=== PATIENT | female | born 1965 | race Caucasian/White ===

== ENCOUNTER 2019-12-16 13:59 | Outpatient (CLI) | payer MEDICARE, MEDICAID, SELFPAY ==
[2019-12-16 14:29] LABS: Hemoglobin A1C 7.4 % (<5.7)
== END 2019-12-16 14:00 | disposition home or self-care (01) ==
LOC: ANHLAB 14:02
PROVIDERS: PCP Family Medicine; Visit Provider Family Medicine
DX: E11.9 Type 2 diabetes mellitus without complications (principal)
CPT/HCPCS: 36415; 83036

== ENCOUNTER 2020-01-05 14:13 | Outpatient (CLI) | payer MEDICARE, MEDICAID, SELFPAY ==
--- NOTE | ~2020-01-05 | MM_ITS ---
EXAMINATION: MM screening lenora BI w mira HISTORY: Screening mammogram TECHNIQUE: Craniocaudal and mediolateral oblique 3-D tomosynthesis images were obtained and synthetic 2-D images were generated. CAD analysis was submitted and interpreted. COMPARISON: 01/01/2019, 12/24/2017, 11/16/2016 bilateral digital screening mammogram examinations BREAST PARENCHYMAL COMPOSITION: The breasts are almost entirely fatty. FINDINGS: There is no evidence of suspicious mass, calcification, or architectural distortion to sugg est malignancy in either breast. There has been no suspicious interval change. IMPRESSION: 1. No mammographic evidence of malignancy. 2. Recommend routine screening mammography in one year. BI-RADS Category 1: Negative Reviewed, dictated and finalized at location A. 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
== END 2020-01-05 14:14 | disposition home or self-care (01) ==
LOC: ANHIMG 14:19
PROVIDERS: PCP Family Medicine; Visit Provider Family Medicine
DX: Z12.31 Encounter for screening mammogram for malignant neoplasm of breast (principal)
CPT/HCPCS: 77063; 77067

== ENCOUNTER 2020-03-31 18:52 | Emergency (ER) | payer MEDICARE, MEDICAID, SELFPAY ==
--- NOTE | ~2020-03-31 | CT_ITS ---
EXAMINATION: CT abdomen pelvis w con EXAM DATE: 03/31/2020 21:28 INDICATION: Abdominal pain, fecal incontinence. Falling. TECHNIQUE: Spiral CT of the abdomen and pelvis was performed following intravenous injection of 100 m L Omnipaque 350. Axial, coronal and sagittal images were reviewed. The dose-length product (DLP) fo r this examination was 1632.50 mGy-cm. The exposure was tailored according to patient size (auto mA exposure control), and iterative reconstruction (ASIR) was used as additional dose reduction techniqu e. There is no prior study for comparison. FINDINGS: The spleen is normal in size, but has a small geographically shaped wedge-shaped hypodensit y, appearance most consistent with small splenic infarction, self-limiting but can cause abdominal pa in. There is hepatic steatosis without suspicious focal lesion identified. Adrenal glands, pancreas are unremarkable. There are cholecystectomy clips. Portal and splenic veins are patent. Kidneys e nhance symmetrically. Small regions of left renal cortical scarring from prior infection or infarctio n. There is no hydronephrosis. There is small mass within central aspect of pelvis measuring about 4.1 x 4.6 cm, probably an atrophi c uterus assuming patient is postmenopausal and has not had hysterectomy. The bladder is unremarkabl e. There is no retroperitoneal or pelvic lymphadenopathy. The appendix is normal. The stomach and small bowel are unremarkable. There is expected amount of c olonic stool. No free intraperitoneal gas. There is cardiomegaly. There are no pleural or pericar dial effusions. The lung bases are unremarkable. There are no osteoblastic or osteolytic lesions id entified. There are no acute fractures identified. IMPRESSION: 1. Small geographic shaped splenic hypodensity most likely acute infarction. 2. Small regions of left renal cortical scarring. 3. Pelvic mass probably atrophic retroverted uterus. 4. Hepatic steatosis. 5. No acute fracture identified Reviewed, dictated and finalized at location A.
--- NOTE | ~2020-03-31 | XR_ITS ---
EXAMINATION: XR chest 2V EXAM DATE: 03/31/2020 20:33 INDICATION: Weakness, fever, lower extremity swelling. History diabetes. TECHNIQUE: Frontal and lateral projections of the chest obtained and reviewed. Comparison is made to prior examination from 10/06/2016. FINDINGS: The lungs are clear. There are no pleural effusions. Cardiac silhouette is enlarged but s table in size compared to prior exam. There is no pneumothorax suspected. The bones and soft tissu es are unremarkable. IMPRESSION: Cardiomegaly. Reviewed, dictated and finalized at location A. IMPRESSION: Cardiomegaly.
[2020-03-31 19:02] VITALS: BP 148/65; PULSE 83; RESP 20; TEMP 38.3; O2SAT 99
--- NOTE | 2020-03-31 19:11 | ECG_ITS ---
Measurements Intervals [place] Rate: 76 P: [place]: 0 QRS: -48 QRSD: 120 T: 78 QT: 410 QTc: 463 Interpretive Statements ATRIAL FIBRILLATION LEFT AXIS DEVIATION ST-T WAVE ABNORMALITY IN HIGH LATERAL LEADS- CONSIDER ISCHEMIA BASELINE ARTIFACT- II, III, AVF, V6 ABNORMAL ECG Electronically Signed On 03-31-2020 19:41:45 CDT by Yon Devries D.O.
[2020-03-31 19:12] VITALS: PULSE 76
[2020-03-31 19:39] LABS: Basophils Percent Auto 0.2 % (0.2-1.2); Hematocrit 36.8 % (37.0-47.0); Hemoglobin 11.5 g/dL (12.0-15.0); Immature Granulocyte Absolute 0.07 K/mm3 (0.00-0.031); Immature Granulocyte Percent A 0.4 % (0-0.5); Lymphocytes Absolute Auto 1.04 K/mm3 (0.9-3.2); Lymphocytes Percent Auto 6.3 % (18.3-44.2); Mean Corpuscular HGB Conc 31.3 g/dl (32-36); Mean Corpuscular Volume 92.7 fl (80-100); Mean Platelet Volume 10.8 fl (7.4-10.4); Monocytes Absolute Auto 1.3 K/mm3 (0.1-0.6); Monocytes Percent Auto 7.6 % (2.6-8.5); Neutrophils Absolute Auto 14.2 K/mm3 (1.3-6.7); Neutrophils Percent Auto 85.5 % (45.5-73.1); Platelet Count Result 301 k/mm3 (150-375); Red Blood Count 3.97 M/mm3 (4.2-5.4); Red Cell Distribution Width 14.8 % (11.5-14.5); White Blood Count 16.6 K/mm3 (4.5-10.0)
[2020-03-31 19:51] LABS: Alanine Aminotransferase 14 U/L (4-35); Alkaline Phosphatase 106 U/L (38-126); Aspartate Amino Transferase 20 U/L (14-36); Blood Urea Nitrogen 8 mg/dL (7-17); Calcium 9.2 mg/dL (8.4-10.2); Carbon Dioxide 34 mmol/L (22-30); Chloride 97 mmol/L (98-107); Estimated CRCL calculation 162 ml/min; Estimated Glomerular Filt Rate > 60; Glucose 221 mg/dL (65-105); Potassium 3.6 mmol/L (3.4-5.0); Sodium 136 mmol/L (137-145)
[2020-03-31 20:23] LABS: Add Urine Microscopic? YES; Appearance Urine Cloudy (Clear); Bacteria Urine Trace /hpf; Bilirubin Urine Negative (Negative); Blood Urine 1+ (Negative); Color Urine Yellow (Yellow); Glucose Urine UA Negative (Negative); Ketones Urine 1+ mg/dL (Negative); Leukocyte Esterase Ur 3+ LEU/UL (Negative); Nitrate Urine Negative (Negative); Protein Urine 1+ mg/dL (Negative); RBC Urine 21-50 /hpf (0-2); Specific Grav Ur 1.009 (1.001-1.035); Urobilinogen Urine Negative mg/dL (<2.0); WBC Clumps Urine Present /HPF; WBC Urine >75 /hpf
--- NOTE | 2020-03-31 20:44 | ED.WEAKNESS ---
HPI - Weakness General Chief complaint: Weakness Stated complaint: Weakness, Fall, ABD pain Time Seen by Provider: 03/31/20 20:34 History of Present Illness HPI Narrative: Patient presents via EMS with her sister for falling today. She usually uses a walker around the house, but fell into her sister's chair on the way to her own chair. They called EMS for help, and because she felt too weak to stand, they came in. Recently she has had diffuse abdominal pain and bloating. She said her bowels used to be regular, but recently she is alternated with soft loose fecal incontinence and no bowel for 3 days. She has frequent urination, on her water pills, and just sits on the toilet for 4 to 5 hours. She feels like she is fluid overloaded at this time. She and her sister both agree that she has excess fluid on her ankles and feet. He has had fever for the last couple days. Her only localizing symptoms is the belly pain. She and her sister have adjoining apartments, but they have been staying together since she needs so much help with her physical activity. Her legs are weak due to peripheral neuropathy, and congestive heart failure. MD Complaint: generalized weakness Onset (ago): day(s) Duration: constant Location: generalized Severity: severe Relieving factors: none Exacerbating factors: exertion Related Data Home Medications Medication Instructions Recorded Confirmed atorvastatin 40 mg tablet 40 mg PO DAILY 09/10/19 02/02/20 blood sugar diagnostic #10 each 09/10/19 02/02/20 cyanocobalamin (vitamin B-12) 1,000 mcg PO DAILY 09/10/19 02/02/20 1,000 mcg tablet dabigatran etexilate 150 mg capsule 150 mg PO BID 09/10/19 02/02/20 fluticasone propionate 50 1 spray NASAL DAILY 09/10/19 02/02/20 mcg/actuation nasal spray,suspension potassium chloride 10 mEq 10 meq PO DAILY 09/10/19 02/02/20 capsule,extended release furosemide 40 mg tablet 120 mg PO DAILY tablet 09/11/19 02/02/20 loratadine 10 mg tablet 10 mg PO DAILY 02/02/20 02/02/20 Allergies Allergy/AdvReac Type Severity Reaction Status Date / Time No Known Allergies Allergy Verified 02/02/20 09:07 Review of Systems Review of Systems: Narrative: CONSTITUTIONAL: He has had fever. EYES: Denies visual changes, redness, or discharge. ENT: Denies rhinorrhea, congestion, sore throat, or otalgia. CARDIOVASCULAR: Denies chest pain, palpitations, or edema. RESPIRATORY: Denies cough or dyspnea. GASTROINTESTINAL: She has had generalized abdominal pain, and diarrhea. GENITOURINARY: Denies dysuria or hematuria. SKIN: Denies rash or itching. MUSCULOSKELETAL: Denies back pain, joint pain, or myalgia. NEUROLOGIC: Denies headache, numbness. PSYCHIATRIC: Denies anxiety or depression. All systems reviewed & are unremarkable except as noted in HPI and below PMFSH Past Medical History Medical History Abnormal gait Benign hypertension Bilateral leg weakness Bilateral wrist pain Encounter for general adult medical examination w/o abnormal findings Hyperlipidemia LDL goal <100 Hypothyroidism determined by thyroid function test Hypoxemia Idiopathic peripheral autonomic neuropathy (06/26/19) Left shoulder pain Morbid obesity Peripheral neuropathy Psoriasis Recurrent falls while walking Screening for malignant neoplasm of colon Type 2 diabetes, controlled, with neuropathy Surgical History Surgical History History of cholecystectomy History of tonsillectomy Family History Family History Father Acute myocardial infarction Mother Family history of malignant neoplasm of cervix Other Diabetes mellitus Family history of coronary artery disease Hypertension Social History Social History Smoking status: Never smoker Second hand tobacco smoke exposure: No Alcohol intake:
[2020-03-31 21:11] LABS: NT Pro B Type Natriuretic Pept 1340 PG/ML (5-100)
[2020-03-31 23:38] VITALS: BP 167/82; PULSE 75; RESP 18; O2SAT 99
[2020-04-01] MEDS: ACETAMINOPHEN 325 MG TABLET 650 MG (00:21)
[2020-04-01 00:29] VITALS: BP 157/89; PULSE 74; RESP 18; O2SAT 99
[2020-04-01 01:08] VITALS: BP 139/64; PULSE 89; RESP 23; O2SAT 99
[2020-04-01] MEDS: ONDANSETRON INJ 4 MG/2 ML VIAL (01:34)
== END 2020-04-01 02:05 | disposition short-term general hospital (02) ==
PROVIDERS: Emergency Provider Emergency Medicine; PCP Family Medicine
DX: R53.1 Weakness (principal); D73.5 Infarction of spleen; R26.2 Difficulty in walking, not elsewhere classified; E66.01 Morbid (severe) obesity due to excess calories; Z68.44 Body mass index [BMI] 60.0-69.9, adult; N39.0 Urinary tract infection, site not specified; R19.00 Intra-abdominal and pelvic swelling, mass and lump, unspecified site; K76.0 Fatty (change of) liver, not elsewhere classified; I02.0 Rheumatic chorea with heart involvement; I10 Essential (primary) hypertension; E78.5 Hyperlipidemia, unspecified; E03.9 Hypothyroidism, unspecified; E11.42 Type 2 diabetes mellitus with diabetic polyneuropathy
CPT/HCPCS: 36415; 51701; 71046; 74177; 80053; 81001; 83605; 83880; 85025; 87040; 87077; 87086; 87088; 87186; 93005; 96365; 96375; 99285; A9270; J0696; J2405; J7030; Q9967

== ENCOUNTER 2020-09-14 14:23 | Inpatient (IN) | payer MEDICARE, MEDICAID, SELFPAY ==
[2020-09-14] VITALS (21 sets, daily range): BP systolic 102–175; BP diastolic 53–83; PULSE 57–91; RESP 18–39; TEMP 36.6–36.7; O2SAT 86–96; BMI 65.3
--- NOTE | ~2020-09-14 | XR_ITS ---
XR chest 1V portable 10/10/2020 06:10 Indication: Covid19 pneumonia Procedure: AP portable chest Comparison: Comparison to multiple prior studies sequentially, with oldest reviewed study dated 12/2019. Findings: Diffuse bilateral airspace consolidation has progressed. No pneumothorax. No significant pl eural effusion. Impression: 1: Progression of diffuse bilateral airspace consolidation, consistent with pneumonia. Reviewed, dictated and finalized at location A. 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
--- NOTE | ~2020-09-14 | XR_ITS ---
EXAMINATION: XR chest 1V portable DATE: 09/22/2020 06:08 INDICATION: COVID-19 pneumonia. TECHNIQUE: A single frontal view of the chest was obtained. COMPARISON: Chest single view 09/21/2020 FINDINGS: There are airspace opacities throughout the lungs bilaterally. No pleural effusion or pneum othorax. Cardiomegaly is noted. The endotracheal tube tip is 4.0 cm above the donna. The nasogastric tube tip is beyond the inferior margin of the radiograph, but at least to the stomach. A right upper extremity peripherally inserted central venous catheter (PICC) is seen with tip in the superior vena cava. IMPRESSION: 1. Stable diffuse lung disease, consistent with pneumonia versus pulmonary edema versus acute respira tory distress syndrome (ARDS). 2. Cardiomegaly. Reviewed, dictated and finalized at location A. INE OVERHAULER IMPRESSION: 1. Stable diffuse lung disease, consistent with pneumonia versus pulmonary rosa a versus acute respiratory distress syndrome (ARDS). 2. Cardiomegaly.
--- NOTE | ~2020-09-14 | XR_ITS ---
EXAMINATION: XR chest 1V portable EXAM DATE: 09/17/2020 06:37 INDICATION: COVID-19 pneumonia Respiratory failure. TECHNIQUE: Portable AP frontal chest x-ray was obtained. Comparison is made to prior examination from 09/15, 09/16. FINDINGS: Endotracheal tube tip is 3-4 centimeters above the donna (ideal range is between 2 to 5 cm ). There is a nasogastric tube seen with tip collimated off the study, but below the left hemidiaphr agm. There is a right-sided PICC line with tip projecting over the cavoatrial junction. There is extensive bilateral acute airspace disease, consistent with COVID-19 pneumonia. There are n o sizable pleural effusions. There is no pneumothorax suspected. The cardiac silhouette is enlarg ed. The bones and soft tissues are unremarkable. Compared to prior examination, possible slight interval improvement in the airspace disease. IMPRESSION: 1. Line(s) and tube(s) in position. 2. Extensive acute airspace disease, clinical correlation. OR CHEMIST Reviewed, dictated and finalized at location A.
--- NOTE | ~2020-09-14 | XR_ITS ---
EXAMINATION: XR chest 1V portable EXAM DATE: 10/08/2020 06:18 INDICATION: COVID-19 pneumonia, respiratory failure TECHNIQUE: Portable AP frontal chest x-ray was obtained. Comparison is made to prior examination from 10/07, 10/05. FINDINGS: There is tracheostomy in position. There is a right-sided PICC line with tip projecting ove r the SVC. Moderate to severe amount of bilateral ill-defined acute airspace disease. There are no sizable pleu ral effusions. There is no pneumothorax suspected. The cardiac silhouette is enlarged. The bone s and soft tissues are unremarkable. Previously seen endotracheal and nasogastric tubes no longer identified. There is no significant inte rval change in airspace disease. IMPRESSION: 1. Line and tube(s) in position. 2. Moderate to severe amount of bilateral edema and/or infection. E STACKER HAND Reviewed, dictated and finalized at location A.
--- NOTE | ~2020-09-14 | XR_ITS ---
EXAMINATION: XR chest 1V portable EXAM DATE: 10/06/2020 05:47 INDICATION: COVID-19. Respiratory failure. TECHNIQUE: Portable AP frontal chest x-ray was obtained. Comparison is made to prior examination from 10/05. FINDINGS: Endotracheal tube tip is 3 centimeters above the donna. There is a nasogastric tube seen with tip collimated off the study, but below the left hemidiaphragm. There is a right-sided PICC line with tip projecting over the SVC. Moderate to severe amount of bilateral ill-defined acute airspace disease. There are no sizable pleu ral effusions. There is no pneumothorax suspected. The cardiomediastinal silhouette is prominent but magnified on this AP technique. The bones and soft tissues are unremarkable. There is no significant interval change. IMPRESSION: 1. Line and tube(s) in position. 2. Moderate to severe amount of bilateral edema and/or infection. Reviewed, dictated and finalized at location A. 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
--- NOTE | ~2020-09-14 | XR_ITS ---
XR chest PICC line DATE: 09/15/2020 22:09 INDICATION: PICC line placement TECHNIQUE: Portable AP chest on 09/15/2020 at 2158 hours COMPARISON: 09/15/2020 portable AP chest at 1430 hours FINDINGS: ET tube in satisfactory position approximately 2.5 cm above donna. NG tube in stomach. Right upper extremity PIC catheter tip overlies the superior vena cava near the superior cavoatrial j unction. There are extensive bilateral pulmonary infiltrates are again noted. Probable cardiomegaly. IMPRESSION: Right upper extremity PICC line placement in superior vena cava near superior cavoatrial junction Reviewed, dictated and finalized at Location A. Reviewed, dictated and finalized at location A. HER FORECASTER IMPRESSION: Right upper extremity PICC line placement in superior vena cava zofia r superior cavoatrial junction
--- NOTE | ~2020-09-14 | XR_ITS ---
EXAMINATION: XR chest 1V portable EXAM DATE: 09/27/2020 06:15 INDICATION: f/u COVID, resp failure TECHNIQUE: Portable AP frontal chest x-ray was obtained. Comparison is made to prior examination from 09/25, 09/24. FINDINGS: Endotracheal tube tip is 3.5 centimeters above the donna (ideal range is between 2 to 5 cm ). There is a nasogastric tube seen with tip collimated off the study, but below the left hemidiaphr agm. There is a right-sided PICC line with tip projecting over the cavoatrial junction. There is moderate to severe amount of acute bilateral ill-defined airspace disease with regions of co nfluence. Appearance is consistent with provided history of COVID-19 pneumonia. There are no sizable pleural effusions. There is no pneumothorax suspected. Mild cardiomegaly. Bridging thoracolumba r endplate osteophytes. There is no significant interval change compared to prior exam. IMPRESSION: 1. Line(s) and tube(s) in position. 2. Stable airspace disease and other findings as above. MASTER Reviewed, dictated and finalized at location B.
--- NOTE | ~2020-09-14 | XR_ITS ---
EXAMINATION: XR chest 1V portable EXAM DATE: 10/07/2020 06:15 INDICATION: COVID-19 pneumonia, respiratory failure. TECHNIQUE: Portable AP frontal chest x-ray was obtained. Comparison is made to prior examination from 10/06, 10/05, 10/04. FINDINGS: Endotracheal tube tip is 3 centimeters above the donna. There is a nasogastric tube seen with tip collimated off the study, but below the left hemidiaphragm. There is a right-sided PICC line with tip projecting over the SVC. Moderate to severe amount of bilateral ill-defined acute airspace disease. There are no sizable pleu ral effusions. There is no pneumothorax suspected. The cardiac silhouette is enlarged. The bone s and soft tissues are unremarkable. There is no significant interval change. IMPRESSION: 1. Line and tube(s) in position. 2. Moderate to severe amount of bilateral edema and/or infection. Reviewed, dictated and finalized at location A. STITCH BINDER
--- NOTE | ~2020-09-14 | XR_ITS ---
EXAMINATION: XR chest 1V portable EXAM DATE: 09/25/2020 05:59 INDICATION: COVID-19 pneumonia . TECHNIQUE: Portable AP frontal chest x-ray was obtained. Comparison is made to prior examination from 09/24. FINDINGS: Endotracheal tube tip is 4.5 centimeters above the donna (ideal range is between 2 to 5 cm ). There is a nasogastric tube seen with tip collimated off the study, but below the left hemidiaphr agm. There is moderate to severe amount of acute bilateral ill-defined airspace disease with regions of co nfluence. Appearance is consistent with provided history of COVID-19 pneumonia. There are no sizable pleural effusions. There is no pneumothorax suspected. Mild cardiomegaly. Bridging thoracolumba r endplate osteophytes. There is no significant interval change compared to prior exam. IMPRESSION: 1. Line(s) and tube(s) in position. 2. Stable airspace disease and other findings as above. Reviewed, dictated and finalized at location A. CAL SERVICES COORDINATOR
--- NOTE | ~2020-09-14 | XR_ITS ---
EXAMINATION: XR chest 1V portable DATE: 09/20/2020 05:47 INDICATION: COVID-19 pneumonia. TECHNIQUE: A single frontal view of the chest was obtained. COMPARISON: Chest single view 09/19/2020, CT abdomen and pelvis 03/31/2020 FINDINGS: The patient is rotated to her left. There are airspace opacities in all lung zones bilatera lly. No pleural effusion or pneumothorax. Cardiomegaly is noted. The endotracheal tube tip is 3.3 cm above the donna. The nasogastric tube tip overlies the superior mediastinum. A right upper extremity peripherally inserted central venous catheter (PICC) is seen with tip at superior cavoatrial junctio n. IMPRESSION: 1. Diffuse lung disease with slight improvement in right lung base, consistent with pneumonia versus pulmonary edema versus acute respiratory distress syndrome (ARDS). 2. Cardiomegaly. 3. Nasogastric tube tip overlying the superior mediastinum. Repositioning is recommended. Reviewed, dictated and finalized at location A. H SHEAR OPERATOR IMPRESSION: 1. Diffuse lung disease with slight improvement in right lung base, consistent with pneumonia versus pulmonary edema versus acute respiratory distress syndrom e (ARDS). 2. Cardiomegaly. 3. Nasogastric tube tip overlying the superior mediastinum. Repositioning is re commended.
--- NOTE | ~2020-09-14 | XR_ITS ---
XR chest 1V portable DATE: 10/03/2020 06:01 INDICATION: Respiratory failure TECHNIQUE: Portable AP chest on 10/03/2020 at 0533 hours COMPARISON: 10/02/2020 portable AP chest at 0530 hours FINDINGS: ET tube in satisfactory position 2.8 cm above donna. NG tube in stomach. Right upper extre mity PIC catheter tip overlies superior vena cava. Diffuse prominent patchy consolidating infiltrates again noted throughout both lungs, stable since . No pleural effusion or pneumothorax. IMPRESSION: Persistent stable diffuse prominent patchy bilateral pulmonary infiltrates, relatively un changed since 10/02/2020 Reviewed, dictated and finalized at location A. ODONTIST SMALL BUSINESS OWNER IMPRESSION: Persistent stable diffuse prominent patchy bilateral pulmonary infi ltrates, relatively unchanged since 10/02/2020
--- NOTE | ~2020-09-14 | XR_ITS ---
EXAMINATION: XR abdomen NG/feed tube rechec DATE: 09/20/2020 08:34 INDICATION: Nasogastric tube adjustment. TECHNIQUE: A semiupright view of the abdomen was obtained. COMPARISON: Abdomen single view 09/15/2020 FINDINGS: The lower abdomen and right lateral aspect of the abdomen are excluded. There are no visibl e dilated loops of bowel. The nasogastric tube tip is in the distal stomach. IMPRESSION: 1. Nasogastric tube tip in the distal stomach. Reviewed, dictated and finalized at location A. ARCH INTERN
--- NOTE | ~2020-09-14 | XR_ITS ---
EXAMINATION: XR chest 1V portable DATE: 09/14/2020 15:20 INDICATION: Shortness of breath and cough. TECHNIQUE: A single frontal view of the chest was obtained on 2 radiographs. COMPARISON: Chest 2 views 03/31/2020, CT abdomen and pelvis 03/31/2020 FINDINGS: There are airspace opacities in all lung zones bilaterally. No pleural effusion or pneumoth orax. Cardiomegaly is noted. IMPRESSION: 1. Diffuse lung disease, consistent with pulmonary edema versus pneumonia. 2. Cardiomegaly. Reviewed, dictated and finalized at location B. BUILDER
--- NOTE | ~2020-09-14 | XR_ITS ---
XR chest 1V portable DATE: 09/30/2020 06:42 INDICATION: COVID, Congestive heart failure TECHNIQUE: Portable AP chest at 0617 hours COMPARISON: 09/29/2020 portable AP chest at 0550 hours FINDINGS: ET and NG tubes are in satisfactory position, the ET tube tip 3.5 cm above donna. There are extensive diffuse patchy bilateral pulmonary consolidating infiltrates, increased in sever ity since 09/29/2020. No pleural effusion or pneumothorax is detected. IMPRESSION: Increasingly severe bilateral extensive pulmonary patchy consolidating infiltrates since 09/29/2020 Reviewed, dictated and finalized at location A. WORK SUPERVISOR IMPRESSION: Increasingly severe bilateral extensive pulmonary patchy consolidat ing infiltrates since 09/29/2020
--- NOTE | ~2020-09-14 | XR_ITS ---
EXAMINATION: XR chest ET placement DATE: 09/15/2020 14:48 INDICATION: Intubation. TECHNIQUE: A single frontal view of the chest was obtained. COMPARISON: Chest single view 09/15/2020 at 9:48 AM FINDINGS: There are patchy airspace opacities involving all lung zones bilaterally. No pleural effusi on or pneumothorax. Cardiomegaly is noted. The endotracheal tube tip is 2.9 cm above the donna. The nasogastric tube tip is beyond the inferior margin of the radiograph, but at least to the stomach. IMPRESSION: 1. Worsened diffuse lung disease, consistent with pulmonary edema versus pneumonia. 2. Cardiomegaly. Reviewed, dictated and finalized at location B. ARCH AFFILIATE IMPRESSION: 1. Worsened diffuse lung disease, consistent with pulmonary edema versus pneumo juanis. 2. Cardiomegaly.
--- NOTE | ~2020-09-14 | XR_ITS ---
EXAMINATION: XR abdomen NG/feed tube insert DATE: 09/15/2020 14:48 INDICATION: Nasogastric tube placement. TECHNIQUE: An upright view of the abdomen was obtained. COMPARISON: None. FINDINGS: The lower abdomen and right lateral aspect of the abdomen excluded. The nasogastric tube ti p is in the stomach. IMPRESSION: 1. Nasogastric tube tip in the stomach. Reviewed, dictated and finalized at location B. MOBILE RENTAL REPRESENTATIVE
--- NOTE | ~2020-09-14 | XR_ITS ---
EXAMINATION: XR abdomen NG/feed tube rechec DATE: 09/15/2020 14:48 INDICATION: Orogastric tube advancement. TECHNIQUE: An upright view of the abdomen was obtained. COMPARISON: CT abdomen and pelvis 03/31/2020 FINDINGS: The lower abdomen and right lateral aspect of the abdomen is excluded. Surgical clips in th e right upper quadrant are likely from cholecystectomy. The nasogastric tube tip is in the stomach. T here is prominent bowel in the midabdomen. IMPRESSION: 1. Nasogastric tube tip in the stomach. 2. Prominent bowel in the midabdomen which may be magnified normal bowel or dilated bowel from adynam ic ileus. Reviewed, dictated and finalized at location B. ERATIVE EXTENSION AGENT IMPRESSION: 1. Nasogastric tube tip in the stomach. 2. Prominent bowel in the midabdomen which may be magnified normal bowel or dil ated bowel from adynamic ileus.
--- NOTE | ~2020-09-14 | XR_ITS ---
EXAMINATION: XR chest 1V portable DATE: 09/24/2020 06:14 INDICATION: COVID-19 pneumonia. TECHNIQUE: A single frontal view of the chest was obtained. COMPARISON: Chest single view 09/23/2020 FINDINGS: The patient is rotated to her left. There are airspace opacities in all lung zones bilatera lly, worst in right lower lung zone. No pleural effusion or pneumothorax. Cardiomegaly is noted. The endotracheal tube tip is 4.9 cm above the donna. The nasogastric tube tip is beyond the inferior mar gin of the radiograph, but at least to the stomach. A right upper extremity peripherally inserted vipul tral venous catheter (PICC) is seen with tip in the superior vena cava. IMPRESSION: 1. Diffuse lung disease with slight improvement on the left, consistent with pneumonia versus pulmona ry edema versus acute respiratory distress syndrome (ARDS). 2. Cardiomegaly. Reviewed, dictated and finalized at location A. B NURSING TECH IMPRESSION: 1. Diffuse lung disease with slight improvement on the left, consistent with pn eumonia versus pulmonary edema versus acute respiratory distress syndrome (ARDS ). 2. Cardiomegaly.
--- NOTE | ~2020-09-14 | XR_ITS ---
XR chest 1V portable 09/29/2020 06:07 Indication: CovidPneumonia. Respiratory failure. Procedure: AP portable chest Comparison: Comparison to multiple prior studies sequentially, with oldest reviewed study dated 09/05. Findings: Endotracheal tube at the thoracic inlet, 7.4 cm above the donna. NG tube in the stomach. D iffuse bilateral airspace disease without significant change, consistent with pneumonia. No pleural e ffusion or pneumothorax. No acute osseous abnormality. Impression: 1: Diffuse bilateral airspace disease, compatible with pneumonia. Reviewed, dictated and finalized at location A. DELIVERER Impression: 1: Diffuse bilateral airspace disease, compatible with pneumonia.
--- NOTE | ~2020-09-14 | XR_ITS ---
EXAMINATION: XR chest 1V portable EXAM DATE: 09/15/2020 09:56 INDICATION: Respiratory failure. TECHNIQUE: Portable AP frontal chest x-ray was obtained. Comparison is made to prior examination from 09/14/2020. FINDINGS: Extensive patchy bilateral acute airspace disease, could be ARDS/edema and/or infection. CO VID 19 should be excluded. No pneumothorax or pleural effusion. The cardiac silhouette is enlarged. T here are no osseous abnormalities identified. IMPRESSION: Extensive bilateral acute airspace disease, clinical correlation. Reviewed, dictated and finalized at location A. MOTIVE PAINTER
--- NOTE | ~2020-09-14 | XR_ITS ---
EXAMINATION: XR chest 1V portable DATE: 09/21/2020 05:34 INDICATION: COVID-19 pneumonia. TECHNIQUE: A single frontal view of the chest was obtained. COMPARISON: Chest single view 09/20/2020 FINDINGS: There are airspace opacities throughout all lung zones bilaterally. No pleural effusion or pneumothorax. Cardiomegaly is noted. The endotracheal tube tip is 3.8 cm above the donna. A right up per extremity peripherally inserted central venous catheter (PICC) is seen with tip at the superior c avoatrial junction. The nasogastric tube tip is beyond the inferior margin of the radiograph, but at least to the stomach. IMPRESSION: 1. Stable diffuse lung disease, consistent with pneumonia versus pulmonary edema versus acute respira tory distress syndrome (ARDS). 2. Cardiomegaly. Reviewed, dictated and finalized at location A. N ATTENDANT IMPRESSION: 1. Stable diffuse lung disease, consistent with pneumonia versus pulmonary rosa a versus acute respiratory distress syndrome (ARDS). 2. Cardiomegaly.
--- NOTE | ~2020-09-14 | XR_ITS ---
EXAMINATION: XR chest 1V portable INDICATION: COVID 19 pneumonia TECHNIQUE: Portable AP chest at 0743 hours COMPARISON: 09/17/2020 FINDINGS: The endotracheal tube ends approximately 3.4 cm above the donna. The nasogastric tube is f ollowed as far as the stomach. Its tip is beyond the inferior margin of the radiograph. A right upper extremity PICC ends with its tip in the superior vena cava. There is stable cardiomegaly. Diffuse in terstitial and airspace opacities persist with slight improvement in the right upper lung zone. IMPRESSION: 1. Diffuse lung disease with interval improvement, consistent with pneumonia and/or pulmonary edema a nd/or acute respiratory distress syndrome (ARDS). Reviewed, dictated and finalized at location A. ICUT LINE OPERATOR IMPRESSION: 1. Diffuse lung disease with interval improvement, consistent with pneumonia an d/or pulmonary edema and/or acute respiratory distress syndrome (ARDS).
--- NOTE | ~2020-09-14 | XR_ITS ---
EXAMINATION: XR chest 1V portable EXAM DATE: 09/16/2020 06:04 INDICATION: Respiratory failure. COVID-19. TECHNIQUE: Portable AP frontal chest x-ray was obtained. Comparison is made to prior examination from 09/15, 09/14. FINDINGS: Endotracheal tube tip is 2 centimeters above the donna (ideal range is between 2 to 5 cm). There is a nasogastric tube seen with tip collimated off the study, but below the left hemidiaphrag m. There is a right-sided PICC line with tip projecting over the cavoatrial junction. There is extensive bilateral acute airspace disease, consistent with COVID-19 pneumonia. There are n o sizable pleural effusions. There is no pneumothorax suspected. The cardiac silhouette is enlarg ed. The bones and soft tissues are unremarkable. There is no significant interval change compared to prior exam. IMPRESSION: 1. Line(s) and tube(s) in position. 2. Extensive acute airspace disease, clinical correlation. Reviewed, dictated and finalized at location A. STOS CLOTH INSPECTOR
--- NOTE | ~2020-09-14 | XR_ITS ---
EXAMINATION: XR chest 1V portable DATE: 10/11/2020 05:42 INDICATION: COVID 19 pneumonia. Respiratory failure. TECHNIQUE: frontal view of the chest was obtained. COMPARISON: Chest radiograph dated 10/10/2020 FINDINGS: Tracheostomy tube remains in expected position at the thoracic inlet. Right upper extremity periphera lly inserted central venous catheter (PICC) tip at the mid superior vena cava. Diffuse bilateral patchy airspace opacities throughout both lungs. No pneumothorax or definitive pleu ral effusion. Cardiomegaly. IMPRESSION: 1. No significant change in diffuse bilateral lung disease which could represent moderate pulmonary e kyle, pneumonia, ARDS or some combination thereof. Reviewed, dictated and finalized at location A. REPAIRER IMPRESSION: 1. No significant change in diffuse bilateral lung disease which could represen t moderate pulmonary edema, pneumonia, ARDS or some combination thereof.
--- NOTE | ~2020-09-14 | XR_ITS ---
EXAMINATION: XR chest 1V portable EXAM DATE: 10/05/2020 06:16 INDICATION: Respiratory failure. COVID-19. TECHNIQUE: Portable AP frontal chest x-ray was obtained. Comparison is made to prior examination from 10/04. FINDINGS: Endotracheal tube tip is 3 centimeters above the donna. There is a nasogastric tube seen with tip collimated off the study, but below the left hemidiaphragm. There is a right-sided PICC line with tip projecting over the SVC. Moderate to severe amount of bilateral ill-defined acute airspace disease. There are no sizable pleu ral effusions. There is no pneumothorax suspected. The cardiomediastinal silhouette is prominent but magnified on this AP technique. The bones and soft tissues are unremarkable. no significant interval change. IMPRESSION: 1. Line and tube(s) in position. 2. Moderate to severe amount of bilateral edema and/or infection. Reviewed, dictated and finalized at location A. GER OF CASE
--- NOTE | ~2020-09-14 | XR_ITS ---
XR chest 1V portable DATE: 10/01/2020 05:49 INDICATION: Covid 19 pneumonia TECHNIQUE: Portable AP chest on 10/01/2020 at 0531 hours COMPARISON: 09/30/2020 portable AP chest at 0617 hours FINDINGS: ET tube tip in satisfactory position approximately 3.6 cm above donna. NG tube is noted in stomach. Right upper extremity PIC catheter in superior vena cava. Cardiomegaly. There are extensive bilateral patchy consolidating pulmonary infiltrates, minimally imp roved since 09/30/2020 IMPRESSION: Minimal improvement of extensive bilateral pulmonary infiltrates since 09/30/2020 Interval placement of right upper extremity PIC catheter in superior vena cava Reviewed, dictated and finalized at location A. DEHYDRATOR OPERATOR IMPRESSION: Minimal improvement of extensive bilateral pulmonary infiltrates si nce 09/30/2020 Interval placement of right upper extremity PIC catheter in superior vena cava
--- NOTE | ~2020-09-14 | XR_ITS ---
EXAMINATION: XR chest 1V portable EXAM DATE: 10/04/2020 05:57 INDICATION: Respiratory failure. COVID-19. TECHNIQUE: Portable AP frontal chest x-ray was obtained. Comparison is made to prior examination from 10/03, 10/02. FINDINGS: Endotracheal tube tip is 3 centimeters above the donna. There is a nasogastric tube seen with tip collimated off the study, but below the left hemidiaphragm. There is a right-sided PICC line with tip projecting over the SVC. Moderate amount of bilateral ill-defined acute airspace disease. There are no sizable pleural effusi ons. There is no pneumothorax suspected. The cardiomediastinal silhouette is prominent but magnif ied on this AP technique. The bones and soft tissues are unremarkable. Mild improvement in the right midlung zone, otherwise no significant interval change. IMPRESSION: 1. Line and tube(s) in position. 2. Moderate amount of bilateral edema and/or infection. Reviewed, dictated and finalized at location A. LAINT SPECIALIST
--- NOTE | ~2020-09-14 | XR_ITS ---
XR chest 1V portable DATE: 10/02/2020 06:19 INDICATION: Respiratory failure TECHNIQUE: Portable AP chest on 10/02/2020 at 0530 hours COMPARISON: 10/01/2020 portable AP chest at 0531 hours FINDINGS: ET tube tip is in satisfactory position 2.6 cm above donna. NG tube in stomach. Right uppe r extremity PIC catheter tip overlies superior vena cava.. There are diffuse bilateral patchy prominent pulmonary infiltrates, without significant change since 10/01/2020. No pleural effusion or pneumothorax is evident. IMPRESSION: No significant change of extensive prominent patchy bilateral pulmonary infiltrates since 10/01/2020 Reviewed, dictated and finalized at location A. FORCING STEEL ERECTOR IMPRESSION: No significant change of extensive prominent patchy bilateral pulmo nary infiltrates since 10/01/2020
--- NOTE | ~2020-09-14 | XR_ITS ---
EXAMINATION: XR chest 1V portable DATE: 09/23/2020 06:09 INDICATION: COVID-19 pneumonia. TECHNIQUE: A single frontal view of the chest was obtained. COMPARISON: Chest single view 09/22/2020 FINDINGS: The patient is rotated to her left. There are airspace opacities in all lung zones bilatera lly. No pleural effusion or pneumothorax. Cardiomegaly is noted. The endotracheal tube tip is 4.0 cm above the donna. The nasogastric tube tip is beyond the inferior margin of the radiograph, but at le ast to the stomach. A right upper extremity peripherally inserted central venous catheter (PICC) is s een with tip in the superior vena cava. IMPRESSION: 1. Stable diffuse lung disease, consistent with pneumonia versus pulmonary edema versus acute respira tory distress syndrome (ARDS). 2. Cardiomegaly. Reviewed, dictated and finalized at location A. ORK FIREWALL ENGINEER IMPRESSION: 1. Stable diffuse lung disease, consistent with pneumonia versus pulmonary rosa a versus acute respiratory distress syndrome (ARDS). 2. Cardiomegaly.
--- NOTE | ~2020-09-14 | XR_ITS ---
EXAMINATION: XR chest 1V portable DATE: 09/20/2020 08:34 INDICATION: COVID-19 pneumonia. TECHNIQUE: A single frontal view of the chest was obtained on 2 radiographs. COMPARISON: Chest single view at 5:27 AM FINDINGS: There are airspace opacities in all lung zones bilaterally. No pleural effusion or pneumoth orax. Cardiomegaly is noted. The endotracheal tube tip is 3.0 cm above the donna. The nasogastric tu be tip is in the distal stomach. A right upper extremity peripherally inserted central venous cathete r (PICC) is seen with tip at the superior cavoatrial junction. IMPRESSION: 1. Stable diffuse lung disease, consistent with pneumonia versus pulmonary edema versus acute respira tory distress syndrome (ARDS). 2. Cardiomegaly. Reviewed, dictated and finalized at location A. UNT MANAGER EDUCATION IMPRESSION: 1. Stable diffuse lung disease, consistent with pneumonia versus pulmonary rosa a versus acute respiratory distress syndrome (ARDS). 2. Cardiomegaly.
--- NOTE | ~2020-09-14 | XR_ITS ---
XR chest 1V portable 10/09/2020 05:46 Indication: Covid19 pneumonia. Respiratory failure. Procedure: AP portable chest Comparison: Comparison to multiple prior studies sequentially, with oldest reviewed study dated 11/2019. Findings: Tracheostomy tube present. PICC line tip in the SVC. Unchanged diffuse bilateral airspace d isease. No significant pleural effusion or pneumothorax. No acute osseous abnormality. Impression: 1: Persistent diffuse bilateral airspace disease, unchanged. Differential diagnosis includes edema an d/or pneumonia. Reviewed, dictated and finalized at location A. GOLF COACH Impression: 1: Persistent diffuse bilateral airspace disease, unchanged. Differential diagn osis includes edema and/or pneumonia.
--- NOTE | ~2020-09-14 | XR_ITS ---
EXAMINATION: XR chest 1V portable INDICATION: COVID 19 pneumonia TECHNIQUE: Portable AP chest at 0527 hours COMPARISON: 09/18/2020 FINDINGS: The endotracheal tube ends approximately 3.6 cm above the donna. The nasogastric tube is f ollowed as far as the stomach. Its tip is beyond the inferior margin of the radiograph. A right upper extremity PICC ends with its tip in the superior vena cava. Stable cardiomegaly is noted. There are diffuse interstitial and airspace opacities throughout all lung zones with worsening in the upper millie g zones and left midlung zone. IMPRESSION: 1. Diffuse lung disease with interval worsening, consistent with pneumonia and/or pulmonary edema and /or acute respiratory distress syndrome (ARDS). Reviewed, dictated and finalized at location A. A ENGINEER IMPRESSION: 1. Diffuse lung disease with interval worsening, consistent with pneumonia and/ or pulmonary edema and/or acute respiratory distress syndrome (ARDS).
--- NOTE | 2020-09-14 14:28 | ECG_ITS ---
Measurements Intervals [place] Rate: 62 P: [place]: 0 QRS: -13 QRSD: 118 T: 86 QT: 432 QTc: 442 Interpretive Statements ATRIAL FIBRILLATION INTRAVENTRICULAR CONDUCTION DELAY BORDERLINE ST-T WAVE ABNORMALITY- HIGH LATERAL LEADS BASELINE ARTIFACT- I, II, III, AVR, AVL ,AVF, V2-V3 ABNORMAL ECG Electronically Signed On 09-14-2020 15:01:55 TRUCK OPERATOR by Yon Devries D.O.
[2020-09-14 14:44] LABS: Basophils Percent Auto 0.2 % (0.2-1.2); Hematocrit 34.4 % (37.0-47.0); Hemoglobin 10.4 g/dL (12.0-15.0); Immature Granulocyte Absolute 0.07 K/mm3 (0.00-0.031); Immature Granulocyte Percent A 0.8 % (0-0.5); Lymphocytes Absolute Auto 1.24 K/mm3 (0.9-3.2); Lymphocytes Percent Auto 14.1 % (18.3-44.2); Mean Corpuscular HGB Conc 30.2 g/dl (32-36); Mean Corpuscular Hemoglobin 27.4 pg (26-34); Mean Corpuscular Volume 90.5 fl (80-100); Mean Platelet Volume 9.7 fl (7.4-10.4); Monocytes Absolute Auto 0.5 K/mm3 (0.1-0.6); Monocytes Percent Auto 5.5 % (2.6-8.5); Neutrophils Percent Auto 79.4 % (45.5-73.1); Platelet Count Result 238 k/mm3 (150-375); Red Cell Distribution Width 15.7 % (11.5-14.5); White Blood Count 8.8 K/mm3 (4.5-10.0)
[2020-09-14 14:54] LABS: Lactic Acid Reflex 1.5 mmol/L (0.7-2.1)
[2020-09-14 14:55] LABS: Anion Gap 6 mmol/L (8-16); Blood Urea Nitrogen 13 mg/dL (7-17); Calcium 8.4 mg/dL (8.4-10.2); Carbon Dioxide 33 mmol/L (22-30); Chloride 102 mmol/L (98-107); Estimated CRCL calculation 193 ml/min; Estimated Glomerular Filt Rate > 60; Glucose 299 mg/dL (65-105); Sodium 141 mmol/L (137-145)
[2020-09-14] MEDS: ALBUTEROL SULFATE NEB 2.5 MG/0.5 ML INH 5 MG INHALATION ×2 (15:29→21:11)
[2020-09-14] MEDS: IPRATROPIUM BR 0.02% INH SOLN 0.5 MG/2.5 ML VIAL INHALATION (15:29)
[2020-09-14 15:41] LABS: NT Pro B Type Natriuretic Pept 1020 PG/ML (5-100); Troponin I 0.039 ng/mL (0.000-0.034)
[2020-09-14] MEDS: methylPREDNISolone SOD SUCC 125 MG VIAL IV PUSH (15:52)
[2020-09-14 15:55] LABS: Alveolar/Arterial O2 Gradient 72.5 mmHg; Base Excess ABG 3.5 mEq/l (+/-2.0); Carboxyhemoglobin 0.9 % THb (0-2.0); Fractional Inspired Oxygen 30 %; Oxygen Content ABG 14.1 %vol (16.0-22.0); Oxygen Saturation ABG 91.4 % (95.0-100.0); Oxyhemoglobin 91.1 % THb (90.0-100.0); PO2 ABG 67.8 mmHg (80.0-100.0); PO2 FiO2 Ratio Arterial Blood 2.26 %; pH ABG 7.313 (7.350-7.450)
[2020-09-14 15:57] LABS: PCO2 ABG 62.6 mmHg (35.0-45.0); Site Drawn RIGHT BRACHIAL
[2020-09-14 15:58] LABS: Device NASAL CANNULA; Liters per Minute 2.5 LPM
--- NOTE | 2020-09-14 16:11 | ED.SOB ---
HPI - SOB/Dyspnea General Chief Complaint: Shortness of Breath/Dyspnea Stated Complaint: SOB Time Seen by Provider: 09/14/20 14:55 History of Present Illness HPI Narrative: Patient is a 55-year-old female presents emerged cardiology complaint of shortness of breath. The patient reports that she was recently treated for bronchitis by her primary care physician who started her on Augmentin. The patient states that she has progressively become more short of breath and has had to increase her oxygen from 2 L to 4 L at home. Patient reports she called EMS today after she had worsening shortness of breath and had return to 4 L and was still approximately 30 times a minute. Patient denies any COVID-19 exposure states that this feels similar to previous exacerbations. Related Data Home Medications Medication Instructions Recorded Confirmed atorvastatin 40 mg tablet 40 mg PO DAILY 09/10/19 07/01/20 cyanocobalamin (vitamin B-12) 1,000 mcg PO DAILY 09/10/19 07/01/20 1,000 mcg tablet dabigatran etexilate 150 mg capsule 150 mg PO BID 09/10/19 07/01/20 fluticasone propionate 50 1 spray NASAL DAILY 09/10/19 07/01/20 mcg/actuation nasal spray,suspension potassium chloride 10 mEq 10 meq PO DAILY 09/10/19 07/01/20 capsule,extended release furosemide 40 mg tablet 120 mg PO DAILY tablet 09/11/19 07/01/20 loratadine 10 mg tablet 10 mg PO DAILY 02/02/20 07/01/20 Allergies Allergy/AdvReac Type Severity Reaction Status Date / Time No Known Allergies Allergy Verified 09/14/20 14:29 Review of Systems Review of Systems: Narrative: CONSTITUTIONAL: Denies fever, chills, or sweats. EYES: Denies visual changes, redness, or discharge. ENT: Denies rhinorrhea, congestion, sore throat, or otalgia. CARDIOVASCULAR: Denies chest pain, palpitations, or edema. RESPIRATORY: Denies cough or dyspnea. GASTROINTESTINAL: Denies abdominal pain, nausea, vomiting, or diarrhea. GENITOURINARY: Denies dysuria or hematuria. SKIN: Denies rash or itching. MUSCULOSKELETAL: Denies back pain, joint pain, or myalgia. NEUROLOGIC: Denies headache, numbness, or weakness. PSYCHIATRIC: Denies anxiety or depression. All systems reviewed & are unremarkable except as noted in HPI and below PMFSH Past Medical History Medical History Abnormal gait Benign hypertension Bilateral leg weakness Bilateral wrist pain Encounter for general adult medical examination w/o abnormal findings Hyperlipidemia Hyperlipidemia LDL goal <100 Hypertriglyceridemia Hypothyroidism determined by thyroid function test Hypoxemia Idiopathic peripheral autonomic neuropathy (06/26/19) Left shoulder pain Morbid obesity Peripheral neuropathy Psoriasis Recurrent falls while walking Screening for malignant neoplasm of colon Type 2 diabetes, controlled, with neuropathy Surgical History Surgical History History of cholecystectomy History of tonsillectomy Family History Family History Father Acute myocardial infarction Mother Family history of malignant neoplasm of cervix Other Diabetes mellitus Family history of coronary artery disease Hypertension Social History Social History Smoking status: Never smoker Second hand tobacco smoke exposure: No Alcohol intake: never Gender identity (if verbalized by the patient): Female Comments Patient has history of congestive heart failure as well Course Course Emergency Course: Patient's chest x-ray is consistent with cardiomegaly and CHF. Patient's ABG shows mild hypercarbia with mild respiratory acidosis. The case was discussed with the hospitalist and the patient was admitted to the hospitalist service Vital Signs Vital signs: Vital Signs Temperature 36.6 C 09/14/20 14:24 Pulse Rate
--- NOTE | 2020-09-14 20:18 | PC.NURSE ---
pt. o2% 86%. Pt. NC repositioned and pt o2 back to 90%. Pt. provided ice chips.
[2020-09-14 21:01] LABS: Alveolar/Arterial O2 Gradient 141.9 mmHg; Base Excess ABG 1.7 mEq/l (+/-2.0); Fractional Inspired Oxygen 40 %; HCO3 ABG 30.8 mEq/l (22.0-26.0); Oxygen Content ABG 14.4 %vol (16.0-22.0); PO2 ABG 58.5 mmHg (80.0-100.0); PO2 FiO2 Ratio Arterial Blood 1.46 %; Total Hemoglobin 11.9 g/dL (12.0-18.0)
[2020-09-14 21:04] LABS: Oxygen Saturation ABG 84.4 % (95.0-100.0); PCO2 ABG 73.7 mmHg (35.0-45.0); pH ABG 7.239 (7.350-7.450)
[2020-09-14 21:05] LABS: Device NASAL CANNULA; Modified Allen's Test Pass; Site Drawn RIGHT RADIAL
[2020-09-14] MEDS: IPRATROPIUM BR 0.02% INH SOLN 0.5 MG/2.5 ML VIAL 1 MG INHALATION (21:11)
--- NOTE | 2020-09-14 21:37 | PM.IMHP ---
H&P: HPI History of Present Illness Date/Time: 09/14/20 21:37 Chief complaint: CHF acute exacerbation, COPD exacerbation Narrative: Dai Jacob is a 55 year old female WHO LIVES WITH HER SISTER. SHE HAS COPD. THE PATIENT STATED THAT SHE HAS NOT BEEN EXPOSED TO COVID 19. THE PATIENT STATED THAT SHE USES A NEBULIZER MACHINE AT HOME SHE HAS BEEN DOING THAT. THE PATIENT STATED THAT SHE HAS BEEN SELF QUARANTINE AND DOES NOT GO OUTSIDE. THE PATIENT STATED THAT SHE HAS BEEN DOING VIRTUAL VISIT WITH HER DOCTOR. SHE DOES HAVE SLEEP APNEA AND USES A TRILOGY AT HOME. WAS SWABBED IN THE EMERGENCY ROOM. PATIENT STATED THAT SHE HAD A FEVER FOR 2 DAYS. TO THE EMERGENCY ROOM WITH COMPLAINTS OF SHORTNESS OF BREATH. PATIENT STATED SHE RECENTLY WAS ON ANTIBIOTICS FOR BRONCHITIS. SINCE THAT WAS AUGMENTIN. SHE PROGRESSIVELY BECAME WORSE AND MORE SHORTNESS BREATH. THE PATIENT IS TYPICALLY ON 2 L NASAL CANNULA AT HOME AND WAS INCREASED TO 4 L AT HOME. SHE WAS PICKED UP BY EMS AND SHE HAD WORSENING SHORTNESS OF BREATH. SHE DENIES ANY COVID 19 EXPOSURE. SHE HAS HAD SIMILAR EPISODES WITH PREVIOUS EXACERBATIONS. SHE DOES HAVE CHF. THE PATIENT STATED THAT SHE HAS BEEN URINATING ON HERSELF TODAY AND HAS NOT BEEN ABLE TO MEASURE HER URINE. THEREFORE I THOUGHT THAT A AGUILAR CATHETER WITH BE APPROPRIATE FOR THE PATIENT. THE PATIENT WAS GIVEN NEBULIZER TREATMENT IN THE EMERGENCY ROOM AND GIVEN SOLU-MEDROL. THE PATIENT WAS SHORT OF BREATH WHEN I SAW HER AND HAD EXPIRATORY WHEEZES. CONSISTENT PULMONARY EDEMA VERSUS PNEUMONIA. CARDIOMEGALY. ON 09/14/2020 Review of Systems Review of Systems: All systems reviewed & are unremarkable except as noted in HPI and below Constitutional: Constitutional: Reports as per HPI and Reports no additional constitutional complaints Eyes: Eyes: Reports as per HPI and Reports no additional eye complaints ENT: Reports system reviewed and no additional complaints, except as documented and Reports Normal hearing present Cardiovascular: Cardiovascular: Reports no additional cardiovascular complaints Respiratory: Respiratory: Reports no additional respiratory complaints and Reports no additional respiratory complaints Gastrointestinal: Gastrointestinal: Reports as per HPI and Reports no additional gastrointestinal complaints Musculoskeletal: Musculoskeletal: Reports no additional musculoskeletal complaints Integumentary/Breasts: Skin/Breast: Reports system reviewed and no additional complaints, except as docu and Reports as per HPI Neurologic: Reports system reviewed and no additional complaints, except as documented, Reports as per HPI and Reports Normal hearing present Psychiatric: Psychiatric: Reports no additional psychiatric complaints and Reports as per HPI Endocrine: Endocrine: Reports no additional endocrine complaints Hematologic/Lymphatic: Hematologic/Lymphatic: Reports no additional hematologic/lymphatic complaints Allergic/Immunologic: Allergic/Immunologic: Reports no additional allergic/immunologic complaints [facility] Past Medical History Medical History (Updated 09/14/20 @ 22:01 by Marielena Gallagher NP) Abnormal gait Atrial fibrillation Benign hypertension Bilateral leg weakness Bilateral wrist pain DM2 (diabetes mellitus, type 2) Encounter for general adult medical examination w/o abnormal findings History of cervical cancer HISTORY OF CISIUM IMPLANT Hyperlipidemia Hyperlipidemia LDL goal <100 Hypertriglyceridemia Hypothyroidism Hypothyroidism determined by thyroid function test Hypoxemia Idiopathic peripheral autonomic neuropathy (06/26/19) Left shoulder pain Morbid obesity Peripheral neuropathy Psoriasis Recurrent falls while walking Screening for malignant neoplasm of colon Type 2 diabetes, controlled, with neuropathy Surgical History Surgical History History of cholecystectomy History of tonsillectomy Family History Family History (Re
[2020-09-14] MEDS: FUROSEMIDE INJ 40 MG/4 ML VIAL IV PUSH (21:50)
[2020-09-14] MEDS: LORazepam INJ (*CRX) 2 MG/ML VIAL 1 MG IV PUSH (22:02)
--- NOTE | 2020-09-14 22:16 | PCRCNOTE ---
AT 22:16 GETTING ABG HAD TO WAIT PT WAS PLACED ON NEB AND BIPAP. WANTED TO WAIT 30 MINS FOR TRUE ABG READING.
[2020-09-14 22:45] LABS: Alveolar/Arterial O2 Gradient 257.9 mmHg; Base Excess ABG 0.6 mEq/l (+/-2.0); Fractional Inspired Oxygen 55 %; HCO3 ABG 29.4 mEq/l (22.0-26.0); Oxygen Content ABG 14.7 %vol (16.0-22.0); Oxyhemoglobin 85.6 % THb (90.0-100.0); PO2 FiO2 Ratio Arterial Blood 1.04 %; Total Hemoglobin 12.2 g/dL (12.0-18.0)
[2020-09-14 22:47] LABS: Oxygen Saturation ABG 83.8 % (95.0-100.0); PCO2 ABG 69.4 mmHg (35.0-45.0); pH ABG 7.245 (7.350-7.450)
[2020-09-14 22:48] LABS: Device BIPAP; Expiratory Pressure 6 cmH2O; Inspiratory Pressure 12 cmH2O; Modified Allen's Test Unable to perform; Site Drawn RIGHT BRACHIAL
--- NOTE | 2020-09-14 23:19 | ADMGEN ---
This patient, Dai Jacob, was admitted to IMU Room 213-01. Patient/family oriented to hospital policies and general routines including ID bracelet, bed and alarms, visiting hours, pain management, procedures, bathroom and other care routines, personal items, smoking policy, room service/diet, and visiting hours. Information on how to activate the Rapid Response Team has been discussed. Patient/Family are encouraged to report perceived risks to care and to ask questions if they do not understand what they are told or what they should do. REPORT FROM TONY. ARRIVED AT 2300
[2020-09-14] MEDS: methylPREDNISolone SOD SUCC 125 MG VIAL 60 MG IV PUSH (23:25)
[2020-09-15] VITALS (35 sets, daily range): BP systolic 133–197; BP diastolic 58–103; PULSE 41–99; RESP 19–27; TEMP 36.5–37.1; O2SAT 88–99
[2020-09-15 00:31] LABS: Alveolar/Arterial O2 Gradient 354.9 mmHg; Base Excess ABG -1.3 mEq/l (+/-2.0); Fractional Inspired Oxygen 70 %; HCO3 ABG 27.7 mEq/l (22.0-26.0); Oxygen Content ABG 15.3 %vol (16.0-22.0); Oxygen Saturation ABG 89.9 % (95.0-100.0); Oxyhemoglobin 90.5 % THb (90.0-100.0); PO2 ABG 69.8 mmHg (80.0-100.0)
[2020-09-15 00:34] LABS: Modified Allen's Test Pass; PCO2 ABG 69.2 mmHg (35.0-45.0); Site Drawn RIGHT RADIAL
[2020-09-15 00:35] LABS: Device NON-INVASIVE VENT
[2020-09-15 00:36] LABS: Non-Invasive Expiratory Pressure 8 CMH2O; Non-Invasive Inspiratory Pressure 18 CMH2O; Non-Invasive Vent Rate 14 /MIN
[2020-09-15 04:02] LABS: Alveolar/Arterial O2 Gradient 361.5 mmHg; Base Excess ABG -0.1 mEq/l (+/-2.0); Fractional Inspired Oxygen 70 %; Oxygen Content ABG 14.4 %vol (16.0-22.0); Oxyhemoglobin 87.4 % THb (90.0-100.0); PO2 ABG 60.1 mmHg (80.0-100.0); PO2 FiO2 Ratio Arterial Blood 0.86 %; Total Hemoglobin 11.7 g/dL (12.0-18.0)
[2020-09-15 04:03] LABS: PCO2 ABG 72.1 mmHg (35.0-45.0); pH ABG 7.222 (7.350-7.450)
[2020-09-15 04:04] LABS: Device NON-INVASIVE VENT; Modified Allen's Test Pass; Non-Invasive Expiratory Pressure 8 CMH2O; Non-Invasive Inspiratory Pressure 20 CMH2O; Non-Invasive Vent Rate 20 /MIN; Site Drawn RIGHT RADIAL
[2020-09-15] MEDS: methylPREDNISolone SOD SUCC 125 MG VIAL 60 MG IV PUSH ×2 (05:27→15:20)
--- NOTE | 2020-09-15 08:18 | PM.IMPN ---
Progress Note: A&P Assessment and Plan (1) Acute and chronic respiratory failure: Code(s): J96.20 - Acute and chronic respiratory failure, unspecified whether with hypoxia or hypercapnia Status: Acute Assessment and Plan: Patient is chronically on oxygen at 2 L which she increased to 4 L prior to admission. pH 7.31 with pCO2 63 on admission. [place] the reason for respiratory failure from COPD, JOHNNY and/or CHF. COVID testing underway. ABG worsened and BiPAP started. Last ABG 7./72/60 on 24/06, rate 20. Patietn AOx4 and she does not want intubation. She voices understanding that she might not survive without intubation. She seem more scared even when told that she would be sedated. Spoke with sister who will talk with the patient. It has been 5+hours since last ABG so will repeat to have new baseline and then make new changes if needed. Will consult Pulmonary. If repeat ABG okay, then will begin to wean off BiPAP as toelrated. Repeat ABG noted - probably venous gas but pH and pCO2 worse. Baseline labs noted. Troponin better - felt related to resp failure. Discussed with fishing reel assembler. Patient now wants her to be full code. Moved to ICU for potential intubation. Will add abx. (2) Suspected COVID-19 virus infection: Code(s): Z20.828 - Contact with and (suspected) exposure to other viral communicable diseases Status: Acute Assessment and Plan: CXR from admission reviewed showing diffuse airspace disease. Could be pulmonary edema but concern for COVID. COVID test pending. Check for influenza as well. (3) Congestive heart failure: Code(s): I50.9 - Heart failure, unspecified Status: Acute Assessment and Plan: Concern for CHF with CXR findings and BNP 1340 but no clinical evidence of fluid overload. Patient takes Lasix 80mg daily home. Will continue Lasix IV for now. Labs pending from today. (4) Atrial fibrillation: Code(s): I48.91 - Unspecified atrial fibrillation Status: Chronic Assessment and Plan: Patient with chronic AFib. Rate controlled. Diltiazem on hold. She is also on Pradaxa which will resume when able. (5) JOHNNY (obstructive sleep apnea): Code(s): G47.33 - Obstructive sleep apnea (adult) (pediatric) Status: Acute Assessment and Plan: Patient probably has JOHNNY/OHS. She is on Trilogy via nasal pillows at home and is compliant with treatment. As above. (6) DM2 (diabetes mellitus, type 2): Code(s): E11.9 - Type 2 diabetes mellitus without complications Status: Chronic Assessment and Plan: A1c 7.4 in Dec. Glucose elevated at 299 on admission. Continue Accu-Cheks AC and HS. Metformin on hold. (7) Hypothyroidism: Code(s): E03.9 - Hypothyroidism, unspecified Status: Chronic Assessment and Plan: Check thyroid level. She takes Levothyroxine 225mcg. Resume levothyroxine IV if plans for intubatio. (8) Hypertriglyceridemia: Code(s): E78.1 - Pure hyperglyceridemia Status: Acute Assessment and Plan: meds on hold. (9) DVT prophylaxis: Code(s): Z29.9 - Encounter for prophylactic measures, unspecified Status: Acute Assessment and Plan: Lovenox until Pradaxa can be resumed. Additional Plan Critical care of 40 minutes Subjective Date/time seen: 09/15/20 08:18 Interval history: Date of service: 09/15/20 55yo female with JOHNNY, ch resp failure, COPD and cAFib here for SOB and found to be in acute resp failure. She has been on abx recently. She has a dry cough and fevers at home. She has been compliant with her Trilogy that she uses every night with nasal pillows. She feels slightly better this morning. SHe states that she does not want to be intubated and has been told that she might not come off the vent if she is intubated. Exam Narrative: Exam Narrative: AF 98.0 166/60 61 24 93%BiPAP Gen - tachypneic
[2020-09-15] MEDS: INSULIN ASPART (*BKC) 100 UNITS/ML SUB-Q ×4 (08:27→23:49)
[2020-09-15] MEDS: FUROSEMIDE INJ 40 MG/4 ML VIAL IV PUSH ×2 (08:28→17:40)
[2020-09-15 08:41] LABS: Alveolar/Arterial O2 Gradient 451.9 mmHg; Base Excess ABG 3.4 mEq/l (+/-2.0); Carboxyhemoglobin 0.4 % THb (0-2.0); Fractional Inspired Oxygen 80 %; HCO3 ABG 33.5 mEq/l (22.0-26.0); Methemoglobin ABG 0.2 %THb (0-1.5); Oxygen Content ABG 9.7 %vol (16.0-22.0); Oxyhemoglobin 56.7 % THb (90.0-100.0); PO2 FiO2 Ratio Arterial Blood 0.38 %; Reduced Hemoglobin 42.7 %THb (0-5.0); Total Hemoglobin 12.2 g/dL (12.0-18.0)
[2020-09-15 08:42] LABS: Oxygen Saturation ABG 43.9 % (95.0-100.0); PCO2 ABG 84.1 mmHg (35.0-45.0); PO2 ABG 30.2 mmHg (80.0-100.0); pH ABG 7.218 (7.350-7.450)
[2020-09-15 08:43] LABS: Device NON-INVASIVE VENT; Modified Allen's Test Pass; Non-Invasive Expiratory Pressure 8 CMH2O; Non-Invasive Inspiratory Pressure 20 CMH2O; Non-Invasive Vent Rate 20 /MIN; Site Drawn RIGHT RADIAL
[2020-09-15 09:05] LABS: Glucose Point of Care 323 (65-105)
[2020-09-15 09:08] LABS: Basophils Percent Auto 0.2 % (0.2-1.2); Hematocrit 37.8 % (37.0-47.0); Immature Granulocyte Absolute 0.16 K/mm3 (0.00-0.031); Immature Granulocyte Percent A 1.6 % (0-0.5); Lymphocytes Absolute Auto 0.71 K/mm3 (0.9-3.2); Lymphocytes Percent Auto 7.3 % (18.3-44.2); Mean Corpuscular HGB Conc 29.1 g/dl (32-36); Mean Corpuscular Hemoglobin 27.4 pg (26-34); Mean Platelet Volume 9.8 fl (7.4-10.4); Monocytes Absolute Auto 0.3 K/mm3 (0.1-0.6); Monocytes Percent Auto 2.7 % (2.6-8.5); Neutrophils Absolute Auto 8.6 K/mm3 (1.3-6.7); Neutrophils Percent Auto 88.2 % (45.5-73.1); Platelet Count Result 251 k/mm3 (150-375); Red Blood Count 4.02 M/mm3 (4.2-5.4); Red Cell Distribution Width 15.9 % (11.5-14.5); White Blood Count 9.8 K/mm3 (4.5-10.0)
[2020-09-15 09:20] LABS: Alanine Aminotransferase 25 U/L (4-35); Albumin Level 3.8 g/dL (3.5-5.1); Alkaline Phosphatase 97 U/L (38-126); Anion Gap 9 mmol/L (8-16); Aspartate Amino Transferase 43 U/L (14-36); Bilirubin,Total 0.5 mg/dL (0.2-1.3); Blood Urea Nitrogen 16 mg/dL (7-17); Calcium 8.9 mg/dL (8.4-10.2); Carbon Dioxide 33 mmol/L (22-30); Chloride 101 mmol/L (98-107); Estimated CRCL calculation 193 ml/min; Estimated Glomerular Filt Rate > 60; Glucose 340 mg/dL (65-105); Hemoglobin A1C 8.6 % (<5.7); Lipase 28 U/L (23-300); Magnesium 2.3 mg/dL (1.6-2.3); Potassium 4.5 mmol/L (3.4-5.0); Sodium 143 mmol/L (137-145)
[2020-09-15 11:27] LABS: Troponin I 0.036 ng/mL (0.000-0.034)
[2020-09-15] MEDS: ENOXAPARIN 40 MG/0.4 ML SYRINGE SUB-Q ×2 (11:33→19:46)
[2020-09-15] MEDS: PANTOPRAZOLE SODIUM IV 40 MG VIAL IV PUSH (11:33)
[2020-09-15] MEDS: INSULIN DETEMIR 100 UNITS/ML 8 UNITS SUB-Q ×2 (11:34→19:45)
[2020-09-15 12:20] LABS: Thyroid Stimulating Hormone Reflex 0.651 uIU/mL (0.465-4.68)
[2020-09-15 12:44] LABS: Glucose Point of Care 316 (65-105)
[2020-09-15 14:13] LABS: SARS-CoV-2 RNA PCR Positive
[2020-09-15] MEDS: FENTANYL 2,500MCG/NS250ML(*CRX 2,500 MCG/250 ML BAG IV CONT (14:46)
[2020-09-15] MEDS: ALBUTEROL SULFATE NEB 2.5 MG/0.5 ML INH 20 MG INHALATION (15:20)
--- NOTE | 2020-09-15 15:25 | WPDCNINT ---
Assessment and Plan Assessment and plan (1) Acute and chronic respiratory failure: Code(s): J96.20 - Acute and chronic respiratory failure, unspecified whether with hypoxia or hypercapnia Status: Acute Assessment and Plan: patient with hypercapnic respiratory failure, COPD exacerbation likely secondary to COVID-19 pneumonia - chest x-ray shows diffuse bilateral infiltrates with dense consolidation - patient has been started on vancomycin and Zosyn, cultures have been obtained and pending will deescalate antibiotics once cultures are resulted - continue CMV mode of ventilation, ABGs reviewed, the ventilator machine will be switched to a newer machine. - Continue bronchodilators, steroids (2) Pneumonia due to COVID-19 virus: Code(s): U07.1 - COVID-19; J12.89 - Other viral pneumonia Status: Acute Assessment and Plan: SARS-CoV-2 PCR positive for COVID-19 - continue droplet, airborne, contact isolation/precautions - will initiate dexamethasone and Remdesivir ( 09/15/2020) - will obtain and follow inflammatory markers - will order convalescent plasma (3) DM2 (diabetes mellitus, type 2): Code(s): E11.9 - Type 2 diabetes mellitus without complications Status: Chronic Assessment and Plan: continue Accu-Cheks and high-dose sliding scale - Levemir added (4) Atrial fibrillation: Code(s): I48.91 - Unspecified atrial fibrillation Status: Chronic Assessment and Plan: patient with history of AFib, currently in AFib and bradycardia. Will continue to monitor - on Pradaxa at home (5) Congestive heart failure: Code(s): I50.9 - Heart failure, unspecified Status: Acute Assessment and Plan: patient with history of CHF - will check echocardiogram (6) DVT prophylaxis: Code(s): Z29.9 - Encounter for prophylactic measures, unspecified Status: Acute Assessment and Plan: Lovenox 40 mg subcu q.12 hours since patient is COVID-19 positive Additional Plan discussed with patient in detail before she got intubated and placed on mechanical ventilator, she is aware that her lungs luz marina look good on the chest x-ray and that she is requiring a lot of oxygen from the BiPAP. Her Carbon dioxide is also elevated and she has failed BiPAP treatment. code status: Full code critical care time spent: 54 minutes Due to a high probability of clinically significant, life threatening deterioration, the patient required my highest level of preparedness to intervene emergently and I personally spent this critical care time directly and personally managing the patient. This critical care time included obtaining a history; examining the patient; pulse oximetry; ordering and review of studies; arranging urgent treatment with development of a management plan; evaluation of patient's response to treatment; frequent reassessment; and discussions with other providers. It was exclusive of separately billable procedures and treating other patients and teaching time. Please see Assessment and Plan section and the rest of the note for further information on patient assessment and treatment [employer] [employer] Consult Note Consult date: 09/15/20 Time Seen: 11:25 HPI: Dai Jacob is a 55 year old female past medical history of atrial fibrillation, COPD,essential hypertension, diabetes type 2, hyperlipidemia, hypothyroidism, CHF, peripheral neuropathy, with obesity, recurrent falls presented to the ED via EMS on 09/14/2020 with complains of increasing shortness of breath and fevers for 2 days prior to admission. She was recently on Augmentin for bronchitis. Over the last 2 days patient stated shortness of breath. She is typically on 2 L nasal cannula at home which had to be increased to 4 L at home. She also noted that she was breathing about 30 times a minute, denies any exposure to COVID-19. According the records patient stated that she has history of CHF and has prev
[2020-09-15 15:27] LABS: Alveolar/Arterial O2 Gradient 553.9 mmHg; Carboxyhemoglobin 0.4 % THb (0-2.0); Fractional Inspired Oxygen 100 %; HCO3 ABG 35.2 mEq/l (22.0-26.0); Methemoglobin ABG 0.2 %THb (0-1.5); Oxygen Content ABG 15.7 %vol (16.0-22.0); Oxygen Saturation ABG 90.5 % (95.0-100.0); PO2 ABG 72.2 mmHg (80.0-100.0); PO2 FiO2 Ratio Arterial Blood 0.72 %; Reduced Hemoglobin 7.4 %THb (0-5.0); Total Hemoglobin 12.1 g/dL (12.0-18.0)
[2020-09-15 15:29] LABS: pH ABG 7.225 (7.350-7.450)
[2020-09-15 15:30] LABS: Arterial Blood Gas PEEP 8 cmH2O; Arterial Blood Gas Tidal Volume 480 ml; Arterial Blood Gas Vent Mode ASSIST CONTROL; Arterial Blood Gas Ventilator rate 22 /MIN; Device VENTILATOR; Modified Allen's Test Pass; PCO2 ABG 86.9 mmHg (35.0-45.0); Site Drawn RIGHT RADIAL
--- NOTE | 2020-09-15 16:03 | WPDPROCEDUR ---
Procedures Intubation Intubation Date: 09/15/20 Consent: consent was obtained from the patient A pre-procedural Time-Out was completed immediately before starting the procedure and confirmed: Patient Identification, Site, Procedure, Patient Position and the Availability of Requisite Equipment: Yes Sedative: etomidate Paralytic: rocuronium Laryngoscope: fiber optic video scope Assist device used: fiber optic device ET tube size: 7.5 Tube secured depth (cm): 23 Tube secured location: lips Tube placement confirmation: visualized tube passing through cords, equal breath sounds bilaterally and no breath sounds over epigastrium Patient tolerated procedure: well and no complications Intubation complications: none Additional comments: After obtaining consent from the patient and explaining the rationale for intubation. it was decided to go ahead and intubate the patient. The patient was lying in the supine position. Preoxygenation via BVM was provided for a minimum of 3 minutes. The patient had continuous cardiac as well as pulse oximetry monitoring during the procedure. Rapid sequence induction was provided by administration of Etomidate and Rocuronium. A Glidescope blade 4 was used to directly visualize the vocal cords. A 7.5 mm endotracheal tube was visualized advancing between the cords to a level of 23 cm at the lip. The stylette was then removed. Tube placement was also noted by fogging in the tube, equal and bilateral breath sounds, no sounds over the epigastrium, and end-tidal colorimetric monitoring. The cuff was then inflated with 10 ml of air and the tube secured using a commercially available device. A good pulse oximetry wave form was seen on the monitor throughout the procedure. The patient was then connected to the ventilator at a tidal volume of 480 ml; rate of 22; FiO2 of 80%; and PEEP of 8. A portable chest x-ray has been ordered for placement. Continued sedation will be provided by Fentanyl and Versed continuous infusion titrated to a RASS of -2. The patient tolerated the procedure well.
[2020-09-15 17:47] LABS: Glucose Point of Care 387 (65-105)
[2020-09-15 18:15] LABS: Alveolar/Arterial O2 Gradient 601.2 mmHg; Base Excess ABG 2.8 mEq/l (+/-2.0); Fractional Inspired Oxygen 100 %; HCO3 ABG 30.2 mEq/l (22.0-26.0); Oxygen Content ABG 14.6 %vol (16.0-22.0); PCO2 ABG 59.9 mmHg (35.0-45.0); PO2 ABG 51.9 mmHg (80.0-100.0); PO2 FiO2 Ratio Arterial Blood 0.52 %; Total Hemoglobin 12.1 g/dL (12.0-18.0)
[2020-09-15 18:18] LABS: Device VENTILATOR; Oxygen Saturation ABG 83.1 % (95.0-100.0); Site Drawn RIGHT BRACHIAL
[2020-09-15 18:19] LABS: Arterial Blood Gas PEEP 8 cmH2O; Arterial Blood Gas Tidal Volume 480 ml; Arterial Blood Gas Vent Mode CMV; Arterial Blood Gas Ventilator rate 22 /MIN
[2020-09-15] MEDS: BUDESONIDE RESPULE NEB 0.5 MG/2 ML AMP INHALATION (19:13)
[2020-09-15] MEDS: DEXAMETHASONE SOD PHOS INJ 4 MG/ML VIAL 6 MG IV PUSH (19:47)
[2020-09-15] MEDS: LORazepam INJ (*CRX) 2 MG/ML VIAL 1 MG IV PUSH (20:01)
[2020-09-15] MEDS: ALBUTEROL SULFATE NEB 2.5 MG/0.5 ML INH INHALATION (20:17)
[2020-09-15] MEDS: REMDESIVIR 200 MG/NS 250 ML 200 MG/250 ML BAG 250 MG IVPB (22:11)
[2020-09-15] MEDS: CENTRAL LINE FLUSH 10 ML IV PUSH (23:49)
[2020-09-16] VITALS (41 sets, daily range): BP systolic 110–171; BP diastolic 50–71; PULSE 33–83; RESP 21–33; TEMP 36.9–37.6; O2SAT 92–100; BMI 65.2
[2020-09-16 00:31] LABS: Glucose Point of Care 306 (65-105)
[2020-09-16] MEDS: ALBUTEROL SULFATE NEB 2.5 MG/0.5 ML INH INHALATION ×4 (01:59→21:49)
[2020-09-16] MEDS: DOPamine 400 MG/D5W 250 ML 400 MG/250 ML BAG 12.15 MG IV CONT (02:24)
[2020-09-16] MEDS: LORazepam INJ (*CRX) 2 MG/ML VIAL 1 MG IV PUSH (04:32)
[2020-09-16 04:40] LABS: Hematocrit 34.2 % (37.0-47.0); Hemoglobin 10.3 g/dL (12.0-15.0); Mean Corpuscular HGB Conc 30.1 g/dl (32-36); Mean Corpuscular Hemoglobin 27.4 pg (26-34); Mean Platelet Volume 10.1 fl (7.4-10.4); Platelet Count Result 280 k/mm3 (150-375); Red Blood Count 3.76 M/mm3 (4.2-5.4); Red Cell Distribution Width 15.3 % (11.5-14.5); White Blood Count 13.6 K/mm3 (4.5-10.0)
[2020-09-16 04:54] LABS: D Dimer 2.34 ug/mL (<0.48)
[2020-09-16 04:56] LABS: Alanine Aminotransferase 29 U/L (4-35); Albumin Level 3.4 g/dL (3.5-5.1); Alkaline Phosphatase 105 U/L (38-126); Anion Gap 3 mmol/L (8-16); Aspartate Amino Transferase 53 U/L (14-36); Bilirubin,Total 0.7 mg/dL (0.2-1.3); Blood Urea Nitrogen 22 mg/dL (7-17); CRP 7.3 mg/dL (<1.0); Carbon Dioxide 38 mmol/L (22-30); Chloride 99 mmol/L (98-107); Estimated CRCL calculation 159 ml/min; Estimated Glomerular Filt Rate > 60; Glucose 363 mg/dL (65-105); Lactate Dehydrogenase 1555 U/L (313-618); Magnesium 2.3 mg/dL (1.6-2.3); Phosphorus 1.5 mg/dL (2.5-4.5); Potassium 3.4 mmol/L (3.4-5.0); Sodium 140 mmol/L (137-145)
[2020-09-16 05:00] LABS: Lactic Acid Reflex 0.9 mmol/L (0.7-2.1)
[2020-09-16 05:36] LABS: Base Excess ABG 4.2 mEq/l (+/-2.0); Carboxyhemoglobin 0.3 % THb (0-2.0); Fractional Inspired Oxygen 100 %; HCO3 ABG 29.7 mEq/l (22.0-26.0); Methemoglobin ABG 0.1 %THb (0-1.5); Oxygen Content ABG 14.1 %vol (16.0-22.0); Oxygen Saturation ABG 87.1 % (95.0-100.0); Oxyhemoglobin 86.9 % THb (90.0-100.0); PO2 FiO2 Ratio Arterial Blood 0.53 %; Reduced Hemoglobin 12.7 %THb (0-5.0); Total Hemoglobin 11.5 g/dL (12.0-18.0); pH ABG 7.401 (7.350-7.450)
[2020-09-16 05:39] LABS: Arterial Blood Gas PEEP 12 cmH2O; Arterial Blood Gas Tidal Volume 480 ml; Arterial Blood Gas Vent Mode CMV; Arterial Blood Gas Ventilator rate 24 /MIN; Device VENTILATOR; Modified Allen's Test Unable to perform; Site Drawn LEFT RADIAL
[2020-09-16] MEDS: INSULIN ASPART (*BKC) 100 UNITS/ML SUB-Q ×3 (06:13→17:46)
[2020-09-16] MEDS: CENTRAL LINE FLUSH 10 ML IV PUSH ×3 (06:13→20:43)
[2020-09-16] MEDS: LEVOTHYROXINE SODIUM INJ 100 MCG/5 ML VIAL 112 MCG IV PUSH (06:20)
[2020-09-16] MEDS: LORazepam INJ (*CRX) 2 MG/ML VIAL IV PUSH ×2 (06:29→13:07)
--- NOTE | 2020-09-16 08:00 | ECHO_ITS ---
Patient Info Name: Dai Jacob Age: 55 years : 1965 Gender: Female Ht: 62 in Wt: 360 lbs BSA: 2.79 m2 HR: 53 bpm BP: 130 / 85 mmHg Heart Rhythm: Atrial Fibrillation Technical Quality: Fair Exam Date: 09/16/2020 10:35 AM Exam Location: [facility] Pulmonary Patient Status: Inpatient Admit Date: 09/14/2020 Staff Ordering Physician: Hugo Zhou MD Events Director: Charles Smith, FRANCO, RT Attending Provider: Andrei Hdz MD Referring Physician: Winnie ZEPEDA; Exam Type: CA echo doppler color flow Study Info Indications I50.9 - Heart failure, unspecified Complete two-dimensional, color flow and Doppler transthoracic echocardiogram is performed. Summary 1. Technically difficult study with limited views. 2. Left ventricular systolic function is lower limits of normal, estimated at 50-55%. However, LV is poorly visualized in most views. Regional wall motion assessment limited due to poor endomyocardial border definition. 3. There is mildly increased left ventricular wall thickness. 4. Right atrial chamber dimension is moderately enlarged. 5. Unable to estimate PA systolic pressure due to poor spectral resolution of tricuspid regurgitant jet velocity. 6. Dilated inferior vena cava with <50% collapse upon inspiration consistent with significantly elevated right atrial pressure, 15 mmHg. 7. There is a small to moderate pericardial effusion most prominently noted posteriorly. Pericardial effusion not visualized well in several views. 8. Consider echo contrast to improve visualization of left ventricular function and the endomyocardial border as clinically appropriate. Recommendations * Consider echo contrast to improve visualization of left ventricular function and the endomyocardial border as clinically appropriate. Left Ventricle Left ventricular chamber dimension is normal. Left ventricular systolic function is lower limits of normal, estimated at 50-55%. However, LV is poorly visualized in most views. Regional wall motion assessment limited due to poor endomyocardial border definition. There is mildly increased left ventricular wall thickness. The left ventricular diastolic function is indeterminate. Technically difficult study with limited views. Right Ventricle Right ventricular chamber dimension is not well visualized. Left Atria Left atrial chamber dimension is mildly enlarged. Right Atria Right atrial chamber dimension is moderately enlarged. Aortic Valve The aortic valve is not well visualized. Pulmonic Valve The pulmonic valve is not well visualized. There is trace pulmonic regurgitation. Mitral Valve The mitral valve has not well visualized. Tricuspid Valve The tricuspid valve leaflets are not well visualized. Unable to estimate PA systolic pressure due to poor spectral resolution of tricuspid regurgitant jet velocity. Pericardium/Pleural The pericardium appears not well visualized. There is a small to moderate pericardial effusion most prominently noted posteriorly. Pericardial effusion not visualized well in several views. Inferior Vena Cava Dilated inferior vena cava with <50% collapse upon inspiration consistent with significantly elevated right atrial pressure, 15 mmHg. Aorta The aortic root size at the sinus of Valsalva is not well visualized. Left Ventricular Outflow Tract Name Value Normal
[2020-09-16] MEDS: INSULIN DETEMIR 100 UNITS/ML 12 UNITS SUB-Q ×2 (08:57→20:40)
[2020-09-16] MEDS: FUROSEMIDE INJ 40 MG/4 ML VIAL IV PUSH ×2 (08:57→17:38)
[2020-09-16] MEDS: ENOXAPARIN 40 MG/0.4 ML SYRINGE SUB-Q ×2 (08:57→20:41)
[2020-09-16] MEDS: POTASSIUM PHOS,M-BASIC-D-BASIC 20 MMOL in SODIUM CHLORIDE 0.9% IV 250 ML 62.5 MMOL IVPB (08:58)
[2020-09-16] MEDS: PANTOPRAZOLE SODIUM IV 40 MG VIAL IV PUSH (08:58)
--- NOTE | 2020-09-16 09:48 | PM.CNPUL ---
Assessment and Plan Assessment and plan (1) Acute and chronic respiratory failure: Qualifiers: Respiratory failure complication: hypoxia and hypercapnia Qualified Code(s): J96.21 - Acute and chronic respiratory failure with hypoxia; J96.22 - Acute and chronic respiratory failure with hypercapnia Code(s): J96.20 - Acute and chronic respiratory failure, unspecified whether with hypoxia or hypercapnia Status: Acute Assessment and Plan: Due to COVID-19 with COPD, CHF. She appears euvolemic - agree with current bronchodilators Albuterol 2.5 mg/Atrovent 0.5 mg Q4-6h scheduled - systemic steroids will be beneficial - equal I/O is recommended. (2) Pneumonia due to COVID-19 virus: Code(s): U07.1 - COVID-19; J12.89 - Other viral pneumonia Status: Acute Assessment and Plan: - Agree wtih Remdesivir for 5-10 days - agree with dexamethasone 6 mg daily for 10 days - agree with broad spectrum antibiotics with Pip/brant and vancomycin for 7 days, sputum cultures pending. monitor for renal dysfunction closely (3) ARDS (adult respiratory distress syndrome): Code(s): J80 - Acute respiratory distress syndrome Status: Acute Assessment and Plan: - recommend decreasing TV to 300 ml and increasing RR to 35 to maintain minute ventilation - may have to tolerated some degree of permissive hypercapnia with ph 7.25-7.40 - driving pressure should be minimized and plateau pressure goal < 30 - Prone position is recommend as her PaO2/FiO2 is 53 indicating severe ARDS. If this cannot be done her safely she should transfer to a facility that can. - repeat ABG two hours after vent changes History of Present Illness History of Present Illness Consult date: 09/16/20 Chief complaint: CHF acute exacerbation, COPD exacerbation Narrative: Thank you for asking to participate in the care of this patient. This is a 55 y/o morbidly obese female with history of COPD, CHF, JOHNNY, DMII, HTN, hyperlipidemia who presents with acute hypoxic and hypercapnic respiratory with bilateral multilobar patch infiltrates and postive SARS-CoV-2 RT PCR. She was intubated yesterday after and is currently on CMV with TV 480 RR 24, PEEP 12 and FiO2 of 100% with improved blood gases. She is hemodyanmically stable. Systemic steroids with Dexamethasone and Remdesivir was started yesterday. She is currently sedated with midazolam and fentanyl infusion. Review of Systems Review of Systems: All systems reviewed & are unremarkable except as noted in HPI and below PMFSH Past Medical History Medical History (Updated 09/16/20 @ 10:02 by Clare Huber MD) Abnormal gait Atrial fibrillation Benign hypertension Bilateral leg weakness Bilateral wrist pain DM2 (diabetes mellitus, type 2) Encounter for general adult medical examination w/o abnormal findings History of cervical cancer HISTORY OF CISIUM IMPLANT Hyperlipidemia Hyperlipidemia LDL goal <100 Hypertriglyceridemia Hypothyroidism Hypothyroidism determined by thyroid function test Hypoxemia Idiopathic peripheral autonomic neuropathy (06/26/19) Left shoulder pain Morbid obesity Peripheral neuropathy Psoriasis Recurrent falls while walking Screening for malignant neoplasm of colon Type 2 diabetes, controlled, with neuropathy Surgical History Surgical History History of cholecystectomy History of tonsillectomy Family History Family History Father Acute myocardial infarction Mother Family history of malignant neoplasm of cervix Other Diabetes mellitus Family history of coronary artery disease Hypertension Social History Social History (Updated 09/14/20 @ 21:50 by Marielena Gallagher NP) Social History: THE PATIENT LIVES WITH HER SISTER. SHE HAS NEVER HAD ANY CHILDREN. THE PATIENT STATED THAT HER WHEN SHE WAS 22 YEARS OLD AND NEVER REMARRIED.
[2020-09-16 09:59] LABS: Influenza Control Positive
[2020-09-16] MEDS: BUDESONIDE RESPULE NEB 0.5 MG/2 ML AMP INHALATION ×2 (10:06→21:49)
[2020-09-16 12:10] LABS: Alveolar/Arterial O2 Gradient 602.1 mmHg; Base Excess ABG 10.1 mEq/l (+/-2.0); Carboxyhemoglobin 0.3 % THb (0-2.0); Fractional Inspired Oxygen 100 %; HCO3 ABG 35.3 mEq/l (22.0-26.0); Oxygen Content ABG 15.4 %vol (16.0-22.0); Oxygen Saturation ABG 92.2 % (95.0-100.0); Oxyhemoglobin 91.9 % THb (90.0-100.0); PCO2 ABG 50.2 mmHg (35.0-45.0); PO2 ABG 60.7 mmHg (80.0-100.0); PO2 FiO2 Ratio Arterial Blood 0.61 %; Reduced Hemoglobin 7.8 %THb (0-5.0); Total Hemoglobin 11.9 g/dL (12.0-18.0); pH ABG 7.465 (7.350-7.450)
[2020-09-16 12:11] LABS: Device VENTILATOR; Modified Allen's Test Pass; Site Drawn LEFT RADIAL
[2020-09-16 12:12] LABS: Arterial Blood Gas PEEP 14 cmH2O; Arterial Blood Gas Vent Mode PRESSURE CONTROL; Arterial Blood Gas Ventilator rate 28 /MIN; Peak Inspiratory Pressure 30 cmH2O
[2020-09-16] MEDS: SOD HYPOCHLORITE 1/4 STRENGTH 473 ML 1 APPLIC TOPICAL (12:38)
[2020-09-16 12:56] LABS: Glucose Point of Care 248 (65-105)
--- NOTE | 2020-09-16 14:20 | WPDINTPN ---
Progress Note: A&P Assessment and Plan (1) Acute and chronic respiratory failure: Qualifiers: Respiratory failure complication: hypoxia and hypercapnia Qualified Code(s): J96.21 - Acute and chronic respiratory failure with hypoxia; J96.22 - Acute and chronic respiratory failure with hypercapnia Code(s): J96.20 - Acute and chronic respiratory failure, unspecified whether with hypoxia or hypercapnia Status: Acute Assessment and Plan: Patient with hypercapnic respiratory failure, COPD exacerbation likely secondary to COVID-19 pneumonia - chest x-ray shows diffuse bilateral infiltrates with dense consolidation - patient has been started on vancomycin and Zosyn, cultures have been obtained and pending will deescalate antibiotics once cultures are resulted - patient on CMV mode of ventilation, with elevated peak pressures, will switch to pressure control ventilation, decrease FiO2, increase respiratory rate, decrease FiO2. Continue peep of 12 - ABGs and chest x-ray reviewed - Continue bronchodilators, steroids (2) Pneumonia due to COVID-19 virus: Code(s): U07.1 - COVID-19; J12.89 - Other viral pneumonia Status: Acute Assessment and Plan: SARS-CoV-2 PCR positive for COVID-19 - continue droplet, airborne, contact isolation/precautions - dexamethasone and Remdesivir initiated on 09/15/2020 - continue monitor inflammatory markers surgery - patient get convalescent plasma today (3) Atrial fibrillation: Code(s): I48.91 - Unspecified atrial fibrillation Status: Chronic Assessment and Plan: patient in AFib, bradycardic likely related to fentanyl, and on small dose of dopamine and 1.5 mcg/ kg/minute - heart rates in the 60s and 70s at this time. Blood pressures have been stable - patient on Pradaxa at home, will start when able (4) Congestive heart failure: Code(s): I50.9 - Heart failure, unspecified Status: Acute Assessment and Plan: patient with history of CHF, echocardiogram has been obtained and pending report (5) DM2 (diabetes mellitus, type 2): Code(s): E11.9 - Type 2 diabetes mellitus without complications Status: Chronic Assessment and Plan: continue Accu-Cheks and sliding scale insulin - hyperglycemia, will increase Levemir (6) DVT prophylaxis: Code(s): Z29.9 - Encounter for prophylactic measures, unspecified Status: Acute Assessment and Plan: DVT prophylaxis: Lovenox 40 mg subcu q.12 hours stress ulcer prophylaxis: Protonix IV Additional Plan code status: Full code critical care time spent: 34 minutes Due to a high probability of clinically significant, life threatening deterioration, the patient required my highest level of preparedness to intervene emergently and I personally spent this critical care time directly and personally managing the patient. This critical care time included obtaining a history; examining the patient; pulse oximetry; ordering and review of studies; arranging urgent treatment with development of a management plan; evaluation of patient's response to treatment; frequent reassessment; and discussions with other providers. It was exclusive of separately billable procedures and treating other patients and teaching time. Please see Assessment and Plan section and the rest of the note for further information on patient assessment and treatment Subjective Date/time seen: 09/16/20 14:21 Interval history: reason for consult, COVID-19 pneumonia, acute hypercapnic respiratory failure - intubated on 09/15/2020 09/16/2020: Patient seen examined the ICU, remains intubated on CMV mode of ventilation, peak pressure is elevated, patient is on 100% FiO2, peep of 12. Afebrile, good urine output, on Versed 8 mg per hour, fentanyl 50 mcg/hour infusions for sedation. Patient was bradycardic and was started on small dose of dopamine, currently on 1.5 mcg/ kg /min. Inflammatory sonny
--- NOTE | 2020-09-16 16:19 | PM.IMPN ---
Progress Note: A&P Assessment and Plan (1) Acute and chronic respiratory failure: Qualifiers: Respiratory failure complication: hypoxia and hypercapnia Qualified Code(s): J96.21 - Acute and chronic respiratory failure with hypoxia; J96.22 - Acute and chronic respiratory failure with hypercapnia Code(s): J96.20 - Acute and chronic respiratory failure, unspecified whether with hypoxia or hypercapnia Status: Acute Assessment and Plan: Patient is chronically on oxygen at 2 L which she increased to 4 L prior to admission. pH 7.31 with pCO2 63 on admission. She tested positive for COVID. [place] the reason for respiratory failure from COPD, JOHNNY and mostly COVID. ABG worsened and BiPAP started. Serial ABGs after BiPAP adjustments were without benefits. Discussed with scrubber operator. Patient now wants to be full code. She was moved to ICU and intubated 09/15/20. CXR reviewed and again shows extensive acute airspace disease. ABG 7.46/50/61 on PS, rate 28, PEEP 14, FiO2 100%. A-a gradient 602. Vent management per scrubber operator. (2) Pneumonia due to COVID-19 virus: Code(s): U07.1 - COVID-19; J12.89 - Other viral pneumonia Status: Acute Assessment and Plan: CXR from admission showing diffuse airspace disease. Possibly pulmonary edema but now COVID+ so felt related to COVID PNA/ARDS. Started on Dexamethasone and Redesivir Day 2. Broad spectrum abx have been added as well. continue albuterol nebulizer treatments. Continue Pulmicort Respules. Attempt to lay patient prone as she tolerates. (3) Congestive heart failure: Code(s): I50.9 - Heart failure, unspecified Status: Acute Assessment and Plan: Concern for CHF with CXR findings and BNP 1340 but no clinical evidence of fluid overload. Patient takes Lasix 80mg daily home. patient remains on IV Lasix at this time. Continue to monitor closely. (4) Atrial fibrillation: Code(s): I48.91 - Unspecified atrial fibrillation Status: Chronic Assessment and Plan: Patient with chronic AFib. Diltiazem is on hold due to her bradycardia. Currently on dopamine due to the bradycardia. Heart rate stable at this time. wean dobutamine as tolerated. (5) DM2 (diabetes mellitus, type 2): Code(s): E11.9 - Type 2 diabetes mellitus without complications Status: Chronic Assessment and Plan: A1c 8.6. The patient's blood glucose was reviewed on 09/16 Glucose remains poorly controlled. Continue AccuCheks covering with sliding scale. Hypoglycemia protocol available as needed. Levemir started (6) Decubitus ulcer of coccyx: Code(s): L89.159 - Pressure ulcer of sacral region, unspecified stage Status: Acute Assessment and Plan: Patient with a large decubitus ulcer present on admission. Continue current wound care. (7) Hypothyroidism: Code(s): E03.9 - Hypothyroidism, unspecified Status: Chronic Assessment and Plan: TSH normal. She takes Levothyroxine 225mcg. Continue levothyroxine IV. (8) JOHNNY (obstructive sleep apnea): Code(s): G47.33 - Obstructive sleep apnea (adult) (pediatric) Status: Acute Assessment and Plan: Patient probably has JOHNNY/OHS. She is on Trilogy via nasal pillows at home and is compliant with treatment. (9) DVT prophylaxis: Code(s): Z29.9 - Encounter for prophylactic measures, unspecified Status: Acute Assessment and Plan: Lovenox until Pradaxa can be resumed. Subjective Date/time seen: 09/16/20 16:19 Interval history: Date of service: 09/16 55yo female with JOHNNY, ch resp failure, COPD and cAFib here for SOB and found to be in acute resp failure. Currently on 8 of versed and 100 of fentanyl. Also on dopamine for bradycardia. Not on tube feedings at this time. Plasma has been ordered but has not been given yet. Was called by wound care nurse this morning. Patient has a dev
[2020-09-16] MEDS: ALBUTEROL SULFATE (*SP) INHALER 1 PUFF (16:23)
[2020-09-16] MEDS: REMDESIVIR 100 MG/NS 250 ML 100 MG/250 ML BAG 250 MG IVPB (17:38)
[2020-09-16 17:50] LABS: Glucose Point of Care 312 (65-105)
[2020-09-16] MEDS: DEXAMETHASONE SOD PHOS INJ 4 MG/ML VIAL 6 MG IV PUSH (20:41)
[2020-09-16 21:09] LABS: Glucose Point of Care 274 (65-105)
[2020-09-17] VITALS (38 sets, daily range): BP systolic 105–166; BP diastolic 57–82; PULSE 42–74; RESP 24–28; TEMP 36.4–36.9; O2SAT 92–99
[2020-09-17] MEDS: INSULIN ASPART (*BKC) 100 UNITS/ML SUB-Q ×4 (00:49→17:39)
[2020-09-17 00:53] LABS: Glucose Point of Care 288 (65-105)
[2020-09-17] MEDS: ALBUTEROL SULFATE NEB 2.5 MG/0.5 ML INH INHALATION ×4 (03:02→21:32)
[2020-09-17 03:16] LABS: Vancomycin Trough 13.4 ug/mL (10.0-20.0)
[2020-09-17 04:11] LABS: Hematocrit 33.7 % (37.0-47.0); Hemoglobin 10.5 g/dL (12.0-15.0); Mean Corpuscular HGB Conc 31.2 g/dl (32-36); Mean Corpuscular Volume 89.9 fl (80-100); Mean Platelet Volume 10.1 fl (7.4-10.4); Platelet Count Result 289 k/mm3 (150-375); Red Blood Count 3.75 M/mm3 (4.2-5.4); Red Cell Distribution Width 15.2 % (11.5-14.5); White Blood Count 15.3 K/mm3 (4.5-10.0)
[2020-09-17 04:38] LABS: Alanine Aminotransferase 35 U/L (4-35); Albumin Level 3.4 g/dL (3.5-5.1); Alkaline Phosphatase 105 U/L (38-126); Anion Gap 5.99999 mmol/L (8-16); Aspartate Amino Transferase 54 U/L (14-36); Bilirubin,Total 0.6 mg/dL (0.2-1.3); Blood Urea Nitrogen 23 mg/dL (7-17); Calcium 8.6 mg/dL (8.4-10.2); Carbon Dioxide > 40 mmol/L (22-30); Chloride 95 mmol/L (98-107); Estimated CRCL calculation 158 ml/min; Estimated Glomerular Filt Rate > 60; Glucose 317 mg/dL (65-105); Potassium 3.6 mmol/L (3.4-5.0); Sodium 141 mmol/L (137-145)
[2020-09-17] MEDS: DOPamine 400 MG/D5W 250 ML 400 MG/250 ML BAG 9.11 MG IV CONT (05:27)
[2020-09-17] MEDS: FENTANYL 2,500MCG/NS250ML(*CRX 2,500 MCG/250 ML BAG 7.5 MCG IV CONT (05:30)
[2020-09-17] MEDS: CENTRAL LINE FLUSH 20 ML IV PUSH (05:32)
[2020-09-17] MEDS: CENTRAL LINE FLUSH 10 ML IV PUSH ×3 (05:32→20:34)
[2020-09-17] MEDS: LEVOTHYROXINE SODIUM INJ 100 MCG/5 ML VIAL 112 MCG IV PUSH (05:35)
[2020-09-17 06:28] LABS: Base Excess ABG 10.6 mEq/l (+/-2.0); Carboxyhemoglobin 0.3 % THb (0-2.0); Fractional Inspired Oxygen 60 %; Oxygen Content ABG 14.9 %vol (16.0-22.0); Oxygen Saturation ABG 93.8 % (95.0-100.0); Oxyhemoglobin 92.6 % THb (90.0-100.0); PCO2 ABG 45.8 mmHg (35.0-45.0); PO2 ABG 63.4 mmHg (80.0-100.0); PO2 FiO2 Ratio Arterial Blood 1.06 %; Reduced Hemoglobin 7.1 %THb (0-5.0); Total Hemoglobin 11.4 g/dL (12.0-18.0)
[2020-09-17 06:32] LABS: Device VENTILATOR; Modified Allen's Test Unable to perform; Site Drawn RIGHT RADIAL; pH ABG 7.501 (7.350-7.450)
[2020-09-17 06:33] LABS: Arterial Blood Gas PEEP 14 cmH2O; Arterial Blood Gas Vent Mode CMV; Arterial Blood Gas Ventilator rate 28 /MIN; Peak Inspiratory Pressure 30 cmH2O
[2020-09-17] MEDS: ENOXAPARIN 40 MG/0.4 ML SYRINGE SUB-Q ×2 (07:55→20:38)
[2020-09-17] MEDS: INSULIN DETEMIR 100 UNITS/ML 12 UNITS SUB-Q (07:55)
[2020-09-17] MEDS: FUROSEMIDE INJ 40 MG/4 ML VIAL IV PUSH ×2 (07:56→17:40)
[2020-09-17] MEDS: PANTOPRAZOLE SODIUM IV 40 MG VIAL IV PUSH (07:56)
[2020-09-17] MEDS: INSULIN DETEMIR 100 UNITS/ML 22 UNITS SUB-Q ×2 (08:15→20:40)
[2020-09-17] MEDS: BUDESONIDE RESPULE NEB 0.5 MG/2 ML AMP INHALATION ×2 (09:03→21:32)
[2020-09-17 12:33] LABS: Glucose Point of Care 304 (65-105)
--- NOTE | 2020-09-17 12:38 | PCDIET ---
Nutrition Follow-Up Complete: Inadequate oral intake related to inability to consume foods orally as evidence by need for enteral nutrition to meet needs Total intake will meet estimated kcal and protein needs Goal: Progressing towards goal. Continue goal. Pt current nutrition is Vital HP with goal of 40ml/hr day one. Nutrition recommendation: Agree Last recorded weight is 161.1 kg (-1322 I/O) Lasix this am Bowel Motility: No BM noted Labs Reviewed: PO4 2.0, Potassium and Na normal, glucose 317, Albumin 3.4, total protein 6.0, Hgb 10.5, Hct 33.7 Meds Noted:Albuterol, Decadron, Lovenox, Fentanyl, Insulin, Ativan, Synthroid, Dopamine, Versed, Remdesivir Additional Notes: Pt has been NPO with OG to suction. okay with starting enteral nutrition. Recommend to start Vital HP at 10ml/hr and increase 10ml q 4hrs to goal day one of 40ml/hr. At 40ml/hr over 22hrs, pt will receive, 880 kcals, 77g protein, and 735ml of free water. Recommend reaching goal over two days due to low phosphorus, elevated glucose, and potential for refeeding syndrome. If electrolytes remain stable at 40ml/hr over the next 24hrs, recommend increasing 10m/hr q 4 hrs to goal of 70ml/hr on Sunday. At 70ml/hr, Vital HP over 22hrs will provide 1650kcals, 144g protein, and 1379ml of free water meeting 100% of patient needs. Increased protein needs needed due to pressure ulcer on coccyx and due to morbid obesity. Mild improvement in chest x ray per MD. Following daily in ICU and f/u every t/f.
--- NOTE | 2020-09-17 14:00 | WPDINTPN ---
Progress Note: A&P Assessment and Plan (1) Acute and chronic respiratory failure: Qualifiers: Respiratory failure complication: hypoxia and hypercapnia Qualified Code(s): J96.21 - Acute and chronic respiratory failure with hypoxia; J96.22 - Acute and chronic respiratory failure with hypercapnia Code(s): J96.20 - Acute and chronic respiratory failure, unspecified whether with hypoxia or hypercapnia Status: Acute Assessment and Plan: Patient with hypercapnic respiratory failure, COPD exacerbation likely secondary to COVID-19 pneumonia - chest x-ray shows diffuse bilateral infiltrates with dense consolidation - blood and sputum cultures are negative, will discontinue vancomycin and Zosyn - patient pressure control ventilation with low tidal volume strategy, tidal volumes fluctuating between 300-350 mL.control ventilation, PEEP of 12. wean FiO2 as tolerated - ABGs reviewed, chest x-ray shows slight interval improvement - Continue bronchodilators, steroids (2) Pneumonia due to COVID-19 virus: Code(s): U07.1 - COVID-19; J12.89 - Other viral pneumonia Status: Acute Assessment and Plan: SARS-CoV-2 PCR positive for COVID-19 - continue droplet, airborne, contact isolation/precautions - dexamethasone and Remdesivir initiated on 09/15/2020 - continue to monitor inflammatory markers - convalescent plasma has been ordered and being arranged (3) Atrial fibrillation: Code(s): I48.91 - Unspecified atrial fibrillation Status: Chronic Assessment and Plan: patient in AFib, bradycardic likely related to fentanyl, and on small dose of dopamine and 1.5 mcg/ kg/minute - heart rates in the 50-60 at this time. Blood pressures have been stable - patient on Pradaxa at home, will start when able (4) Congestive heart failure: Code(s): I50.9 - Heart failure, unspecified Status: Acute Assessment and Plan: patient with history of CHF, echocardiogram 09/16/2020: EF of 50-55% small to moderate pericardial effusion (5) DM2 (diabetes mellitus, type 2): Code(s): E11.9 - Type 2 diabetes mellitus without complications Status: Chronic Assessment and Plan: continue Accu-Cheks and sliding scale insulin - hyperglycemia, will increase Levemir (6) DVT prophylaxis: Code(s): Z29.9 - Encounter for prophylactic measures, unspecified Status: Acute Assessment and Plan: DVT prophylaxis: Lovenox 40 mg subcu q.12 hours stress ulcer prophylaxis: Protonix IV Additional Plan discuss with Lorri and updated with patient's condition and plan of care. code status: Full code critical care time spent: 33 minutes Due to a high probability of clinically significant, life threatening deterioration, the patient required my highest level of preparedness to intervene emergently and I personally spent this critical care time directly and personally managing the patient. This critical care time included obtaining a history; examining the patient; pulse oximetry; ordering and review of studies; arranging urgent treatment with development of a management plan; evaluation of patient's response to treatment; frequent reassessment; and discussions with other providers. It was exclusive of separately billable procedures and treating other patients and teaching time. Please see Assessment and Plan section and the rest of the note for further information on patient assessment and treatment Subjective Date/time seen: 09/17/20 14:00 Interval history: reason for consult, COVID-19 pneumonia, acute hypercapnic respiratory failure - intubated on 09/15/2020 09/17/2020: Patient remains on pressure control mode of ventilation with tidal volumes fluctuating between 300-350 mL, rate of 28, peep of 14 and 60% FiO2. Patient is sedated with fentanyl 75 mcg/hr and Versed 6 mg/hr infusion for sedation. Patient also on dopamine 1.5 mcg/kg per minute for bradycar
[2020-09-17] MEDS: SOD HYPOCHLORITE 1/4 STRENGTH 473 ML 1 APPLIC TOPICAL (14:29)
[2020-09-17] MEDS: LORazepam INJ (*CRX) 2 MG/ML VIAL IV PUSH (15:06)
[2020-09-17] MEDS: REMDESIVIR 100 MG/NS 250 ML 100 MG/250 ML BAG 250 MG IVPB (17:40)
[2020-09-17 18:25] LABS: Glucose Point of Care 255 (65-105)
--- NOTE | 2020-09-17 19:34 | PM.IMPN ---
Progress Note: A&P Assessment and Plan (1) Acute and chronic respiratory failure: Qualifiers: Respiratory failure complication: hypoxia and hypercapnia Qualified Code(s): J96.21 - Acute and chronic respiratory failure with hypoxia; J96.22 - Acute and chronic respiratory failure with hypercapnia Code(s): J96.20 - Acute and chronic respiratory failure, unspecified whether with hypoxia or hypercapnia Status: Acute Assessment and Plan: Patient is chronically on oxygen at 2 L which she increased to 4 L prior to admission. pH 7.31 with pCO2 63 on admission. She tested positive for COVID. [place] the reason for respiratory failure from COPD, CHF, JOHNNY and mostly COVID. ABG worsened and BiPAP started. Serial ABGs after BiPAP adjustments were without benefits. Discussed with precision lens polisher. Patient now wants to be full code. She was moved to ICU and intubated 09/15/20. CXR reviewed and again shows extensive acute airspace disease. ABG 7.46/50/61 on PS, rate 28, PEEP 14, FiO2 100%. A-a gradient 602. Vent management per precision lens polisher. (2) Pneumonia due to COVID-19 virus: Code(s): U07.1 - COVID-19; J12.89 - Other viral pneumonia Status: Acute Assessment and Plan: CXR from admission showing diffuse airspace disease. Possibly pulmonary edema but now COVID+ so felt related to COVID PNA/ARDS. Started on Dexamethasone and Redesivir Day 3. Broad spectrum abx were started 09/15 but stopped today. Continue albuterol nebulizer treatments. Continue Pulmicort Respules. Attempt to lay patient prone as she tolerates. (3) Congestive heart failure: Code(s): I50.9 - Heart failure, unspecified Status: Acute Assessment and Plan: Concern for CHF with CXR findings and BNP 1340 but no clinical evidence of fluid overload. Echo 09/16 showing EF 50-55% with poorly visualized LV; small to moderate pericardial effusion. Patient takes Lasix 80mg daily home. patient remains on IV Lasix at this time. She having excellent UOP. Continue to monitor closely. (4) Atrial fibrillation: Code(s): I48.91 - Unspecified atrial fibrillation Status: Chronic Assessment and Plan: Patient with chronic AFib. Diltiazem is on hold due to her bradycardia. Still on dopamine due to the bradycardia. Heart rate stable at this time. Wean dobutamine as tolerated. (5) DM2 (diabetes mellitus, type 2): Code(s): E11.9 - Type 2 diabetes mellitus without complications Status: Chronic Assessment and Plan: A1c 8.6. The patient's blood glucose was reviewed on 09/17 Glucose remains poorly controlled. Continue AccuCheks covering with sliding scale. Hypoglycemia protocol available as needed. Levemir advanced (6) Decubitus ulcer of coccyx: Code(s): L89.159 - Pressure ulcer of sacral region, unspecified stage Status: Acute Assessment and Plan: Patient with a large decubitus ulcer present on admission. Continue current wound care. (7) Hypothyroidism: Code(s): E03.9 - Hypothyroidism, unspecified Status: Chronic Assessment and Plan: TSH normal. She takes Levothyroxine 225mcg. Continue levothyroxine IV. (8) JOHNNY (obstructive sleep apnea): Code(s): G47.33 - Obstructive sleep apnea (adult) (pediatric) Status: Acute Assessment and Plan: Patient probably has JOHNNY/OHS. She is on Trilogy via nasal pillows at home and is compliant with treatment. (9) DVT prophylaxis: Code(s): Z29.9 - Encounter for prophylactic measures, unspecified Status: Acute Assessment and Plan: Lovenox until Pradaxa can be resumed. Subjective Date/time seen: 09/17/20 19:34 Interval history: Date of service: 09/17 55yo female with JOHNNY, ch resp failure, COPD and cAFib here for SOB and found to be in acute resp failure. She is intubated and sedated and unable to provide history. PEEP down to 12 at 60% FiO2. [place]
[2020-09-17] MEDS: DEXAMETHASONE SOD PHOS INJ 4 MG/ML VIAL 6 MG IV PUSH (20:35)
[2020-09-17 21:12] LABS: Glucose Point of Care 335 (65-105)
[2020-09-18] VITALS (47 sets, daily range): BP systolic 88–176; BP diastolic 43–104; PULSE 43–73; RESP 16–28; TEMP 36.3–36.8; O2SAT 91–97
[2020-09-18 01:07] LABS: Glucose Point of Care 83 (65-105)
[2020-09-18] MEDS: ALBUTEROL SULFATE NEB 2.5 MG/0.5 ML INH INHALATION ×4 (02:52→20:39)
[2020-09-18 06:34] LABS: Alveolar/Arterial O2 Gradient 296.2 mmHg; Base Excess ABG 10.1 mEq/l (+/-2.0); Carboxyhemoglobin 0.3 % THb (0-2.0); Fractional Inspired Oxygen 60 %; HCO3 ABG 31.9 mEq/l (22.0-26.0); Methemoglobin ABG 0.3 %THb (0-1.5); Oxygen Content ABG 16.1 %vol (16.0-22.0); Oxygen Saturation ABG 98.2 % (95.0-100.0); Oxyhemoglobin 96.6 % THb (90.0-100.0); PCO2 ABG 33.1 mmHg (35.0-45.0); PO2 ABG 95.2 mmHg (80.0-100.0); PO2 FiO2 Ratio Arterial Blood 1.59 %; Reduced Hemoglobin 2.8 %THb (0-5.0); Total Hemoglobin 11.8 g/dL (12.0-18.0)
[2020-09-18 06:35] LABS: pH ABG 7.602 (7.350-7.450)
[2020-09-18 06:36] LABS: Arterial Blood Gas Ventilator rate 28 /MIN; Device VENTILATOR; Modified Allen's Test Pass; Site Drawn LEFT RADIAL
[2020-09-18 06:37] LABS: Arterial Blood Gas PEEP 12 cmH2O; Arterial Blood Gas Vent Mode PRESSURE CONTROL; Peak Inspiratory Pressure 30 cmH2O
[2020-09-18] MEDS: CENTRAL LINE FLUSH 10 ML IV PUSH ×3 (07:24→20:12)
[2020-09-18] MEDS: LEVOTHYROXINE SODIUM INJ 100 MCG/5 ML VIAL 112 MCG IV PUSH (07:24)
[2020-09-18] MEDS: INSULIN ASPART (*BKC) 100 UNITS/ML 10 UNITS SUB-Q (07:39)
[2020-09-18] MEDS: FENTANYL 2,500MCG/NS250ML(*CRX 2,500 MCG/250 ML BAG 10 MCG IV CONT (07:47)
[2020-09-18 07:51] LABS: Hematocrit 36.3 % (37.0-47.0); Hemoglobin 11.2 g/dL (12.0-15.0); Mean Corpuscular HGB Conc 30.9 g/dl (32-36); Mean Corpuscular Hemoglobin 27.4 pg (26-34); Mean Corpuscular Volume 88.8 fl (80-100); Mean Platelet Volume 10.2 fl (7.4-10.4); Platelet Count Result 335 k/mm3 (150-375); Red Blood Count 4.09 M/mm3 (4.2-5.4); Red Cell Distribution Width 15.1 % (11.5-14.5); White Blood Count 11.3 K/mm3 (4.5-10.0)
[2020-09-18 08:07] LABS: D Dimer 3.77 ug/mL (<0.48)
[2020-09-18 08:14] LABS: Glucose Point of Care 407 (65-105)
[2020-09-18 08:16] LABS: Alanine Aminotransferase 32 U/L (4-35); Albumin Level 3.2 g/dL (3.5-5.1); Alkaline Phosphatase 117 U/L (38-126); Anion Gap 6.99999 mmol/L (8-16); Aspartate Amino Transferase 31 U/L (14-36); Bilirubin,Total 0.7 mg/dL (0.2-1.3); Blood Urea Nitrogen 27 mg/dL (7-17); Calcium 8.7 mg/dL (8.4-10.2); Carbon Dioxide > 40 mmol/L (22-30); Chloride 91 mmol/L (98-107); Estimated CRCL calculation 129 ml/min; Estimated Glomerular Filt Rate > 60; Glucose 429 mg/dL (65-105); Lactate Dehydrogenase 1319 U/L (313-618); Phosphorus 3.6 mg/dL (2.5-4.5); Potassium 3.2 mmol/L (3.4-5.0); Sodium 138 mmol/L (137-145)
[2020-09-18] MEDS: BUDESONIDE RESPULE NEB 0.5 MG/2 ML AMP INHALATION ×2 (08:43→20:39)
[2020-09-18] MEDS: PANTOPRAZOLE SODIUM IV 40 MG VIAL IV PUSH (09:22)
[2020-09-18] MEDS: ENOXAPARIN 100 MG/ML SYRINGE SUB-Q ×2 (09:23→20:11)
[2020-09-18] MEDS: ENOXAPARIN 60 MG/0.6 ML SYRINGE 50 MG SUB-Q ×2 (09:23→20:11)
[2020-09-18] MEDS: SOD HYPOCHLORITE 1/4 STRENGTH 473 ML 1 APPLIC TOPICAL (09:30)
[2020-09-18 09:45] LABS: CRP 15.4 mg/dL (<1.0)
[2020-09-18] MEDS: INSULIN DETEMIR 100 UNITS/ML 26 UNITS SUB-Q (10:11)
[2020-09-18] MEDS: DOPamine 400 MG/D5W 250 ML 400 MG/250 ML BAG 9.11 MG IV CONT (10:11)
--- NOTE | 2020-09-18 10:52 | PM.IMPN ---
Progress Note: A&P Assessment and Plan (1) Acute and chronic respiratory failure: Qualifiers: Respiratory failure complication: hypoxia and hypercapnia Qualified Code(s): J96.21 - Acute and chronic respiratory failure with hypoxia; J96.22 - Acute and chronic respiratory failure with hypercapnia Code(s): J96.20 - Acute and chronic respiratory failure, unspecified whether with hypoxia or hypercapnia Status: Acute Assessment and Plan: Patient is chronically on oxygen at 2 L which she increased to 4 L prior to admission. pH 7.31 with pCO2 63 on admission. She tested positive for COVID. [place] the reason for respiratory failure from COPD, CHF, JOHNNY and mostly COVID. ABG worsened and BiPAP started. Serial ABGs after BiPAP adjustments were without benefits. Discussed with tank truck engine mechanic. Patient now wants to be full code. She was moved to ICU and intubated 09/15/20. CXR reviewed today showing some improvement. She has negative fluid balance. ABG 7.60/33/95 on PC, PEEP 12, FiO2 60%. A-a gradient 296. Echo she is becoming contracted/dehydrated. Vent rate decreased and Lasix held. Discussed. Vent management per tank truck engine mechanic. (2) Pneumonia due to COVID-19 virus: Code(s): U07.1 - COVID-19; J12.89 - Other viral pneumonia Status: Acute Assessment and Plan: CXR from admission showing diffuse airspace disease. Possibly pulmonary edema but now COVID+ so felt related to COVID PNA/ARDS. Started on Dexamethasone and Redesivir Day 4. Broad spectrum abx were started 09/15 but stopped 09/16. DD 3.77 and CRP 15, both higher but LDH and Ferritn trending down. Continue albuterol nebulizer treatments and Pulmicort Respules. Attempt to lay patient prone as she tolerates. Continue supportive care (3) Congestive heart failure: Code(s): I50.9 - Heart failure, unspecified Status: Acute Assessment and Plan: Concern for CHF with CXR findings and BNP 1340 but no clinical evidence of fluid overload. Echo 09/16 showing EF 50-55% with poorly visualized LV; small to moderate pericardial effusion. Patient takes Lasix 80mg daily home. Patient remains on IV Lasix at this time. She having excellent UOP with negative fluid balance. CXR reviewed with some improvement. Lasix to be held. Continue to monitor closely. (4) Bradycardia: Code(s): R00.1 - Bradycardia, unspecified Status: Acute Assessment and Plan: Still on dopamine due to the bradycardia. TSH 0.65. Echo showing EF 50-55% but overall a poor study. Heart rate low but stable at this time. Wean dobutamine as tolerated. (5) Atrial fibrillation: Code(s): I48.91 - Unspecified atrial fibrillation Status: Chronic Assessment and Plan: Patient with chronic AFib. Diltiazem is on hold due to her bradycardia. (6) DM2 (diabetes mellitus, type 2): Code(s): E11.9 - Type 2 diabetes mellitus without complications Status: Chronic Assessment and Plan: A1c 8.6. The patient's blood glucose was reviewed on 09/18 Glucose remains poorly controlled. Continue AccuCheks covering with sliding scale. Hypoglycemia protocol available as needed. Levemir advanced again (7) Decubitus ulcer of coccyx: Code(s): L89.159 - Pressure ulcer of sacral region, unspecified stage Status: Acute Assessment and Plan: Patient with a large decubitus ulcer present on admission. Continue current wound care. (8) Hypothyroidism: Code(s): E03.9 - Hypothyroidism, unspecified Status: Chronic Assessment and Plan: TSH normal. She takes Levothyroxine 225mcg. Continue levothyroxine IV. (9) JOHNNY (obstructive sleep apnea): Code(s): G47.33 - Obstructive sleep apnea (adult) (pediatric) Status: Acute Assessment and Plan: Patient probably has JOHNNY/OHS. She is on Trilogy via nasal pillows at home and is compliant with treatment. (10) DVT pr
[2020-09-18 11:53] LABS: Glucose Point of Care 413 (65-105)
[2020-09-18] MEDS: INSULIN ASPART (*BKC) 100 UNITS/ML 14 UNITS SUB-Q (12:27)
--- NOTE | 2020-09-18 12:40 | WPDINTPN ---
Progress Note: A&P Assessment and Plan (1) Acute and chronic respiratory failure: Qualifiers: Respiratory failure complication: hypoxia and hypercapnia Qualified Code(s): J96.21 - Acute and chronic respiratory failure with hypoxia; J96.22 - Acute and chronic respiratory failure with hypercapnia Code(s): J96.20 - Acute and chronic respiratory failure, unspecified whether with hypoxia or hypercapnia Status: Acute Assessment and Plan: Patient with hypercapnic respiratory failure likely secondary to COVID-19 pneumonia - chest x-ray shows diffuse bilateral infiltrates with dense consolidation - blood and sputum cultures are negative, will discontinue vancomycin and Zosyn - patient pressure control ventilation with low tidal volume strategy, tidal volumes fluctuating between 300-350 mL.control ventilation, PEEP of 12. wean FiO2 as tolerated - ABGs reviewed, chest x-ray shows slight interval improvement - Continue bronchodilators and steroids I will discontinue Lasix. She has developed significant metabolic alkalosis likely secondary to contraction alkalosis. Repeat ABG in the a.m.. Replace potassium chloride today. (2) Pneumonia due to COVID-19 virus: Code(s): U07.1 - COVID-19; J12.89 - Other viral pneumonia Status: Acute Assessment and Plan: SARS-CoV-2 PCR positive for COVID-19 - continue droplet, airborne, contact isolation/precautions - dexamethasone and Remdesivir initiated on 09/15/2020 - continue to monitor inflammatory markers - Received convalescent plasma on 09/18. (3) Atrial fibrillation: Code(s): I48.91 - Unspecified atrial fibrillation Status: Chronic Assessment and Plan: patient in AFib, She is having bradycardia with heart rate in 50s and 60s. She does not have any significant block. At baseline she is on diltiazem 240 mg long-acting which has been on hold since admission. - heart rates in the 50-60 at this time. Blood pressures have been stable. she is on dopamine drip but will try to wean her off if tolerated. - patient on Pradaxa at home, will start when able. For the time being I will put her on therapeutic dose of Lovenox. (4) Congestive heart failure: Code(s): I50.9 - Heart failure, unspecified Status: Acute Assessment and Plan: patient with history of CHF, echocardiogram 09/16/2020: EF of 50-55% small to moderate pericardial effusion (5) DM2 (diabetes mellitus, type 2): Code(s): E11.9 - Type 2 diabetes mellitus without complications Status: Chronic Assessment and Plan: continue Accu-Cheks and sliding scale insulin - hyperglycemia, will increase Levemir From 22 to 26 units. Will switch her tube feed to Glucerna for better control of her blood sugar. If needed then she can be put on insulin drip. (6) DVT prophylaxis: Code(s): Z29.9 - Encounter for prophylactic measures, unspecified Status: Acute Assessment and Plan: DVT prophylaxis: Therapeutic dose Lovenox. stress ulcer prophylaxis: Protonix IV Additional Plan code status: Full code critical care time spent: 33 minutes Due to a high probability of clinically significant, life threatening deterioration, the patient required my highest level of preparedness to intervene emergently and I personally spent this critical care time directly and personally managing the patient. This critical care time included obtaining a history; examining the patient; pulse oximetry; ordering and review of studies; arranging urgent treatment with development of a management plan; evaluation of patient's response to treatment; frequent reassessment; and discussions with other providers. It was exclusive of separately billable procedures and treating other patients and teaching time. Please see Assessment and Plan section and the rest of the note for further information on patient assessment and treatment Subjective Antwon
[2020-09-18] MEDS: REMDESIVIR 100 MG/NS 250 ML 100 MG/250 ML BAG 250 MG IVPB (16:08)
[2020-09-18] MEDS: INSULIN HUMAN REGULAR (*BKC) 100 UNITS in SODIUM CHLORIDE 0.9% IV 99 ML 5.92 UNITS IV CONT (18:47)
[2020-09-18 19:05] LABS: Glucose Point of Care 356 (65-105)
[2020-09-18] MEDS: DEXAMETHASONE SOD PHOS INJ 4 MG/ML VIAL 6 MG IV PUSH (20:11)
[2020-09-18] MEDS: SODIUM CHLORIDE 0.9% IV 500 ML IV CONT (20:12)
[2020-09-18 20:37] LABS: Glucose Point of Care 424 (65-105)
[2020-09-18 20:58] LABS: Glucose Point of Care 308 (65-105)
[2020-09-18 20:58] LABS: Glucose Point of Care 329 (65-105)
[2020-09-18 22:36] LABS: Glucose Point of Care 304 (65-105)
[2020-09-18 23:30] LABS: Glucose Point of Care 294 (65-105)
[2020-09-19] VITALS (46 sets, daily range): BP systolic 109–169; BP diastolic 48–99; PULSE 45–77; RESP 15–32; TEMP 36.1–37.2; O2SAT 90–98
[2020-09-19 00:31] LABS: Glucose Point of Care 257 (65-105)
[2020-09-19 01:39] LABS: Glucose Point of Care 234 (65-105)
[2020-09-19] MEDS: INSULIN HUMAN REGULAR (*BKC) 100 UNITS in SODIUM CHLORIDE 0.9% IV 99 ML 13.9 UNITS IV CONT (02:15)
[2020-09-19 02:27] LABS: Glucose Point of Care 209 (65-105)
[2020-09-19 03:54] LABS: Glucose Point of Care 171 (65-105)
[2020-09-19] MEDS: ALBUTEROL SULFATE NEB 2.5 MG/0.5 ML INH INHALATION ×3 (04:33→19:51)
[2020-09-19 05:05] LABS: Alveolar/Arterial O2 Gradient 313.1 mmHg; Base Excess ABG 10.8 mEq/l (+/-2.0); Carboxyhemoglobin 0.5 % THb (0-2.0); Fractional Inspired Oxygen 60 %; Methemoglobin ABG 0.1 %THb (0-1.5); Oxygen Content ABG 14.9 %vol (16.0-22.0); Oxygen Saturation ABG 87.6 % (95.0-100.0); Oxyhemoglobin 85.4 % THb (90.0-100.0); PCO2 ABG 56.3 mmHg (35.0-45.0); PO2 ABG 52.8 mmHg (80.0-100.0); PO2 FiO2 Ratio Arterial Blood 0.88 %; Total Hemoglobin 12.4 g/dL (12.0-18.0); pH ABG 7.435 (7.350-7.450)
[2020-09-19 05:07] LABS: Arterial Blood Gas Vent Mode PRESSURE CONTROL; Arterial Blood Gas Ventilator rate 16 /MIN; Device VENTILATOR; Site Drawn LEFT BRACHIAL
[2020-09-19 05:08] LABS: Arterial Blood Gas PEEP 10 cmH2O; Peak Inspiratory Pressure 30 cmH2O
[2020-09-19 05:17] LABS: Glucose Point of Care 155 (65-105)
[2020-09-19] MEDS: CENTRAL LINE FLUSH 10 ML IV PUSH ×3 (05:19→20:24)
[2020-09-19 05:23] LABS: Hematocrit 33.9 % (37.0-47.0); Hemoglobin 10.1 g/dL (12.0-15.0); Mean Corpuscular HGB Conc 29.8 g/dl (32-36); Mean Corpuscular Volume 90.6 fl (80-100); Platelet Count Result 323 k/mm3 (150-375); Red Blood Count 3.74 M/mm3 (4.2-5.4); Red Cell Distribution Width 15.3 % (11.5-14.5); White Blood Count 13.4 K/mm3 (4.5-10.0)
[2020-09-19 05:54] LABS: Alanine Aminotransferase 27 U/L (4-35); Albumin Level 3.1 g/dL (3.5-5.1); Alkaline Phosphatase 102 U/L (38-126); Anion Gap 5.99999 mmol/L (8-16); Aspartate Amino Transferase 31 U/L (14-36); Bilirubin,Total 0.4 mg/dL (0.2-1.3); Blood Urea Nitrogen 33 mg/dL (7-17); Calcium 8.5 mg/dL (8.4-10.2); Carbon Dioxide > 40 mmol/L (22-30); Chloride 97 mmol/L (98-107); Estimated CRCL calculation 154 ml/min; Estimated Glomerular Filt Rate > 60; Glucose 151 mg/dL (65-105); Phosphorus 3.4 mg/dL (2.5-4.5); Potassium 3.4 mmol/L (3.4-5.0); Sodium 143 mmol/L (137-145)
[2020-09-19] MEDS: LEVOTHYROXINE SODIUM INJ 100 MCG/5 ML VIAL 75 MCG IV PUSH (06:32)
[2020-09-19 06:50] LABS: Glucose Point of Care 143 (65-105)
[2020-09-19 07:56] LABS: Glucose Point of Care 138 (65-105)
[2020-09-19] MEDS: BUDESONIDE RESPULE NEB 0.5 MG/2 ML AMP INHALATION ×2 (09:30→19:51)
[2020-09-19] MEDS: FENTANYL 2,500MCG/NS250ML(*CRX 2,500 MCG/250 ML BAG 10 MCG IV CONT (09:32)
[2020-09-19] MEDS: ENOXAPARIN 100 MG/ML SYRINGE SUB-Q ×2 (09:44→20:17)
[2020-09-19] MEDS: ENOXAPARIN 60 MG/0.6 ML SYRINGE 50 MG SUB-Q ×2 (09:46→20:23)
[2020-09-19] MEDS: PANTOPRAZOLE SODIUM IV 40 MG VIAL IV PUSH (09:48)
[2020-09-19] MEDS: SOD HYPOCHLORITE 1/4 STRENGTH 473 ML 1 APPLIC TOPICAL (09:50)
[2020-09-19 10:12] LABS: Glucose Point of Care 127 (65-105)
--- NOTE | 2020-09-19 10:19 | PM.IMPN ---
Progress Note: A&P Assessment and Plan (1) Acute and chronic respiratory failure: Qualifiers: Respiratory failure complication: hypoxia and hypercapnia Qualified Code(s): J96.21 - Acute and chronic respiratory failure with hypoxia; J96.22 - Acute and chronic respiratory failure with hypercapnia Code(s): J96.20 - Acute and chronic respiratory failure, unspecified whether with hypoxia or hypercapnia Status: Acute Assessment and Plan: Patient is chronically on oxygen at 2 L which she increased to 4 L prior to admission. pH 7.31 with pCO2 63 on admission. She tested positive for COVID 09/14/20. [place] the reason for respiratory failure is from COPD, CHF, JOHNNY and mostly COVID. ABG worsened and BiPAP started. Serial ABGs after BiPAP adjustments were without benefits. Discussed with hand plug shaper. Patient decided to be full code. She was moved to ICU and intubated 09/15/20. CXR reviewed today showing interval worsening. She still has negative fluid balance. ABG 7.43/56/53 on PC, PEEP 10, FiO2 60%. A-a gradient 313. Vent management per hand plug shaper. (2) Pneumonia due to COVID-19 virus: Code(s): U07.1 - COVID-19; J12.89 - Other viral pneumonia Status: Acute Assessment and Plan: CXR from admission showing diffuse airspace disease. Possibly pulmonary edema but now COVID+ so more likely related to COVID PNA/ARDS. Started on Dexamethasone and Redesivir Day 5. Broad spectrum abx were started 09/15 but stopped 09/16. Yesterday, DD 3.77 and CRP 15, both higher but LDH and Ferritn trending down. Continue albuterol nebulizer treatments and Pulmicort Respules. Attempt to lay patient prone as she tolerates. Repeat inflammatory markers tomorrow. Continue supportive care. (3) Congestive heart failure: Code(s): I50.9 - Heart failure, unspecified Status: Acute Assessment and Plan: Concern for CHF with CXR findings and BNP 1340 but no clinical evidence of fluid overload. Echo 09/16 showing EF 50-55% with poorly visualized LV; small to moderate pericardial effusion. Patient takes Lasix 80mg daily home. IV Lasix have been stopped. She still has negative fluid balance. CXR reviewed with some worsening. Continue to monitor closely. (4) Bradycardia: Code(s): R00.1 - Bradycardia, unspecified Status: Acute Assessment and Plan: Was on dopamine due to the bradycardia but able to be stopped 09/18/20. TSH 0.65. Echo showing EF 50-55% but overall a poor study. Heart rate low but stable at this time. Continue to monitor on tele. (5) Atrial fibrillation: Code(s): I48.91 - Unspecified atrial fibrillation Status: Chronic Assessment and Plan: Patient with chronic AFib. Diltiazem is on hold due to her bradycardia. She is on full dose lovenox (6) DM2 (diabetes mellitus, type 2): Code(s): E11.9 - Type 2 diabetes mellitus without complications Status: Chronic Assessment and Plan: A1c 8.6. The patient's blood glucose was reviewed on 09/19 Glucose better controlled. Continue AccuCheks covering with sliding scale. Hypoglycemia protocol available as needed. Continue Levemir. Watch for lows (7) Decubitus ulcer of coccyx: Code(s): L89.159 - Pressure ulcer of sacral region, unspecified stage Status: Acute Assessment and Plan: Patient with a large decubitus ulcer present on admission. Continue current wound care. (8) Hypothyroidism: Code(s): E03.9 - Hypothyroidism, unspecified Status: Chronic Assessment and Plan: TSH normal. She takes Levothyroxine 225mcg po daily. Continue levothyroxine IV. (9) JOHNNY (obstructive sleep apnea): Code(s): G47.33 - Obstructive sleep apnea (adult) (pediatric) Status: Acute Assessment and Plan: Patient probably has JOHNNY/OHS. She is on Trilogy via nasal pillows at home and is compliant with treatment. (10) DVT prophy
[2020-09-19 12:57] LABS: Glucose Point of Care 99 (65-105)
--- NOTE | 2020-09-19 13:54 | WPDINTPN ---
Progress Note: A&P Assessment and Plan (1) Acute and chronic respiratory failure: Qualifiers: Respiratory failure complication: hypoxia and hypercapnia Qualified Code(s): J96.21 - Acute and chronic respiratory failure with hypoxia; J96.22 - Acute and chronic respiratory failure with hypercapnia Code(s): J96.20 - Acute and chronic respiratory failure, unspecified whether with hypoxia or hypercapnia Status: Acute Assessment and Plan: Patient with hypercapnic respiratory failure likely secondary to COVID-19 pneumonia - chest x-ray shows diffuse bilateral infiltrates with dense consolidation - blood and sputum cultures are negative. She was on Zosyn and vancomycin but that has been discontinued now. - patient pressure control ventilation with low tidal volume strategy, tidal volumes fluctuating between 300-350 mL. Wean FiO2 and PEEP if able to tolerated. - ABGs reviewed, chest x-ray shows slight interval improvement - Continue bronchodilators and steroids Lasix have been discontinued yesterday because of significant contraction alkalosis. (2) Pneumonia due to COVID-19 virus: Code(s): U07.1 - COVID-19; J12.89 - Other viral pneumonia Status: Acute Assessment and Plan: SARS-CoV-2 PCR positive for COVID-19 - continue droplet, airborne, contact isolation/precautions - dexamethasone and Remdesivir initiated on 09/15/2020 - continue to monitor inflammatory markers - Received convalescent plasma on 09/18. (3) Atrial fibrillation: Code(s): I48.91 - Unspecified atrial fibrillation Status: Chronic Assessment and Plan: patient in AFib, She is having bradycardia with heart rate in 50s and 60s. She does not have any significant block. At baseline she is on diltiazem 240 mg long-acting which has been on hold since admission. - heart rates in the 50-60 at this time. Blood pressures have been stable. She was on dopamine drip yesterday but that has been weaned off without any issues. - patient on Pradaxa at home, will start when able. For the time being, She will be continued on therapeutic dose of Lovenox. no evidence of bleeding. (4) Congestive heart failure: Code(s): I50.9 - Heart failure, unspecified Status: Acute Assessment and Plan: patient with history of CHF, echocardiogram 09/16/2020: EF of 50-55% small to moderate pericardial effusion (5) DM2 (diabetes mellitus, type 2): Code(s): E11.9 - Type 2 diabetes mellitus without complications Status: Chronic Assessment and Plan: continue Accu-Cheks and sliding scale insulin - She had significant hyperglycemia yesterday and had to be started on insulin drip. Her dose of Lantus will be increased to 32 units today and will attempt to wean her off insulin drip if her fingersticks sugars are within acceptable range. (6) DVT prophylaxis: Code(s): Z29.9 - Encounter for prophylactic measures, unspecified Status: Acute Assessment and Plan: DVT prophylaxis: Therapeutic dose Lovenox. stress ulcer prophylaxis: Protonix IV Additional Plan code status: Full code critical care time spent: 33 minutes Due to a high probability of clinically significant, life threatening deterioration, the patient required my highest level of preparedness to intervene emergently and I personally spent this critical care time directly and personally managing the patient. This critical care time included obtaining a history; examining the patient; pulse oximetry; ordering and review of studies; arranging urgent treatment with development of a management plan; evaluation of patient's response to treatment; frequent reassessment; and discussions with other providers. It was exclusive of separately billable procedures and treating other patients and teaching time. Please see Assessment and Plan section and the rest of the note for further information on patient
[2020-09-19 14:23] LABS: Glucose Point of Care 110 (65-105)
[2020-09-19] MEDS: INSULIN HUMAN REGULAR (*BKC) 100 UNITS in SODIUM CHLORIDE 0.9% IV 99 ML IV CONT (15:49)
[2020-09-19 16:43] LABS: Glucose Point of Care 120 (65-105)
[2020-09-19] MEDS: REMDESIVIR 100 MG/NS 250 ML 100 MG/250 ML BAG 250 MG IVPB (17:43)
[2020-09-19 18:00] LABS: Vancomycin Trough < 5.0 ug/mL (10.0-20.0)
[2020-09-19 18:47] LABS: Glucose Point of Care 103 (65-105)
[2020-09-19 19:18] LABS: Glucose Point of Care 104 (65-105)
[2020-09-19] MEDS: DEXAMETHASONE SOD PHOS INJ 4 MG/ML VIAL 6 MG IV PUSH (20:21)
[2020-09-19 20:48] LABS: Glucose Point of Care 119 (65-105)
[2020-09-19 21:43] LABS: Glucose Point of Care 127 (65-105)
[2020-09-19 22:54] LABS: Glucose Point of Care 140 (65-105)
[2020-09-20] VITALS (33 sets, daily range): BP systolic 97–166; BP diastolic 52–72; PULSE 39–96; RESP 14–25; TEMP 36.6–37.3; O2SAT 90–100
[2020-09-20 00:26] LABS: Glucose Point of Care 126 (65-105)
[2020-09-20] MEDS: FENTANYL 2,500MCG/NS250ML(*CRX 2,500 MCG/250 ML BAG 17.5 MCG IV CONT ×2 (01:20→15:49)
[2020-09-20 01:25] LABS: Glucose Point of Care 132 (65-105)
[2020-09-20] MEDS: ALBUTEROL SULFATE NEB 2.5 MG/0.5 ML INH INHALATION ×4 (02:33→22:00)
[2020-09-20 02:42] LABS: Glucose Point of Care 137 (65-105)
[2020-09-20 04:01] LABS: Glucose Point of Care 180 (65-105)
[2020-09-20 04:05] LABS: Hematocrit 35.6 % (37.0-47.0); Hemoglobin 10.5 g/dL (12.0-15.0); Mean Corpuscular HGB Conc 29.5 g/dl (32-36); Mean Corpuscular Hemoglobin 27.4 pg (26-34); Mean Platelet Volume 9.9 fl (7.4-10.4); Platelet Count Result 338 k/mm3 (150-375); Red Blood Count 3.83 M/mm3 (4.2-5.4); Red Cell Distribution Width 15.6 % (11.5-14.5); White Blood Count 17.2 K/mm3 (4.5-10.0)
[2020-09-20 04:43] LABS: Alanine Aminotransferase 54 U/L (4-35); Albumin Level 2.9 g/dL (3.5-5.1); Alkaline Phosphatase 169 U/L (38-126); Anion Gap 5.99999 mmol/L (8-16); Aspartate Amino Transferase 120 U/L (14-36); Bilirubin,Total 0.7 mg/dL (0.2-1.3); Blood Urea Nitrogen 32 mg/dL (7-17); CRP 6.5 mg/dL (<1.0); Calcium 8.5 mg/dL (8.4-10.2); Carbon Dioxide > 40 mmol/L (22-30); Chloride 97 mmol/L (98-107); Estimated CRCL calculation 131 ml/min; Estimated Glomerular Filt Rate > 60; Glucose 206 mg/dL (65-105); Lactate Dehydrogenase 1845 U/L (313-618); Magnesium 2.2 mg/dL (1.6-2.3); Phosphorus 4.9 mg/dL (2.5-4.5); Potassium 3.8 mmol/L (3.4-5.0); Sodium 143 mmol/L (137-145)
[2020-09-20 05:39] LABS: Glucose Point of Care 164 (65-105)
[2020-09-20 06:51] LABS: Glucose Point of Care 138 (65-105)
[2020-09-20] MEDS: LEVOTHYROXINE SODIUM INJ 100 MCG/5 ML VIAL 75 MCG IV PUSH (06:53)
[2020-09-20] MEDS: CENTRAL LINE FLUSH 10 ML IV PUSH ×3 (06:53→20:05)
[2020-09-20 07:14] LABS: Alveolar/Arterial O2 Gradient 404.3 mmHg; Base Excess ABG 11.5 mEq/l (+/-2.0); Fractional Inspired Oxygen 80 %; HCO3 ABG 38.5 mEq/l (22.0-26.0); Oxygen Content ABG 15.2 %vol (16.0-22.0); Oxygen Saturation ABG 97.3 % (95.0-100.0); Oxyhemoglobin 96.6 % THb (90.0-100.0); PO2 ABG 99.2 mmHg (80.0-100.0); PO2 FiO2 Ratio Arterial Blood 1.24 %; Total Hemoglobin 11.1 g/dL (12.0-18.0); pH ABG 7.399 (7.350-7.450)
[2020-09-20 07:17] LABS: Arterial Blood Gas Vent Mode PRESSURE CONTROL; Arterial Blood Gas Ventilator rate 16 /MIN; Device VENTILATOR; Modified Allen's Test Pass; PCO2 ABG 63.7 mmHg (35.0-45.0); Site Drawn LEFT RADIAL
[2020-09-20 07:18] LABS: Arterial Blood Gas PEEP 10 cmH2O; Peak Inspiratory Pressure 30 cmH2O
[2020-09-20 07:55] LABS: Glucose Point of Care 121 (65-105)
[2020-09-20] MEDS: DOPamine 400 MG/D5W 250 ML 400 MG/250 ML BAG 11.48 MG IV CONT (08:00)
[2020-09-20] MEDS: ENOXAPARIN 60 MG/0.6 ML SYRINGE 50 MG SUB-Q ×2 (09:19→20:06)
[2020-09-20] MEDS: ENOXAPARIN 100 MG/ML SYRINGE SUB-Q ×2 (09:19→20:06)
[2020-09-20] MEDS: SOD HYPOCHLORITE 1/4 STRENGTH 473 ML 1 APPLIC TOPICAL (09:20)
[2020-09-20] MEDS: PANTOPRAZOLE SODIUM IV 40 MG VIAL IV PUSH (09:20)
[2020-09-20 09:34] LABS: Glucose Point of Care 134 (65-105)
[2020-09-20] MEDS: BUDESONIDE RESPULE NEB 0.5 MG/2 ML AMP INHALATION ×2 (09:48→22:00)
[2020-09-20] MEDS: DOPamine 400 MG/D5W 250 ML 400 MG/250 ML BAG 11.1 MG IV CONT (10:00)
[2020-09-20] MEDS: INSULIN HUMAN REGULAR (*BKC) 100 UNITS in SODIUM CHLORIDE 0.9% IV 99 ML 6.2 UNITS IV CONT (10:17)
[2020-09-20 10:25] LABS: Glucose Point of Care 138 (65-105)
[2020-09-20 12:42] LABS: Glucose Point of Care 141 (65-105)
[2020-09-20 12:43] LABS: Glucose Point of Care 137 (65-105)
--- NOTE | 2020-09-20 12:48 | PCDIET ---
ICU Rounding Note: Patient tolerating Glucerna 1.2 at 40mL/hr. Recommend gradual advancement toward goal of 60mL/hr for 1584kcal and 79g protein over 22 hours/day. Recommend addition of Pro-Stat TID for additional 300kcal and 45g protein. Last recorded weight is 204kg which is significantly increased from last review. Recommend re-weighing patient to ensure accuracy. Bowel Motility: No documented BM - if medically appropriate, would consider medication to promote BM. Labs Reviewed: Hgb (10.5), Hct (35.6), Glu (206), BUN (32), Cr (0.6), Alb (2.9), PO4 (4.9) Meds Noted: Albuterol, Pulmicort, Decadron, Dopamine, Fentanyl, Hydralazine, IV Aspart, Levemir, Synthroid, Versed, Protonix, Additional Notes: Buttocks macerated. Pressure ulcer to coccyx. Following daily in ICU rounds. Assessing/reassessing every Sunday/Sunday.
[2020-09-20 15:06] LABS: Glucose Point of Care 134 (65-105)
[2020-09-20 15:06] LABS: Glucose Point of Care 131 (65-105)
--- NOTE | 2020-09-20 16:03 | WPDINTPN ---
Progress Note: A&P Assessment and Plan (1) Acute and chronic respiratory failure: Qualifiers: Respiratory failure complication: hypoxia and hypercapnia Qualified Code(s): J96.21 - Acute and chronic respiratory failure with hypoxia; J96.22 - Acute and chronic respiratory failure with hypercapnia Code(s): J96.20 - Acute and chronic respiratory failure, unspecified whether with hypoxia or hypercapnia Status: Acute Assessment and Plan: Patient with hypercapnic respiratory failure likely secondary to COVID-19 pneumonia - chest x-ray shows diffuse bilateral infiltrates with dense consolidation - blood and sputum cultures are negative. She was on Zosyn and vancomycin but that has been discontinued now. - patient pressure control ventilation with low tidal volume strategy, tidal volumes fluctuating between 400-450 mL. - switched patient to CMV mode of ventilation, low tidal volume strategy, peep of 10, wean FiO2 as tolerated - ABGs reviewed, chest x-ray shows slight interval improvement - Continue bronchodilators and steroids Lasix have been discontinued yesterday because of significant contraction alkalosis. (2) Pneumonia due to COVID-19 virus: Code(s): U07.1 - COVID-19; J12.89 - Other viral pneumonia Status: Acute Assessment and Plan: SARS-CoV-2 PCR positive for COVID-19 - continue droplet, airborne, contact isolation/precautions - dexamethasone and Remdesivir initiated on 09/15/2020 - continue to monitor inflammatory markers - Received convalescent plasma on 09/18. (3) Atrial fibrillation: Code(s): I48.91 - Unspecified atrial fibrillation Status: Chronic Assessment and Plan: patient in AFib, She is having bradycardia with heart rate in 30s. Will obtain a EKG - At baseline she is on diltiazem 240 mg long-acting which has been on hold since admission. - heart rates in the upper 30s at this time. Blood pressures have been stable. will restart dopamine - patient on Pradaxa at home, will start when able. For the time being, She will be continued on therapeutic dose of Lovenox. no evidence of bleeding. (4) Congestive heart failure: Code(s): I50.9 - Heart failure, unspecified Status: Acute Assessment and Plan: patient with history of CHF, echocardiogram 09/16/2020: EF of 50-55% small to moderate pericardial effusion (5) DM2 (diabetes mellitus, type 2): Code(s): E11.9 - Type 2 diabetes mellitus without complications Status: Chronic Assessment and Plan: continue Accu-Cheks and sliding scale insulin - patient is off insulin infusion - continue Levemir (6) DVT prophylaxis: Code(s): Z29.9 - Encounter for prophylactic measures, unspecified Status: Acute Assessment and Plan: DVT prophylaxis: Therapeutic dose Lovenox. stress ulcer prophylaxis: Protonix IV Additional Plan will update family code status: Full code critical care time spent: 34 minutes Due to a high probability of clinically significant, life threatening deterioration, the patient required my highest level of preparedness to intervene emergently and I personally spent this critical care time directly and personally managing the patient. This critical care time included obtaining a history; examining the patient; pulse oximetry; ordering and review of studies; arranging urgent treatment with development of a management plan; evaluation of patient's response to treatment; frequent reassessment; and discussions with other providers. It was exclusive of separately billable procedures and treating other patients and teaching time. Please see Assessment and Plan section and the rest of the note for further information on patient assessment and treatment Subjective Date/time seen: 09/20/20 16:03 Interval history: reason for consult, COVID-19 pneumonia, acute hypoxic/hypercapnic respiratory failure - intubated
[2020-09-20 16:55] LABS: Glucose Point of Care 122 (65-105)
[2020-09-20 16:55] LABS: Glucose Point of Care 114 (65-105)
[2020-09-20 18:20] LABS: Glucose Point of Care 129 (65-105)
[2020-09-20] MEDS: DEXAMETHASONE SOD PHOS INJ 4 MG/ML VIAL 6 MG IV PUSH (20:06)
[2020-09-20 20:17] LABS: Glucose Point of Care 117 (65-105)
[2020-09-20 21:40] LABS: Glucose Point of Care 138 (65-105)
[2020-09-20 22:31] LABS: Glucose Point of Care 142 (65-105)
[2020-09-20 23:13] LABS: Glucose Point of Care 130 (65-105)
[2020-09-21] VITALS (42 sets, daily range): BP systolic 73–159; BP diastolic 34–92; PULSE 36–91; RESP 19–30; TEMP 36.3–37.3; O2SAT 91–100
[2020-09-21 01:42] LABS: Glucose Point of Care 143 (65-105)
[2020-09-21 02:06] LABS: Glucose Point of Care 153 (65-105)
[2020-09-21 02:59] LABS: Glucose Point of Care 148 (65-105)
[2020-09-21] MEDS: FENTANYL 2,500MCG/NS250ML(*CRX 2,500 MCG/250 ML BAG 17.5 MCG IV CONT (02:59)
[2020-09-21] MEDS: ALBUTEROL SULFATE NEB 2.5 MG/0.5 ML INH INHALATION ×4 (03:11→22:31)
[2020-09-21] MEDS: INSULIN HUMAN REGULAR (*BKC) 100 UNITS in SODIUM CHLORIDE 0.9% IV 99 ML 6.8 UNITS IV CONT (04:13)
[2020-09-21 04:43] LABS: Glucose Point of Care 162 (65-105)
[2020-09-21 04:51] LABS: Hematocrit 38.1 % (37.0-47.0); Hemoglobin 11.1 g/dL (12.0-15.0); Mean Corpuscular HGB Conc 29.1 g/dl (32-36); Mean Corpuscular Hemoglobin 27.4 pg (26-34); Mean Corpuscular Volume 94.1 fl (80-100); Mean Platelet Volume 10.1 fl (7.4-10.4); Platelet Count Result 387 k/mm3 (150-375); Red Blood Count 4.05 M/mm3 (4.2-5.4); Red Cell Distribution Width 15.5 % (11.5-14.5); White Blood Count 17.8 K/mm3 (4.5-10.0)
[2020-09-21] MEDS: CENTRAL LINE FLUSH 10 ML IV PUSH ×3 (04:52→20:07)
[2020-09-21] MEDS: LEVOTHYROXINE SODIUM INJ 100 MCG/5 ML VIAL 75 MCG IV PUSH (04:56)
[2020-09-21] MEDS: DOPamine 400 MG/D5W 250 ML 400 MG/250 ML BAG 15.3 MG IV CONT (05:10)
[2020-09-21 05:35] LABS: Anion Gap 6.99999 mmol/L (8-16); Blood Urea Nitrogen 31 mg/dL (7-17); Calcium 8.7 mg/dL (8.4-10.2); Carbon Dioxide > 40 mmol/L (22-30); Chloride 97 mmol/L (98-107); Estimated CRCL calculation 155 ml/min; Estimated Glomerular Filt Rate > 60; Glucose 156 mg/dL (65-105); Magnesium 2.6 mg/dL (1.6-2.3); Phosphorus 5.1 mg/dL (2.5-4.5); Potassium 4.4 mmol/L (3.4-5.0); Sodium 144 mmol/L (137-145)
[2020-09-21 06:03] LABS: Glucose Point of Care 140 (65-105)
[2020-09-21 06:51] LABS: Alveolar/Arterial O2 Gradient 239.5 mmHg; Base Excess ABG 8.7 mEq/l (+/-2.0); Carboxyhemoglobin 0.8 % THb (0-2.0); Fractional Inspired Oxygen 55 %; Methemoglobin ABG 0.1 %THb (0-1.5); Oxygen Saturation ABG 93.6 % (95.0-100.0); PO2 ABG 74.4 mmHg (80.0-100.0); PO2 FiO2 Ratio Arterial Blood 1.35 %; Reduced Hemoglobin 6.1 %THb (0-5.0); pH ABG 7.339 (7.350-7.450)
[2020-09-21 06:55] LABS: Arterial Blood Gas PEEP 10 cmH2O; Arterial Blood Gas Tidal Volume 320 ml; Arterial Blood Gas Vent Mode CMV; Arterial Blood Gas Ventilator rate 24 /MIN; Device VENTILATOR; Modified Allen's Test Unable to perform; PCO2 ABG 70.3 mmHg (35.0-45.0); Site Drawn RIGHT RADIAL
[2020-09-21 07:01] LABS: Glucose Point of Care 135 (65-105)
[2020-09-21] MEDS: TOLNAFTATE 1% POWDER 45 GM BTL 1 APPLIC TOPICAL ×2 (08:28→20:07)
[2020-09-21] MEDS: SOD HYPOCHLORITE 1/4 STRENGTH 473 ML 1 APPLIC TOPICAL (08:28)
[2020-09-21] MEDS: ENOXAPARIN 60 MG/0.6 ML SYRINGE 50 MG SUB-Q ×2 (08:29→20:06)
[2020-09-21] MEDS: ENOXAPARIN 100 MG/ML SYRINGE SUB-Q ×2 (08:29→20:06)
[2020-09-21] MEDS: PANTOPRAZOLE SODIUM IV 40 MG VIAL IV PUSH (08:30)
[2020-09-21 08:48] LABS: Glucose Point of Care 127 (65-105)
[2020-09-21] MEDS: BUDESONIDE RESPULE NEB 0.5 MG/2 ML AMP INHALATION ×2 (09:02→22:31)
[2020-09-21 09:39] LABS: Glucose Point of Care 130 (65-105)
[2020-09-21 10:48] LABS: Glucose Point of Care 145 (65-105)
[2020-09-21] MEDS: polyethylene glycoL 3350 17 GM POWD.PACK PO (11:35)
[2020-09-21] MEDS: INSULIN DETEMIR 100 UNITS/ML 40 UNITS SUB-Q ×2 (11:45→20:12)
--- NOTE | 2020-09-21 12:40 | PCDIET ---
Nutrition Follow-Up Complete: Nutrition Diagnosis: Inadequate oral intake related to inability to consume foods orally as evidenced by need for enteral nutrition to meet needs. Nutrition Goal: Total intake will meet estimated kcal and protein needs. Goal in progress. Patient tolerating Glucerna 1.2 at 50mL/hr without reported issues. Clarified order for Pro-Stat TID with RN. Last recorded weight is 197.5 kg which is decreased from last review, despite +I/O. Will monitor. Bowel Motility: No documented BM. MD added Miralax today. Labs Reviewed: WBC (17.8), Hgb (11.1), Glu (156), BUN (31), Cr (0.6), PO4 (5.1) Meds Noted: Albuterol, Pulmicort, Decadron, Versed, Synthroid, Levemir, IV Aspart, Hydralazine Additional Notes: MD adjusting insulin. Coccyx ulcer and buttock maceration reported. Will continue to monitor with same goal. Nutrition Monitoring and Evaluation: Follow up every Sunday/Sunday. Follow daily in ICU rounds.
[2020-09-21 13:38] LABS: Glucose Point of Care 119 (65-105)
[2020-09-21 13:38] LABS: Glucose Point of Care 144 (65-105)
--- NOTE | 2020-09-21 14:33 | WPDINTPN ---
Progress Note: A&P Assessment and Plan (1) Acute and chronic respiratory failure: Qualifiers: Respiratory failure complication: hypoxia and hypercapnia Qualified Code(s): J96.21 - Acute and chronic respiratory failure with hypoxia; J96.22 - Acute and chronic respiratory failure with hypercapnia Code(s): J96.20 - Acute and chronic respiratory failure, unspecified whether with hypoxia or hypercapnia Status: Acute Assessment and Plan: Patient with hypercapnic respiratory failure likely secondary to COVID-19 pneumonia - chest x-ray shows diffuse bilateral infiltrates with dense consolidation - blood and sputum cultures are negative. Zosyn and vancomycin discontinued on 09/20/2020. Patient was initially on pressure control ventilation but was attending higher tidal volumes, was switched to CMV mode of ventilation on 09/20 with low tidal volume strategy, peep of 10, wean FiO2 as tolerated - ABGs reviewed, chest x-ray shows slight interval improvement - Continue bronchodilators and steroids Lasix have been discontinued yesterday because of significant contraction alkalosis. (2) Pneumonia due to COVID-19 virus: Code(s): U07.1 - COVID-19; J12.89 - Other viral pneumonia Status: Acute Assessment and Plan: SARS-CoV-2 PCR positive for COVID-19 - continue droplet, airborne, contact isolation/precautions - dexamethasone and Remdesivir initiated on 09/15/2020 - continue to monitor inflammatory markers - Received convalescent plasma on 09/18. (3) Atrial fibrillation: Code(s): I48.91 - Unspecified atrial fibrillation Status: Chronic Assessment and Plan: patient in AFib, She is having bradycardia with heart rate in 30s. Will obtain a EKG - At baseline she is on diltiazem 240 mg long-acting which has been on hold since admission. - heart rates in the upper 30s at this time. Blood pressures have been stable. on dopamine - patient on Pradaxa at home, will start when able. For the time being, She will be continued on therapeutic dose of Lovenox. no evidence of bleeding. (4) Congestive heart failure: Code(s): I50.9 - Heart failure, unspecified Status: Acute Assessment and Plan: patient with history of CHF, echocardiogram 09/16/2020: EF of 50-55% small to moderate pericardial effusion - holding diuretics due to contraction alkalosis - will order Diamox today (5) DM2 (diabetes mellitus, type 2): Code(s): E11.9 - Type 2 diabetes mellitus without complications Status: Chronic Assessment and Plan: continue Accu-Cheks and sliding scale insulin - patient was on insulin infusion and this morning, transition to long-acting insulin Levemir and high dose sliding scale insulin - hyperglycemia likely related to dexamethasone (6) DVT prophylaxis: Code(s): Z29.9 - Encounter for prophylactic measures, unspecified Status: Acute Assessment and Plan: DVT prophylaxis: Therapeutic dose Lovenox. stress ulcer prophylaxis: Protonix IV Additional Plan discussed with sister Eulalia, updated with patient's condition and plan of care. Answered all question condition: Guarded code status: Full code critical care time spent: 34 minutess Due to a high probability of clinically significant, life threatening deterioration, the patient required my highest level of preparedness to intervene emergently and I personally spent this critical care time directly and personally managing the patient. This critical care time included obtaining a history; examining the patient; pulse oximetry; ordering and review of studies; arranging urgent treatment with development of a management plan; evaluation of patient's response to treatment; frequent reassessment; and discussions with other providers. It was exclusive of separately billable procedures and treating other patients and teaching time. Please see Assessment and
--- NOTE | 2020-09-21 15:31 | PC.NURSE ---
1300 Prostat not given because AM prostat given about 1145am.
[2020-09-21] MEDS: FENTANYL 2,500MCG/NS250ML(*CRX 2,500 MCG/250 ML BAG 20 MCG IV CONT (15:33)
--- NOTE | 2020-09-21 15:45 | PC.NURSE ---
1250: Insulin drip stopped.
[2020-09-21] MEDS: acetaZOLAMIDE TAB 250 MG TABLET PO (16:08)
--- NOTE | 2020-09-21 16:13 | PM.IMPN ---
Progress Note: A&P Assessment and Plan (1) Acute and chronic respiratory failure: Qualifiers: Respiratory failure complication: hypoxia and hypercapnia Qualified Code(s): J96.21 - Acute and chronic respiratory failure with hypoxia; J96.22 - Acute and chronic respiratory failure with hypercapnia Code(s): J96.20 - Acute and chronic respiratory failure, unspecified whether with hypoxia or hypercapnia Status: Acute Assessment and Plan: Patient is chronically on oxygen at 2 L which she increased to 4 L prior to admission. pH 7.31 with pCO2 63 on admission. She tested positive for COVID. Perry the reason for respiratory failure from COPD, CHF, JOHNNY and mostly COVID. ABG worsened and BiPAP started. Serial ABGs after BiPAP adjustments were without benefits. Discussed with store sales manager. Patient now wants to be full code. She was moved to ICU and intubated 09/15/20. CXR reviewed today showing some improvement. She has negative fluid balance. ABG 7.60/33/95 on PC, PEEP 12, FiO2 60%. A-a gradient 296. Perry she is becoming contracted/dehydrated. Vent rate decreased and Lasix held. . Vent management per store sales manager. (2) Pneumonia due to COVID-19 virus: Code(s): U07.1 - COVID-19; J12.89 - Other viral pneumonia Status: Acute Assessment and Plan: CXR from admission showing diffuse airspace disease. Possibly pulmonary edema but now COVID+ so felt related to COVID PNA/ARDS. Started on Dexamethasone D#6 and finishes Remdesivir. Broad spectrum abx were started 09/15 but stopped 09/16. Continue albuterol nebulizer treatments and Pulmicort Respules. Attempt to lay patient prone as she tolerates. Continue supportive care (3) Congestive heart failure: Code(s): I50.9 - Heart failure, unspecified Status: Acute Assessment and Plan: Concern for CHF with CXR findings and BNP 1340 but no clinical evidence of fluid overload. Echo 09/16 showing EF 50-55% with poorly visualized LV; small to moderate pericardial effusion. Patient takes Lasix 80mg daily home. Patient remains on IV Lasix at this time. She having excellent UOP with negative fluid balance. CXR reviewed with some improvement. Lasix to be held. Continue to monitor closely. (4) Bradycardia: Code(s): R00.1 - Bradycardia, unspecified Status: Acute Assessment and Plan: Still on dopamine due to the bradycardia. TSH 0.65. Echo showing EF 50-55% but overall a poor study. Heart rate low but stable at this time. Wean dobutamine as tolerated. (5) Atrial fibrillation: Code(s): I48.91 - Unspecified atrial fibrillation Status: Chronic Assessment and Plan: Patient with chronic AFib. Diltiazem is on hold due to her bradycardia. as is pradaxa (6) DM2 (diabetes mellitus, type 2): Code(s): E11.9 - Type 2 diabetes mellitus without complications Status: Chronic Assessment and Plan: A1c 8.6. The patient's blood glucose was reviewed on 09/18 Glucose remains poorly controlled. Continue AccuCheks covering with sliding scale. Hypoglycemia protocol available as needed. Levemir advanced again (7) Decubitus ulcer of coccyx: Code(s): L89.159 - Pressure ulcer of sacral region, unspecified stage Status: Acute Assessment and Plan: Patient with a large decubitus ulcer present on admission. Continue current wound care. (8) Hypothyroidism: Code(s): E03.9 - Hypothyroidism, unspecified Status: Chronic Assessment and Plan: TSH normal. She takes Levothyroxine 225mcg. Continue levothyroxine IV. (9) JOHNNY (obstructive sleep apnea): Code(s): G47.33 - Obstructive sleep apnea (adult) (pediatric) Status: Acute Assessment and Plan: Patient probably has JOHNNY/OHS. She is on Trilogy via nasal pillows at home and is compliant with treatment. (10) DVT prophylaxis: Code(s): Z29.9 - Encounter for pro
[2020-09-21] MEDS: PROPOFOL IV EMULSION 100 ML 5.93 MG IV CONT (16:55)
[2020-09-21] MEDS: INSULIN ASPART (*BKC) 100 UNITS/ML SUB-Q (17:04)
[2020-09-21 17:31] LABS: Glucose Point of Care 239 (65-105)
[2020-09-21] MEDS: ATROPINE SULFATE 1 MG/10 ML SYRINGE IV PUSH (18:44)
[2020-09-21] MEDS: DOPamine 400 MG/D5W 250 ML 400 MG/250 ML BAG 30.6 MG IV CONT (18:53)
--- NOTE | 2020-09-21 19:30 | PM.EVENT ---
Event Note Event Note Event Note: Received a call from the patient's nurse around 1930 with reports bradycardia and hypotension despite being on dopamine. She was given atropine 0.5 mg with improvement in her blood pressure and rate. Orders were given to titrate dopamine up to 5 mcg if needed, however she has remained stable since the atropine. <Clau Montes PA-C - Last Filed: 09/21/20 22:44> I have seen and evaluated the patient and discussed the care with VIJAY Sanchez. I agree with the findings and plan as documented the note above <Hugo Zhou MD - Last Filed: 11/02/20 14:28>
[2020-09-21] MEDS: DEXAMETHASONE SOD PHOS INJ 4 MG/ML VIAL 6 MG IV PUSH (20:07)
[2020-09-22] VITALS (34 sets, daily range): BP systolic 91–140; BP diastolic 43–85; PULSE 44–85; RESP 12–30; TEMP 36.8–37.7; O2SAT 90–100
[2020-09-22 00:47] LABS: Glucose Point of Care 372 (65-105)
[2020-09-22] MEDS: INSULIN ASPART (*BKC) 100 UNITS/ML SUB-Q ×5 (01:33→20:52)
[2020-09-22] MEDS: DOPamine 400 MG/D5W 250 ML 400 MG/250 ML BAG 30.6 MG IV CONT ×3 (02:07→20:40)
[2020-09-22] MEDS: FENTANYL 2,500MCG/NS250ML(*CRX 2,500 MCG/250 ML BAG 20 MCG IV CONT ×2 (02:07→16:40)
[2020-09-22] MEDS: acetaZOLAMIDE TAB 250 MG TABLET PO (02:10)
[2020-09-22 05:00] LABS: Hematocrit 38.8 % (37.0-47.0); Hemoglobin 11.1 g/dL (12.0-15.0); Mean Corpuscular HGB Conc 28.6 g/dl (32-36); Mean Corpuscular Hemoglobin 27.1 pg (26-34); Mean Corpuscular Volume 94.9 fl (80-100); Mean Platelet Volume 10.2 fl (7.4-10.4); Platelet Count Result 430 k/mm3 (150-375); Red Blood Count 4.09 M/mm3 (4.2-5.4); Red Cell Distribution Width 15.7 % (11.5-14.5); White Blood Count 21.8 K/mm3 (4.5-10.0)
[2020-09-22] MEDS: LEVOTHYROXINE SODIUM INJ 100 MCG/5 ML VIAL 75 MCG IV PUSH (05:00)
[2020-09-22] MEDS: CENTRAL LINE FLUSH 10 ML IV PUSH ×3 (05:00→21:08)
[2020-09-22 05:12] LABS: D Dimer 3.55 ug/mL (<0.48)
[2020-09-22 05:26] LABS: Anion Gap 1.99999 mmol/L (8-16); Blood Urea Nitrogen 31 mg/dL (7-17); CRP 3.9 mg/dL (<1.0); Calcium 8.8 mg/dL (8.4-10.2); Carbon Dioxide > 40 mmol/L (22-30); Chloride 95 mmol/L (98-107); Estimated CRCL calculation 159 ml/min; Estimated Glomerular Filt Rate > 60; Glucose 442 mg/dL (65-105); Lactate Dehydrogenase 1627 U/L (313-618); Magnesium 2.6 mg/dL (1.6-2.3); Phosphorus 4.6 mg/dL (2.5-4.5); Potassium 5.3 mmol/L (3.4-5.0); Sodium 137 mmol/L (137-145)
[2020-09-22 05:30] LABS: Glucose Point of Care 383 (65-105)
[2020-09-22 08:08] LABS: Alveolar/Arterial O2 Gradient 257.6 mmHg; Base Excess ABG 5.5 mEq/l (+/-2.0); Carboxyhemoglobin 1.3 % THb (0-2.0); Fractional Inspired Oxygen 60 %; HCO3 ABG 34.9 mEq/l (22.0-26.0); Methemoglobin ABG 0.1 %THb (0-1.5); Oxygen Content ABG 18.9 %vol (16.0-22.0); Oxygen Saturation ABG 95.2 % (95.0-100.0); Oxyhemoglobin 94.9 % THb (90.0-100.0); PO2 ABG 87.4 mmHg (80.0-100.0); PO2 FiO2 Ratio Arterial Blood 1.46 %; Reduced Hemoglobin 3.7 %THb (0-5.0); Total Hemoglobin 14.1 g/dL (12.0-18.0)
[2020-09-22 08:09] LABS: Device VENTILATOR; Modified Allen's Test Pass; PCO2 ABG 75.3 mmHg (35.0-45.0); Site Drawn LEFT RADIAL; pH ABG 7.284 (7.350-7.450)
[2020-09-22 08:10] LABS: Arterial Blood Gas PEEP 10 cmH2O; Arterial Blood Gas Tidal Volume 320 ml; Arterial Blood Gas Vent Mode CMV; Arterial Blood Gas Ventilator rate 28 /MIN
[2020-09-22] MEDS: BUDESONIDE RESPULE NEB 0.5 MG/2 ML AMP INHALATION ×2 (08:18→21:23)
[2020-09-22] MEDS: ALBUTEROL SULFATE NEB 2.5 MG/0.5 ML INH INHALATION ×4 (08:18→21:23)
[2020-09-22] MEDS: ENOXAPARIN 60 MG/0.6 ML SYRINGE 50 MG SUB-Q ×2 (08:59→20:56)
[2020-09-22] MEDS: ENOXAPARIN 100 MG/ML SYRINGE SUB-Q ×2 (09:00→20:55)
[2020-09-22] MEDS: TOLNAFTATE 1% POWDER 45 GM BTL 1 APPLIC TOPICAL ×2 (09:01→20:51)
[2020-09-22] MEDS: polyethylene glycoL 3350 17 GM POWD.PACK PO (09:01)
[2020-09-22] MEDS: PANTOPRAZOLE SODIUM IV 40 MG VIAL IV PUSH (09:01)
[2020-09-22] MEDS: INSULIN DETEMIR 100 UNITS/ML 40 UNITS SUB-Q ×2 (09:02→20:51)
[2020-09-22] MEDS: SOD HYPOCHLORITE 1/4 STRENGTH 473 ML 1 APPLIC TOPICAL (09:02)
[2020-09-22 10:23] LABS: Anion Gap 2.99999 mmol/L (8-16); Blood Urea Nitrogen 30 mg/dL (7-17); Carbon Dioxide > 40 mmol/L (22-30); Chloride 97 mmol/L (98-107); Estimated CRCL calculation 138 ml/min; Estimated Glomerular Filt Rate > 60; Glucose 362 mg/dL (65-105); Potassium 5.2 mmol/L (3.4-5.0); Sodium 140 mmol/L (137-145)
[2020-09-22 10:33] LABS: Base Excess ABG 7.8 mEq/l (+/-2.0); Fractional Inspired Oxygen 50 %; HCO3 ABG 35.8 mEq/l (22.0-26.0); Oxygen Content ABG 16.9 %vol (16.0-22.0); Oxygen Saturation ABG 93.6 % (95.0-100.0); Oxyhemoglobin 92.7 % THb (90.0-100.0); PO2 ABG 73.8 mmHg (80.0-100.0); PO2 FiO2 Ratio Arterial Blood 1.48 %; Total Hemoglobin 12.9 g/dL (12.0-18.0); pH ABG 7.344 (7.350-7.450)
[2020-09-22 10:35] LABS: Device VENTILATOR; Modified Allen's Test Pass; PCO2 ABG 67.3 mmHg (35.0-45.0); Site Drawn RIGHT RADIAL
[2020-09-22 10:36] LABS: Arterial Blood Gas PEEP 10 cmH2O; Arterial Blood Gas Tidal Volume 350 ml; Arterial Blood Gas Vent Mode CMV; Arterial Blood Gas Ventilator rate 30 /MIN
[2020-09-22 10:54] LABS: Vitamin D 25 Hydroxy < 12.8 ng/mL
[2020-09-22] MEDS: SODIUM POLYSTYRENE SULFONONATE 15 GM/60 ML BTL 30 GM PO (11:08)
--- NOTE | 2020-09-22 11:29 | PCDIET ---
ICU Rounding Note: Patient tolerating Glucerna 1.2 at 60mL/hr goal rate with Pro-Stat flush TID. Continues on 30mL water flush every 4 hours. Last recorded weight is 204kg which is increased from last review. +I/O. Bowel Motility: No documented BM. Miralax started on 09/21/20. Labs Reviewed: WBC (21.8), Hgb (11.1), Glu (362), BUN (30), K (5.2) Meds Noted: Albuterol, Decadron, Dopamine, Fentanyl, Hydralazine, Novolog, Levemir, Synthroid, Versed, Miralax, Protonix, SPS Additional Notes: Buttocks macerated. Ulcer on coccyx. Recommend continuing current tube feeding. If K+ remains elevated, may need to consider change to Nepro. Following daily in ICU rounds. Assessing/reassessing every Sunday/Sunday.
--- NOTE | 2020-09-22 14:35 | WPDINTPN ---
Progress Note: A&P Assessment and Plan (1) Acute and chronic respiratory failure: Qualifiers: Respiratory failure complication: hypoxia and hypercapnia Qualified Code(s): J96.21 - Acute and chronic respiratory failure with hypoxia; J96.22 - Acute and chronic respiratory failure with hypercapnia Code(s): J96.20 - Acute and chronic respiratory failure, unspecified whether with hypoxia or hypercapnia Status: Acute Assessment and Plan: Patient with hypercapnic respiratory failure likely secondary to COVID-19 pneumonia - chest x-ray shows diffuse bilateral infiltrates - blood and sputum cultures are negative. Zosyn and vancomycin discontinued on 09/20/2020. Patient was initially on pressure control ventilation but was attending higher tidal volumes, was switched to CMV mode of ventilation on 09/20 with low tidal volume strategy, peep of 10, wean FiO2 as tolerated and is down to 40% - tidal volume 350 and rate increased to 30 - patient appears to be chronic hypercarbic and CO2 retainer and will not target normalization of CO2 - Continue bronchodilators and steroids - Lasix have been discontinued yesterday because of significant contraction alkalosis which partly is from chronic hypercarbia. patient is getting Diamox (2) Pneumonia due to COVID-19 virus: Code(s): U07.1 - COVID-19; J12.89 - Other viral pneumonia Status: Acute Assessment and Plan: SARS-CoV-2 PCR positive for COVID-19 - continue droplet, airborne, contact isolation/precautions - dexamethasone and Remdesivir initiated on 09/15/2020. completed course of Remdesivir - continue to monitor inflammatory markers - Received convalescent plasma on 09/18. (3) Atrial fibrillation: Code(s): I48.91 - Unspecified atrial fibrillation Status: Chronic Assessment and Plan: patient in AFib, She is having bradycardia with heart rate in 30s. Will obtain a EKG - At baseline she is on diltiazem 240 mg long-acting which has been on hold since admission. - bradycardic and on low-dose dopamine. Blood pressures have been stable monitor and titrate - patient on Pradaxa at home, will start when able. For the time being, She will be continued on therapeutic dose of Lovenox. no evidence of bleeding. (4) Congestive heart failure: Code(s): I50.9 - Heart failure, unspecified Status: Acute Assessment and Plan: patient with history of CHF, echocardiogram 09/16/2020: EF of 50-55% small to moderate pericardial effusion - holding diuretics due to contraction alkalosis - continue Diamox (5) DM2 (diabetes mellitus, type 2): Code(s): E11.9 - Type 2 diabetes mellitus without complications Status: Chronic Assessment and Plan: continue Accu-Cheks and sliding scale insulin - patient was on insulin infusion and this morning, transition to long-acting insulin Levemir and high dose sliding scale insulin - hyperglycemia likely related to dexamethasone - increase Lantus and sliding scale. change sliding scale to every 4 (6) DVT prophylaxis: Code(s): Z29.9 - Encounter for prophylactic measures, unspecified Status: Acute Assessment and Plan: DVT prophylaxis: Therapeutic dose Lovenox. stress ulcer prophylaxis: Protonix IV Additional Plan condition: Guarded code status: Full code critical care time spent: 35 minutess Due to a high probability of clinically significant, life threatening deterioration, the patient required my highest level of preparedness to intervene emergently and I personally spent this critical care time directly and personally managing the patient. This critical care time included obtaining a history; examining the patient; pulse oximetry; ordering and review of studies; arranging urgent treatment with development of a management plan; evaluation of patient's response to treatment; frequent reassessment; and discussions with oth
--- NOTE | 2020-09-22 15:15 | PM.IMPN ---
Progress Note: A&P Assessment and Plan (1) Acute and chronic respiratory failure: Qualifiers: Respiratory failure complication: hypoxia and hypercapnia Qualified Code(s): J96.21 - Acute and chronic respiratory failure with hypoxia; J96.22 - Acute and chronic respiratory failure with hypercapnia Code(s): J96.20 - Acute and chronic respiratory failure, unspecified whether with hypoxia or hypercapnia Status: Acute Assessment and Plan: Patient is chronically on oxygen at 2 L which she increased to 4 L prior to admission. pH 7.31 with pCO2 63 on admission. She tested positive for COVID. [place] the reason for respiratory failure from COPD, CHF, JOHNNY and mostly COVID. ABG worsened and BiPAP started. Serial ABGs after BiPAP adjustments were without benefits. She was moved to ICU and intubated 09/15/20. CXR reviewed today and no change. .. [place] she is becoming contracted/dehydrated. Vent rate decreased and Lasix held. . Vent management per home fire alarm installer. (2) Pneumonia due to COVID-19 virus: Code(s): U07.1 - COVID-19; J12.89 - Other viral pneumonia Status: Acute Assessment and Plan: CXR from admission showing diffuse airspace disease. Possibly pulmonary edema but now COVID+ so felt related to COVID PNA/ARDS. Started on Dexamethasone D#7 and finishes Remdesivir. Broad spectrum abx were started 09/15 but stopped 09/16. Continue albuterol nebulizer treatments and Pulmicort Respules. Attempt to lay patient prone as she tolerates. Continue supportive care (3) Congestive heart failure: Code(s): I50.9 - Heart failure, unspecified Status: Acute Assessment and Plan: Concern for CHF with CXR findings and BNP 1340 but no clinical evidence of fluid overload. Echo 09/16 showing EF 50-55% with poorly visualized LV; small to moderate pericardial effusion. Patient takes Lasix 80mg daily home. . She jinitially had excellent UOP with negative fluid balance. . Lasix to be held with contraction alkalosis. Continue to monitor closely. (4) Bradycardia: Code(s): R00.1 - Bradycardia, unspecified Status: Acute Assessment and Plan: dopamine due to the bradycardia. TSH 0.65. Echo showing EF 50-55% but overall a poor study. Heart rate low but stable at this time. Wean dobutamine as tolerated. (5) Atrial fibrillation: Code(s): I48.91 - Unspecified atrial fibrillation Status: Chronic Assessment and Plan: Patient with chronic AFib. Diltiazem is on hold due to her bradycardia. as is pradaxa (6) DM2 (diabetes mellitus, type 2): Code(s): E11.9 - Type 2 diabetes mellitus without complications Status: Chronic Assessment and Plan: A1c 8.6. The patient's blood glucose was reviewed on 09/18 Glucose remains poorly controlled. Continue AccuCheks covering with sliding scale. Hypoglycemia protocol available as needed. Levemir advanced again (7) Decubitus ulcer of coccyx: Code(s): L89.159 - Pressure ulcer of sacral region, unspecified stage Status: Acute Assessment and Plan: Patient with a large decubitus ulcer present on admission. Continue current wound care. (8) Hypothyroidism: Code(s): E03.9 - Hypothyroidism, unspecified Status: Chronic Assessment and Plan: TSH normal. She takes Levothyroxine 225mcg. Continue levothyroxine IV. (9) JOHNNY (obstructive sleep apnea): Code(s): G47.33 - Obstructive sleep apnea (adult) (pediatric) Status: Acute Assessment and Plan: Patient probably has JOHNNY/OHS. She is on Trilogy via nasal pillows at home and is compliant with treatment. (10) DVT prophylaxis: Code(s): Z29.9 - Encounter for prophylactic measures, unspecified Status: Acute Assessment and Plan: Lovenox until Pradaxa can be resumed. Subjective Date/time seen: 09/22/20 15:15 Interval history: Date of service:
[2020-09-22 15:45] LABS: Glucose Point of Care 335 (65-105)
[2020-09-22 17:36] LABS: Glucose Point of Care 294 (65-105)
[2020-09-22] MEDS: DEXAMETHASONE SOD PHOS INJ 4 MG/ML VIAL 6 MG IV PUSH (20:57)
[2020-09-22 21:11] LABS: Glucose Point of Care 322 (65-105)
[2020-09-23] VITALS (36 sets, daily range): BP systolic 87–185; BP diastolic 50–81; PULSE 44–67; RESP 24–30; TEMP 37.3–37.8; O2SAT 90–96
[2020-09-23] MEDS: INSULIN ASPART (*BKC) 100 UNITS/ML SUB-Q ×6 (00:41→20:29)
[2020-09-23 00:50] LABS: Glucose Point of Care 322 (65-105)
[2020-09-23] MEDS: ALBUTEROL SULFATE NEB 2.5 MG/0.5 ML INH INHALATION ×4 (02:48→21:15)
[2020-09-23 03:59] LABS: Hematocrit 36.2 % (37.0-47.0); Hemoglobin 10.7 g/dL (12.0-15.0); Mean Corpuscular HGB Conc 29.6 g/dl (32-36); Mean Corpuscular Hemoglobin 27.4 pg (26-34); Mean Corpuscular Volume 92.8 fl (80-100); Mean Platelet Volume 10.2 fl (7.4-10.4); Platelet Count Result 378 k/mm3 (150-375); Red Cell Distribution Width 15.7 % (11.5-14.5); White Blood Count 21.3 K/mm3 (4.5-10.0)
[2020-09-23 04:34] LABS: Anion Gap 0.99999 mmol/L (8-16); Blood Urea Nitrogen 29 mg/dL (7-17); Calcium 8.7 mg/dL (8.4-10.2); Carbon Dioxide > 40 mmol/L (22-30); Chloride 96 mmol/L (98-107); Estimated CRCL calculation 159 ml/min; Estimated Glomerular Filt Rate > 60; Glucose 367 mg/dL (65-105); Magnesium 2.4 mg/dL (1.6-2.3); Phosphorus 4.2 mg/dL (2.5-4.5); Potassium 5.1 mmol/L (3.4-5.0); Sodium 137 mmol/L (137-145)
[2020-09-23] MEDS: FENTANYL 2,500MCG/NS250ML(*CRX 2,500 MCG/250 ML BAG 20 MCG IV CONT ×2 (05:19→17:59)
[2020-09-23] MEDS: DOPamine 400 MG/D5W 250 ML 400 MG/250 ML BAG 30.6 MG IV CONT ×3 (05:21→23:01)
[2020-09-23] MEDS: CENTRAL LINE FLUSH 10 ML IV PUSH ×3 (05:23→21:39)
[2020-09-23] MEDS: LEVOTHYROXINE SODIUM INJ 100 MCG/5 ML VIAL 75 MCG IV PUSH (06:03)
[2020-09-23 06:45] LABS: Base Excess ABG 5.7 mEq/l (+/-2.0); Carboxyhemoglobin 1.5 % THb (0-2.0); Fractional Inspired Oxygen 50 %; HCO3 ABG 32.7 mEq/l (22.0-26.0); Methemoglobin ABG 0.1 %THb (0-1.5); Modified Allen's Test Pass; Oxygen Content ABG 19.1 %vol (16.0-22.0); Oxygen Saturation ABG 91.8 % (95.0-100.0); Oxyhemoglobin 90.4 % THb (90.0-100.0); PCO2 ABG 57.4 mmHg (35.0-45.0); PO2 ABG 64.9 mmHg (80.0-100.0); Site Drawn RIGHT RADIAL; pH ABG 7.374 (7.350-7.450)
[2020-09-23 06:46] LABS: Arterial Blood Gas PEEP 10 cmH2O; Arterial Blood Gas Tidal Volume 350 ml; Arterial Blood Gas Vent Mode CMV; Arterial Blood Gas Ventilator rate 30 /MIN; Device VENTILATOR
[2020-09-23] MEDS: BUDESONIDE RESPULE NEB 0.5 MG/2 ML AMP INHALATION ×2 (08:43→21:15)
[2020-09-23] MEDS: ENOXAPARIN 100 MG/ML SYRINGE SUB-Q ×2 (08:46→20:31)
[2020-09-23] MEDS: ENOXAPARIN 60 MG/0.6 ML SYRINGE 50 MG SUB-Q ×2 (08:46→20:31)
[2020-09-23] MEDS: polyethylene glycoL 3350 17 GM POWD.PACK PO (08:47)
[2020-09-23] MEDS: TOLNAFTATE 1% POWDER 45 GM BTL 1 APPLIC TOPICAL ×2 (08:47→20:32)
[2020-09-23] MEDS: SOD HYPOCHLORITE 1/4 STRENGTH 473 ML 1 APPLIC TOPICAL (08:47)
[2020-09-23] MEDS: PANTOPRAZOLE SODIUM IV 40 MG VIAL IV PUSH (08:48)
[2020-09-23] MEDS: INSULIN DETEMIR 100 UNITS/ML 40 UNITS SUB-Q (08:48)
[2020-09-23 09:04] LABS: Glucose Point of Care 374 (65-105)
--- NOTE | 2020-09-23 11:19 | WPDINTPN ---
Progress Note: A&P Assessment and Plan (1) Acute and chronic respiratory failure: Qualifiers: Respiratory failure complication: hypoxia and hypercapnia Qualified Code(s): J96.21 - Acute and chronic respiratory failure with hypoxia; J96.22 - Acute and chronic respiratory failure with hypercapnia Code(s): J96.20 - Acute and chronic respiratory failure, unspecified whether with hypoxia or hypercapnia Status: Acute Assessment and Plan: Patient with hypercapnic respiratory failure likely secondary to COVID-19 pneumonia - chest x-ray shows diffuse bilateral infiltrates - blood and sputum cultures are negative. Zosyn and vancomycin discontinued on 09/20/2020. - Patient was initially on pressure control ventilation but was attending higher tidal volumes, was switched to CMV mode of ventilation on 09/20 with low tidal volume strategy, peep of 10, wean FiO2 as tolerated and is down to 45%, tidal volume 350 and rate increased to 30 - patient appears to be chronic hypercarbic and CO2 retainer and will not target normalization of CO2 - Continue bronchodilators and steroids - Lasix h was discontinued earlier because of metabolic alkalosis which likely is from her chronic hypercarbia. patient did get Diamox for couple days - continue low-dose Lasix (2) Pneumonia due to COVID-19 virus: Code(s): U07.1 - COVID-19; J12.89 - Other viral pneumonia Status: Acute Assessment and Plan: SARS-CoV-2 PCR positive for COVID-19 - continue droplet, airborne, contact isolation/precautions - dexamethasone and Remdesivir initiated on 09/15/2020. completed course of Remdesivir - continue to monitor inflammatory markers - Received convalescent plasma on 09/18. (3) Atrial fibrillation: Code(s): I48.91 - Unspecified atrial fibrillation Status: Chronic Assessment and Plan: patient in AFib, She is having bradycardia with heart rate in 30s. Will obtain a EKG - At baseline she is on diltiazem 240 mg long-acting which has been on hold since admission. - bradycardic and on low-dose dopamine. Blood pressures have been stable monitor and titrate - patient on Pradaxa at home, will start when able. For the time being, She will be continued on therapeutic dose of Lovenox. no evidence of bleeding. (4) Congestive heart failure: Code(s): I50.9 - Heart failure, unspecified Status: Acute Assessment and Plan: patient with history of CHF, echocardiogram 09/16/2020: EF of 50-55% small to moderate pericardial effusion continue Lasix (5) DM2 (diabetes mellitus, type 2): Code(s): E11.9 - Type 2 diabetes mellitus without complications Status: Chronic Assessment and Plan: continue Accu-Cheks and sliding scale insulin - patient was on insulin infusion and this morning, transition to long-acting insulin Levemir and high dose sliding scale insulin - hyperglycemia likely related to dexamethasone - increase Lantus and sliding scale. continue sliding scale q.4 hours (6) DVT prophylaxis: Code(s): Z29.9 - Encounter for prophylactic measures, unspecified Status: Acute Assessment and Plan: DVT prophylaxis: Therapeutic dose Lovenox. stress ulcer prophylaxis: Protonix IV Additional Plan condition: Guarded code status: Full code critical care time spent: 32 minutess Due to a high probability of clinically significant, life threatening deterioration, the patient required my highest level of preparedness to intervene emergently and I personally spent this critical care time directly and personally managing the patient. This critical care time included obtaining a history; examining the patient; pulse oximetry; ordering and review of studies; arranging urgent treatment with development of a management plan; evaluation of patient's response to treatment; frequent reassessment; and discussions with other providers. It was
[2020-09-23] MEDS: INSULIN GLARGINE (*BKC) 100 UNITS/ML 20 UNITS SUB-Q (11:46)
[2020-09-23] MEDS: FUROSEMIDE INJ 40 MG/4 ML VIAL IV PUSH (11:46)
[2020-09-23 12:08] LABS: Glucose Point of Care 351 (65-105)
--- NOTE | 2020-09-23 12:29 | PCDIET ---
ICU Rounding Note: Patient tolerating Glucerna 1.2 at 60mL/hr goal rate with Pro-Stat TID. Continues on 30mL water flush every 4 hours. Last recorded weight is 187.6kg which is down from last review. +I/O. Bowel Motility: BM x 1 on 09/22/20. Labs Reviewed: Hgb (10.7), Hct (36.2), Glu (367), BUN (29), Cr (0.6), K (5.1), Mg (2.4) Meds Noted: Albuterol, Pulmicort, Decadron, Dopamine, Fentanyl, Hydralazine, Novolog, Levemir, Synthroid, Versed, Protonix, Miralax Additional Notes: Deep tissue area surrounding coccyx wound, per RN. Wound nurse consulted. Following daily in ICU rounds. Assessing/reassessing every Sunday/Sunday.
[2020-09-23 13:21] LABS: Glucose Point of Care 376 (65-105)
[2020-09-23 17:05] LABS: Glucose Point of Care 261 (65-105)
--- NOTE | 2020-09-23 17:23 | PM.IMPN ---
Progress Note: A&P Assessment and Plan (1) Acute and chronic respiratory failure: Qualifiers: Respiratory failure complication: hypoxia and hypercapnia Qualified Code(s): J96.21 - Acute and chronic respiratory failure with hypoxia; J96.22 - Acute and chronic respiratory failure with hypercapnia Code(s): J96.20 - Acute and chronic respiratory failure, unspecified whether with hypoxia or hypercapnia Status: Acute Assessment and Plan: Patient is chronically on oxygen at 2 L which she increased to 4 L prior to admission. pH 7.31 with pCO2 63 on admission. She tested positive for COVID. [place] the reason for respiratory failure from COPD, CHF, JOHNNY and mostly COVID. ABG worsened and BiPAP started. Serial ABGs after BiPAP adjustments were without benefits. She was moved to ICU and intubated 09/15/20. CXR reviewed today and no change. .. [place] she is becoming contracted/dehydrated. Vent rate decreased and Lasix held. . Vent management per home improvement advisor. (2) Pneumonia due to COVID-19 virus: Code(s): U07.1 - COVID-19; J12.89 - Other viral pneumonia Status: Acute Assessment and Plan: CXR from admission showing diffuse airspace disease. Possibly pulmonary edema but now COVID+ so felt related to COVID PNA/ARDS. Started on Dexamethasone D#8 and finishes Remdesivir. Convalescent plasma 09/18. Broad spectrum abx were started 09/15 but stopped 09/20. Continue albuterol nebulizer treatments and Pulmicort Respules. Attempt to lay patient prone as she tolerates. Continue supportive care (3) Congestive heart failure: Code(s): I50.9 - Heart failure, unspecified Status: Acute Assessment and Plan: Concern for CHF with CXR findings and BNP 1340 but no clinical evidence of fluid overload. Echo 09/16 showing EF 50-55% with poorly visualized LV; small to moderate pericardial effusion. Patient takes Lasix 80mg daily home. . She initially had excellent UOP with negative fluid balance. . Lasix to be held with contraction alkalosis. Continue to monitor closely. (4) Bradycardia: Code(s): R00.1 - Bradycardia, unspecified Status: Acute Assessment and Plan: dopamine due to the bradycardia. TSH 0.65. Echo showing EF 50-55% but overall a poor study. Heart rate low but stable at this time. Wean dobutamine as tolerated. (5) Atrial fibrillation: Code(s): I48.91 - Unspecified atrial fibrillation Status: Chronic Assessment and Plan: Patient with chronic AFib. Diltiazem is on hold due to her bradycardia. as is pradaxa but on full dose lovenox (6) DM2 (diabetes mellitus, type 2): Code(s): E11.9 - Type 2 diabetes mellitus without complications Status: Chronic Assessment and Plan: A1c 8.6. The patient's blood glucose was reviewed on 09/23 Glucose remains poorly controlled. Continue AccuCheks covering with sliding scale. Hypoglycemia protocol available as needed. Levemir advanced again to 40 q12 (7) Decubitus ulcer of coccyx: Code(s): L89.159 - Pressure ulcer of sacral region, unspecified stage Status: Acute Assessment and Plan: Patient with a large decubitus ulcer present on admission. Continue current wound care. (8) Hypothyroidism: Code(s): E03.9 - Hypothyroidism, unspecified Status: Chronic Assessment and Plan: TSH normal. She takes Levothyroxine 225mcg. Continue levothyroxine IV. (9) JOHNNY (obstructive sleep apnea): Code(s): G47.33 - Obstructive sleep apnea (adult) (pediatric) Status: Acute Assessment and Plan: Patient probably has JOHNNY/OHS. She is on Trilogy via nasal pillows at home and is compliant with treatment. (10) DVT prophylaxis: Code(s): Z29.9 - Encounter for prophylactic measures, unspecified Status: Acute Assessment and Plan: Lovenox until Pradaxa can be resumed. Subjective Date/time
[2020-09-23] MEDS: INSULIN DETEMIR 100 UNITS/ML 50 UNITS SUB-Q (20:28)
[2020-09-23] MEDS: DEXAMETHASONE SOD PHOS INJ 4 MG/ML VIAL 6 MG IV PUSH (20:32)
[2020-09-23 21:36] LABS: Glucose Point of Care 348 (65-105)
[2020-09-24] VITALS (44 sets, daily range): BP systolic 116–192; BP diastolic 55–90; PULSE 30–85; RESP 24–73; TEMP 37–38.4; O2SAT 90–98
[2020-09-24] MEDS: INSULIN ASPART (*BKC) 100 UNITS/ML SUB-Q ×6 (00:49→19:48)
[2020-09-24 00:50] LABS: Glucose Point of Care 304 (65-105)
[2020-09-24] MEDS: ALBUTEROL SULFATE NEB 2.5 MG/0.5 ML INH INHALATION ×4 (02:50→20:58)
[2020-09-24 04:51] LABS: Hemoglobin 10.9 g/dL (12.0-15.0); Mean Corpuscular HGB Conc 30.3 g/dl (32-36); Mean Corpuscular Hemoglobin 27.5 pg (26-34); Mean Corpuscular Volume 90.9 fl (80-100); Mean Platelet Volume 10.5 fl (7.4-10.4); Platelet Count Result 356 k/mm3 (150-375); Red Blood Count 3.96 M/mm3 (4.2-5.4); Red Cell Distribution Width 15.6 % (11.5-14.5)
[2020-09-24 04:55] LABS: D Dimer 1.62 ug/mL (<0.48)
[2020-09-24 05:13] LABS: Anion Gap 2.99999 mmol/L (8-16); Blood Urea Nitrogen 30 mg/dL (7-17); CRP 8.9 mg/dL (<1.0); Calcium 8.9 mg/dL (8.4-10.2); Carbon Dioxide > 40 mmol/L (22-30); Chloride 94 mmol/L (98-107); Estimated CRCL calculation 149 ml/min; Estimated Glomerular Filt Rate > 60; Glucose 328 mg/dL (65-105); Lactate Dehydrogenase 927 U/L (313-618); Magnesium 2.4 mg/dL (1.6-2.3); Phosphorus 3.9 mg/dL (2.5-4.5); Potassium 4.6 mmol/L (3.4-5.0); Sodium 137 mmol/L (137-145)
[2020-09-24] MEDS: CENTRAL LINE FLUSH 10 ML IV PUSH ×3 (05:25→19:53)
[2020-09-24 05:48] LABS: Alveolar/Arterial O2 Gradient 203.8 mmHg; HCO3 ABG 35.1 mEq/l (22.0-26.0); Oxygen Saturation ABG 87.6 % (95.0-100.0); PCO2 ABG 55.8 mmHg (35.0-45.0); PO2 ABG 53.6 mmHg (80.0-100.0); pH ABG 7.417 (7.350-7.450)
[2020-09-24 05:49] LABS: Carboxyhemoglobin 0.7 % THb (0-2.0); Device VENTILATOR; Fractional Inspired Oxygen 45 %; Methemoglobin ABG 0.1 %THb (0-1.5); Modified Allen's Test Unable to perform; Oxygen Content ABG 14.5 %vol (16.0-22.0); Oxyhemoglobin 86.1 % THb (90.0-100.0); PO2 FiO2 Ratio Arterial Blood 1.19 %; Reduced Hemoglobin 13.1 %THb (0-5.0); Site Drawn RIGHT RADIAL
[2020-09-24 05:50] LABS: Arterial Blood Gas PEEP 10 cmH2O; Arterial Blood Gas Tidal Volume 350 ml; Arterial Blood Gas Vent Mode CMV; Arterial Blood Gas Ventilator rate 30 /MIN
[2020-09-24] MEDS: DOPamine 400 MG/D5W 250 ML 400 MG/250 ML BAG 30.6 MG IV CONT ×2 (07:43→15:59)
[2020-09-24] MEDS: FENTANYL 2,500MCG/NS250ML(*CRX 2,500 MCG/250 ML BAG 20 MCG IV CONT ×2 (07:44→20:52)
[2020-09-24] MEDS: LEVOTHYROXINE SODIUM 100 MCG TABLET PO (07:46)
[2020-09-24] MEDS: BUDESONIDE RESPULE NEB 0.5 MG/2 ML AMP INHALATION ×2 (08:51→20:58)
[2020-09-24] MEDS: ENOXAPARIN 100 MG/ML SYRINGE SUB-Q (09:10)
[2020-09-24] MEDS: SOD HYPOCHLORITE 1/4 STRENGTH 473 ML 1 APPLIC TOPICAL (09:11)
[2020-09-24] MEDS: TOLNAFTATE 1% POWDER 45 GM BTL 1 APPLIC TOPICAL ×2 (09:11→19:53)
[2020-09-24] MEDS: ENOXAPARIN 60 MG/0.6 ML SYRINGE 50 MG SUB-Q (09:11)
[2020-09-24] MEDS: polyethylene glycoL 3350 17 GM POWD.PACK PO (09:12)
[2020-09-24] MEDS: PANTOPRAZOLE SODIUM IV 40 MG VIAL IV PUSH (09:12)
[2020-09-24] MEDS: INSULIN DETEMIR 100 UNITS/ML 50 UNITS SUB-Q (09:13)
[2020-09-24] MEDS: ACETAMINOPHEN 325 MG TABLET 650 MG PO (09:17)
[2020-09-24 09:26] LABS: Glucose Point of Care 336 (65-105)
--- NOTE | 2020-09-24 11:08 | P.PNINT_ITS ---
Progress Note: A&P Assessment and Plan (1) Acute and chronic respiratory failure: Qualifiers: Respiratory failure complication: hypoxia and hypercapnia Qualified Code(s): J96.21 - Acute and chronic respiratory failure with hypoxia; J96.22 - Acute and chronic respiratory failure with hypercapnia Code(s): J96.20 - Acute and chronic respiratory failure, unspecified whether with hypoxia or hypercapnia Status: Acute Assessment and Plan: With hypoxic and hypercapnic respiratory failure secondary to COVID pneumonia. * Chest x-ray reviewed may be slight improvement of infiltrates on the left. * Antibiotics discontinued 09/20/2020 * Initially on pressure control ventilation but was switched to CMV. * The patient has evidence of chronic hypercarbia will not target normal CO2 * Continue bronchodilators and steroids * Continue low-dose Lasix. The patient did get a short course of Diamox due to metabolic alkalosis from her chronic hypercarbia. (2) ARDS (adult respiratory distress syndrome): Code(s): J80 - Acute respiratory distress syndrome Status: Acute Assessment and Plan: * Continue droplet airborne and contact isolation * Dexamethasone and Remdesivir initiated 09/15/2020. * Received, listen plasma 09/18/2020. * Inflammatory markers appear to be trending down. (3) Pneumonia due to COVID-19 virus: Code(s): U07.1 - COVID-19; J12.89 - Other viral pneumonia Status: Acute Assessment and Plan: See above (4) Bradycardia: Code(s): R00.1 - Bradycardia, unspecified Status: Acute Assessment and Plan: * Atrial fibrillation with bradycardia with heart rates in the 30s. * The patient continues on low-dose dopamine and blood pressures have been sta ble. * She has not received her Cardizem since admission. 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 Her glucoses remain uncontrolled cessation of steroid therapy and increasing her from 40-50 units q.12 hours. Will increase Levemir to 60 units q.12 hours and continue high- dose sliding scale insulin. * 1.2 at 60 mL an hour with 30 mL free water flushes Q 4. Continue ProStat t.i.d.. (6) Decubitus ulcer of coccyx: Qualifiers: Pressure injury stage: unspecified pressure injury stage Qualified Code(s): L89.159 - Pressure ulcer of sacral region, unspecified stage Code(s): L89.159 - Pressure ulcer of sacral region, unspecified stage Status: Acute Assessment and Plan: * Wound care consult with plan for pressure relieving mattress. (7) Lower GI bleed: Code(s): K92.2 - Gastrointestinal hemorrhage, unspecified Status: Acute Assessment and Plan: Developed 09/24/2020 * Lovenox placed on hold. * Check stat H&H in trend hemoglobin. Additional Plan 40 minutes This case had a high probability of a clinically significant, sudden, or life threatening deterioration of this patient's condition which required my full and direct attention, intervention and personal management. Time Spent With Patient Time with patient: Greater than
--- NOTE | 2020-09-24 11:08 | WPDINTPN ---
Progress Note: A&P Assessment and Plan (1) Acute and chronic respiratory failure: Qualifiers: Respiratory failure complication: hypoxia and hypercapnia Qualified Code(s): J96.21 - Acute and chronic respiratory failure with hypoxia; J96.22 - Acute and chronic respiratory failure with hypercapnia Code(s): J96.20 - Acute and chronic respiratory failure, unspecified whether with hypoxia or hypercapnia Status: Acute Assessment and Plan: With hypoxic and hypercapnic respiratory failure secondary to COVID pneumonia. Chest x-ray reviewed may be slight improvement of infiltrates on the left. Antibiotics discontinued 09/20/2020 Initially on pressure control ventilation but was switched to CMV. The patient has evidence of chronic hypercarbia will not target normal CO2 Continue bronchodilators and steroids Continue low-dose Lasix. The patient did get a short course of Diamox due to metabolic alkalosis from her chronic hypercarbia. (2) ARDS (adult respiratory distress syndrome): Code(s): J80 - Acute respiratory distress syndrome Status: Acute Assessment and Plan: Continue droplet airborne and contact isolation Dexamethasone and Remdesivir initiated 09/15/2020. Received, listen plasma 09/18/2020. Inflammatory markers appear to be trending down. (3) Pneumonia due to COVID-19 virus: Code(s): U07.1 - COVID-19; J12.89 - Other viral pneumonia Status: Acute Assessment and Plan: See above (4) Bradycardia: Code(s): R00.1 - Bradycardia, unspecified Status: Acute Assessment and Plan: Atrial fibrillation with bradycardia with heart rates in the 30s. The patient continues on low-dose dopamine and blood pressures have been stable. She has not received her Cardizem since admission. The patient was on Lovenox 150 mg subq q.12 hours that this is been discontinued due to developing acute lower GI bleed today (09/24/2020) (5) DM2 (diabetes mellitus, type 2): Qualifiers: Diabetes mellitus [facility] insulin use: without hip hop performers use Diabetes mellitus complication status: with hyperglycemia Qualified Code(s): E11.65 - Type 2 diabetes mellitus with hyperglycemia Code(s): E11.9 - Type 2 diabetes mellitus without complications Status: Chronic Assessment and Plan: Patient is on Levemir and sliding scale insulin. Her glucoses remain uncontrolled cessation of steroid therapy and increasing her from 40-50 units q.12 hours. Will increase Levemir to 60 units q.12 hours and continue high-dose sliding scale insulin. 1.2 at 60 mL an hour with 30 mL free water flushes Q 4. Continue ProStat t.i.d.. (6) Decubitus ulcer of coccyx: Qualifiers: Pressure injury stage: unspecified pressure injury stage Qualified Code(s): L89.159 - Pressure ulcer of sacral region, unspecified stage Code(s): L89.159 - Pressure ulcer of sacral region, unspecified stage Status: Acute Assessment and Plan: Wound care consult with plan for pressure relieving mattress. (7) Lower GI bleed: Code(s): K92.2 - Gastrointestinal hemorrhage, unspecified Status: Acute Assessment and Plan: Developed 09/24/2020 Lovenox placed on hold. Check stat H&H in trend hemoglobin. Additional Plan 40 minutes This case had a high probability of a clinically significant, sudden, or life threatening deterioration of this patient's condition which required my full and direct attention, intervention and personal management. Time Spent With Patient Time with patient: Greater than 35 minutes Subjective Date/time seen: 09/24/20 11:08 Continued uncontrolled hyperglycemia overnight. This afternoon the patient developed a lower GI bleed. Review of Systems Review of Systems: ROS unobtainable: Yes unobtainable due to endotracheal tube Exam Narrative: Exam Narrative: PHYSICAL EXAM: General: Morbidly obese, acutely ill appearing HEENT:
--- NOTE | 2020-09-24 11:58 | PCDIET ---
Nutrition Follow-Up Complete: Nutrition Diagnosis: Inadequate oral intake related to inability to consume foods orally as evidence by need for enteral nutrition to meet needs Nutrition Goal: Total intake will meet estimated kcal and protein needs Goal met. Patient tolerating Glucerna 1.2 at 60mL/hr goal rate with 30mL water flush every 4 hours. Pro-Stat continued TID. Last recorded weight is 187.5 kg which is stable. Bowel Motility: Last documented BM on 09/22/20. Labs Reviewed: Hgb (10.9), Hct (36.0), Glu (328), BUN (30), Cr (0.6) Meds Noted: Albuterol, Decadron, Fentanyl, Hydralazine, Novolog, Levemir, Synthroid, Versed, Protonix, Miralax Additional Notes: Insulin adjustments noted. Coccyx ulcer. Buttocks macerated. Will continue to monitor with same goal. Nutrition Monitoring and Evaluation: Follow up every Sunday/Sunday. Follow daily in ICU rounds.
--- NOTE | 2020-09-24 12:30 | PM.IMPN ---
Progress Note: A&P Assessment and Plan (1) Acute and chronic respiratory failure: Qualifiers: Respiratory failure complication: hypoxia and hypercapnia Qualified Code(s): J96.21 - Acute and chronic respiratory failure with hypoxia; J96.22 - Acute and chronic respiratory failure with hypercapnia Code(s): J96.20 - Acute and chronic respiratory failure, unspecified whether with hypoxia or hypercapnia Status: Acute Assessment and Plan: Patient is chronically on oxygen at 2 L which she increased to 4 L prior to admission. pH 7.31 with pCO2 63 on admission. She tested positive for COVID. [place] the reason for respiratory failure from COPD, CHF, JOHNNY and mostly COVID. ABG worsened and BiPAP started. Serial ABGs after BiPAP adjustments were without benefits. She was moved to ICU and intubated 09/15/20. CXR reviewed today and no change. .. [place] she is becoming contracted/dehydrated. Vent rate decreased and Lasix held. . Vent management per gis developer. (2) Pneumonia due to COVID-19 virus: Code(s): U07.1 - COVID-19; J12.89 - Other viral pneumonia Status: Acute Assessment and Plan: CXR from admission showing diffuse airspace disease. Possibly pulmonary edema but now COVID+ so felt related to COVID PNA/ARDS. Started on Dexamethasone D#9 and finished Remdesivir. Convalescent plasma 09/18. Broad spectrum abx were started 09/15 but stopped 09/20. Continue albuterol nebulizer treatments and Pulmicort Respules. Attempt to lay patient prone as she tolerates. Continue supportive care (3) Congestive heart failure: Code(s): I50.9 - Heart failure, unspecified Status: Acute Assessment and Plan: Concern for CHF with CXR findings and BNP 1340 but no clinical evidence of fluid overload. Echo 09/16 showing EF 50-55% with poorly visualized LV; small to moderate pericardial effusion. Patient takes Lasix 80mg daily home. . She initially had excellent UOP with negative fluid balance. . Lasix to be held with contraction alkalosis. Continue to monitor closely. (4) Bradycardia: Code(s): R00.1 - Bradycardia, unspecified Status: Acute Assessment and Plan: dopamine due to the bradycardia. TSH 0.65. Echo showing EF 50-55% but overall a poor study. Heart rate low but stable at this time. Wean dobutamine as tolerated. (5) Atrial fibrillation: Code(s): I48.91 - Unspecified atrial fibrillation Status: Chronic Assessment and Plan: Patient with chronic AFib. Diltiazem is on hold due to her bradycardia. as is pradaxa but on full dose lovenox (6) DM2 (diabetes mellitus, type 2): Code(s): E11.9 - Type 2 diabetes mellitus without complications Status: Chronic Assessment and Plan: A1c 8.6. The patient's blood glucose was reviewed on 09/24 Glucose remains poorly controlled. Continue AccuCheks covering with sliding scale. Hypoglycemia protocol available as needed. Levemir advanced again to 60 q12 (7) Decubitus ulcer of coccyx: Code(s): L89.159 - Pressure ulcer of sacral region, unspecified stage Status: Acute Assessment and Plan: Patient with a large decubitus ulcer present on admission. Continue current wound care. (8) Hypothyroidism: Code(s): E03.9 - Hypothyroidism, unspecified Status: Chronic Assessment and Plan: TSH normal. She takes Levothyroxine 225mcg. Continue levothyroxine IV. (9) OJHNNY (obstructive sleep apnea): Code(s): G47.33 - Obstructive sleep apnea (adult) (pediatric) Status: Acute Assessment and Plan: Patient probably has JOHNNY/OHS. She is on Trilogy via nasal pillows at home and is compliant with treatment. (10) DVT prophylaxis: Code(s): Z29.9 - Encounter for prophylactic measures, unspecified Status: Acute Assessment and Plan: Lovenox full dose until Pradaxa can be resumed. Subjective
[2020-09-24 13:49] LABS: Glucose Point of Care 308 (65-105)
[2020-09-24 15:18] LABS: Add Urine Microscopic? YES; Appearance Urine Clear (Clear); Bilirubin Urine Negative (Negative); Blood Urine 1+ (Negative); Color Urine Yellow (Yellow); Glucose Urine UA 1+ mg/dL (Negative); Ketones Urine Trace mg/dL (Negative); Leukocyte Esterase Ur Negative LEU/UL (Negative); Mucus Urine Rare /lpf; Nitrate Urine Negative (Negative); Protein Urine 1+ mg/dL (Negative); RBC Urine 51-75 /hpf (0-2); Squamous Epithelial Cell Urine Many /hpf (Few); WBC Urine 0-3 /hpf
[2020-09-24 16:12] LABS: Hematocrit 34.8 % (37.0-47.0); Hemoglobin 10.6 g/dL (12.0-15.0)
[2020-09-24] MEDS: LORazepam INJ (*CRX) 2 MG/ML VIAL IV PUSH ×2 (16:19→18:17)
[2020-09-24 18:40] LABS: Glucose Point of Care 309 (65-105)
[2020-09-24] MEDS: INSULIN DETEMIR 100 UNITS/ML 60 UNITS SUB-Q (19:50)
[2020-09-24 20:15] LABS: Glucose Point of Care 223 (65-105)
[2020-09-24] MEDS: DEXAMETHASONE SOD PHOS INJ 4 MG/ML VIAL 6 MG IV PUSH (20:16)
[2020-09-25] VITALS (38 sets, daily range): BP systolic 108–177; BP diastolic 55–96; PULSE 30–82; RESP 20–64; TEMP 36.3–37.6; O2SAT 86–98
[2020-09-25 00:32] LABS: Hemoglobin 9.8 g/dL (12.0-15.0)
[2020-09-25 00:40] LABS: Glucose Point of Care 177 (65-105)
[2020-09-25] MEDS: ALBUTEROL SULFATE NEB 2.5 MG/0.5 ML INH INHALATION ×4 (01:34→21:20)
[2020-09-25 05:35] LABS: Alveolar/Arterial O2 Gradient 254.7 mmHg; Base Excess ABG 10.2 mEq/l (+/-2.0); Carboxyhemoglobin 0.3 % THb (0-2.0); Fractional Inspired Oxygen 55 %; HCO3 ABG 36.7 mEq/l (22.0-26.0); Methemoglobin ABG 0.3 %THb (0-1.5); Oxygen Content ABG 14.2 %vol (16.0-22.0); Oxygen Saturation ABG 93.8 % (95.0-100.0); PO2 ABG 70.7 mmHg (80.0-100.0); PO2 FiO2 Ratio Arterial Blood 1.29 %; Reduced Hemoglobin 6.4 %THb (0-5.0); Total Hemoglobin 10.8 g/dL (12.0-18.0); pH ABG 7.404 (7.350-7.450)
[2020-09-25 05:37] LABS: Arterial Blood Gas PEEP 10 cmH2O; Arterial Blood Gas Vent Mode CMV; Arterial Blood Gas Ventilator rate 30 /MIN; Device VENTILATOR; Modified Allen's Test Unable to perform; Site Drawn LEFT RADIAL
[2020-09-25 05:38] LABS: Arterial Blood Gas Tidal Volume 350 ml
[2020-09-25] MEDS: DOPamine 400 MG/D5W 250 ML 400 MG/250 ML BAG 14.06 MG IV CONT (05:44)
[2020-09-25 05:50] LABS: Glucose Point of Care 264 (65-105)
[2020-09-25] MEDS: INSULIN ASPART (*BKC) 100 UNITS/ML SUB-Q ×3 (05:50→11:59)
[2020-09-25] MEDS: CENTRAL LINE FLUSH 10 ML IV PUSH ×2 (05:51→21:05)
[2020-09-25] MEDS: LEVOTHYROXINE SODIUM 100 MCG TABLET PO (06:19)
[2020-09-25 06:20] LABS: Hematocrit 32.8 % (37.0-47.0); Hemoglobin 9.9 g/dL (12.0-15.0); Mean Corpuscular HGB Conc 30.2 g/dl (32-36); Mean Corpuscular Hemoglobin 27.3 pg (26-34); Mean Corpuscular Volume 90.6 fl (80-100); Mean Platelet Volume 10.3 fl (7.4-10.4); Platelet Count Result 277 k/mm3 (150-375); Red Blood Count 3.62 M/mm3 (4.2-5.4); Red Cell Distribution Width 15.6 % (11.5-14.5); White Blood Count 25.1 K/mm3 (4.5-10.0)
[2020-09-25 06:46] LABS: Anion Gap 4.99999 mmol/L (8-16); Blood Urea Nitrogen 33 mg/dL (7-17); Calcium 8.9 mg/dL (8.4-10.2); Carbon Dioxide > 40 mmol/L (22-30); Chloride 92 mmol/L (98-107); Estimated CRCL calculation 133 ml/min; Estimated Glomerular Filt Rate > 60; Glucose 256 mg/dL (65-105); Magnesium 2.5 mg/dL (1.6-2.3); Phosphorus 4.2 mg/dL (2.5-4.5); Potassium 5.2 mmol/L (3.4-5.0); Sodium 137 mmol/L (137-145)
[2020-09-25] MEDS: INSULIN DETEMIR 100 UNITS/ML 60 UNITS SUB-Q ×2 (08:14→21:08)
[2020-09-25] MEDS: TOLNAFTATE 1% POWDER 45 GM BTL 1 APPLIC TOPICAL ×2 (08:16→20:12)
[2020-09-25] MEDS: SOD HYPOCHLORITE 1/4 STRENGTH 473 ML 1 APPLIC TOPICAL (08:16)
--- NOTE | 2020-09-25 08:32 | WPDGICN ---
Assessment and Plan Assessment and plan (1) Blood in stool: Code(s): K92.1 - Melena Status: Acute Assessment and Plan: Small amount of blood noted in stool the last 2 days. She has had none overnight. Hemoglobin essentially stable is dropped from tendon half to 9.9. At the present time given her comorbid diseases ventilator, COVID infection, would plan to cover patient with proton pump inhibitor for possible stress ulceration. Monitor hemoglobin. Defer endoscopy at this time unless bleeding becomes more active. Anticoagulation should be held. (2) Pneumonia due to COVID-19 virus: Code(s): U07.1 - COVID-19; J12.89 - Other viral pneumonia Status: Acute (3) ARDS (adult respiratory distress syndrome): Code(s): J80 - Acute respiratory distress syndrome Status: Acute (4) Atrial fibrillation: Code(s): I48.91 - Unspecified atrial fibrillation Status: Chronic Assessment and Plan: Patient was anticoagulated with Pradaxa which was held because of pressure ulcers and bleeding. Lovenox which had been given will be held at this time because of blood in her stool. Continue monitor hemoglobin closely. (5) Morbid obesity: Code(s): E66.01 - Morbid (severe) obesity due to excess calories Status: Acute (6) Pressure sore on buttocks: Qualifiers: Pressure injury stage: stage 2 Laterality: unspecified laterality Qualified Code(s): L89.302 - Pressure ulcer of unspecified buttock, stage 2 Code(s): L89.309 - Pressure ulcer of unspecified buttock, unspecified stage Status: Acute GI Consult Note Consult date/time: 09/25/20 08:32 HPI: Dai Jacob is a 55 year old female I am asked to see for blood in her stool. She has a history of sleep apnea chronic respiratory disease with COPD and atrial fibrillation. Previously on Pradaxa and Lovenox. She was admitted the hospital with respiratory failure required ventilation was found to have COVID positive pneumonia. She has rather significant decubitus ulcers the Pradaxa Pradaxa has been held. Over the last 2 days some modest small amount of blood has been identified in her stools. There has been minimal tubal decline in her hemoglobin. Patient is unable to add any additional history currently sedated ventilated and unable to give history. Review of Systems Review of Systems: ROS unobtainable: Yes unobtainable due to endotracheal tube PMFSH Past Medical History Medical History (Updated 09/25/20 @ 08:35 by John Paul Nash MD) Abnormal gait Atrial fibrillation Benign hypertension Bilateral leg weakness Bilateral wrist pain DM2 (diabetes mellitus, type 2) Encounter for general adult medical examination w/o abnormal findings History of cervical cancer HISTORY OF CISIUM IMPLANT Hyperlipidemia Hyperlipidemia LDL goal <100 Hypertriglyceridemia Hypothyroidism Hypothyroidism determined by thyroid function test Hypoxemia Idiopathic peripheral autonomic neuropathy (06/26/19) Left shoulder pain Morbid obesity Peripheral neuropathy Psoriasis Recurrent falls while walking Screening for malignant neoplasm of colon Type 2 diabetes, controlled, with neuropathy Surgical History Surgical History History of cholecystectomy History of tonsillectomy Family History Family History Father Acute myocardial infarction Mother Family history of malignant neoplasm of cervix Other Diabetes mellitus Family history of coronary artery disease Hypertension Social History Social History (Updated 09/14/20 @ 21:50 by Marielena Gallagher NP) Social History: THE PATIENT LIVES WITH HER SISTER. SHE HAS NEVER HAD ANY CHILDREN. THE PATIENT STATED THAT HER WHEN SHE WAS 22 YEARS OLD AND NEVER REMARRIED. THE PATIENT IS ON DISABILITY. SHE DENIES ANY TOBACCO ABUSE. NO ALCOHOL MARIJUANA OR ILLICIT D
[2020-09-25 08:39] LABS: Glucose Point of Care 245 (65-105)
--- NOTE | 2020-09-25 08:54 | P.PNINT_ITS ---
Progress Note: A&P Assessment and Plan (1) Pneumonia due to COVID-19 virus: Code(s): U07.1 - COVID-19; J12.89 - Other viral pneumonia Status: Acute Assessment and Plan: * Chest x-ray reviewed and without change * Antibiotics discontinued 09/20/2020 * Initially on pressure control ventilation but was switched to CMV. * The patient has evidence of chronic hypercarbia will not target normal CO2 * Continue bronchodilators and inhaled budesonide * Continue droplet airborne and contact isolation * Dexamethasone and Remdesivir initiated 09/15/2020. * Received convalescent plasma 09/18/2020. * Inflammatory markers appear to be trending down and due again 09/26 (2) ARDS (adult respiratory distress syndrome): Code(s): J80 - Acute respiratory distress syndrome Status: Acute (3) Acute and chronic respiratory failure: Qualifiers: Respiratory failure complication: hypoxia and hypercapnia Qualified Code(s): J96.21 - Acute and chronic respiratory failure with hypoxia; J96.22 - Acute and chronic respiratory failure with hypercapnia Code(s): J96.20 - Acute and chronic respiratory failure, unspecified whether with hypoxia or hypercapnia Status: Acute Assessment and Plan: * 09/25: FIO2 55%, TV 250, PEEP 10, rate 30; 7.404/60/70.7/36.7/93.8% (4) DM2 (diabetes mellitus, type 2): Qualifiers: Diabetes mellitus complication status: with hyperglycemia Diabetes mellitus mcc insulin use: without termite helper use Qualified Code(s): E11.65 - Type 2 diabetes mellitus with hyperglycemia Code(s): E11.9 - Type 2 diabetes mellitus without complications Status: Chronic Assessment and Plan: * 11/25 BS 240s - 250s and trending down off systemic steroids * Continue to follow on current regimen of Levemir 60 U q 12 hr and q 4h SSI (5) Bradycardia: Code(s): R00.1 - Bradycardia, unspecified Status: Acute Assessment and Plan: * Dopamine 3mcg, weaning slowly (6) Hypothyroidism: Qualifiers: Hypothyroidism type: acquired Qualified Code(s): E03.9 - Hypothyroidism, unspecified Code(s): E03.9 - Hypothyroidism, unspecified Status: Chronic Assessment and Plan: * Continue levothyroxine 100mcg daily via FT (7) Atrial fibrillation: Qualifiers: Atrial fibrillation type: unspecified chronic Qualified Code(s): I48.20 - Chronic atrial fibrillation, unspecified Code(s): I48.91 - Unspecified atrial fibrillation Status: Chronic Assessment and Plan: * Anticoagulation on hold due to blood in stool (8) Congestive heart failure: Qualifiers: Heart failure chronicity: acute on chronic Heart failure type: unspecified Qualified Code(s): I50.9 - Heart failure, unspecified Code(s): I50.9 - Heart failure, unspecified Status: Acute Assessment and Plan: * 09/24 I/O 3013/1200 * Continue to monitor off diuretics (9) Decubitus ulcer of coccyx: Qualifiers: Pressure injury stage: unspecified pressure injury stage Qualified Code(s): L89.159 - Pressure ulcer of sacral region, unspecified stage Code(s): L89.159 - Pressure ulcer of sacral region, unspecified stage Status: Acute Assessment and Plan: * Continue wound care (10) Blood in stool: Code(s): K92.1 - Melena Status: Acute Assessment and Plan: * Melena * Holding anticoagulation * Monitor h/h through 09/25, then daily CBC if stable (11) Chronic respiratory failure with hypoxia and hypercapnia: Code(s): J96.11
--- NOTE | 2020-09-25 08:54 | WPDINTPN ---
Progress Note: A&P Assessment and Plan (1) Pneumonia due to COVID-19 virus: Code(s): U07.1 - COVID-19; J12.89 - Other viral pneumonia Status: Acute Assessment and Plan: Chest x-ray reviewed and without change Antibiotics discontinued 09/20/2020 Initially on pressure control ventilation but was switched to CMV. The patient has evidence of chronic hypercarbia will not target normal CO2 Continue bronchodilators and inhaled budesonide Continue droplet airborne and contact isolation Dexamethasone and Remdesivir initiated 09/15/2020. Received convalescent plasma 09/18/2020. Inflammatory markers appear to be trending down and due again 09/26 (2) ARDS (adult respiratory distress syndrome): Code(s): J80 - Acute respiratory distress syndrome Status: Acute (3) Acute and chronic respiratory failure: Qualifiers: Respiratory failure complication: hypoxia and hypercapnia Qualified Code(s): J96.21 - Acute and chronic respiratory failure with hypoxia; J96.22 - Acute and chronic respiratory failure with hypercapnia Code(s): J96.20 - Acute and chronic respiratory failure, unspecified whether with hypoxia or hypercapnia Status: Acute Assessment and Plan: 09/25: FIO2 55%, TV 250, PEEP 10, rate 30; 7.404/60/70.7/36.7/93.8% (4) DM2 (diabetes mellitus, type 2): Qualifiers: Diabetes mellitus complication status: with hyperglycemia Diabetes mellitus retirement insulin use: without retirement use Qualified Code(s): E11.65 - Type 2 diabetes mellitus with hyperglycemia Code(s): E11.9 - Type 2 diabetes mellitus without complications Status: Chronic Assessment and Plan: 11/25 BS 240s - 250s and trending down off systemic steroids Continue to follow on current regimen of Levemir 60 U q 12 hr and q 4h SSI (5) Bradycardia: Code(s): R00.1 - Bradycardia, unspecified Status: Acute Assessment and Plan: Dopamine 3mcg, weaning slowly (6) Hypothyroidism: Qualifiers: Hypothyroidism type: acquired Qualified Code(s): E03.9 - Hypothyroidism, unspecified Code(s): E03.9 - Hypothyroidism, unspecified Status: Chronic Assessment and Plan: Continue levothyroxine 100mcg daily via FT (7) Atrial fibrillation: Qualifiers: Atrial fibrillation type: unspecified chronic Qualified Code(s): I48.20 - Chronic atrial fibrillation, unspecified Code(s): I48.91 - Unspecified atrial fibrillation Status: Chronic Assessment and Plan: Anticoagulation on hold due to blood in stool (8) Congestive heart failure: Qualifiers: Heart failure chronicity: acute on chronic Heart failure type: unspecified Qualified Code(s): I50.9 - Heart failure, unspecified Code(s): I50.9 - Heart failure, unspecified Status: Acute Assessment and Plan: 09/24 I/O 3013/1200 Continue to monitor off diuretics (9) Decubitus ulcer of coccyx: Qualifiers: Pressure injury stage: unspecified pressure injury stage Qualified Code(s): L89.159 - Pressure ulcer of sacral region, unspecified stage Code(s): L89.159 - Pressure ulcer of sacral region, unspecified stage Status: Acute Assessment and Plan: Continue wound care (10) Blood in stool: Code(s): K92.1 - Melena Status: Acute Assessment and Plan: Melena Holding anticoagulation Monitor h/h through 09/25, then daily CBC if stable (11) Chronic respiratory failure with hypoxia and hypercapnia: Code(s): J96.11 - Chronic respiratory failure with hypoxia; J96.12 - Chronic respiratory failure with hypercapnia Status: Acute Assessment and Plan: Support as above (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
[2020-09-25] MEDS: hydrALAZINE HCL 20 MG/ML VIAL (09:02)
[2020-09-25] MEDS: BUDESONIDE RESPULE NEB 0.5 MG/2 ML AMP INHALATION (09:12)
[2020-09-25] MEDS: PANTOPRAZOLE SODIUM IV 40 MG VIAL IV PUSH (10:52)
[2020-09-25] MEDS: FENTANYL 2,500MCG/NS250ML(*CRX 2,500 MCG/250 ML BAG 17.5 MCG IV CONT (11:59)
[2020-09-25 12:33] LABS: Glucose Point of Care 240 (65-105)
[2020-09-25 15:46] LABS: Glucose Point of Care 193 (65-105)
--- NOTE | 2020-09-25 16:17 | PM.IMPN ---
Progress Note: A&P Assessment and Plan (1) Acute and chronic respiratory failure: Qualifiers: Respiratory failure complication: hypoxia and hypercapnia Qualified Code(s): J96.21 - Acute and chronic respiratory failure with hypoxia; J96.22 - Acute and chronic respiratory failure with hypercapnia Code(s): J96.20 - Acute and chronic respiratory failure, unspecified whether with hypoxia or hypercapnia Status: Acute Assessment and Plan: Patient is chronically on oxygen at 2 L which she increased to 4 L prior to admission. pH 7.31 with pCO2 63 on admission. She tested positive for COVID. [place] the reason for respiratory failure from COPD, CHF, JOHNNY and mostly COVID. ABG worsened and BiPAP started. Serial ABGs after BiPAP adjustments were without benefits. She was moved to ICU and intubated 09/15/20. CXR reviewed today and no change. .. [place] she was becoming contracted/dehydrated. Vent rate decreased and Lasix held. . Vent management per decorating supervisor. (2) Pneumonia due to COVID-19 virus: Code(s): U07.1 - COVID-19; J12.89 - Other viral pneumonia Status: Acute Assessment and Plan: CXR from admission showing diffuse airspace disease. Possibly pulmonary edema but now COVID+ so felt related to COVID PNA/ARDS. Started on Dexamethasone D#10 and finished Remdesivir. Convalescent plasma 09/18. Broad spectrum abx were started 09/15 but stopped 09/20. Continue albuterol nebulizer treatments and Pulmicort Respules. . Continue supportive care (3) Congestive heart failure: Qualifiers: Heart failure chronicity: acute on chronic Heart failure type: unspecified Qualified Code(s): I50.9 - Heart failure, unspecified Code(s): I50.9 - Heart failure, unspecified Status: Acute Assessment and Plan: Concern for CHF with CXR findings and BNP 1340 but no clinical evidence of fluid overload. Echo 09/16 showing EF 50-55% with poorly visualized LV; small to moderate pericardial effusion. Patient takes Lasix 80mg daily home. . She initially had excellent UOP with negative fluid balance. . Lasix was held with contraction alkalosis. Continue to monitor closely. (4) Bradycardia: Code(s): R00.1 - Bradycardia, unspecified Status: Acute Assessment and Plan: dopamine due to the bradycardia. TSH 0.65. Echo showing EF 50-55% but overall a poor study. Heart rate low but stable at this time. Wean dopamine as tolerated. (5) Atrial fibrillation: Qualifiers: Atrial fibrillation type: unspecified chronic Qualified Code(s): I48.20 - Chronic atrial fibrillation, unspecified Code(s): I48.91 - Unspecified atrial fibrillation Status: Chronic Assessment and Plan: Patient with chronic AFib. Diltiazem is on hold due to her bradycardia. as is pradaxa. (6) DM2 (diabetes mellitus, type 2): Qualifiers: Diabetes mellitus intermodal customer service insulin use: without residential use Diabetes mellitus complication status: with hyperglycemia Qualified Code(s): E11.65 - Type 2 diabetes mellitus with hyperglycemia Code(s): E11.9 - Type 2 diabetes mellitus without complications Status: Chronic Assessment and Plan: A1c 8.6. The patient's blood glucose was reviewed on 09/25 Glucose remains poorly controlled. Continue [employer] covering with sliding scale. Hypoglycemia protocol available as needed. Levemir advanced again to 60 q12 ,09/24, hopefully will improve finishing dexamethasone (7) Decubitus ulcer of coccyx: Qualifiers: Pressure injury stage: unspecified pressure injury stage Qualified Code(s): L89.159 - Pressure ulcer of sacral region, unspecified stage Code(s): L89.159 - Pressure ulcer of sacral region, unspecified stage Status: Acute Assessment and Plan: Patient with a large decubitus ulcer present on admission. Continue current wound care. (8) Hypothyroidi
[2020-09-25 20:16] LABS: Glucose Point of Care 171 (65-105)
[2020-09-25] MEDS: DOPamine 400 MG/D5W 250 ML 400 MG/250 ML BAG 17.58 MG IV CONT (22:00)
[2020-09-25 23:14] LABS: Glucose Point of Care 114 (65-105)
[2020-09-26] VITALS (42 sets, daily range): BP systolic 100–139; BP diastolic 51–90; PULSE 40–89; RESP 25–40; TEMP 37.1–38.7; O2SAT 90–98
[2020-09-26] MEDS: ALBUTEROL SULFATE NEB 2.5 MG/0.5 ML INH INHALATION ×4 (02:24→22:18)
[2020-09-26 03:01] LABS: Hemoglobin 9.6 g/dL (12.0-15.0); Mean Corpuscular Hemoglobin 27.7 pg (26-34); Mean Corpuscular Volume 92.2 fl (80-100); Mean Platelet Volume 10.6 fl (7.4-10.4); Platelet Count Result 258 k/mm3 (150-375); Red Blood Count 3.47 M/mm3 (4.2-5.4); Red Cell Distribution Width 15.7 % (11.5-14.5); White Blood Count 23.4 K/mm3 (4.5-10.0)
[2020-09-26] MEDS: FENTANYL 2,500MCG/NS250ML(*CRX 2,500 MCG/250 ML BAG 20 MCG IV CONT (03:04)
[2020-09-26] MEDS: ACETAMINOPHEN 325 MG TABLET 650 MG PO (03:17)
[2020-09-26 03:19] LABS: Potassium 4.8 mmol/L (3.4-5.0)
[2020-09-26 03:27] LABS: D Dimer 2.88 ug/mL (<0.48)
[2020-09-26 03:28] LABS: Lactate Dehydrogenase 923 U/L (313-618)
[2020-09-26 03:57] LABS: CRP 16.5 mg/dL (<1.0)
[2020-09-26 04:04] LABS: Alveolar/Arterial O2 Gradient 338.6 mmHg; Base Excess ABG 12.4 mEq/l (+/-2.0); Fractional Inspired Oxygen 70 %; HCO3 ABG 39.3 mEq/l (22.0-26.0); Oxygen Content ABG 14.4 %vol (16.0-22.0); Oxygen Saturation ABG 96.7 % (95.0-100.0); PO2 ABG 91.1 mmHg (80.0-100.0); Total Hemoglobin 10.6 g/dL (12.0-18.0); pH ABG 7.402 (7.350-7.450)
[2020-09-26 04:08] LABS: Arterial Blood Gas Vent Mode CMV; Arterial Blood Gas Ventilator rate 30 /MIN; Device VENTILATOR; Modified Allen's Test Pass; PCO2 ABG 64.6 mmHg (35.0-45.0); Site Drawn LEFT RADIAL
[2020-09-26 04:09] LABS: Arterial Blood Gas PEEP 10 cmH2O; Arterial Blood Gas Tidal Volume 350 ml
[2020-09-26 04:21] LABS: Alanine Aminotransferase 115 U/L (4-35); Albumin Level 2.7 g/dL (3.5-5.1); Alkaline Phosphatase 169 U/L (38-126); Anion Gap 2.99999 mmol/L (8-16); Aspartate Amino Transferase 69 U/L (14-36); Bilirubin,Total 0.7 mg/dL (0.2-1.3); Blood Urea Nitrogen 31 mg/dL (7-17); Calcium 9.1 mg/dL (8.4-10.2); Carbon Dioxide > 40 mmol/L (22-30); Chloride 93 mmol/L (98-107); Estimated CRCL calculation 180 ml/min; Estimated Glomerular Filt Rate > 60; Glucose 68 mg/dL (65-105); Potassium 4.8 mmol/L (3.4-5.0); Sodium 136 mmol/L (137-145)
[2020-09-26] MEDS: CENTRAL LINE FLUSH 10 ML IV PUSH ×3 (05:33→22:00)
[2020-09-26 05:57] LABS: Glucose Point of Care 90 (65-105)
[2020-09-26] MEDS: LEVOTHYROXINE SODIUM 100 MCG TABLET PO (06:00)
[2020-09-26] MEDS: DEXTROSE 50% 25 GM/50 ML SYRINGE IV PUSH (08:08)
[2020-09-26] MEDS: polyethylene glycoL 3350 17 GM POWD.PACK PO (08:10)
[2020-09-26] MEDS: SOD HYPOCHLORITE 1/4 STRENGTH 473 ML 1 APPLIC TOPICAL (08:10)
[2020-09-26] MEDS: TOLNAFTATE 1% POWDER 45 GM BTL 1 APPLIC TOPICAL ×2 (08:10→21:31)
[2020-09-26] MEDS: PANTOPRAZOLE SODIUM IV 40 MG VIAL IV PUSH ×2 (08:13→21:31)
[2020-09-26 08:33] LABS: Glucose Point of Care 49 (65-105)
[2020-09-26 08:33] LABS: Glucose Point of Care 128 (65-105)
[2020-09-26] MEDS: BUDESONIDE RESPULE NEB 0.5 MG/2 ML AMP INHALATION ×2 (08:57→22:19)
--- NOTE | 2020-09-26 09:13 | P.PNINT_ITS ---
Progress Note: A&P Assessment and Plan (1) Pneumonia due to COVID-19 virus: Code(s): U07.1 - COVID-19; J12.89 - Other viral pneumonia Status: Acute Assessment and Plan: * Repeat chest x-ray 09/27 * Antibiotics discontinued 09/20 * CMV ventilation * Because of chronic hypercarbia target CO2 is higher than normal range * Continue bronchodilators and inhaled he does denied * Continue airborne and contact isolation * dexamethasone and remdesivir initiated 09/15/2020 received convalescent plasma 09/18/2020 * Inflammatory markers without clear trend (2) ARDS (adult respiratory distress syndrome): Code(s): J80 - Acute respiratory distress syndrome Status: Acute (3) Acute and chronic respiratory failure: Qualifiers: Respiratory failure complication: hypoxia and hypercapnia Qualified Code(s): J96.21 - Acute and chronic respiratory failure with hypoxia; J96.22 - Acute and chronic respiratory failure with hypercapnia Code(s): J96.20 - Acute and chronic respiratory failure, unspecified whether with hypoxia or hypercapnia Status: Acute Assessment and Plan: * 09/26: 7.402/64.6/91.1/39.3/96.7% on CMV rate 30, FIO2 0.7, TV 350, PEEP 10 (4) DM2 (diabetes mellitus, type 2): Qualifiers: Diabetes mellitus complication status: with hyperglycemia Diabetes mellitus alf insulin use: without assistant terminal manager use Qualified Code(s): E11.65 - Type 2 diabetes mellitus with hyperglycemia Code(s): E11.9 - Type 2 diabetes mellitus without complications Status: Chronic Assessment and Plan: * 09/26: BS trended down to 90s then 40s this AM, required one amp D50. AM Levemir held (5) Blood in stool: Code(s): K92.1 - Melena Status: Acute Assessment and Plan: * No recurrence * H/h remains stable * 09/26: 9.6/32.0 (6) Hypertension: Qualifiers: Hypertension type: unspecified Qualified Code(s): I10 - Essential (primary) hypertension Code(s): I10 - Essential (primary) hypertension Status: Acute Assessment and Plan: * PRN hydralazine (7) Bradycardia: Code(s): R00.1 - Bradycardia, unspecified Status: Acute Assessment and Plan: * 09/26: dopamine at 2.5 mcg with HR 40's (8) Hypothyroidism: Qualifiers: Hypothyroidism type: acquired Qualified Code(s): E03.9 - Hypothyroidism, unspecified Code(s): E03.9 - Hypothyroidism, unspecified Status: Chronic Assessment and Plan: * Continue levothyroxine (9) Atrial fibrillation: Qualifiers: Atrial fibrillation type: unspecified chronic Qualified Code(s): I48.20 - Chronic atrial fibrillation, unspecified Code(s): I48.91 - Unspecified atrial fibrillation Status: Chronic Assessment and Plan: * Anticoagulation on hold due to blood in stool (10) Congestive heart failure: Qualifiers: Heart failure chronicity: acute on chronic Heart failure type: unspecified Qualified Code(s): I50.9 - Heart failure, unspecified Code(s): I50.9 - Heart failure, unspecified Status: Acute Assessment and Plan: * Continue to monitor fluid balance * 09/26: I/O 2518/1125 (11) Decubitus ulcer of coccyx: Qualifiers: Pressure injury stage: unspecified pressure injury stage Qualified Code(s): L89.159 - Pressure ulcer of sacral region, unspecified stage Code(s): L89.159 - Pressure ulcer of sacral region, unspecified stage Status: Acute Assessment and Plan: * Continue wo
--- NOTE | 2020-09-26 09:13 | WPDINTPN ---
Progress Note: A&P Assessment and Plan (1) Pneumonia due to COVID-19 virus: Code(s): U07.1 - COVID-19; J12.89 - Other viral pneumonia Status: Acute Assessment and Plan: Repeat chest x-ray 09/27 Antibiotics discontinued 09/20 CMV ventilation Because of chronic hypercarbia target CO2 is higher than normal range Continue bronchodilators and inhaled he does denied Continue airborne and contact isolation dexamethasone and remdesivir initiated 09/15/2020 received convalescent plasma 09/18/2020 Inflammatory markers without clear trend (2) ARDS (adult respiratory distress syndrome): Code(s): J80 - Acute respiratory distress syndrome Status: Acute (3) Acute and chronic respiratory failure: Qualifiers: Respiratory failure complication: hypoxia and hypercapnia Qualified Code(s): J96.21 - Acute and chronic respiratory failure with hypoxia; J96.22 - Acute and chronic respiratory failure with hypercapnia Code(s): J96.20 - Acute and chronic respiratory failure, unspecified whether with hypoxia or hypercapnia Status: Acute Assessment and Plan: 09/26: 7.402/64.6/91.1/39.3/96.7% on CMV rate 30, FIO2 0.7, TV 350, PEEP 10 (4) DM2 (diabetes mellitus, type 2): Qualifiers: Diabetes mellitus complication status: with hyperglycemia Diabetes mellitus prison insulin use: without behavior management specialist use Qualified Code(s): E11.65 - Type 2 diabetes mellitus with hyperglycemia Code(s): E11.9 - Type 2 diabetes mellitus without complications Status: Chronic Assessment and Plan: 09/26: BS trended down to 90s then 40s this AM, required one amp D50. AM Levemir held (5) Blood in stool: Code(s): K92.1 - Melena Status: Acute Assessment and Plan: No recurrence H/h remains stable 09/26: 9.6/32.0 (6) Hypertension: Qualifiers: Hypertension type: unspecified Qualified Code(s): I10 - Essential (primary) hypertension Code(s): I10 - Essential (primary) hypertension Status: Acute Assessment and Plan: PRN hydralazine (7) Bradycardia: Code(s): R00.1 - Bradycardia, unspecified Status: Acute Assessment and Plan: 09/26: dopamine at 2.5 mcg with HR 40's (8) Hypothyroidism: Qualifiers: Hypothyroidism type: acquired Qualified Code(s): E03.9 - Hypothyroidism, unspecified Code(s): E03.9 - Hypothyroidism, unspecified Status: Chronic Assessment and Plan: Continue levothyroxine (9) Atrial fibrillation: Qualifiers: Atrial fibrillation type: unspecified chronic Qualified Code(s): I48.20 - Chronic atrial fibrillation, unspecified Code(s): I48.91 - Unspecified atrial fibrillation Status: Chronic Assessment and Plan: Anticoagulation on hold due to blood in stool (10) Congestive heart failure: Qualifiers: Heart failure chronicity: acute on chronic Heart failure type: unspecified Qualified Code(s): I50.9 - Heart failure, unspecified Code(s): I50.9 - Heart failure, unspecified Status: Acute Assessment and Plan: Continue to monitor fluid balance 09/26: I/O 9308/1125 (11) Decubitus ulcer of coccyx: Qualifiers: Pressure injury stage: unspecified pressure injury stage Qualified Code(s): L89.159 - Pressure ulcer of sacral region, unspecified stage Code(s): L89.159 - Pressure ulcer of sacral region, unspecified stage Status: Acute Assessment and Plan: Continue wound care Subjective Date/time seen: 09/26/20 09:13 Interval history: 09/26: On vetnilator and unable to give hx. Chart reviewed. 55 y/o morbidly obese female with JOHNNY, COPD, chronic mixed resp failure was admitted and intubated 09/14 due to pneumonia w/ acute on chronic respiratory failure. BS to 90s this AM. Review of Systems Review of Systems: ROS unobtainable: Yes unobtainable due to mental status Exa
--- NOTE | 2020-09-26 09:24 | WPDGIPROGNO ---
Progress Note: A&P Assessment and Plan (1) Blood in stool: Code(s): K92.1 - Melena Status: Acute Assessment and Plan: Patient with intermittent blood in his stools over last 2-3 days. I have discussed this with primary care service. Her hemoglobin has had a gradual decline but current hemoglobin 9.6 is only mildly decreased. Plan is to defer invasive testing. We will cover her with proton pump inhibitor for possible stress gastritis or ulceration. Continue monitor hemoglobin closely. Anticoagulation has been held for the time being. (2) Decubitus ulcer of coccyx: Qualifiers: Pressure injury stage: unspecified pressure injury stage Qualified Code(s): L89.159 - Pressure ulcer of sacral region, unspecified stage Code(s): L89.159 - Pressure ulcer of sacral region, unspecified stage Status: Acute (3) Pneumonia due to COVID-19 virus: Code(s): U07.1 - COVID-19; J12.89 - Other viral pneumonia Status: Acute (4) Atrial fibrillation: Qualifiers: Atrial fibrillation type: unspecified chronic Qualified Code(s): I48.20 - Chronic atrial fibrillation, unspecified Code(s): I48.91 - Unspecified atrial fibrillation Status: Chronic Assessment and Plan: Anticoagulation will be need to be held because of evidence for blood in stools. It may not be safe to continue anticoagulation given these findings. (5) Morbid obesity: Code(s): E66.01 - Morbid (severe) obesity due to excess calories Status: Acute Subjective Date/time seen: 09/26/20 09:24 Patient remains intubated sedated in the ICU. No significant additional GI blood loss reported. She has had several reddish stools over the last several days. Hemoglobin reported remained stable. Review of Systems Review of Systems: ROS unobtainable: Yes unobtainable due to endotracheal tube Objective Data Vital Signs Vital Signs: Vital Signs - 24 hr 09/25/20 10:00 09/25/20 11:00 09/25/20 11:35 Temperature Pulse Rate 62 61 51 L Respiratory Rate 30 H 24 H Blood Pressure 153/69 H Pulse Oximetry 96 09/25/20 11:59 09/25/20 12:00 09/25/20 14:00 Temperature 97.7 F Pulse Rate 51 L 45 L 41 L Respiratory Rate 24 H 26 H 30 H Blood Pressure 133/66 140/57 L Pulse Oximetry 95 96 09/25/20 14:10 09/25/20 14:15 09/25/20 15:38 Temperature Pulse Rate 48 L 39 L Respiratory Rate 30 H Blood Pressure Pulse Oximetry 96 95 09/25/20 15:41 09/25/20 16:00 09/25/20 16:33 Temperature 98.1 F Pulse Rate 40 L 41 L 38 L Respiratory Rate 30 H Blood Pressure 152/62 H Pulse Oximetry 96 95 09/25/20 17:26 09/25/20 17:47 09/25/20 20:00 Temperature 97.9 F Pulse Rate 65 47 L 61 Respiratory Rate 30 H 30 H Blood Pressure 147/78 H 108/72 Pulse Oximetry 95 94 09/25/20 21:15 09/25/20 21:23 09/25/20 21:29 Temperature Pulse Rate 67 67 67 Respiratory Rate 30 H 30 H Blood Pressure Pulse Oximetry 97 09/25/20 21:58 09/25/20 22:00 09/25/20 23:20 Temperature Pulse Rate 82 79 Respiratory Rate 30 H 30 H 30 H Blood Pressure 142/66 H Pulse Oximetry 98 86 L 09/26/20 00:00 09/26/20 00:22 09/26/20 02:00 Temperature 100.3 F H Pulse Rate 80 89 83 Respiratory Rate 30 H 33 H Blood Pressure 139/66 125/60 Pulse Oximetry 97 97 95 09/26/20 02:07 09/26/20 02:15 09/26/20 02:26 Temperature Pulse Rate 83 80 82 Respiratory Rate 35 H Blood Pressure 125/60 Pulse Oximetry 94 09/26/20 02:27 09/26/20 02:34 09/26/20 03:04 Temperature Pulse Rate 80 88 87 Respiratory Rate 35 H 40 H 30 H Blood Pressure Pulse Oximetry 09/26/20 03:06 09/26/20 03:17 09/26/20 04:00 Temperature 101.7 F H 99.5 F Pulse Rate 87 88 Respiratory Rate 35 H 30 H Blood Pressure 102/60 Pulse Oximetry 95 09/26/20 04:10 09/26/20 04:17 09/26/20 05:44 Temperature 99.5 F Pulse Rate 88 73 Respiratory Rate 30 H Blood Pressure Pulse Oximet
[2020-09-26 11:15] LABS: Glucose Point of Care 100 (65-105)
[2020-09-26] MEDS: DOPamine 400 MG/D5W 250 ML 400 MG/250 ML BAG 14.06 MG IV CONT (12:36)
[2020-09-26] MEDS: FENTANYL 2,500MCG/NS250ML(*CRX 2,500 MCG/250 ML BAG 17.5 MCG IV CONT (15:43)
--- NOTE | 2020-09-26 17:01 | PM.IMPN ---
Progress Note: A&P Assessment and Plan (1) Acute and chronic respiratory failure: Qualifiers: Respiratory failure complication: hypoxia and hypercapnia Qualified Code(s): J96.21 - Acute and chronic respiratory failure with hypoxia; J96.22 - Acute and chronic respiratory failure with hypercapnia Code(s): J96.20 - Acute and chronic respiratory failure, unspecified whether with hypoxia or hypercapnia Status: Acute Assessment and Plan: Patient is chronically on oxygen at 2 L which she increased to 4 L prior to admission. pH 7.31 with pCO2 63 on admission. She tested positive for COVID. [place] the reason for respiratory failure from COPD, CHF, JONHNY and mostly COVID. ABG worsened and BiPAP started. Serial ABGs after BiPAP adjustments were without benefits. She was moved to ICU and intubated 09/15/20. CXR reviewed 09/25 and no change. .. [place] she was becoming contracted/dehydrated. Vent rate decreased and Lasix held. . Vent management per photography and prints curator. (2) Pneumonia due to COVID-19 virus: Code(s): U07.1 - COVID-19; J12.89 - Other viral pneumonia Status: Acute Assessment and Plan: CXR from admission showing diffuse airspace disease. Possibly pulmonary edema but now COVID+ so felt related to COVID PNA/ARDS. Finished 10 d of Dexamethasone and finished Remdesivir. Convalescent plasma 09/18. Broad spectrum abx were started 09/15 but stopped 09/20. Continue albuterol nebulizer treatments and Pulmicort Respules. . Continue supportive care sputum form 09/24 growing serratia and 1 Bc 09/24 morgagnia so cefepime restarted today (3) Congestive heart failure: Qualifiers: Heart failure chronicity: acute on chronic Heart failure type: unspecified Qualified Code(s): I50.9 - Heart failure, unspecified Code(s): I50.9 - Heart failure, unspecified Status: Acute Assessment and Plan: Concern for CHF with CXR findings and BNP 1340 but no clinical evidence of fluid overload. Echo 09/16 showing EF 50-55% with poorly visualized LV; small to moderate pericardial effusion. Patient takes Lasix 80mg daily home. . She initially had excellent UOP with negative fluid balance. . Lasix was held with contraction alkalosis. Continue to monitor closely. (4) Bradycardia: Code(s): R00.1 - Bradycardia, unspecified Status: Acute Assessment and Plan: dopamine due to the bradycardia. TSH 0.65. Echo showing EF 50-55% but overall a poor study. Heart rate low but stable at this time. Wean dopamine as tolerated. (5) Atrial fibrillation: Qualifiers: Atrial fibrillation type: unspecified chronic Qualified Code(s): I48.20 - Chronic atrial fibrillation, unspecified Code(s): I48.91 - Unspecified atrial fibrillation Status: Chronic Assessment and Plan: Patient with chronic AFib. Diltiazem is on hold due to her bradycardia. as is pradaxa. (6) DM2 (diabetes mellitus, type 2): Qualifiers: Diabetes mellitus machine long goods helper insulin use: without machine long goods helper use Diabetes mellitus complication status: with hyperglycemia Qualified Code(s): E11.65 - Type 2 diabetes mellitus with hyperglycemia Code(s): E11.9 - Type 2 diabetes mellitus without complications Status: Chronic Assessment and Plan: A1c 8.6. The patient's blood glucose was reviewed on 09/26 Glucose remains poorly controlled. Continue AccuCheks covering with sliding scale. Hypoglycemia protocol available as needed. Levemir advanced again to 60 q12 ,09/24, hopefully will improve finishing dexamethasone (7) Decubitus ulcer of coccyx: Qualifiers: Pressure injury stage: unspecified pressure injury stage Qualified Code(s): L89.159 - Pressure ulcer of sacral region, unspecified stage Code(s): L89.159 - Pressure ulcer of sacral region, unspecified stage Status: Acute Assessment and Plan: Patient with a large
[2020-09-26 17:43] LABS: Glucose Point of Care 84 (65-105)
[2020-09-27] VITALS (34 sets, daily range): BP systolic 94–124; BP diastolic 48–69; PULSE 38–82; RESP 27–30; TEMP 37.4–38; O2SAT 90–95
[2020-09-27] MEDS: DEXTROSE 50% 25 GM/50 ML SYRINGE IV PUSH (00:10)
[2020-09-27 00:26] LABS: Glucose Point of Care 57 (65-105)
[2020-09-27 00:36] LABS: Glucose Point of Care 84 (65-105)
[2020-09-27] MEDS: ALBUTEROL SULFATE NEB 2.5 MG/0.5 ML INH INHALATION ×4 (02:54→23:23)
[2020-09-27] MEDS: FENTANYL 2,500MCG/NS250ML(*CRX 2,500 MCG/250 ML BAG 20 MCG IV CONT ×2 (05:10→17:31)
[2020-09-27] MEDS: CENTRAL LINE FLUSH 10 ML IV PUSH ×3 (05:13→22:48)
[2020-09-27 05:17] LABS: Alveolar/Arterial O2 Gradient 371.1 mmHg; Base Excess ABG 9.5 mEq/l (+/-2.0); Fractional Inspired Oxygen 70 %; HCO3 ABG 35.7 mEq/l (22.0-26.0); Oxyhemoglobin 91.6 % THb (90.0-100.0); PCO2 ABG 57.2 mmHg (35.0-45.0); PO2 ABG 66.5 mmHg (80.0-100.0); PO2 FiO2 Ratio Arterial Blood 0.95 %; Total Hemoglobin 10.8 g/dL (12.0-18.0); pH ABG 7.413 (7.350-7.450)
[2020-09-27 05:18] LABS: Device VENTILATOR; Modified Allen's Test Pass; Site Drawn RIGHT RADIAL
[2020-09-27 05:19] LABS: Arterial Blood Gas PEEP 10 cmH2O; Arterial Blood Gas Tidal Volume 350 ml; Arterial Blood Gas Vent Mode CMV; Arterial Blood Gas Ventilator rate 30 /MIN
[2020-09-27 05:22] LABS: Hematocrit 30.5 % (37.0-47.0); Hemoglobin 9.2 g/dL (12.0-15.0); Mean Corpuscular HGB Conc 30.2 g/dl (32-36); Mean Corpuscular Hemoglobin 27.5 pg (26-34); Mean Corpuscular Volume 91.3 fl (80-100); Mean Platelet Volume 10.7 fl (7.4-10.4); Platelet Count Result 239 k/mm3 (150-375); Red Blood Count 3.34 M/mm3 (4.2-5.4); Red Cell Distribution Width 15.9 % (11.5-14.5); White Blood Count 22.7 K/mm3 (4.5-10.0)
[2020-09-27 05:33] LABS: Estimated CRCL calculation 219 ml/min; Estimated Glomerular Filt Rate > 60
[2020-09-27] MEDS: LEVOTHYROXINE SODIUM 100 MCG TABLET PO (06:02)
[2020-09-27 06:46] LABS: Glucose Point of Care 120 (65-105)
[2020-09-27 08:09] LABS: Anion Gap 1.99999 mmol/L (8-16); Blood Urea Nitrogen 23 mg/dL (7-17); Calcium 8.6 mg/dL (8.4-10.2); Carbon Dioxide > 40 mmol/L (22-30); Chloride 91 mmol/L (98-107); Estimated CRCL calculation 180 ml/min; Estimated Glomerular Filt Rate > 60; Glucose 135 mg/dL (65-105); Potassium 5.1 mmol/L (3.4-5.0); Sodium 133 mmol/L (137-145)
[2020-09-27] MEDS: BUDESONIDE RESPULE NEB 0.5 MG/2 ML AMP INHALATION ×2 (08:36→23:22)
--- NOTE | 2020-09-27 09:10 | WPDGIPROGNO ---
Progress Note: A&P Assessment and Plan (1) Blood in stool: Code(s): K92.1 - Melena Status: Acute Assessment and Plan: Patient is bleeding appears to have stopped. Hemoglobin has remained stable. No additional GI investigated felt warranted given her significant comorbid diseases. Plan to treat empirically with PPI for possible stress ulcer. Monitor hemoglobin at this juncture. (2) Decubitus ulcer of coccyx: Qualifiers: Pressure injury stage: unspecified pressure injury stage Qualified Code(s): L89.159 - Pressure ulcer of sacral region, unspecified stage Code(s): L89.159 - Pressure ulcer of sacral region, unspecified stage Status: Acute (3) Pneumonia due to COVID-19 virus: Code(s): U07.1 - COVID-19; J12.89 - Other viral pneumonia Status: Acute (4) Atrial fibrillation: Qualifiers: Atrial fibrillation type: unspecified chronic Qualified Code(s): I48.20 - Chronic atrial fibrillation, unspecified Code(s): I48.91 - Unspecified atrial fibrillation Status: Chronic Assessment and Plan: Anticoagulation will be held given recent finding of blood in stools. Subjective Date/time seen: 09/27/20 09:10 Patient remains sedated intubated on the ventilator in the ICU. Nursing staff reports no additional blood loss noted in bowel habits. Review of Systems Review of Systems: ROS unobtainable: Yes unobtainable due to endotracheal tube Objective Data Vital Signs Vital Signs: Vital Signs - 24 hr 09/26/20 10:00 09/26/20 11:45 09/26/20 12:00 Temperature 99.4 F Pulse Rate 46 L 48 L 50 L Respiratory Rate 30 H 30 H Blood Pressure 131/53 L 103/59 L Pulse Oximetry 96 96 95 09/26/20 12:36 09/26/20 12:39 09/26/20 13:58 Temperature Pulse Rate 61 51 L 40 L Respiratory Rate 30 H 30 H Blood Pressure 103/59 L Pulse Oximetry 09/26/20 14:00 09/26/20 14:39 09/26/20 14:40 Temperature Pulse Rate 46 L 45 L 63 Respiratory Rate 30 H 30 H Blood Pressure 125/58 L Pulse Oximetry 94 93 09/26/20 14:49 09/26/20 14:51 09/26/20 15:43 Temperature Pulse Rate 62 65 75 Respiratory Rate 30 H 30 H 30 H Blood Pressure Pulse Oximetry 09/26/20 15:46 09/26/20 15:48 09/26/20 15:49 Temperature 98.8 F Pulse Rate 73 74 75 Respiratory Rate 30 H 30 H Blood Pressure 125/64 125/64 Pulse Oximetry 90 95 09/26/20 16:00 09/26/20 18:00 09/26/20 18:14 Temperature Pulse Rate 71 67 66 Respiratory Rate 30 H Blood Pressure 138/76 138/76 Pulse Oximetry 96 09/26/20 18:26 09/26/20 18:27 09/26/20 20:00 Temperature 100.2 F H Pulse Rate 70 70 71 Respiratory Rate 30 H 30 H 30 H Blood Pressure 133/90 Pulse Oximetry 92 09/26/20 22:00 09/26/20 22:05 09/27/20 00:00 Temperature 99.9 F H Pulse Rate 83 56 L 73 Respiratory Rate 30 H 27 H 30 H Blood Pressure 138/66 124/63 Pulse Oximetry 90 94 09/27/20 00:10 09/27/20 00:15 09/27/20 02:00 Temperature Pulse Rate 71 79 49 L Respiratory Rate 30 H 30 H Blood Pressure 118/54 L Pulse Oximetry 94 90 09/27/20 02:56 09/27/20 04:00 09/27/20 04:37 Temperature 99.9 F H Pulse Rate 63 59 L 58 L Respiratory Rate 30 H 30 H Blood Pressure 114/53 L Pulse Oximetry 91 91 09/27/20 05:06 09/27/20 05:10 09/27/20 06:00 Temperature Pulse Rate 65 64 52 L Respiratory Rate 30 H 30 H 30 H Blood Pressure 104/55 L Pulse Oximetry 91 09/27/20 08:36 09/27/20 08:37 09/27/20 08:42 Temperature Pulse Rate 42 L 44 L 58 L Respiratory Rate 30 H 30 H Blood Pressure Pulse Oximetry 90 Intake/Output Intake/Output: Intake & Output 09/24/20 09/25/20 09/26/20 09/27/20 23:59 23:59 23:59 23:59 Intake Total 3013 2518.0 2652 1440 Output Total 1200 1125 1350 750 Balance 1813 1393.0 1302 690 Meds/Results Medications: Active Medications Generic Name Dose Route Start Last Admin Trade Name Freq PRN Reason Stop Dose Admin Acetamin
[2020-09-27] MEDS: SOD HYPOCHLORITE 1/4 STRENGTH 473 ML 1 APPLIC TOPICAL (09:20)
[2020-09-27] MEDS: TOLNAFTATE 1% POWDER 45 GM BTL 1 APPLIC TOPICAL ×2 (09:20→22:48)
[2020-09-27] MEDS: polyethylene glycoL 3350 17 GM POWD.PACK PO (09:21)
[2020-09-27] MEDS: PANTOPRAZOLE SODIUM IV 40 MG VIAL IV PUSH ×2 (09:21→22:48)
[2020-09-27] MEDS: acetaZOLAMIDE TAB 250 MG TABLET 500 MG PO ×2 (09:22→22:47)
[2020-09-27 12:14] LABS: Glucose Point of Care 135 (65-105)
--- NOTE | 2020-09-27 13:29 | PCDIET ---
ICU Rounding Note: Patient tolerating Glucerna 1.2 at 60mL/hr goal rate with Pro-Stat TID. Last recorded weight is 194kg which is increased from last review. +I/O. Bowel Motility: Last documented BM on 09/24/20. Labs Reviewed: Hgb (9.2), Hct (30.5), Glu (135), BUN (23), Cr (0.4), K (5.1), Na (133) Meds Noted: Diamox, Albuterol, Cefepime, Fentanyl, Hydralazine, Novolog, Levemir, Synthroid, Versed, Protonix, Miralax Additional Notes: Buttocks macerated. Coccyx with pressure ulcer. Following daily in ICU rounds. Assessing/reassessing every Sunday/Sunday.
--- NOTE | 2020-09-27 15:36 | PM.IMPN ---
Progress Note: A&P Assessment and Plan (1) Acute and chronic respiratory failure: Qualifiers: Respiratory failure complication: hypoxia and hypercapnia Qualified Code(s): J96.21 - Acute and chronic respiratory failure with hypoxia; J96.22 - Acute and chronic respiratory failure with hypercapnia Code(s): J96.20 - Acute and chronic respiratory failure, unspecified whether with hypoxia or hypercapnia Status: Acute Assessment and Plan: Patient is chronically on oxygen at 2 L which she increased to 4 L prior to admission. pH 7.31 with pCO2 63 on admission. She tested positive for COVID. [place] the reason for respiratory failure from COPD, CHF, JOHNNY and mostly COVID. ABG worsened and BiPAP started. Serial ABGs after BiPAP adjustments were without benefits. She was moved to ICU and intubated 09/15/20. CXR reviewed 09/27 and no change. .. [place] she was becoming contracted/dehydrated. Vent rate decreased and Lasix held. . Vent management per lawn service manager. (2) Pneumonia due to COVID-19 virus: Code(s): U07.1 - COVID-19; J12.89 - Other viral pneumonia Status: Acute Assessment and Plan: CXR from admission showing diffuse airspace disease. Possibly pulmonary edema but now COVID+ so felt related to COVID PNA/ARDS. Finished 10 d of Dexamethasone and finished Remdesivir. Convalescent plasma 09/18. Broad spectrum abx were started 09/15 but stopped 09/20. Continue albuterol nebulizer treatments and Pulmicort Respules. . Continue supportive care sputum form 09/24 growing serratia and 1 Bc 09/24 morgagnia so cefepime restarted 09/26 (3) Congestive heart failure: Qualifiers: Heart failure chronicity: acute on chronic Heart failure type: unspecified Qualified Code(s): I50.9 - Heart failure, unspecified Code(s): I50.9 - Heart failure, unspecified Status: Acute Assessment and Plan: Concern for CHF with CXR findings and BNP 1340 but no clinical evidence of fluid overload. Echo 09/16 showing EF 50-55% with poorly visualized LV; small to moderate pericardial effusion. Patient takes Lasix 80mg daily home. . She initially had excellent UOP with negative fluid balance. . Lasix was held with contraction alkalosis. Continue to monitor closely. (4) Bradycardia: Code(s): R00.1 - Bradycardia, unspecified Status: Acute Assessment and Plan: dopamine due to the bradycardia. TSH 0.65. Echo showing EF 50-55% but overall a poor study. Heart rate low but stable at this time. Wean dopamine as tolerated. (5) Atrial fibrillation: Qualifiers: Atrial fibrillation type: unspecified chronic Qualified Code(s): I48.20 - Chronic atrial fibrillation, unspecified Code(s): I48.91 - Unspecified atrial fibrillation Status: Chronic Assessment and Plan: Patient with chronic AFib. Diltiazem is on hold due to her bradycardia. as is pradaxa. (6) DM2 (diabetes mellitus, type 2): Qualifiers: Diabetes mellitus nursing home insulin use: without ferry terminal supervisor use Diabetes mellitus complication status: with hyperglycemia Qualified Code(s): E11.65 - Type 2 diabetes mellitus with hyperglycemia Code(s): E11.9 - Type 2 diabetes mellitus without complications Status: Chronic Assessment and Plan: A1c 8.6. The patient's blood glucose was reviewed on 09/27 Glucose better controlled. Continue AccuCheks covering with sliding scale. Hypoglycemia protocol available as needed. Levemir advanced again to 60 q12 ,09/24, hopefully will improve finishing dexamethasone (7) Decubitus ulcer of coccyx: Qualifiers: Pressure injury stage: unspecified pressure injury stage Qualified Code(s): L89.159 - Pressure ulcer of sacral region, unspecified stage Code(s): L89.159 - Pressure ulcer of sacral region, unspecified stage Status: Acute Assessment and Plan: Patient with a large decubit
--- NOTE | 2020-09-27 16:13 | WPDINTPN ---
Progress Note: A&P Assessment and Plan (1) Acute and chronic respiratory failure: Qualifiers: Respiratory failure complication: hypoxia and hypercapnia Qualified Code(s): J96.21 - Acute and chronic respiratory failure with hypoxia; J96.22 - Acute and chronic respiratory failure with hypercapnia Code(s): J96.20 - Acute and chronic respiratory failure, unspecified whether with hypoxia or hypercapnia Status: Acute Assessment and Plan: Patient with hypercapnic respiratory failure likely secondary to COVID-19 pneumonia -chest x-ray and ABGs reviewed -wean FiO2 as tolerated, currently on peep of 10. CMV mode of ventilation low tidal volume strategy, will allow permissive hypercapnia -continue bronchodilators -will order Diamox patient has significant contraction alkalosis (2) Pneumonia due to COVID-19 virus: Code(s): U07.1 - COVID-19; J12.89 - Other viral pneumonia Status: Acute Assessment and Plan: SARS-CoV-2 PCR positive for COVID-19 - continue droplet, airborne, contact isolation/precautions - dexamethasone and Remdesivir initiated on 09/15/2020 - continue to monitor inflammatory markers, without a clear trend - Received convalescent plasma on 09/18. (3) Atrial fibrillation: Qualifiers: Atrial fibrillation type: unspecified chronic Qualified Code(s): I48.20 - Chronic atrial fibrillation, unspecified Code(s): I48.91 - Unspecified atrial fibrillation Status: Chronic Assessment and Plan: patient in AFib, She is having bradycardia with heart rate in 30s. Will obtain a EKG - At baseline she is on diltiazem 240 mg long-acting which has been on hold since admission. - heart rates in the upper 30s at this time. Blood pressures have been stable. on dopamine - patient on Pradaxa at home, will start when able. -holding therapeutic Lovenox for blood in stool. (4) Congestive heart failure: Qualifiers: Heart failure chronicity: acute on chronic Heart failure type: unspecified Qualified Code(s): I50.9 - Heart failure, unspecified Code(s): I50.9 - Heart failure, unspecified Status: Acute Assessment and Plan: patient with history of CHF, echocardiogram 09/16/2020: EF of 50-55% small to moderate pericardial effusion - holding diuretics due to contraction alkalosis - will order Diamox today (5) DM2 (diabetes mellitus, type 2): Qualifiers: Diabetes mellitus [facility] insulin use: without [facility] use Diabetes mellitus complication status: with hyperglycemia Qualified Code(s): E11.65 - Type 2 diabetes mellitus with hyperglycemia Code(s): E11.9 - Type 2 diabetes mellitus without complications Status: Chronic Assessment and Plan: -patient insulin infusion for a brief period. -patient was transition to Levemir, on 09/26 patient was hypo glycemic, Levemir was held -continue Accu-Cheks sliding scale insulin for now (6) Blood in stool: Code(s): K92.1 - Melena Status: Acute Assessment and Plan: Patient had blood in stool, hemoglobin remained stable -no recurrence -GI following, no additional GI investigation at this time -patient on PPI IV q.12 hours (7) DVT prophylaxis: Code(s): Z29.9 - Encounter for prophylactic measures, unspecified Status: Acute Assessment and Plan: DVT prophylaxis: SCDs stress ulcer prophylaxis: Protonix IV Additional Plan discussed with sister Eulalia, updated with patient's condition and plan of care. Answered all question condition: Guarded code status: Full code critical care time spent: 33 minutess Due to a high probability of clinically significant, life threatening deterioration, the patient required my highest level of preparedness to intervene emergently and I personally spent this critical care time directly and personally managing the patient. This critical care time included isreal
[2020-09-27] MEDS: DOPamine 400 MG/D5W 250 ML 400 MG/250 ML BAG 7.03 MG IV CONT (17:27)
[2020-09-27 19:02] LABS: Glucose Point of Care 156 (65-105)
[2020-09-27] MEDS: ACETAMINOPHEN 325 MG TABLET 650 MG PO (23:00)
[2020-09-27] MEDS: INSULIN ASPART (*BKC) 100 UNITS/ML SUB-Q (23:04)
[2020-09-27 23:08] LABS: Glucose Point of Care 225 (65-105)
[2020-09-28] VITALS (45 sets, daily range): BP systolic 100–139; BP diastolic 49–83; PULSE 32–70; RESP 26–35; TEMP 36.7–37.7; O2SAT 91–100
[2020-09-28] MEDS: ALBUTEROL SULFATE NEB 2.5 MG/0.5 ML INH INHALATION ×4 (03:18→21:11)
[2020-09-28 05:25] LABS: Alanine Aminotransferase 174 U/L (4-35); Albumin Level 2.6 g/dL (3.5-5.1); Alkaline Phosphatase 257 U/L (38-126); Anion Gap 0 mmol/L (8-16); Aspartate Amino Transferase 233 U/L (14-36); Bilirubin,Total 1.4 mg/dL (0.2-1.3); Blood Urea Nitrogen 26 mg/dL (7-17); Calcium 8.4 mg/dL (8.4-10.2); Carbon Dioxide 38 mmol/L (22-30); Chloride 93 mmol/L (98-107); Estimated CRCL calculation 159 ml/min; Estimated Glomerular Filt Rate > 60; Glucose 196 mg/dL (65-105); Magnesium 2.6 mg/dL (1.6-2.3); Potassium 4.6 mmol/L (3.4-5.0); Sodium 131 mmol/L (137-145)
[2020-09-28 05:30] LABS: Alveolar/Arterial O2 Gradient 266.8 mmHg; Base Excess ABG 8.5 mEq/l (+/-2.0); Fractional Inspired Oxygen 60 %; HCO3 ABG 35.8 mEq/l (22.0-26.0); Oxygen Content ABG 13.5 %vol (16.0-22.0); Oxygen Saturation ABG 96.1 % (95.0-100.0); PO2 ABG 88.6 mmHg (80.0-100.0); PO2 FiO2 Ratio Arterial Blood 1.48 %; pH ABG 7.353 (7.350-7.450)
[2020-09-28 05:32] LABS: Arterial Blood Gas PEEP 10 cmH2O; Arterial Blood Gas Tidal Volume 350 ml; Arterial Blood Gas Vent Mode CMV; Arterial Blood Gas Ventilator rate 30 /MIN; Device VENTILATOR; Modified Allen's Test Pass; PCO2 ABG 65.8 mmHg (35.0-45.0); Site Drawn LEFT RADIAL
[2020-09-28 05:38] LABS: D Dimer 4.88 ug/mL (<0.48)
[2020-09-28 05:47] LABS: Lactate Dehydrogenase 1287 U/L (313-618)
[2020-09-28 06:03] LABS: CRP 26.9 mg/dL (<1.0)
[2020-09-28] MEDS: LEVOTHYROXINE SODIUM 100 MCG TABLET PO (06:04)
[2020-09-28] MEDS: CENTRAL LINE FLUSH 10 ML IV PUSH ×3 (06:04→21:09)
[2020-09-28] MEDS: polyethylene glycoL 3350 17 GM POWD.PACK PO (08:53)
[2020-09-28] MEDS: PANTOPRAZOLE SODIUM IV 40 MG VIAL IV PUSH ×2 (08:53→21:09)
[2020-09-28] MEDS: BUDESONIDE RESPULE NEB 0.5 MG/2 ML AMP INHALATION (09:05)
[2020-09-28] MEDS: FENTANYL 2,500MCG/NS250ML(*CRX 2,500 MCG/250 ML BAG 12.5 MCG IV CONT (10:09)
--- NOTE | 2020-09-28 11:41 | WPDINTPN ---
Progress Note: A&P Assessment and Plan (1) Acute and chronic respiratory failure: Qualifiers: Respiratory failure complication: hypoxia and hypercapnia Qualified Code(s): J96.21 - Acute and chronic respiratory failure with hypoxia; J96.22 - Acute and chronic respiratory failure with hypercapnia Code(s): J96.20 - Acute and chronic respiratory failure, unspecified whether with hypoxia or hypercapnia Status: Acute Assessment and Plan: Patient with hypercapnic respiratory failure likely secondary to COVID-19 pneumonia -chest x-ray and ABGs reviewed -wean FiO2 as tolerated, currently on peep of 10. CMV mode of ventilation low tidal volume strategy, will allow permissive hypercapnia -continue bronchodilators -will order Diamox patient has significant contraction alkalosis (2) Pneumonia due to COVID-19 virus: Code(s): U07.1 - COVID-19; J12.89 - Other viral pneumonia Status: Acute Assessment and Plan: SARS-CoV-2 PCR positive for COVID-19 - continue droplet, airborne, contact isolation/precautions - dexamethasone and Remdesivir initiated on 09/15/2020 - continue to monitor inflammatory markers, without a clear trend - Received convalescent plasma on 09/18. (3) Atrial fibrillation: Qualifiers: Atrial fibrillation type: unspecified chronic Qualified Code(s): I48.20 - Chronic atrial fibrillation, unspecified Code(s): I48.91 - Unspecified atrial fibrillation Status: Chronic Assessment and Plan: patient in AFib, She is having bradycardia with heart rate in 30s. Will obtain a EKG - At baseline she is on diltiazem 240 mg long-acting which has been on hold since admission. - heart rates in the upper 30s at this time. Blood pressures have been stable. on dopamine - patient on Pradaxa at home, will start when able. -holding therapeutic Lovenox for blood in stool. (4) Congestive heart failure: Qualifiers: Heart failure chronicity: acute on chronic Heart failure type: unspecified Qualified Code(s): I50.9 - Heart failure, unspecified Code(s): I50.9 - Heart failure, unspecified Status: Acute Assessment and Plan: patient with history of CHF, echocardiogram 09/16/2020: EF of 50-55% small to moderate pericardial effusion - ordered diamox 500 mg PO Q12h today - lasix 20 mg IV X 1 (5) DM2 (diabetes mellitus, type 2): Qualifiers: Diabetes mellitus [facility] insulin use: without long term care phlebotomist use Diabetes mellitus complication status: with hyperglycemia Qualified Code(s): E11.65 - Type 2 diabetes mellitus with hyperglycemia Code(s): E11.9 - Type 2 diabetes mellitus without complications Status: Chronic Assessment and Plan: -patient insulin infusion for a brief period. -patient was transition to Levemir, on 09/26 patient was hypo glycemic, Levemir was held -continue Accu-Cheks sliding scale insulin for now (6) Blood in stool: Code(s): K92.1 - Melena Status: Acute Assessment and Plan: Patient had blood in stool, hemoglobin remained stable -no recurrence -GI following, no additional GI investigation at this time -patient on PPI IV q.12 hours (7) DVT prophylaxis: Code(s): Z29.9 - Encounter for prophylactic measures, unspecified Status: Acute Assessment and Plan: DVT prophylaxis: SCDs stress ulcer prophylaxis: Protonix IV Additional Plan Code status: Full code Critical care time spent: 35 minutes Due to a high probability of clinically significant, life threatening deterioration, the patient required my highest level of preparedness to intervene emergently and I personally spent this critical care time directly and personally managing the patient. This critical care time included obtaining a history; examining the patient; pulse oximetry; ordering and review of studies; arranging urgent treatment with development of a management plan;
[2020-09-28] MEDS: INSULIN ASPART (*BKC) 100 UNITS/ML SUB-Q ×2 (11:45→17:36)
--- NOTE | 2020-09-28 11:45 | WPDGIPROGNO ---
Progress Note: A&P Assessment and Plan (1) Blood in stool: Code(s): K92.1 - Melena Status: Acute Assessment and Plan: Blood in stool was noted but is not persisted. Modest anemia peers with stable hemoglobin at this time. Plan is to continue to monitor hemoglobin. Proton pump inhibitor therapy implemented for possibility of stress gastritis. No investigation felt warranted at this point (2) Decubitus ulcer of coccyx: Qualifiers: Pressure injury stage: unspecified pressure injury stage Qualified Code(s): L89.159 - Pressure ulcer of sacral region, unspecified stage Code(s): L89.159 - Pressure ulcer of sacral region, unspecified stage Status: Acute (3) ARDS (adult respiratory distress syndrome): Code(s): J80 - Acute respiratory distress syndrome Status: Acute (4) Pneumonia due to COVID-19 virus: Code(s): U07.1 - COVID-19; J12.89 - Other viral pneumonia Status: Acute (5) Acute and chronic respiratory failure: Qualifiers: Respiratory failure complication: hypoxia and hypercapnia Qualified Code(s): J96.21 - Acute and chronic respiratory failure with hypoxia; J96.22 - Acute and chronic respiratory failure with hypercapnia Code(s): J96.20 - Acute and chronic respiratory failure, unspecified whether with hypoxia or hypercapnia Status: Acute Subjective Date/time seen: 09/28/20 11:45 Patient remains intubated on the ventilator. Nursing staff reports no additional significant blood in stool. Hemoglobin has remained stable. Very gradual decline in hemoglobin evident. Objective Data Vital Signs Vital Signs: Vital Signs - 24 hr 09/27/20 12:00 09/27/20 14:00 09/27/20 14:16 Temperature 100.3 F H 99.4 F Pulse Rate 51 L 44 L 42 L Respiratory Rate 27 H 30 H 30 H Blood Pressure 94/48 L 119/56 L Pulse Oximetry 92 93 93 09/27/20 14:20 09/27/20 16:00 09/27/20 17:16 Temperature 99.4 F Pulse Rate 57 L 44 L 48 L Respiratory Rate 30 H 30 H Blood Pressure 114/53 L Pulse Oximetry 93 93 09/27/20 17:27 09/27/20 17:28 09/27/20 17:31 Temperature Pulse Rate 55 L 52 L 53 L Respiratory Rate 30 H 30 H Blood Pressure 119/69 Pulse Oximetry 09/27/20 18:00 09/27/20 20:00 09/27/20 22:00 Temperature Pulse Rate 43 L 52 L 47 L Respiratory Rate 30 H 30 H 30 H Blood Pressure 121/61 113/57 L 121/59 L Pulse Oximetry 91 94 91 09/27/20 23:00 09/27/20 23:23 09/27/20 23:28 Temperature 99.9 F H Pulse Rate 49 L 50 L Respiratory Rate 30 H Blood Pressure Pulse Oximetry 94 09/27/20 23:32 09/28/20 00:00 09/28/20 01:48 Temperature 99.9 F H Pulse Rate 52 L 49 L 34 L Respiratory Rate 30 H 30 H 30 H Blood Pressure 102/49 L Pulse Oximetry 95 09/28/20 02:00 09/28/20 02:01 09/28/20 02:02 Temperature 98.5 F Pulse Rate 42 L 32 L 34 L Respiratory Rate 27 H 30 H Blood Pressure 100/51 L 102/49 L Pulse Oximetry 95 09/28/20 02:05 09/28/20 03:00 09/28/20 03:02 Temperature Pulse Rate 33 L 44 L 46 L Respiratory Rate 30 H 30 H Blood Pressure 114/56 L 114/56 L Pulse Oximetry 94 09/28/20 03:19 09/28/20 03:20 09/28/20 03:23 Temperature Pulse Rate 42 L 42 L 40 L Respiratory Rate 30 H 30 H Blood Pressure Pulse Oximetry 94 09/28/20 03:54 09/28/20 04:00 09/28/20 04:23 Temperature 98.3 F Pulse Rate 42 L 41 L 49 L Respiratory Rate 30 H 30 H Blood Pressure 128/65 128/65 Pulse Oximetry 94 94 09/28/20 04:24 09/28/20 04:25 09/28/20 05:30 Temperature Pulse Rate 50 L 53 L Respiratory Rate 30 H 30 H Blood Pressure Pulse Oximetry 94 09/28/20 06:00 09/28/20 08:00 09/28/20 08:53 Temperature 98.0 F Pulse Rate 61 59 L 62 Respiratory Rate 26 H 28 H 30 H Blood Pressure 120/67 138/73 Pulse Oximetry 92 91 09/28/20 09:06 09/28/20 09:14 09/28/20 10:00 Temperature Pulse Rate 68 63 61 Respiratory Rate 32 H 32 H 30 H Blood Pressure 115/71 Pulse O
[2020-09-28] MEDS: ALTEPLASE 2 MG VIAL (CATHFLO) IV PUSH ×4 (11:47→22:28)
[2020-09-28 12:10] LABS: Glucose Point of Care 225 (65-105)
[2020-09-28] MEDS: acetaZOLAMIDE TAB 250 MG TABLET 500 MG PO ×2 (13:14→22:41)
[2020-09-28] MEDS: FUROSEMIDE INJ 40 MG/4 ML VIAL 20 MG IV PUSH (13:14)
[2020-09-28] MEDS: TOLNAFTATE 1% POWDER 45 GM BTL 1 APPLIC TOPICAL ×2 (13:14→21:09)
--- NOTE | 2020-09-28 13:31 | PCDIET ---
Nutrition Follow-Up Complete: Nutrition Diagnosis: Inadequate oral intake related to inability to consume foods orally as evidence by need for enteral nutrition to meet needs Nutrition Goal: Total intake will meet estimated kcal and protein needs Goal met. Patient tolerating Glucerna 1.2 at 60mL/hr goal rate with Pro-Stat TID and 30mL water flush every 4 hours. Last recorded weight is 205 kg which is significantly increased from last review. +I/O. Will monitor. Bowel Motility: Last documented BM on 09/24/20. Labs Reviewed: Glu (196), BUN (26), Cr (0.6), Na (131), Alb (2.6) Meds Noted: Synthroid, Albuterol, Fentanyl, Protonix, Cefepime, Hydralazine, Levemir, Versed, Miralax Additional Notes: No change in wound reported; patient undergoing daily dressing changes. Will continue to monitor with same goal. Nutrition Monitoring and Evaluation: Follow up every Sunday/Sunday.
[2020-09-28] MEDS: SOD HYPOCHLORITE 1/4 STRENGTH 473 ML 1 APPLIC TOPICAL (15:56)
[2020-09-28 17:49] LABS: Glucose Point of Care 222 (65-105)
--- NOTE | 2020-09-28 20:54 | PM.IMPN ---
Progress Note: A&P Assessment and Plan (1) Acute and chronic respiratory failure: Qualifiers: Respiratory failure complication: hypoxia and hypercapnia Qualified Code(s): J96.21 - Acute and chronic respiratory failure with hypoxia; J96.22 - Acute and chronic respiratory failure with hypercapnia Code(s): J96.20 - Acute and chronic respiratory failure, unspecified whether with hypoxia or hypercapnia Status: Acute Assessment and Plan: Patient is chronically on oxygen at 2 L which she increased to 4 L prior to admission. pH 7.31 with pCO2 63 on admission. She tested positive for COVID. [place] the reason for respiratory failure from COPD, CHF, JOHNNY and mostly COVID. ABG worsened and BiPAP started. Serial ABGs after BiPAP adjustments were without benefits. She was moved to ICU and intubated 09/15/20. Vent management per medication nurse. (2) Pneumonia due to COVID-19 virus: Code(s): U07.1 - COVID-19; J12.89 - Other viral pneumonia Status: Acute Assessment and Plan: CXR from admission showing diffuse airspace disease. Possibly pulmonary edema but now COVID+ so felt related to COVID PNA/ARDS. Finished 10 d of Dexamethasone and finished Remdesivir. Convalescent plasma 09/18. Broad spectrum abx were started 09/15 but stopped 09/20. Sputum form 09/24 growing Serratia and 1 BCx from 09/25 also growing Serratia. 1 BCx 09/24 growing Morganella morganii so Cefepime restarted 09/26. Suspect this is from her coccyx wound. Continue albuterol nebulizer treatments and Pulmicort Respules. Inflammatory markers higher now. Continue supportive care (3) Congestive heart failure: Qualifiers: Heart failure chronicity: acute on chronic Heart failure type: diastolic Qualified Code(s): I50.33 - Acute on chronic diastolic (congestive) heart failure Code(s): I50.9 - Heart failure, unspecified Status: Acute Assessment and Plan: Concern for Diastolic CHF with CXR findings and BNP 1340 but no clinical evidence of fluid overload. Echo 09/16 showing EF 50-55% with poorly visualized LV; small to moderate pericardial effusion. Patient takes Lasix 80mg daily home. She initially had excellent UOP with negative fluid balance. Lasix was held with contraction alkalosis. Acetazolamide has been started. Continue to monitor closely. Lasix x 1 given today. (4) Bradycardia: Code(s): R00.1 - Bradycardia, unspecified Status: Acute Assessment and Plan: dopamine due to the bradycardia. TSH 0.65. Echo showing EF 50-55% but overall a poor study. Heart rate low but stable at this time. Has been weaned off dopamine. Continue to follow. (5) Atrial fibrillation: Qualifiers: Atrial fibrillation type: unspecified chronic Qualified Code(s): I48.20 - Chronic atrial fibrillation, unspecified Code(s): I48.91 - Unspecified atrial fibrillation Status: Chronic Assessment and Plan: Patient with chronic AFib. Diltiazem is on hold due to her bradycardia. as is pradaxa. (6) DM2 (diabetes mellitus, type 2): Qualifiers: Diabetes mellitus complication status: with hyperglycemia Diabetes mellitus group home insulin use: without test pilot use Qualified Code(s): E11.65 - Type 2 diabetes mellitus with hyperglycemia Code(s): E11.9 - Type 2 diabetes mellitus without complications Status: Chronic Assessment and Plan: A1c 8.6. The patient's blood glucose was reviewed on 09/28 Glucose in the 200's. Continue AccuCheks covering with sliding scale. Hypoglycemia protocol available as needed. Levemir at 60 q12 on hold. Resume at Levemir 20U QHS. (7) Decubitus ulcer of coccyx: Qualifiers: Pressure injury stage: unspecified pressure injury stage Qualified Code(s): L89.159 - Pressure ulcer of sacral region, unspecified stage Code(s): L89.159 - Pressure ulcer of sacral region, unspecified stage
[2020-09-28] MEDS: INSULIN DETEMIR 100 UNITS/ML 20 UNITS SUB-Q (22:37)
[2020-09-28] MEDS: WATER, STERILE FOR INJECTION 10 ML VIAL XX (22:37)
[2020-09-29] VITALS (37 sets, daily range): BP systolic 94–143; BP diastolic 48–66; PULSE 43–95; RESP 20–44; TEMP 36.7–38.2; O2SAT 91–100
[2020-09-29] MEDS: INSULIN ASPART (*BKC) 100 UNITS/ML SUB-Q ×4 (00:03→18:47)
[2020-09-29] MEDS: ALBUTEROL SULFATE NEB 2.5 MG/0.5 ML INH INHALATION ×3 (02:38→20:50)
[2020-09-29 04:59] LABS: Hematocrit 27.7 % (37.0-47.0); Hemoglobin 8.1 g/dL (12.0-15.0); Mean Corpuscular HGB Conc 29.2 g/dl (32-36); Mean Corpuscular Hemoglobin 26.9 pg (26-34); Mean Platelet Volume 10.2 fl (7.4-10.4); Platelet Count Result 279 k/mm3 (150-375); Red Blood Count 3.01 M/mm3 (4.2-5.4); Red Cell Distribution Width 15.6 % (11.5-14.5); White Blood Count 18.3 K/mm3 (4.5-10.0)
[2020-09-29 05:11] LABS: Alanine Aminotransferase 110 U/L (4-35); Albumin Level 2.6 g/dL (3.5-5.1); Alkaline Phosphatase 232 U/L (38-126); Anion Gap -1 mmol/L (8-16); Aspartate Amino Transferase 57 U/L (14-36); Bilirubin,Total 0.4 mg/dL (0.2-1.3); Blood Urea Nitrogen 22 mg/dL (7-17); Calcium 8.5 mg/dL (8.4-10.2); Carbon Dioxide 39 mmol/L (22-30); Chloride 93 mmol/L (98-107); Estimated CRCL calculation 188 ml/min; Estimated Glomerular Filt Rate > 60; Glucose 266 mg/dL (65-105); Magnesium 2.4 mg/dL (1.6-2.3); Phosphorus 3.7 mg/dL (2.5-4.5); Potassium 4.3 mmol/L (3.4-5.0); Sodium 131 mmol/L (137-145)
[2020-09-29 05:22] LABS: Glucose Point of Care 308 (65-105)
[2020-09-29 05:33] LABS: Alveolar/Arterial O2 Gradient 215.3 mmHg; Base Excess ABG 4.9 mEq/l (+/-2.0); Carboxyhemoglobin 0.4 % THb (0-2.0); Device VENTILATOR; Fractional Inspired Oxygen 50 %; HCO3 ABG 31.8 mEq/l (22.0-26.0); Modified Allen's Test Unable to perform; Oxygen Content ABG 13.4 %vol (16.0-22.0); Oxygen Saturation ABG 93.7 % (95.0-100.0); Oxyhemoglobin 93.7 % THb (90.0-100.0); PCO2 ABG 59.7 mmHg (35.0-45.0); PO2 FiO2 Ratio Arterial Blood 1.48 %; Reduced Hemoglobin 5.9 %THb (0-5.0); Site Drawn LEFT RADIAL; Total Hemoglobin 10.1 g/dL (12.0-18.0); pH ABG 7.344 (7.350-7.450)
[2020-09-29 05:34] LABS: Arterial Blood Gas PEEP 10 cmH2O; Arterial Blood Gas Tidal Volume 350 ml; Arterial Blood Gas Vent Mode CMV; Arterial Blood Gas Ventilator rate 30 /MIN
[2020-09-29] MEDS: CENTRAL LINE FLUSH 10 ML IV PUSH ×3 (06:18→21:42)
[2020-09-29] MEDS: LEVOTHYROXINE SODIUM 100 MCG TABLET PO (06:19)
--- NOTE | 2020-09-29 07:54 | WPDCDIQUERY2 ---
CDI Query Clarification Request -09/28 Data Entry Coordinator has documented Sepsis with bactermia . -Blood culture from 09/25 growing serratia marcescens. Sputum culture from 09/24 growing serratia marcescens. Blood culture from 09/24 growing morganella morganii. -No mention of sepsis by hospitalist Please clarify if sepsis has been ruled in or ruled out. -Acute on chronic CHF has been documented. - Echo 09/16 showing EF 50-55% with poorly visualized LV; small to moderate pericardial effusion. Patient takes Lasix 80mg daily home. She initially had excellent UOP with negative fluid balance. Lasix was held with contraction alkalosis. Acetazolamide has been started. Continue to monitor closely. Lasix x 1 given today has been documented. -Coders cannot code type of CHF from echo results Please further specif type of acute on chronic CHF: Systolic Diastolic Both systolic and diastolic Unable to determine <Gaby Wilks RN - Last Filed: 09/29/20 08:04>
[2020-09-29 08:09] LABS: Glucose Point of Care 235 (65-105)
[2020-09-29] MEDS: FENTANYL 2,500MCG/NS250ML(*CRX 2,500 MCG/250 ML BAG 12.5 MCG IV CONT (09:08)
[2020-09-29] MEDS: FUROSEMIDE INJ 40 MG/4 ML VIAL IV PUSH (09:18)
[2020-09-29] MEDS: polyethylene glycoL 3350 17 GM POWD.PACK PO (09:19)
[2020-09-29] MEDS: PANTOPRAZOLE SODIUM IV 40 MG VIAL IV PUSH ×2 (09:19→19:52)
[2020-09-29] MEDS: TOLNAFTATE 1% POWDER 45 GM BTL 1 APPLIC TOPICAL ×2 (09:20→19:52)
--- NOTE | 2020-09-29 10:01 | P.PNINT_ITS ---
Progress Note: A&P Assessment and Plan (1) Acute and chronic respiratory failure: Qualifiers: Respiratory failure complication: hypoxia and hypercapnia Qualified Code(s): J96.21 - Acute and chronic respiratory failure with hypoxia; J96.22 - Acute and chronic respiratory failure with hypercapnia Code(s): J96.20 - Acute and chronic respiratory failure, unspecified whether with hypoxia or hypercapnia Status: Acute Assessment and Plan: With hypoxic and hypercapnic respiratory failure secondary to COVID pneumonia. * Chest x-ray and ABGs reviewed * Antibiotics discontinued 09/20/2020. However the 09/24/2020 patient spiked fevers and both sputum and blood cultures grew serratia marcescens is and was started on cefepime when blood cultures returned positive 09/26/2020. * Initially on pressure control ventilation but was switched to CMV. Current settings rate of 30 4 tidal volume 350 peep of 10 and 50% FiO2 * The patient has evidence of chronic hypercarbia will not target normal CO2 * Continue bronchodilators and steroids * the patient did get a short course of Diamox due to metabolic alkalosis from her chronic hypercarbia. * Lasix 40 mg IV times 1 given today and will monitor for response. (2) ARDS (adult respiratory distress syndrome): Code(s): J80 - Acute respiratory distress syndrome Status: Acute Assessment and Plan: * Continue droplet airborne and contact isolation * Dexamethasone and Remdesivir initiated 09/15/2020. * Received, listen plasma 09/18/2020. * Inflammatory markers appear to be trending down. (3) Pneumonia due to COVID-19 virus: Code(s): U07.1 - COVID-19; J12.89 - Other viral pneumonia Status: Acute Assessment and Plan: Now with secondary bacterial pneumonia with Serratia marcescens. * Both sputum and blood cultures positive. Sputum culture returned positive . Blood culture turned positive 09/25/2020 positive for Morganella morganii and Serratia. * Both bacteria sensitive to cefepime initiated 09/26/20 (4) Bradycardia: Code(s): R00.1 - Bradycardia, unspecified Status: Acute Assessment and Plan: * Atrial fibrillation with bradycardia with heart rates in the 30s. * Dopamine has been weaned off. * The patient was on Lovenox 150 mg subq q.12 hours that this is been discontinued due to developing acute lower GI bleed today (09/24/2020) (5) DM2 (diabetes mellitus, type 2): Qualifiers: Diabetes mellitus group home insulin use: without supervisor long goods use Diabetes mellitus complication status: with hyperglycemia Qualified Code(s): E11.65 - Type 2 diabetes mellitus with hyperglycemia Code(s): E11.9 - Type 2 diabetes mellitus without complications Status: Chronic Assessment and Plan: * Patient is on Levemir and sliding scale insulin. The patient had been quite hyperglycemic earlier in the hospital stay due to steroids. With cessation of steroid she did have some hypoglycemia but her glucoses have since rebounded to the mid 200s. * Levemir increased from 20 units to 24 units. * Continue high-dose sliding scale insulin and hypoglycemia protocol. * 1.2 at 60 mL an hour with 30 mL free water flushes Q 4. Continue ProStat t.i.d.. (6) Decubitus ulcer of coccyx: Qualifiers: Pressure injury stage: unspecified pressure injury stage Qualified Code(s): L89.159 - Pressure ulcer of sacral region, unspecified stage Code(s): L89.159 - Pressure ulcer of sacral region, unspecified stage Status: Acute Assessment and Plan: * Wound care consult with plan for pressure relieving jesus
--- NOTE | 2020-09-29 10:01 | WPDINTPN ---
Progress Note: A&P Assessment and Plan (1) Acute and chronic respiratory failure: Qualifiers: Respiratory failure complication: hypoxia and hypercapnia Qualified Code(s): J96.21 - Acute and chronic respiratory failure with hypoxia; J96.22 - Acute and chronic respiratory failure with hypercapnia Code(s): J96.20 - Acute and chronic respiratory failure, unspecified whether with hypoxia or hypercapnia Status: Acute Assessment and Plan: With hypoxic and hypercapnic respiratory failure secondary to COVID pneumonia. Chest x-ray and ABGs reviewed Antibiotics discontinued 09/20/2020. However the 09/24/2020 patient spiked fevers and both sputum and blood cultures grew serratia marcescens is and was started on cefepime when blood cultures returned positive 09/26/2020. Initially on pressure control ventilation but was switched to CMV. Current settings rate of 30 4 tidal volume 350 peep of 10 and 50% FiO2 The patient has evidence of chronic hypercarbia will not target normal CO2 Continue bronchodilators and steroids the patient did get a short course of Diamox due to metabolic alkalosis from her chronic hypercarbia. Lasix 40 mg IV times 1 given today and will monitor for response. (2) ARDS (adult respiratory distress syndrome): Code(s): J80 - Acute respiratory distress syndrome Status: Acute Assessment and Plan: Continue droplet airborne and contact isolation Dexamethasone and Remdesivir initiated 09/15/2020. Received, listen plasma 09/18/2020. Inflammatory markers appear to be trending down. (3) Pneumonia due to COVID-19 virus: Code(s): U07.1 - COVID-19; J12.89 - Other viral pneumonia Status: Acute Assessment and Plan: Now with secondary bacterial pneumonia with Serratia marcescens. Both sputum and blood cultures positive. Sputum culture returned positive 09/24/2020. Blood culture turned positive 09/25/2020 positive for Morganella morganii and Serratia. Both bacteria sensitive to cefepime initiated 09/26/20 (4) Bradycardia: Code(s): R00.1 - Bradycardia, unspecified Status: Acute Assessment and Plan: Atrial fibrillation with bradycardia with heart rates in the 30s. Dopamine has been weaned off. The patient was on Lovenox 150 mg subq q.12 hours that this is been discontinued due to developing acute lower GI bleed today (09/24/2020) (5) DM2 (diabetes mellitus, type 2): Qualifiers: Diabetes mellitus terminal carman insulin use: without terminal carman use Diabetes mellitus complication status: with hyperglycemia Qualified Code(s): E11.65 - Type 2 diabetes mellitus with hyperglycemia Code(s): E11.9 - Type 2 diabetes mellitus without complications Status: Chronic Assessment and Plan: Patient is on Levemir and sliding scale insulin. The patient had been quite hyperglycemic earlier in the hospital stay due to steroids. With cessation of steroid she did have some hypoglycemia but her glucoses have since rebounded to the mid 200s. Levemir increased from 20 units to 24 units. Continue high-dose sliding scale insulin and hypoglycemia protocol. 1.2 at 60 mL an hour with 30 mL free water flushes Q 4. Continue ProStat t.i.d.. (6) Decubitus ulcer of coccyx: Qualifiers: Pressure injury stage: unspecified pressure injury stage Qualified Code(s): L89.159 - Pressure ulcer of sacral region, unspecified stage Code(s): L89.159 - Pressure ulcer of sacral region, unspecified stage Status: Acute Assessment and Plan: Wound care consult with plan for pressure relieving mattress. (7) Lower GI bleed: Code(s): K92.2 - Gastrointestinal hemorrhage, unspecified Status: Acute Assessment and Plan: Developed 09/24/2020 Lovenox placed on hold. No recurrence of bleeding. Hemoglobin has trended down to 8.1. Additional Plan Code status: Full code Critical care time spent: 35 minutes Due to a
--- NOTE | 2020-09-29 11:43 | WPDGIPROGNO ---
Progress Note: A&P Assessment and Plan (1) Blood in stool: Code(s): K92.1 - Melena Status: Acute Assessment and Plan: No recent blood in stool described. She did have a small amount of blood several days ago. Hemoglobin noted to decline. But no recent stools. Plan is for suppositories. She may need laxatives. Continue monitor hemoglobin. Given her comorbid diseases investigation is not felt warranted unless an abrupt drop in hemoglobin noted. (2) Decubitus ulcer of coccyx: Qualifiers: Pressure injury stage: unspecified pressure injury stage Qualified Code(s): L89.159 - Pressure ulcer of sacral region, unspecified stage Code(s): L89.159 - Pressure ulcer of sacral region, unspecified stage Status: Acute (3) Pneumonia due to COVID-19 virus: Code(s): U07.1 - COVID-19; J12.89 - Other viral pneumonia Status: Acute (4) Congestive heart failure: Qualifiers: Heart failure chronicity: acute on chronic Heart failure type: unspecified Qualified Code(s): I50.9 - Heart failure, unspecified Code(s): I50.9 - Heart failure, unspecified Status: Acute (5) Morbid obesity: Code(s): E66.01 - Morbid (severe) obesity due to excess calories Status: Acute (6) Chronic respiratory failure with hypoxia and hypercapnia: Code(s): J96.11 - Chronic respiratory failure with hypoxia; J96.12 - Chronic respiratory failure with hypercapnia Status: Acute Subjective Date/time seen: 09/29/20 11:43 Patient remains intubated on the ventilator in the ICU. No recent stools are noted by the nursing staff. No obvious bleeding described. Review of Systems Review of Systems: ROS unobtainable: Yes unobtainable due to endotracheal tube Objective Data Vital Signs Vital Signs: Vital Signs - 24 hr 09/28/20 11:44 09/28/20 12:00 09/28/20 13:38 Temperature 98.5 F Pulse Rate 54 L 61 58 L Respiratory Rate 30 H 33 H 31 H Blood Pressure 139/71 Pulse Oximetry 100 09/28/20 13:39 09/28/20 13:48 09/28/20 14:00 Temperature Pulse Rate 56 L 59 L 70 Respiratory Rate 31 H 28 H Blood Pressure 128/83 Pulse Oximetry 100 100 09/28/20 16:00 09/28/20 17:27 09/28/20 17:40 Temperature 99.4 F Pulse Rate 70 66 61 Respiratory Rate 30 H 35 H Blood Pressure 120/61 Pulse Oximetry 100 100 09/28/20 18:00 09/28/20 20:00 09/28/20 20:56 Temperature 98.9 F Pulse Rate 66 60 58 L Respiratory Rate 34 H 33 H 33 H Blood Pressure 108/56 L 113/54 L Pulse Oximetry 100 100 09/28/20 21:12 09/28/20 21:13 09/28/20 21:16 Temperature Pulse Rate 55 L 60 61 Respiratory Rate 31 H 33 H Blood Pressure Pulse Oximetry 100 09/28/20 21:39 09/28/20 21:55 09/28/20 22:00 Temperature Pulse Rate 60 66 53 L Respiratory Rate 30 H 31 H 31 H Blood Pressure 121/63 Pulse Oximetry 100 09/28/20 23:18 09/29/20 00:00 09/29/20 00:29 Temperature 98.3 F Pulse Rate 64 46 L 59 L Respiratory Rate 31 H 33 H Blood Pressure 105/58 L Pulse Oximetry 98 100 09/29/20 02:00 09/29/20 02:39 09/29/20 02:42 Temperature Pulse Rate 56 L 50 L 53 L Respiratory Rate 27 H 31 H Blood Pressure 109/60 Pulse Oximetry 99 99 09/29/20 02:44 09/29/20 04:00 09/29/20 05:05 Temperature 98.1 F Pulse Rate 51 L 43 L 51 L Respiratory Rate 31 H 31 H Blood Pressure 117/53 L Pulse Oximetry 99 99 09/29/20 06:00 09/29/20 08:00 09/29/20 08:22 Temperature 100.3 F H Pulse Rate 51 L 78 77 Respiratory Rate 20 38 H 44 H Blood Pressure 111/57 L 143/66 H Pulse Oximetry 98 98 09/29/20 08:45 09/29/20 08:55 09/29/20 09:08 Temperature Pulse Rate 70 84 77 Respiratory Rate 37 H 37 H 44 H Blood Pressure Pulse Oximetry 97 09/29/20 09:10 09/29/20 09:31 09/29/20 09:32 Temperature Pulse Rate 81 86 95 Respiratory Rate 44 H 42 H 39 H Blood Pressure Pulse Oximetry 09/29/20 10:00 09/29/20 11:25 Temperature Pulse Rat
[2020-09-29] MEDS: ACETAMINOPHEN 325 MG TABLET 650 MG PO (12:50)
[2020-09-29 12:57] LABS: Glucose Point of Care 304 (65-105)
[2020-09-29] MEDS: acetaZOLAMIDE TAB 250 MG TABLET 500 MG PO ×2 (15:43→23:42)
[2020-09-29] MEDS: SOD HYPOCHLORITE 1/4 STRENGTH 473 ML 1 APPLIC TOPICAL (15:44)
[2020-09-29] MEDS: BISACODYL 10 MG SUPPOSITORY RECTAL (18:47)
[2020-09-29 19:02] LABS: Glucose Point of Care 290 (65-105)
[2020-09-29] MEDS: INSULIN DETEMIR 100 UNITS/ML 24 UNITS SUB-Q (20:32)
--- NOTE | 2020-09-29 20:45 | PM.IMPN ---
Progress Note: A&P Assessment and Plan (1) Acute and chronic respiratory failure: Qualifiers: Respiratory failure complication: hypoxia and hypercapnia Qualified Code(s): J96.21 - Acute and chronic respiratory failure with hypoxia; J96.22 - Acute and chronic respiratory failure with hypercapnia Code(s): J96.20 - Acute and chronic respiratory failure, unspecified whether with hypoxia or hypercapnia Status: Acute Assessment and Plan: Patient is chronically on oxygen at 2 L which she increased to 4 L prior to admission. pH 7.31 with pCO2 63 on admission. She tested positive for COVID. [place] the reason for respiratory failure from COPD, CHF, JOHNNY and mostly COVID. ABG worsened and BiPAP started. Serial ABGs after BiPAP adjustments were without benefits. She was moved to ICU and intubated 09/15/20. Vent management per [place] law clerk. (2) Pneumonia due to COVID-19 virus: Code(s): U07.1 - COVID-19; J12.89 - Other viral pneumonia Status: Acute Assessment and Plan: CXR from admission showing diffuse airspace disease. Possibly pulmonary edema but now COVID+ so felt related to COVID PNA/ARDS. Finished 10 d of Dexamethasone and finished Remdesivir. Convalescent plasma 09/18. Broad spectrum abx were started 09/15 but stopped 09/20. Sputum form 09/24 growing Serratia and 1 BCx from 09/25 also growing Serratia. 1 BCx 09/24 growing Morganella morganii so Cefepime restarted 09/26. Suspect this is from her coccyx wound. Continue albuterol nebulizer treatments and Pulmicort Respules. Inflammatory markers higher now. Continue supportive care (3) Congestive heart failure: Qualifiers: Heart failure chronicity: acute on chronic Heart failure type: diastolic Qualified Code(s): I50.33 - Acute on chronic diastolic (congestive) heart failure Code(s): I50.9 - Heart failure, unspecified Status: Acute Assessment and Plan: Concern for Diastolic CHF with CXR findings and BNP 1340 but no clinical evidence of fluid overload. Echo 09/16 showing EF 50-55% with poorly visualized LV; small to moderate pericardial effusion. Patient takes Lasix 80mg daily home. She initially had excellent UOP with negative fluid balance. Lasix was held with contraction alkalosis. Acetazolamide has been started. Continue to monitor closely. Lasix IV given again today with good UOP. (4) Bradycardia: Code(s): R00.1 - Bradycardia, unspecified Status: Acute Assessment and Plan: Dopamine started due to the bradycardia. TSH 0.65. Echo showing EF 50-55% but overall a poor study. Heart rate low but stable at this time. Has been weaned off dopamine 09/28. Continue to follow. (5) Atrial fibrillation: Qualifiers: Atrial fibrillation type: unspecified chronic Qualified Code(s): I48.20 - Chronic atrial fibrillation, unspecified Code(s): I48.91 - Unspecified atrial fibrillation Status: Chronic Assessment and Plan: Patient with chronic AFib. Diltiazem is on hold due to her bradycardia. Pradaxa on hold as well. (6) DM2 (diabetes mellitus, type 2): Qualifiers: Diabetes mellitus complication status: with hyperglycemia Diabetes mellitus fci insulin use: without terminal superintendent use Qualified Code(s): E11.65 - Type 2 diabetes mellitus with hyperglycemia Code(s): E11.9 - Type 2 diabetes mellitus without complications Status: Chronic Assessment and Plan: A1c 8.6. The patient's blood glucose was reviewed on 09/29 Glucose in the 200-300's. Continue AccuCheks covering with sliding scale. Hypoglycemia protocol available as needed. Levemir increased (7) Decubitus ulcer of coccyx: Qualifiers: Pressure injury stage: unspecified pressure injury stage Qualified Code(s): L89.159 - Pressure ulcer of sacral region, unspecified stage Code(s): L89.159 - Pressure ulcer of sacral region, unspecified s
[2020-09-29 22:06] LABS: Glucose Point of Care 278 (65-105)
--- NOTE | 2020-09-29 22:35 | PM.PNPUL ---
Progress Note: A&P Assessment and Plan (1) Acute and chronic respiratory failure: Qualifiers: Respiratory failure complication: hypoxia and hypercapnia Qualified Code(s): J96.21 - Acute and chronic respiratory failure with hypoxia; J96.22 - Acute and chronic respiratory failure with hypercapnia Code(s): J96.20 - Acute and chronic respiratory failure, unspecified whether with hypoxia or hypercapnia Status: Acute Assessment and Plan: Patient with hypercapnic respiratory failure likely secondary to COVID-19 pneumonia -chest x-ray and ABGs reviewed -wean FiO2 as tolerated, currently on peep of 10. CMV mode of ventilation low tidal volume strategy, will allow permissive hypercapnia -continue bronchodilators - continue diamox PRN, metabolic alkalolis maybe in part due to respiratory acidosis. - continue low tidal volume strategy for ARDS - generous PEEP maybe required due to obesity. (2) Pneumonia due to COVID-19 virus: Code(s): U07.1 - COVID-19; J12.89 - Other viral pneumonia Status: Acute Assessment and Plan: SARS-CoV-2 PCR positive for COVID-19 - continue droplet, airborne, contact isolation/precautions - dexamethasone and Remdesivir initiated on 09/15/2020 - continue to monitor inflammatory markers, without a clear trend - Received convalescent plasma on 09/18. (3) Congestive heart failure: Qualifiers: Heart failure chronicity: acute on chronic Heart failure type: diastolic Qualified Code(s): I50.33 - Acute on chronic diastolic (congestive) heart failure Code(s): I50.9 - Heart failure, unspecified Status: Acute Assessment and Plan: patient with history of CHF, echocardiogram 09/16/2020: EF of 50-55% small to moderate pericardial effusion - ordered diamox 500 mg PO Q12h today - lasix 20 mg IV X 1 (4) DM2 (diabetes mellitus, type 2): Qualifiers: Diabetes mellitus lobsterman insulin use: without senior living use Diabetes mellitus complication status: with hyperglycemia Qualified Code(s): E11.65 - Type 2 diabetes mellitus with hyperglycemia Code(s): E11.9 - Type 2 diabetes mellitus without complications Status: Chronic Assessment and Plan: -patient insulin infusion for a brief period. -patient was transition to Levemir, on 09/26 patient was hypo glycemic, Levemir was held -continue Accu-Cheks sliding scale insulin for now (5) Blood in stool: Code(s): K92.1 - Melena Status: Acute Assessment and Plan: Patient had blood in stool, hemoglobin remained stable -no recurrence -GI following, no additional GI investigation at this time -patient on PPI IV q.12 hours (6) DVT prophylaxis: Code(s): Z29.9 - Encounter for prophylactic measures, unspecified Status: Acute Assessment and Plan: DVT prophylaxis: SCDs stress ulcer prophylaxis: Protonix IV (7) Sepsis: Qualifiers: Severe sepsis acute organ dysfunction type: acute respiratory failure Code(s): A41.9 - Sepsis, unspecified organism Status: Acute Assessment and Plan: with bacteremia: Seratia and Morgenlla in blood and Seratia in sputum. Both susceptible to Cefepime which she is on. Subjective Date/time seen: 09/29/20 22:35 Interval history: More tachypneic this morning, slight temp elevation. Still on same sedation with minor decrease in dose, Review of Systems Review of Systems: All systems reviewed & are unremarkable except as noted in HPI and below Exam Narrative: Exam Narrative: intubated, sedated and mechanically ventilated. Const: General: cooperative, comfortable and no acute distress Nutritional Appearance: obese morbidly obese HENMT: Head: normal to inspection, normocephalic and atraumatic Other: ETT in place Eyes: General: appearance normal, both eyes and all related structures Sclera: sclerae normal Pupils: Equal, round and reactive pupils present Neck
[2020-09-30] VITALS (35 sets, daily range): BP systolic 82–118; BP diastolic 46–70; PULSE 58–86; RESP 24–35; TEMP 36.6–38.6; O2SAT 95–100
[2020-09-30] MEDS: INSULIN ASPART (*BKC) 100 UNITS/ML SUB-Q ×5 (00:04→23:38)
[2020-09-30 00:35] LABS: Glucose Point of Care 257 (65-105)
[2020-09-30] MEDS: FENTANYL 2,500MCG/NS250ML(*CRX 2,500 MCG/250 ML BAG 17.5 MCG IV CONT ×2 (02:12→20:08)
[2020-09-30] MEDS: ALBUTEROL SULFATE NEB 2.5 MG/0.5 ML INH INHALATION ×4 (02:52→22:03)
[2020-09-30 04:23] LABS: Alveolar/Arterial O2 Gradient 175.6 mmHg; Base Excess ABG 5.8 mEq/l (+/-2.0); Carboxyhemoglobin 0.5 % THb (0-2.0); Fractional Inspired Oxygen 45 %; HCO3 ABG 33.3 mEq/l (22.0-26.0); Methemoglobin ABG 0.2 %THb (0-1.5); Oxygen Saturation ABG 92.9 % (95.0-100.0); Oxyhemoglobin 92.3 % THb (90.0-100.0); PO2 ABG 71.9 mmHg (80.0-100.0); Total Hemoglobin 11.5 g/dL (12.0-18.0); pH ABG 7.331 (7.350-7.450)
[2020-09-30 04:28] LABS: Device VENTILATOR; Modified Allen's Test Unable to perform; PCO2 ABG 64.5 mmHg (35.0-45.0); Site Drawn LEFT RADIAL
[2020-09-30 04:29] LABS: Arterial Blood Gas PEEP 10 cmH2O; Arterial Blood Gas Tidal Volume 350 ml; Arterial Blood Gas Vent Mode CMV; Arterial Blood Gas Ventilator rate 30 /MIN
[2020-09-30] MEDS: CENTRAL LINE FLUSH 10 ML IV PUSH ×2 (05:09→22:30)
[2020-09-30] MEDS: LEVOTHYROXINE SODIUM 100 MCG TABLET PO (05:09)
[2020-09-30] MEDS: ACETAMINOPHEN 325 MG TABLET 650 MG PO (05:23)
[2020-09-30 05:46] LABS: Glucose Point of Care 246 (65-105)
[2020-09-30 05:55] LABS: Lactic Acid Reflex 1.1 mmol/L (0.7-2.1)
[2020-09-30 06:11] LABS: Basophils Absolute Auto 0.1 K/mm3 (0.0-0.1); Basophils Percent Auto 0.3 % (0.2-1.2); Eosinophils Percent Auto 0.1 % (0-4.4); Hematocrit 28.4 % (37.0-47.0); Hemoglobin 8.1 g/dL (12.0-15.0); Immature Granulocyte Absolute 1.06 K/mm3 (0.00-0.031); Immature Granulocyte Percent A 5.3 % (0-0.5); Lymphocytes Absolute Auto 1.74 K/mm3 (0.9-3.2); Lymphocytes Percent Auto 8.7 % (18.3-44.2); Mean Corpuscular HGB Conc 28.5 g/dl (32-36); Mean Corpuscular Hemoglobin 26.8 pg (26-34); Mean Platelet Volume 10.6 fl (7.4-10.4); Monocytes Absolute Auto 1.2 K/mm3 (0.1-0.6); Monocytes Percent Auto 5.9 % (2.6-8.5); Neutrophils Percent Auto 79.7 % (45.5-73.1); Nucleated Red Blood Cells Absolute Auto 0.2 K/mm3 (0.0-0.012); Nucleated Red Blood Cells Perc 0.8 % (0.0-0.2); Platelet Count Result 300 k/mm3 (150-375); Red Blood Count 3.02 M/mm3 (4.2-5.4); Red Cell Distribution Width 15.9 % (11.5-14.5)
[2020-09-30] MEDS: NOREPINEPHRINE 8 MG/D5W 250 ML 8 MG/250 ML BAG 9.38 MG IV CONT (06:17)
[2020-09-30 06:36] LABS: Alanine Aminotransferase 70 U/L (4-35); Albumin Level 2.4 g/dL (3.5-5.1); Alkaline Phosphatase 200 U/L (38-126); Anion Gap 0 mmol/L (8-16); Aspartate Amino Transferase 37 U/L (14-36); Bilirubin,Total 0.5 mg/dL (0.2-1.3); Blood Urea Nitrogen 25 mg/dL (7-17); CRP 23.2 mg/dL (<1.0); Calcium 7.9 mg/dL (8.4-10.2); Carbon Dioxide 38 mmol/L (22-30); Chloride 91 mmol/L (98-107); Estimated CRCL calculation 156 ml/min; Estimated Glomerular Filt Rate > 60; Glucose 319 mg/dL (65-105); Lactate Dehydrogenase 633 U/L (313-618); Magnesium 2.3 mg/dL (1.6-2.3); Phosphorus 3.6 mg/dL (2.5-4.5); Potassium 4.3 mmol/L (3.4-5.0); Sodium 129 mmol/L (137-145)
[2020-09-30] MEDS: SOD HYPOCHLORITE 1/4 STRENGTH 473 ML 1 APPLIC TOPICAL (07:53)
[2020-09-30] MEDS: PANTOPRAZOLE SODIUM IV 40 MG VIAL IV PUSH ×2 (07:53→20:04)
[2020-09-30] MEDS: TOLNAFTATE 1% POWDER 45 GM BTL 1 APPLIC TOPICAL ×2 (07:54→20:05)
[2020-09-30] MEDS: polyethylene glycoL 3350 17 GM POWD.PACK PO (07:54)
[2020-09-30 12:07] LABS: Glucose Point of Care 339 (65-105)
--- NOTE | 2020-09-30 12:09 | PM.IMPN ---
Progress Note: A&P Assessment and Plan (1) Acute and chronic respiratory failure: Qualifiers: Respiratory failure complication: hypoxia and hypercapnia Qualified Code(s): J96.21 - Acute and chronic respiratory failure with hypoxia; J96.22 - Acute and chronic respiratory failure with hypercapnia Code(s): J96.20 - Acute and chronic respiratory failure, unspecified whether with hypoxia or hypercapnia Status: Acute Assessment and Plan: Patient is chronically on oxygen at 2 L which she increased to 4 L prior to admission. pH 7.31 with pCO2 63 on admission. She tested positive for COVID. [place] the reason for respiratory failure from COVID complicated by COPD, CHF, JOHNNY, and PNA. ABG worsened and BiPAP started. Serial ABGs after BiPAP adjustments were without benefits. She was moved to ICU and intubated 09/15/20. Vent management per bench repair technician. (2) Pneumonia due to COVID-19 virus: Code(s): U07.1 - COVID-19; J12.89 - Other viral pneumonia Status: Acute Assessment and Plan: CXR from admission showing diffuse airspace disease. Possibly pulmonary edema but now COVID+ so felt related to COVID PNA/ARDS. Finished 10 d of Dexamethasone and finished Remdesivir. Convalescent plasma 09/18. Broad spectrum abx were started 09/15 but stopped 09/20. Sputum form 09/24 growing Serratia and 1 BCx from 09/25 also growing Serratia. 1 BCx 09/24 growing Morganella morganii so Cefepime restarted 09/26. Suspect bacteremia is from her coccyx wound but unclear why in sputum - seeded lung vs VAP?. Continue broad spectrum abx, albuterol nebulizer treatments and Pulmicort Respules. Still having fevers. Check CT? or add Vacno. Inflammatory markers higher now. Continue supportive care (3) Decubitus ulcer of coccyx: Qualifiers: Pressure injury stage: unspecified pressure injury stage Qualified Code(s): L89.159 - Pressure ulcer of sacral region, unspecified stage Code(s): L89.159 - Pressure ulcer of sacral region, unspecified stage Status: Acute Assessment and Plan: Patient with a large decubitus ulcer present on admission. Sputum form 09/24 growing Serratia and 1 BCx from 09/25 also growing Serratia. 1 BCx 09/24 growing Morganella morganii so Cefepime restarted 09/26. Suspect bacteremia is from her coccyx wound but not sure why serratia in lung unless VAP. Continue current wound care. (4) Congestive heart failure: Qualifiers: Heart failure chronicity: acute on chronic Heart failure type: diastolic Qualified Code(s): I50.33 - Acute on chronic diastolic (congestive) heart failure Code(s): I50.9 - Heart failure, unspecified Status: Acute Assessment and Plan: Concern for Diastolic CHF with CXR findings and BNP 1340 but no clinical evidence of fluid overload. Echo 09/16 showing EF 50-55% with poorly visualized LV; small to moderate pericardial effusion. Patient takes Lasix 80mg daily home. She initially had excellent UOP with negative fluid balance. Lasix was held with contraction alkalosis. Acetazolamide x 4 doses. Continue to monitor closely. (5) Bradycardia: Code(s): R00.1 - Bradycardia, unspecified Status: Acute Assessment and Plan: Dopamine started due to the bradycardia. TSH 0.65. Echo showing EF 50-55% but overall a poor study. Heart rate low but stable at this time. Has been weaned off dopamine 09/28. Continue to follow. (6) Atrial fibrillation: Qualifiers: Atrial fibrillation type: unspecified chronic Qualified Code(s): I48.20 - Chronic atrial fibrillation, unspecified Code(s): I48.91 - Unspecified atrial fibrillation Status: Chronic Assessment and Plan: Patient with chronic AFib with controlled rate. Diltiazem is on hold due to her bradycardia. Pradaxa on hold as well. (7) DM2 (diabetes mellitus, type 2): Qualifiers: Diabetes mellitus complicatio
--- NOTE | 2020-09-30 14:03 | WPDINTPN ---
Progress Note: A&P Assessment and Plan (1) Sepsis: Qualifiers: Severe sepsis acute organ dysfunction type: acute respiratory failure Code(s): A41.9 - Sepsis, unspecified organism Status: Acute Assessment and Plan: - blood, sputum and urine cultures will be redrawn today - Levaquin and Vancomycin will be add. Serriatia can be become resistant during treatment. GPC organisms also possible. - continue Cefepime (2) Atrial flutter: Code(s): I48.92 - Unspecified atrial flutter Status: Acute Assessment and Plan: with variable AV block, rate controlled. currently (3) Pneumonia due to COVID-19 virus: Code(s): U07.1 - COVID-19; J12.89 - Other viral pneumonia Status: Acute (4) Acute and chronic respiratory failure: Qualifiers: Respiratory failure complication: hypoxia and hypercapnia Qualified Code(s): J96.21 - Acute and chronic respiratory failure with hypoxia; J96.22 - Acute and chronic respiratory failure with hypercapnia Code(s): J96.20 - Acute and chronic respiratory failure, unspecified whether with hypoxia or hypercapnia Status: Acute (5) ARDS (adult respiratory distress syndrome): Code(s): J80 - Acute respiratory distress syndrome Status: Acute Assessment and Plan: Doing better, FiO2 is weaning. continue current settings. Once sepsis resolves should wean with SBT trials aggresively Continue DVT prophylaxis (6) Atrial fibrillation: Qualifiers: Atrial fibrillation type: unspecified chronic Qualified Code(s): I48.20 - Chronic atrial fibrillation, unspecified Code(s): I48.91 - Unspecified atrial fibrillation Status: Chronic Subjective Date/time seen: 09/30/20 14:03 Interval history: 55 y/o morbidly obese female with multiple medical problems, COVID-19 now septic, Serratia growing in blood and sputum from a few days ago and Morganella from sputum. Wound culture on back is pending. This morning she's febrile and tachypneic. Review of Systems Review of Systems: All systems reviewed & are unremarkable except as noted in HPI and below Exam Narrative: Exam Narrative: intubated, sedated and mechanically ventilated. Const: General: cooperative, comfortable and no acute distress Nutritional Appearance: obese morbidly obese HENMT: Head: normal to inspection, normocephalic and atraumatic Other: ETT in place Eyes: General: appearance normal, both eyes and all related structures Sclera: sclerae normal Pupils: Equal, round and reactive pupils present Neck: Neck: supple Resp: Effort & Inspection: normal respiratory effort Auscultation: crackles bilateral, rales and diminished lung sounds Cardio: Jugular venous distension: no JVD Rate: regular rate and bradycardic Rhythm: abnormal rhythm irregularly irregular Heart sounds: S1 normal heart sound present and S2 normal heart sound present GI: Inspection: normal to inspection and non-distended GI Palp: Yes Soft to palpation and No Tenderness to palpation present (GI) Auscultation: abnormal bowel sounds and Hypoactive bowel sounds present Other: morbidly obese : Other: Baeza catheter in place Urinary Catheter: Urinary Catheter: patent and draining and urine clear Skin: General skin exam: normal color Other: areas of dry skin on her lower extremities noted Neuro: Cranial nerves: Yes Equal, round and reactive pupils present Other: patient is sedated and intubated. Does not open her eyes or follow simple commands. Extrem: General: normal to inspection, no clubbing, cyanosis or edema, no edema and no pedal edema Psych: Appearance: grossly normal Other: unable to assess at this time Objective Data Vital Signs Vital Signs: Vital Signs - 24 hr 09/29/20 15:47 09/29/20 16:00 09/29/20 17:04 Temperature 37.5 C Pulse Rate 67 62 52 L Respiratory Rate 36 H 31 H 27 H Blood Pressure 101/48 L Pulse Oximetry 95 09/29/20 1
[2020-09-30 17:49] LABS: Add Urine Microscopic? YES; Appearance Urine Clear (Clear); Bacteria Urine Trace /hpf; Bilirubin Urine Negative (Negative); Blood Urine Negative (Negative); Color Urine Amber (Yellow); Glucose Urine UA Negative (Negative); Ketones Urine Trace mg/dL (Negative); Leukocyte Esterase Ur Trace LEU/UL (NEGATIVE); Mucus Urine Rare /lpf; Nitrate Urine Negative (Negative); Protein Urine 2+ mg/dL (Negative); Squamous Epithelial Cell Urine Occasional /hpf (Few); WBC Urine 0-3 /hpf (0-3)
[2020-09-30 18:17] LABS: Glucose Point of Care 390 (65-105)
[2020-09-30] MEDS: INSULIN DETEMIR 100 UNITS/ML 30 UNITS SUB-Q (20:04)
[2020-09-30 23:46] LABS: Glucose Point of Care 299 (65-105)
[2020-10-01] VITALS (32 sets, daily range): BP systolic 93–118; BP diastolic 55–77; PULSE 45–71; RESP 30–37; TEMP 36.2–36.8; O2SAT 93–99
[2020-10-01] MEDS: ALBUTEROL SULFATE NEB 2.5 MG/0.5 ML INH INHALATION ×4 (03:13→22:51)
[2020-10-01 05:06] LABS: Basophils Absolute Auto 0.1 K/mm3 (0.0-0.1); Basophils Percent Auto 0.4 % (0.2-1.2); Eosinophils Absolute Auto 0.1 K/mm3 (0-0.3); Eosinophils Percent Auto 0.3 % (0-4.4); Hemoglobin 8.6 g/dL (12.0-15.0); Immature Granulocyte Absolute 1.51 K/mm3 (0.00-0.031); Immature Granulocyte Percent A 7.7 % (0-0.5); Lymphocytes Absolute Auto 1.78 K/mm3 (0.9-3.2); Mean Corpuscular HGB Conc 29.7 g/dl (32-36); Mean Corpuscular Hemoglobin 27.4 pg (26-34); Mean Corpuscular Volume 92.4 fl (80-100); Mean Platelet Volume 10.6 fl (7.4-10.4); Monocytes Absolute Auto 1.1 K/mm3 (0.1-0.6); Monocytes Percent Auto 5.4 % (2.6-8.5); Neutrophils Absolute Auto 15.2 K/mm3 (1.3-6.7); Neutrophils Percent Auto 77.2 % (45.5-73.1); Nucleated Red Blood Cells Absolute Auto 0.2 K/mm3 (0.0-0.012); Nucleated Red Blood Cells Perc 0.8 % (0.0-0.2); Platelet Count Result 323 k/mm3 (150-375); Red Blood Count 3.14 M/mm3 (4.2-5.4); Red Cell Distribution Width 16.1 % (11.5-14.5); White Blood Count 19.7 K/mm3 (4.5-10.0)
[2020-10-01] MEDS: CENTRAL LINE FLUSH 10 ML IV PUSH ×3 (05:15→22:23)
[2020-10-01] MEDS: LEVOTHYROXINE SODIUM 100 MCG TABLET PO (05:16)
[2020-10-01 05:25] LABS: Alanine Aminotransferase 118 U/L (4-35); Albumin Level 2.7 g/dL (3.5-5.1); Alkaline Phosphatase 239 U/L (38-126); Anion Gap 2 mmol/L (8-16); Aspartate Amino Transferase 110 U/L (14-36); Bilirubin,Total 0.6 mg/dL (0.2-1.3); Blood Urea Nitrogen 44 mg/dL (7-17); Calcium 8.3 mg/dL (8.4-10.2); Carbon Dioxide 35 mmol/L (22-30); Chloride 89 mmol/L (98-107); Estimated CRCL calculation 108 ml/min; Estimated Glomerular Filt Rate > 60; Glucose 428 mg/dL (65-105); Magnesium 2.5 mg/dL (1.6-2.3); Phosphorus 4.7 mg/dL (2.5-4.5); Potassium 5.1 mmol/L (3.4-5.0); Sodium 126 mmol/L (137-145)
[2020-10-01 06:02] LABS: Alveolar/Arterial O2 Gradient 138.6 mmHg; Base Excess ABG 3.6 mEq/l (+/-2.0); Carboxyhemoglobin 0.4 % THb (0-2.0); Fractional Inspired Oxygen 40 %; HCO3 ABG 30.6 mEq/l (22.0-26.0); Methemoglobin ABG 0.1 %THb (0-1.5); Oxygen Content ABG 12.8 %vol (16.0-22.0); Oxygen Saturation ABG 94.2 % (95.0-100.0); Oxyhemoglobin 93.5 % THb (90.0-100.0); PO2 ABG 77.5 mmHg (80.0-100.0); PO2 FiO2 Ratio Arterial Blood 1.94 %; Total Hemoglobin 9.7 g/dL (12.0-18.0); pH ABG 7.324 (7.350-7.450)
[2020-10-01 06:03] LABS: PCO2 ABG 60.1 mmHg (35.0-45.0); Site Drawn RIGHT RADIAL
[2020-10-01 06:04] LABS: Arterial Blood Gas PEEP 10 cmH2O; Arterial Blood Gas Tidal Volume 350 ml; Arterial Blood Gas Vent Mode CMV; Arterial Blood Gas Ventilator rate 30 /MIN; Device VENTILATOR; Modified Allen's Test Unable to perform
[2020-10-01] MEDS: INSULIN ASPART (*BKC) 100 UNITS/ML 12 UNITS SUB-Q ×2 (07:56→12:14)
[2020-10-01] MEDS: FENTANYL 2,500MCG/NS250ML(*CRX 2,500 MCG/250 ML BAG 15 MCG IV CONT (08:25)
[2020-10-01] MEDS: TOLNAFTATE 1% POWDER 45 GM BTL 1 APPLIC TOPICAL ×2 (08:27→20:05)
[2020-10-01] MEDS: PANTOPRAZOLE SODIUM IV 40 MG VIAL IV PUSH ×2 (08:28→20:04)
[2020-10-01] MEDS: SOD HYPOCHLORITE 1/4 STRENGTH 473 ML 1 APPLIC TOPICAL (08:28)
--- NOTE | 2020-10-01 09:26 | PM.IMPN ---
Progress Note: A&P Assessment and Plan (1) Acute and chronic respiratory failure: Qualifiers: Respiratory failure complication: hypoxia and hypercapnia Qualified Code(s): J96.21 - Acute and chronic respiratory failure with hypoxia; J96.22 - Acute and chronic respiratory failure with hypercapnia Code(s): J96.20 - Acute and chronic respiratory failure, unspecified whether with hypoxia or hypercapnia Status: Acute Assessment and Plan: Patient is chronically on oxygen at 2 L which she increased to 4 L prior to admission. pH 7.31 with pCO2 63 on admission. She tested positive for COVID. [place] the reason for respiratory failure from COVID complicated by COPD, CHF, JOHNNY, and PNA. ABG worsened and BiPAP started. ABGs after BiPAP adjustments were without benefits. She was moved to ICU and intubated 09/15/20. She is down to 40% FiO2 and 10 PEEP. ABG showing 7.32/60/77.5. Vent management per refined syrup operator. (2) Pneumonia due to COVID-19 virus: Code(s): U07.1 - COVID-19; J12.89 - Other viral pneumonia Status: Acute Assessment and Plan: CXR from admission showing diffuse airspace disease. Possibly pulmonary edema but now COVID+ so felt related to COVID PNA/ARDS. Finished 10 d of Dexamethasone and finished Remdesivir. Convalescent plasma 09/18. Broad spectrum abx were started 09/15 but stopped 09/20. Sputum form 09/24 growing Serratia and 1 BCx from 09/25 also growing Serratia. 1 BCx 09/24 growing Morganella morganii so Cefepime restarted 09/26. Suspect bacteremia is from her coccyx wound but unclear why in sputum - seeded lung and/or VAP?. Levaquin and Vanco added 09/30. Continue broad spectrum abx, albuterol nebulizer treatments and Pulmicort Respules. Still having fevers. Continue supportive care (3) Sepsis: Qualifiers: Severe sepsis acute organ dysfunction type: acute respiratory failure Code(s): A41.9 - Sepsis, unspecified organism Status: Acute Assessment and Plan: Patient with sepsis now with shock. Lasix given 09/29 in the morning but BP became soft airline mechanic hours of 09/30 so Levophed started. Able to wean down today. Continue to follow. Wean Levophed as able. (4) Decubitus ulcer of coccyx: Qualifiers: Pressure injury stage: unspecified pressure injury stage Qualified Code(s): L89.159 - Pressure ulcer of sacral region, unspecified stage Code(s): L89.159 - Pressure ulcer of sacral region, unspecified stage Status: Acute Assessment and Plan: Patient with a large decubitus ulcer present on admission. Sputum form 09/24 growing Serratia and 1 BCx from 09/25 also growing Serratia. 1 BCx 09/24 growing Morganella morganii so Cefepime restarted 09/26. Suspect bacteremia is from her coccyx wound but not sure why serratia in lung unless VAP. levaquin and Vanco added 09/30. Will need debridement once more stable. Continue current wound care. Has a specialty bed (5) Congestive heart failure: Qualifiers: Heart failure chronicity: acute on chronic Heart failure type: diastolic Qualified Code(s): I50.33 - Acute on chronic diastolic (congestive) heart failure Code(s): I50.9 - Heart failure, unspecified Status: Acute Assessment and Plan: Concern for diastolic CHF with CXR findings and BNP 1340 but no clinical evidence of fluid overload. Echo 09/16 showing EF 50-55% with poorly visualized LV; small to moderate pericardial effusion. Patient takes Lasix 80mg daily home. She initially had excellent UOP with negative fluid balance with Lasix. Lasix was held with contraction alkalosis. Acetazolamide x 4 doses completed 09/29. Continue to monitor closely. (6) Bradycardia: Code(s): R00.1 - Bradycardia, unspecified Status: Acute Assessment and Plan: Dopamine started due to the bradycardia. TSH 0.65. Echo showing EF 50-55% but overall a poor study. Heart rate low bu
--- NOTE | 2020-10-01 10:51 | PM.PNPUL ---
Progress Note: A&P Assessment and Plan (1) Sepsis: Qualifiers: Severe sepsis acute organ dysfunction type: acute respiratory failure Code(s): A41.9 - Sepsis, unspecified organism Status: Acute Assessment and Plan: continue Cefipime, Vancomycin and Levaquin and f/u on blood, sputum and urine cultures (2) ARDS (adult respiratory distress syndrome): Code(s): J80 - Acute respiratory distress syndrome Status: Acute Assessment and Plan: Tolerating low tidal volume strategy of 350/10/40% with stable ABG. Consider weaning trials and minimizing sedation. (3) Congestive heart failure: Qualifiers: Heart failure chronicity: acute on chronic Heart failure type: diastolic Qualified Code(s): I50.33 - Acute on chronic diastolic (congestive) heart failure Code(s): I50.9 - Heart failure, unspecified Status: Acute Assessment and Plan: appears euvolemic (4) Morbid obesity: Code(s): E66.01 - Morbid (severe) obesity due to excess calories Status: Acute (5) Chronic respiratory failure with hypoxia and hypercapnia: Code(s): J96.11 - Chronic respiratory failure with hypoxia; J96.12 - Chronic respiratory failure with hypercapnia Status: Acute Assessment and Plan: Will need transition from invasive mechanical ventilation to BIPAP upon extubation. Would recommend 24/08 with backup rate of 16 at that time. Subjective Date/time seen: 10/01/20 10:51 Interval history: Stable over night. No fevers, stable vitals. Blood, urine and sputum cultures pending and antibiotics broadened. CXR and ABG reviewed. Review of Systems Review of Systems: All systems reviewed & are unremarkable except as noted in HPI and below Exam Narrative: Exam Narrative: intubated, sedated and mechanically ventilated. Const: General: cooperative, comfortable and no acute distress Nutritional Appearance: obese morbidly obese HENMT: Head: normal to inspection, normocephalic and atraumatic Other: ETT in place Eyes: General: appearance normal, both eyes and all related structures Sclera: sclerae normal Pupils: Equal, round and reactive pupils present Neck: Neck: supple Resp: Effort & Inspection: normal respiratory effort Auscultation: crackles bilateral, rales and diminished lung sounds Cardio: Jugular venous distension: no JVD Rate: regular rate and bradycardic Rhythm: abnormal rhythm irregularly irregular Heart sounds: S1 normal heart sound present and S2 normal heart sound present GI: Inspection: normal to inspection and non-distended GI Palp: Yes Soft to palpation and No Tenderness to palpation present (GI) Auscultation: abnormal bowel sounds and Hypoactive bowel sounds present Other: morbidly obese : Other: Baeza catheter in place Urinary Catheter: Urinary Catheter: patent and draining and urine clear Skin: General skin exam: normal color Other: areas of dry skin on her lower extremities noted Neuro: Cranial nerves: Yes Equal, round and reactive pupils present Other: patient is sedated and intubated. Does not open her eyes or follow simple commands. Extrem: General: normal to inspection, no clubbing, cyanosis or edema, no edema and no pedal edema Psych: Appearance: grossly normal Other: unable to assess at this time Objective Data Vital Signs Vital Signs: Vital Signs - 24 hr 09/30/20 12:00 09/30/20 12:44 09/30/20 13:40 Temperature 37.6 C H Pulse Rate 73 83 78 Respiratory Rate 31 H 35 H Blood Pressure 93/58 L Pulse Oximetry 97 98 09/30/20 14:00 09/30/20 16:00 09/30/20 16:35 Temperature 37.7 C H Pulse Rate 74 74 74 Respiratory Rate 30 H 32 H Blood Pressure 112/70 118/53 L Pulse Oximetry 98 98 100 09/30/20 18:00 09/30/20 18:55 09/30/20 20:00 Temperature 36.6 C Pulse Rate 70 75 66 Respiratory Rate 31 H 33 H 30 H Blood Pressure 90/67 L 101/66 Pulse Oximetry 97 95 09/30/20 20:07 09/30/20
--- NOTE | 2020-10-01 12:05 | PCDIET ---
Nutrition Follow-Up Complete: Inadequate oral intake related to inability to consume foods orally as evidence by need for enteral nutrition to meet needs Total intake will meet estimated kcal and protein needs Goal: goal met, continue goal Pt current nutrition is Glucerna 1.2 @ 60ml/hr with prostate TID Nutrition recommendation: agree Last recorded weight is 200 kg, up from 197.5kg +I/O of 550 Bowel Motility: BM today Labs Reviewed:10/01 WBC 19.7, glucose 428, AST/ALT 110, 118, PO4 4.7, K+ 5.1, Na 126, Albumin 2.7 Meds Noted:albuterol, miralax, versed, levo, insulin, fentanyl Additional Notes: Glucerna 1.2 at 60ml/hr with prostat TID tolerated. Providing 1884kcals, 124g protein which is appropriate due to decubitus ulcer on coccyx. Possible breathing trial. We will continue to follow daily in ICU and reassess t/f.
[2020-10-01 12:14] LABS: Glucose Point of Care 403 (65-105)
[2020-10-01 12:14] LABS: Glucose Point of Care 424 (65-105)
[2020-10-01] MEDS: INSULIN DETEMIR 100 UNITS/ML 15 UNITS SUB-Q (12:28)
--- NOTE | 2020-10-01 12:36 | WPDINTPN ---
Progress Note: A&P Assessment and Plan (1) Sepsis: Qualifiers: Severe sepsis acute organ dysfunction type: acute respiratory failure Code(s): A41.9 - Sepsis, unspecified organism Status: Acute Assessment and Plan: Severe sepsis because of urine tract infection, bacteremia and wound infection at the decubitus ulcer Continue cefepime and Levaquin. Will stop vancomycin. Sputum from 09/24 grew Serratia marcescens and morganella sensitive to cefepime Culture from the coccyx wound is growing Pseudomonas aeruginosa with sensitivity pending. Repeat blood culture will be sent to document resolution of bacteremia. Levophed is being weaned off and hopefully today she min, of Levophed completely. (2) ARDS (adult respiratory distress syndrome): Code(s): J80 - Acute respiratory distress syndrome Status: Acute Assessment and Plan: Intubated on 09/15. Continue mechanical ventilation with current settings. Low tidal volume strategies and permissive hypercapnia. Her FiO2 is down to 40% with a PEEP of 10. His start weaning PEEP. She is currently sedated with fentanyl and Versed. I will ask nurse to wean her down and wake her up today. If she wakes up appropriately then can try SBT trial today. If she does not tolerated today than will discontinue sedation in the morning and and if she wakes up appropriately and following command then will be put her on SBT trial and try to extubate her if she does well on SBT trial. (3) Congestive heart failure: Qualifiers: Heart failure chronicity: acute on chronic Heart failure type: diastolic Qualified Code(s): I50.33 - Acute on chronic diastolic (congestive) heart failure Code(s): I50.9 - Heart failure, unspecified Status: Acute Assessment and Plan: Will give a dose of Lasix today. Strict intake output record. Daily weight. Continue to monitor renal parameters and electrolytes. (4) Morbid obesity: Code(s): E66.01 - Morbid (severe) obesity due to excess calories Status: Acute Assessment and Plan: Will encourage weight loss if she survive this acute illness. (5) Chronic respiratory failure with hypoxia and hypercapnia: Code(s): J96.11 - Chronic respiratory failure with hypoxia; J96.12 - Chronic respiratory failure with hypercapnia Status: Acute Assessment and Plan: Will need transition from invasive mechanical ventilation to BIPAP upon extubation. Would recommend 24/08 with backup rate of 16 at that time. (6) Decubitus ulcer of coccyx: Qualifiers: Pressure injury stage: unspecified pressure injury stage Qualified Code(s): L89.159 - Pressure ulcer of sacral region, unspecified stage Code(s): L89.159 - Pressure ulcer of sacral region, unspecified stage Status: Acute Assessment and Plan: Local wound care as per nursing. Cultures from the wound is growing Pseudomonas aeruginosa. Will continue cefepime and levofloxacin for now. Follow sensitivity of the Pseudomonas aeruginosa. (7) Atrial fibrillation: Qualifiers: Atrial fibrillation type: unspecified chronic Qualified Code(s): I48.20 - Chronic atrial fibrillation, unspecified Code(s): I48.91 - Unspecified atrial fibrillation Status: Chronic Assessment and Plan: Currently heart rate is in 60s. Pradaxa has been on hold because of GI bleeding. (8) COVID-19: Code(s): U07.1 - COVID-19 Status: Acute Assessment and Plan: Completed dexamethasone and remdisivir. Received convalescent plasma on 09/18. (9) DM2 (diabetes mellitus, type 2): Qualifiers: Diabetes mellitus longterm insulin use: without exterminator helper termite use Diabetes mellitus complication status: with hyperglycemia Qualified Code(s): E11.65 - Type 2 diabetes mellitus with hyperglycemia Code(s): E11.9 - Type 2 diabetes mellitus without complications
[2020-10-01] MEDS: FUROSEMIDE INJ 40 MG/4 ML VIAL IV PUSH (13:08)
[2020-10-01] MEDS: INSULIN ASPART (*BKC) 100 UNITS/ML SUB-Q (18:22)
[2020-10-01 18:33] LABS: Glucose Point of Care 360 (65-105)
[2020-10-01] MEDS: INSULIN DETEMIR 100 UNITS/ML 34 UNITS SUB-Q (20:05)
[2020-10-02] VITALS (35 sets, daily range): BP systolic 84–125; BP diastolic 48–75; PULSE 41–70; RESP 21–35; TEMP 36.1–37; O2SAT 94–99
[2020-10-02] MEDS: INSULIN ASPART (*BKC) 100 UNITS/ML SUB-Q ×5 (00:26→23:59)
[2020-10-02 00:44] LABS: Glucose Point of Care 342 (65-105)
[2020-10-02] MEDS: FENTANYL 2,500MCG/NS250ML(*CRX 2,500 MCG/250 ML BAG 17.5 MCG IV CONT ×2 (01:26→15:01)
[2020-10-02 02:35] LABS: Hematocrit 28.6 % (37.0-47.0); Hemoglobin 8.5 g/dL (12.0-15.0); Mean Corpuscular HGB Conc 29.7 g/dl (32-36); Mean Corpuscular Hemoglobin 27.2 pg (26-34); Mean Corpuscular Volume 91.4 fl (80-100); Mean Platelet Volume 10.7 fl (7.4-10.4); Platelet Count Result 311 k/mm3 (150-375); Red Blood Count 3.13 M/mm3 (4.2-5.4); Red Cell Distribution Width 16.1 % (11.5-14.5); White Blood Count 24.4 K/mm3 (4.5-10.0)
[2020-10-02 02:47] LABS: Alanine Aminotransferase 110 U/L (4-35); Albumin Level 2.6 g/dL (3.5-5.1); Alkaline Phosphatase 221 U/L (38-126); Anion Gap 2 mmol/L (8-16); Aspartate Amino Transferase 89 U/L (14-36); Bilirubin,Total 0.5 mg/dL (0.2-1.3); Blood Urea Nitrogen 56 mg/dL (7-17); Calcium 8.3 mg/dL (8.4-10.2); Carbon Dioxide 34 mmol/L (22-30); Chloride 90 mmol/L (98-107); Estimated CRCL calculation 98 ml/min; Estimated Glomerular Filt Rate 58; Glucose 355 mg/dL (65-105); Lactate Dehydrogenase 721 U/L (313-618); Magnesium 2.8 mg/dL (1.6-2.3); Phosphorus 4.8 mg/dL (2.5-4.5); Potassium 5.6 mmol/L (3.4-5.0); Sodium 126 mmol/L (137-145)
[2020-10-02 03:02] LABS: CRP 17.7 mg/dL (<1.0)
[2020-10-02 03:12] LABS: D Dimer 6.71 ug/mL (<0.48)
[2020-10-02] MEDS: ALBUTEROL SULFATE NEB 2.5 MG/0.5 ML INH INHALATION ×4 (03:15→20:12)
[2020-10-02 03:34] LABS: Alveolar/Arterial O2 Gradient 138.8 mmHg; Base Excess ABG 3.1 mEq/l (+/-2.0); Carboxyhemoglobin 0.2 % THb (0-2.0); Fractional Inspired Oxygen 40 %; HCO3 ABG 30.5 mEq/l (22.0-26.0); Methemoglobin ABG 0.1 %THb (0-1.5); Oxygen Content ABG 12.9 %vol (16.0-22.0); Oxygen Saturation ABG 93.1 % (95.0-100.0); Oxyhemoglobin 92.9 % THb (90.0-100.0); PO2 ABG 74.1 mmHg (80.0-100.0); PO2 FiO2 Ratio Arterial Blood 1.85 %; Reduced Hemoglobin 6.8 %THb (0-5.0); Total Hemoglobin 9.8 g/dL (12.0-18.0); pH ABG 7.303 (7.350-7.450)
[2020-10-02 03:37] LABS: Arterial Blood Gas Ventilator rate 30 /MIN; Device VENTILATOR; Modified Allen's Test Pass; PCO2 ABG 62.9 mmHg (35.0-45.0); Site Drawn LEFT RADIAL
[2020-10-02 03:38] LABS: Arterial Blood Gas PEEP 10 cmH2O; Arterial Blood Gas Tidal Volume 350 ml; Arterial Blood Gas Vent Mode CMV
[2020-10-02 03:39] LABS: Vancomycin Trough 13.5 ug/mL (10.0-20.0)
[2020-10-02] MEDS: CENTRAL LINE FLUSH 10 ML IV PUSH ×3 (06:02→20:23)
[2020-10-02] MEDS: LEVOTHYROXINE SODIUM 100 MCG TABLET PO (06:15)
[2020-10-02 06:22] LABS: Glucose Point of Care 366 (65-105)
[2020-10-02] MEDS: ENOXAPARIN 40 MG/0.4 ML SYRINGE SUB-Q (09:19)
[2020-10-02] MEDS: polyethylene glycoL 3350 17 GM POWD.PACK PO (09:19)
[2020-10-02] MEDS: PANTOPRAZOLE SODIUM IV 40 MG VIAL IV PUSH ×2 (09:19→20:22)
[2020-10-02] MEDS: TOLNAFTATE 1% POWDER 45 GM BTL 1 APPLIC TOPICAL ×2 (09:20→20:22)
[2020-10-02] MEDS: SOD HYPOCHLORITE 1/4 STRENGTH 473 ML 1 APPLIC TOPICAL (09:20)
[2020-10-02] MEDS: INSULIN DETEMIR 100 UNITS/ML 30 UNITS SUB-Q (09:21)
--- NOTE | 2020-10-02 10:31 | P.PNINT_ITS ---
Progress Note: A&P Assessment and Plan (1) Acute and chronic respiratory failure: Qualifiers: Respiratory failure complication: hypoxia and hypercapnia Qualified Code(s): J96.21 - Acute and chronic respiratory failure with hypoxia; J96.22 - Acute and chronic respiratory failure with hypercapnia Code(s): J96.20 - Acute and chronic respiratory failure, unspecified whether with hypoxia or hypercapnia Status: Acute Assessment and Plan: With hypoxic and hypercapnic respiratory failure secondary to COVID pneumonia. * Chest x-ray and ABGs reviewed * Antibiotics discontinued 09/20/2020. However the 09/24/2020 patient spiked fevers and both sputum and blood cultures grew serratia marcescens and Mor ganella and was started on cefepime when blood cultures returned positive 09/26/2020. Levaquin was added 09/30/2020 due to concern for resistance with Serratia. * Initially on pressure control ventilation but was switched to CMV. Will decrease PEEP to 8. * Continue permissive hypercarbia. Patient has chronic hypercarbic respiratory failure. * Continue bronchodilators. Steroid course has been completed. * The patient did get a short course of Diamox due to metabolic alkalosis from her chronic hypercarbia. * Lasix 40 mg IV times 1 given today and will monitor for response. (2) ARDS (adult respiratory distress syndrome): Code(s): J80 - Acute respiratory distress syndrome Status: Acute Assessment and Plan: * Continue droplet airborne and contact isolation * Dexamethasone and Remdesivir initiated 09/15/2020. * Received, convalescent plasma 09/18/2020. * Inflammatory markers appear to be trending down. (3) Pneumonia due to COVID-19 virus: Code(s): U07.1 - COVID-19; J12.89 - Other viral pneumonia Status: Acute Assessment and Plan: Now with secondary bacterial pneumonia with Serratia marcescens. * Both sputum and blood cultures positive. Sputum culture returned positive 09/24/2020. Blood culture turned positive 09/25/2020 positive for Morganella morganii and Serratia and Morganella * Antibiotics as discussed above. (4) Bradycardia: Code(s): R00.1 - Bradycardia, unspecified Status: Acute Assessment and Plan: * Atrial fibrillation with bradycardia with heart rates in the 30s. * Dopamine has been weaned off with heart rates improved to the 40s and 50s. * The patient was on Lovenox 150 mg subq q.12 hours that this is been discontinued due to developing acute lower GI bleed (09/24/2020). The patient is back on prophylactic Lovenox as her hemoglobin has remained stable. (5) DM2 (diabetes mellitus, type 2): Qualifiers: Diabetes mellitus fast food cashier insulin use: without skilled nursing use Diabetes mellitus complication status: with hyperglycemia Qualified Code(s): E11.65 - Type 2 diabetes mellitus with hyperglycemia Code(s): E11.9 - Type 2 diabetes mellitus without complications Status: Chronic Assessment and Plan: * Patient is on Levemir and sliding scale insulin. The patient had been quite hyperglycemic earlier in the hospital stay due to steroids. With cessation of steroid she did have some hypoglycemia but her glucoses have since rebounded to the mid 200-300. * Levemir increased from 15 units to 30 units. * Continue high-dose sliding scale insulin and hypoglycemia protocol. * 1.2 at 60 mL an hour with 30 mL free water flushes Q 4. Continue ProStat t.i.d.. (6) Decubitus ulcer of coccyx: Qualifiers: Pressure injury stage: unspecified pressure injury stage Qualified Code(s): L89.159 - Pressure ulcer of sacral region,
--- NOTE | 2020-10-02 10:31 | WPDINTPN ---
Progress Note: A&P Assessment and Plan (1) Acute and chronic respiratory failure: Qualifiers: Respiratory failure complication: hypoxia and hypercapnia Qualified Code(s): J96.21 - Acute and chronic respiratory failure with hypoxia; J96.22 - Acute and chronic respiratory failure with hypercapnia Code(s): J96.20 - Acute and chronic respiratory failure, unspecified whether with hypoxia or hypercapnia Status: Acute Assessment and Plan: With hypoxic and hypercapnic respiratory failure secondary to COVID pneumonia. Chest x-ray and ABGs reviewed Antibiotics discontinued 09/20/2020. However the 09/24/2020 patient spiked fevers and both sputum and blood cultures grew serratia marcescens and Morganella and was started on cefepime when blood cultures returned positive 09/26/2020. Levaquin was added 09/30/2020 due to concern for resistance with Serratia. Initially on pressure control ventilation but was switched to CMV. Will decrease PEEP to 8. Continue permissive hypercarbia. Patient has chronic hypercarbic respiratory failure. Continue bronchodilators. Steroid course has been completed. The patient did get a short course of Diamox due to metabolic alkalosis from her chronic hypercarbia. Lasix 40 mg IV times 1 given today and will monitor for response. (2) ARDS (adult respiratory distress syndrome): Code(s): J80 - Acute respiratory distress syndrome Status: Acute Assessment and Plan: Continue droplet airborne and contact isolation Dexamethasone and Remdesivir initiated 09/15/2020. Received, convalescent plasma 09/18/2020. Inflammatory markers appear to be trending down. (3) Pneumonia due to COVID-19 virus: Code(s): U07.1 - COVID-19; J12.89 - Other viral pneumonia Status: Acute Assessment and Plan: Now with secondary bacterial pneumonia with Serratia marcescens. Both sputum and blood cultures positive. Sputum culture returned positive 09/24/2020. Blood culture turned positive 09/25/2020 positive for Morganella morganii and Serratia and Morganella Antibiotics as discussed above. (4) Bradycardia: Code(s): R00.1 - Bradycardia, unspecified Status: Acute Assessment and Plan: Atrial fibrillation with bradycardia with heart rates in the 30s. Dopamine has been weaned off with heart rates improved to the 40s and 50s. The patient was on Lovenox 150 mg subq q.12 hours that this is been discontinued due to developing acute lower GI bleed (09/24/2020). The patient is back on prophylactic Lovenox as her hemoglobin has remained stable. (5) DM2 (diabetes mellitus, type 2): Qualifiers: Diabetes mellitus penitentiary insulin use: without watermelon harvesting supervisor use Diabetes mellitus complication status: with hyperglycemia Qualified Code(s): E11.65 - Type 2 diabetes mellitus with hyperglycemia Code(s): E11.9 - Type 2 diabetes mellitus without complications Status: Chronic Assessment and Plan: Patient is on Levemir and sliding scale insulin. The patient had been quite hyperglycemic earlier in the hospital stay due to steroids. With cessation of steroid she did have some hypoglycemia but her glucoses have since rebounded to the mid 200-300. Levemir increased from 15 units to 30 units. Continue high-dose sliding scale insulin and hypoglycemia protocol. 1.2 at 60 mL an hour with 30 mL free water flushes Q 4. Continue ProStat t.i.d.. (6) Decubitus ulcer of coccyx: Qualifiers: Pressure injury stage: unspecified pressure injury stage Qualified Code(s): L89.159 - Pressure ulcer of sacral region, unspecified stage Code(s): L89.159 - Pressure ulcer of sacral region, unspecified stage Status: Acute Assessment and Plan: Wound care consult with plan for pressure relieving mattress. Wound growing out Pseudomonas aeruginosa. Sensitivities still pending. (7) Lower GI bleed: Code(s): K92.2 - Gastrointestinal hemorr
--- NOTE | 2020-10-02 10:42 | PM.IMPN ---
Progress Note: A&P Assessment and Plan (1) Acute and chronic respiratory failure: Qualifiers: Respiratory failure complication: hypoxia and hypercapnia Qualified Code(s): J96.21 - Acute and chronic respiratory failure with hypoxia; J96.22 - Acute and chronic respiratory failure with hypercapnia Code(s): J96.20 - Acute and chronic respiratory failure, unspecified whether with hypoxia or hypercapnia Status: Acute Assessment and Plan: Patient is chronically on oxygen at 2 L which she increased to 4 L prior to admission. pH 7.31 with pCO2 63 on admission. She tested positive for COVID 09/14/20. [place] the reason for respiratory failure from COVID complicated by COPD, CHF, JOHNNY, and bacterail PNA. ABG worsened and BiPAP started without benefits. She was moved to ICU and intubated 09/15/20. She is at 40% FiO2 and 10 PEEP. ABG showing 7.30/63/74. Vent management per civil transportation engineer. (2) Pneumonia due to COVID-19 virus: Code(s): U07.1 - COVID-19; J12.89 - Other viral pneumonia Status: Acute Assessment and Plan: CXR from admission showing diffuse airspace disease. Initially felt pulmonary edema but now COVID+ so felt related to COVID PNA/ARDS. Finished 10 d of Dexamethasone and finished Remdesivir. Convalescent plasma 09/18. Broad spectrum abx were started 09/15 but stopped 09/20. Sputum form 09/24 growing Serratia and 1 BCx from 09/25 also growing Serratia. 1 BCx 09/24 growing Morganella morganii so Cefepime restarted 09/26. Suspect bacteremia is from her coccyx wound but unclear why in sputum - seeded lung and/or VAP?. Levaquin and Vanco added 09/30. Fevers resolved but WBC worse. Continue broad spectrum abx, albuterol nebulizer treatments and Pulmicort Respules. Continue supportive care (3) Sepsis: Qualifiers: Severe sepsis acute organ dysfunction type: acute respiratory failure Code(s): A41.9 - Sepsis, unspecified organism Status: Acute Assessment and Plan: Patient with sepsis now with shock. Lasix given 09/29 in the morning but BP became soft painter structural steel hours of 09/30 so Levophed started. Able to weaned off Levophed 10/01. Continue to follow. (4) Decubitus ulcer of coccyx: Qualifiers: Pressure injury stage: unspecified pressure injury stage Qualified Code(s): L89.159 - Pressure ulcer of sacral region, unspecified stage Code(s): L89.159 - Pressure ulcer of sacral region, unspecified stage Status: Acute Assessment and Plan: Patient with a large decubitus ulcer present on admission. Sputum form 09/24 growing Serratia and 1 BCx from 09/25 also growing Serratia. 1 BCx 09/24 growing Morganella morganii so Cefepime restarted 09/26. Suspect bacteremia is from her coccyx wound but not sure why serratia in lung unless VAP. levaquin and Vanco added 09/30. Will need debridement once more stable. Continue current wound care. Has a specialty bed Sodium low and potassium high. Consider adrenal insufficiency especially if she has hypothyroidism. Check Cortisol. (5) Congestive heart failure: Qualifiers: Heart failure chronicity: acute on chronic Heart failure type: diastolic Qualified Code(s): I50.33 - Acute on chronic diastolic (congestive) heart failure Code(s): I50.9 - Heart failure, unspecified Status: Acute Assessment and Plan: Concern for diastolic CHF with CXR findings and BNP 1340 but no clinical evidence of fluid overload. Echo 09/16 showing EF 50-55% with poorly visualized LV; small to moderate pericardial effusion. Patient takes Lasix 80mg daily home. She initially had excellent UOP with negative fluid balance with Lasix. Lasix was held with contraction alkalosis. Acetazolamide x 4 doses completed 09/29. Continue to monitor closely. (6) Bradycardia: Code(s): R00.1 - Bradycardia, unspecified Status: Acute Assessment and Plan: Dopamine started due
[2020-10-02 11:56] LABS: Glucose Point of Care 292 (65-105)
[2020-10-02] MEDS: ALBUMIN HUMAN 25% 12.5 GM/50ML 50 ML IVPB ×3 (12:26→23:59)
[2020-10-02] MEDS: ALTEPLASE 2 MG VIAL (CATHFLO) IV PUSH ×2 (13:34→15:06)
--- NOTE | 2020-10-02 16:45 | PC.NURSE ---
Sedation adjusted over an hour, Versed 4 mg/hr, as ventilator repeated alarmed as a pressure limit alarm, and patient was breathing 35 respirations per minute.
[2020-10-02 18:41] LABS: Glucose Point of Care 288 (65-105)
[2020-10-02] MEDS: INSULIN DETEMIR 100 UNITS/ML 34 UNITS SUB-Q (20:20)
[2020-10-02 22:12] LABS: Glucose Point of Care 317 (65-105)
[2020-10-03] VITALS (32 sets, daily range): BP systolic 98–146; BP diastolic 49–74; PULSE 48–75; RESP 13–35; TEMP 37.2–37.7; O2SAT 95–97
[2020-10-03 01:19] LABS: Glucose Point of Care 293 (65-105)
[2020-10-03] MEDS: ALBUTEROL SULFATE NEB 2.5 MG/0.5 ML INH INHALATION ×4 (02:50→20:18)
[2020-10-03] MEDS: FENTANYL 2,500MCG/NS250ML(*CRX 2,500 MCG/250 ML BAG 17.5 MCG IV CONT ×2 (04:13→19:42)
[2020-10-03 04:54] LABS: Hematocrit 25.6 % (37.0-47.0); Hemoglobin 7.6 g/dL (12.0-15.0); Mean Corpuscular HGB Conc 29.7 g/dl (32-36); Mean Corpuscular Hemoglobin 27.2 pg (26-34); Mean Corpuscular Volume 91.8 fl (80-100); Mean Platelet Volume 10.9 fl (7.4-10.4); Platelet Count Result 287 k/mm3 (150-375); Red Blood Count 2.79 M/mm3 (4.2-5.4); Red Cell Distribution Width 16.3 % (11.5-14.5)
[2020-10-03 05:07] LABS: Potassium 5.8 mmol/L (3.4-5.0)
[2020-10-03 05:48] LABS: Anion Gap 0 mmol/L (8-16); Blood Urea Nitrogen 69 mg/dL (7-17); Calcium 8.2 mg/dL (8.4-10.2); Carbon Dioxide 35 mmol/L (22-30); Chloride 89 mmol/L (98-107); Estimated CRCL calculation 89 ml/min; Estimated Glomerular Filt Rate 52; Glucose 355 mg/dL (65-105); Magnesium 2.8 mg/dL (1.6-2.3); Phosphorus 4.4 mg/dL (2.5-4.5); Sodium 124 mmol/L (137-145)
[2020-10-03] MEDS: INSULIN ASPART (*BKC) 100 UNITS/ML SUB-Q ×4 (06:17→23:50)
[2020-10-03] MEDS: LEVOTHYROXINE SODIUM 100 MCG TABLET PO (06:18)
[2020-10-03 06:19] LABS: Alveolar/Arterial O2 Gradient 146.7 mmHg; Base Excess ABG 4.8 mEq/l (+/-2.0); Carboxyhemoglobin 0.4 % THb (0-2.0); Fractional Inspired Oxygen 40 %; HCO3 ABG 31.9 mEq/l (22.0-26.0); Oxygen Saturation ABG 92.2 % (95.0-100.0); Oxyhemoglobin 91.9 % THb (90.0-100.0); PO2 ABG 68.6 mmHg (80.0-100.0); PO2 FiO2 Ratio Arterial Blood 1.71 %; Reduced Hemoglobin 7.7 %THb (0-5.0); Total Hemoglobin 10.8 g/dL (12.0-18.0); pH ABG 7.338 (7.350-7.450)
[2020-10-03 06:20] LABS: Device VENTILATOR; Modified Allen's Test Unable to perform; PCO2 ABG 60.8 mmHg (35.0-45.0); Site Drawn RIGHT RADIAL
[2020-10-03 06:21] LABS: Arterial Blood Gas PEEP 8 cmH2O; Arterial Blood Gas Tidal Volume 350 ml; Arterial Blood Gas Vent Mode CMV; Arterial Blood Gas Ventilator rate 30 /MIN
[2020-10-03] MEDS: CENTRAL LINE FLUSH 10 ML IV PUSH ×3 (06:21→19:54)
[2020-10-03] MEDS: ALBUMIN HUMAN 25% 12.5 GM/50ML 50 ML IVPB ×2 (06:22→08:57)
[2020-10-03 07:30] LABS: Glucose Point of Care 301 (65-105)
[2020-10-03] MEDS: ENOXAPARIN 40 MG/0.4 ML SYRINGE SUB-Q (08:56)
[2020-10-03] MEDS: FUROSEMIDE INJ 40 MG/4 ML VIAL IV PUSH (08:56)
[2020-10-03] MEDS: PANTOPRAZOLE SODIUM IV 40 MG VIAL IV PUSH ×2 (08:56→19:53)
[2020-10-03] MEDS: SODIUM POLYSTYRENE SULFONONATE 15 GM/60 ML BTL FEED TUBE (08:56)
[2020-10-03] MEDS: INSULIN DETEMIR 100 UNITS/ML 42 UNITS SUB-Q ×2 (08:58→19:54)
[2020-10-03] MEDS: SOD HYPOCHLORITE 1/4 STRENGTH 473 ML 1 APPLIC TOPICAL (09:00)
[2020-10-03] MEDS: TOLNAFTATE 1% POWDER 45 GM BTL 1 APPLIC TOPICAL ×2 (09:00→19:53)
--- NOTE | 2020-10-03 09:40 | P.PNINT_ITS ---
Progress Note: A&P Assessment and Plan (1) Acute and chronic respiratory failure: Qualifiers: Respiratory failure complication: hypoxia and hypercapnia Qualified Code(s): J96.21 - Acute and chronic respiratory failure with hypoxia; J96.22 - Acute and chronic respiratory failure with hypercapnia Code(s): J96.20 - Acute and chronic respiratory failure, unspecified whether with hypoxia or hypercapnia Status: Acute Assessment and Plan: With hypoxic and hypercapnic respiratory failure secondary to COVID pneumonia. * Chest x-ray and ABGs reviewed * Antibiotics discontinued 09/20/2020. However the 09/24/2020 patient spiked fevers and both sputum and blood cultures grew serratia marcescens and Mor ganella and was started on cefepime when blood cultures returned positive 09/26/2020. Levaquin was added 09/30/2020 due to concern for resistance with Serratia. * Will place patient on ASV and wean sedation. * Continue permissive hypercarbia. Patient has chronic hypercarbic respiratory failure. * Continue bronchodilators. Steroid course has been completed. * The patient did get a short course of Diamox due to metabolic alkalosis from her chronic hypercarbia. * She has been receiving Lasix daily with good response. (2) ARDS (adult respiratory distress syndrome): Code(s): J80 - Acute respiratory distress syndrome Status: Acute Assessment and Plan: * Continue droplet airborne and contact isolation * Dexamethasone and Remdesivir initiated 09/15/2020. * Received, convalescent plasma 09/18/2020. * Inflammatory markers appear to be trending down. (3) Pneumonia due to COVID-19 virus: Code(s): U07.1 - COVID-19; J12.89 - Other viral pneumonia Status: Acute Assessment and Plan: Now with secondary bacterial pneumonia with Serratia marcescens. * Both sputum and blood cultures positive. Sputum culture returned positive 09/24/2020. Blood culture turned positive 09/25/2020 positive for Morganella morganii and Serratia and Morganella * Antibiotics as discussed above. (4) Bradycardia: Code(s): R00.1 - Bradycardia, unspecified Status: Acute Assessment and Plan: * Atrial fibrillation with bradycardia with heart rates in the 30s. * Dopamine has been weaned off with heart rates improved to the 40s and 50s. * The patient was on Lovenox 150 mg subq q.12 hours that this is been discontinued due to developing acute lower GI bleed (09/24/2020). The patient is back on prophylactic Lovenox as her hemoglobin had remained stable. Hemoglobin is trending down mildly. (5) DM2 (diabetes mellitus, type 2): Qualifiers: Diabetes mellitus moth exterminator insulin use: without moth exterminator use Diabetes mellitus complication status: with hyperglycemia Qualified Code(s): E11.65 - Type 2 diabetes mellitus with hyperglycemia Code(s): E11.9 - Type 2 diabetes mellitus without complications Status: Chronic Assessment and Plan: * Patient is on Levemir and sliding scale insulin. The patient had been quite hyperglycemic earlier in the hospital stay due to steroids. With cessation of steroid she did have some hypoglycemia but her glucoses have since rebounded to the mid 200-300. * Levemir increased to 42 units daily * Continue high-dose sliding scale insulin and hypoglycemia protocol. * 1.2 at 60 mL an hour with 30 mL free water flushes Q 4. Continue ProStat t.i.d.. (6) Decubitus ulcer of coccyx: Qualifiers: Pressure injury stage: unspecified pressure injury stage Qualified Code(s): L89.159 - Pressure ulcer of sacral region, unspecified stage
--- NOTE | 2020-10-03 09:40 | WPDINTPN ---
Progress Note: A&P Assessment and Plan (1) Acute and chronic respiratory failure: Qualifiers: Respiratory failure complication: hypoxia and hypercapnia Qualified Code(s): J96.21 - Acute and chronic respiratory failure with hypoxia; J96.22 - Acute and chronic respiratory failure with hypercapnia Code(s): J96.20 - Acute and chronic respiratory failure, unspecified whether with hypoxia or hypercapnia Status: Acute Assessment and Plan: With hypoxic and hypercapnic respiratory failure secondary to COVID pneumonia. Chest x-ray and ABGs reviewed Antibiotics discontinued 09/20/2020. However the 09/24/2020 patient spiked fevers and both sputum and blood cultures grew serratia marcescens and Morganella and was started on cefepime when blood cultures returned positive 09/26/2020. Levaquin was added 09/30/2020 due to concern for resistance with Serratia. Will place patient on ASV and wean sedation. Continue permissive hypercarbia. Patient has chronic hypercarbic respiratory failure. Continue bronchodilators. Steroid course has been completed. The patient did get a short course of Diamox due to metabolic alkalosis from her chronic hypercarbia. She has been receiving Lasix daily with good response. (2) ARDS (adult respiratory distress syndrome): Code(s): J80 - Acute respiratory distress syndrome Status: Acute Assessment and Plan: Continue droplet airborne and contact isolation Dexamethasone and Remdesivir initiated 09/15/2020. Received, convalescent plasma 09/18/2020. Inflammatory markers appear to be trending down. (3) Pneumonia due to COVID-19 virus: Code(s): U07.1 - COVID-19; J12.89 - Other viral pneumonia Status: Acute Assessment and Plan: Now with secondary bacterial pneumonia with Serratia marcescens. Both sputum and blood cultures positive. Sputum culture returned positive 09/24/2020. Blood culture turned positive 09/25/2020 positive for Morganella morganii and Serratia and Morganella Antibiotics as discussed above. (4) Bradycardia: Code(s): R00.1 - Bradycardia, unspecified Status: Acute Assessment and Plan: Atrial fibrillation with bradycardia with heart rates in the 30s. Dopamine has been weaned off with heart rates improved to the 40s and 50s. The patient was on Lovenox 150 mg subq q.12 hours that this is been discontinued due to developing acute lower GI bleed (09/24/2020). The patient is back on prophylactic Lovenox as her hemoglobin had remained stable. Hemoglobin is trending down mildly. (5) DM2 (diabetes mellitus, type 2): Qualifiers: Diabetes mellitus snf insulin use: without snf use Diabetes mellitus complication status: with hyperglycemia Qualified Code(s): E11.65 - Type 2 diabetes mellitus with hyperglycemia Code(s): E11.9 - Type 2 diabetes mellitus without complications Status: Chronic Assessment and Plan: Patient is on Levemir and sliding scale insulin. The patient had been quite hyperglycemic earlier in the hospital stay due to steroids. With cessation of steroid she did have some hypoglycemia but her glucoses have since rebounded to the mid 200-300. Levemir increased to 42 units daily Continue high-dose sliding scale insulin and hypoglycemia protocol. 1.2 at 60 mL an hour with 30 mL free water flushes Q 4. Continue ProStat t.i.d.. (6) Decubitus ulcer of coccyx: Qualifiers: Pressure injury stage: unspecified pressure injury stage Qualified Code(s): L89.159 - Pressure ulcer of sacral region, unspecified stage Code(s): L89.159 - Pressure ulcer of sacral region, unspecified stage Status: Acute Assessment and Plan: Wound care consult with plan for pressure relieving mattress. Wound growing out Pseudomonas aeruginosa. Sensitivities still pending. (7) Lower GI bleed: Code(s): K92.2 - Gastrointestinal hemorrhage, unspecified St
--- NOTE | 2020-10-03 10:26 | PM.IMPN ---
Progress Note: A&P Assessment and Plan (1) Acute and chronic respiratory failure: Qualifiers: Respiratory failure complication: hypoxia and hypercapnia Qualified Code(s): J96.21 - Acute and chronic respiratory failure with hypoxia; J96.22 - Acute and chronic respiratory failure with hypercapnia Code(s): J96.20 - Acute and chronic respiratory failure, unspecified whether with hypoxia or hypercapnia Status: Acute Assessment and Plan: Patient is chronically on oxygen at 2 L which she increased to 4 L prior to admission. pH 7.31 with pCO2 63 on admission. She tested positive for COVID 09/14/20. [place] the reason for respiratory failure from COVID complicated by COPD, CHF, JOHNNY, and bacterail PNA. ABG worsened and BiPAP started without benefits. She was moved to ICU and intubated 09/15/20. She is at 40% FiO2 and 8 PEEP. Vent management per modern greek studies professor. (2) Pneumonia due to COVID-19 virus: Code(s): U07.1 - COVID-19; J12.89 - Other viral pneumonia Status: Acute Assessment and Plan: CXR from admission showing diffuse airspace disease. Initially felt pulmonary edema but now COVID+ so felt related to COVID PNA/ARDS. Finished 10 d of Dexamethasone and finished Remdesivir. Convalescent plasma 09/18. Broad spectrum abx were started 09/15 but stopped 09/20. Sputum form 09/24 growing Serratia and 1 BCx from 09/25 also growing Serratia. 1 BCx 09/24 growing Morganella morganii so Cefepime restarted 09/26. Suspect bacteremia is from her coccyx wound but unclear why in sputum - seeded lung and/or VAP?. Pseudomonas from wound 09/28. Levaquin and Vanco added 09/30. Fevers resolved and WBC better. Continue broad spectrum abx, albuterol nebulizer treatments and Pulmicort Respules. Continue supportive care (3) Electrolyte abnormality: Code(s): E87.8 - Other disorders of electrolyte and fluid balance, not elsewhere classified Status: Acute Assessment and Plan: Sodium low and potassium high. Consider adrenal insufficiency especially if she has hypothyroidism. Cortisol level okay. Potassium worse today. Treatment ordered. Follow closely. (4) Septicemia: Code(s): A41.9 - Sepsis, unspecified organism Status: Acute Assessment and Plan: Patient with septicemia with shock. BP became soft feather separator hours of 09/30 so Levophed started. Able to weaned off Levophed 10/01. Sputum form 09/24 growing Serratia and 1 BCx from 09/25 also growing Serratia. 1 BCx 09/24 growing Morganella morganii so Cefepime restarted 09/26. Pseudomonas from wound 09/28. Repeat BCx NGTD. Suspect bacteremia is from her coccyx wound but not sure why serratia in lung unless VAP. levaquin and Vanco added 09/30. Continue to follow. (5) Decubitus ulcer of coccyx: Qualifiers: Pressure injury stage: unspecified pressure injury stage Qualified Code(s): L89.159 - Pressure ulcer of sacral region, unspecified stage Code(s): L89.159 - Pressure ulcer of sacral region, unspecified stage Status: Acute Assessment and Plan: Patient with a large decubitus ulcer present on admission. Will need debridement once more stable. Continue current wound care. Has a specialty bed. (6) Congestive heart failure: Qualifiers: Heart failure chronicity: acute on chronic Heart failure type: diastolic Qualified Code(s): I50.33 - Acute on chronic diastolic (congestive) heart failure Code(s): I50.9 - Heart failure, unspecified Status: Acute Assessment and Plan: Concern for diastolic CHF with CXR findings and BNP 1340 but no clinical evidence of fluid overload. Echo 09/16 showing EF 50-55% with poorly visualized LV; small to moderate pericardial effusion. Patient takes Lasix 80mg daily home. She initially had excellent UOP with negative fluid balance with Lasix. Lasix was held with contraction alkalosis. Acetazolamide x 4 doses completed 09/29. L
[2020-10-03 12:25] LABS: Glucose Point of Care 291 (65-105)
[2020-10-03 17:29] LABS: Glucose Point of Care 269 (65-105)
[2020-10-04] VITALS (30 sets, daily range): BP systolic 106–140; BP diastolic 52–81; PULSE 40–96; RESP 18–32; TEMP 36.4–37.3; O2SAT 94–99
[2020-10-04] LABS: Glucose Point of Care 228 (65-105)
[2020-10-04 03:51] LABS: Hematocrit 27.4 % (37.0-47.0); Hemoglobin 8.3 g/dL (12.0-15.0); Mean Corpuscular HGB Conc 30.3 g/dl (32-36); Mean Corpuscular Hemoglobin 27.6 pg (26-34); Mean Platelet Volume 10.6 fl (7.4-10.4); Platelet Count Result 279 k/mm3 (150-375); Red Blood Count 3.01 M/mm3 (4.2-5.4); Red Cell Distribution Width 16.7 % (11.5-14.5); White Blood Count 25.1 K/mm3 (4.5-10.0)
[2020-10-04] MEDS: ALBUTEROL SULFATE NEB 2.5 MG/0.5 ML INH INHALATION ×4 (03:58→20:31)
[2020-10-04 04:07] LABS: Anion Gap 0 mmol/L (8-16); Blood Urea Nitrogen 69 mg/dL (7-17); Calcium 8.7 mg/dL (8.4-10.2); Carbon Dioxide 38 mmol/L (22-30); Chloride 90 mmol/L (98-107); Estimated CRCL calculation 89 ml/min; Estimated Glomerular Filt Rate 52; Glucose 252 mg/dL (65-105); Lactate Dehydrogenase 719 U/L (313-618); Magnesium 2.8 mg/dL (1.6-2.3); Phosphorus 3.7 mg/dL (2.5-4.5); Potassium 5.3 mmol/L (3.4-5.0); Sodium 128 mmol/L (137-145)
[2020-10-04 04:18] LABS: Alveolar/Arterial O2 Gradient 163.4 mmHg; Base Excess ABG 5.6 mEq/l (+/-2.0); Carboxyhemoglobin 0.2 % THb (0-2.0); Fractional Inspired Oxygen 40 %; HCO3 ABG 31.3 mEq/l (22.0-26.0); Methemoglobin ABG 0.2 %THb (0-1.5); Oxygen Content ABG 12.1 %vol (16.0-22.0); Oxygen Saturation ABG 91.4 % (95.0-100.0); PO2 FiO2 Ratio Arterial Blood 1.55 %; Reduced Hemoglobin 8.6 %THb (0-5.0); Total Hemoglobin 9.4 g/dL (12.0-18.0); pH ABG 7.397 (7.350-7.450)
[2020-10-04 04:20] LABS: Arterial Blood Gas Minute Volume 7 LPM; Arterial Blood Gas PEEP 5 cmH2O; Arterial Blood Gas Vent Mode ASV; Device VENTILATOR; Site Drawn LEFT BRACHIAL
[2020-10-04 04:23] LABS: D Dimer 6.56 ug/mL (<0.48)
[2020-10-04 04:25] LABS: CRP 13.5 mg/dL (<1.0)
[2020-10-04] MEDS: CENTRAL LINE FLUSH 10 ML IV PUSH ×3 (05:17→20:10)
[2020-10-04] MEDS: LEVOTHYROXINE SODIUM 100 MCG TABLET PO (05:17)
[2020-10-04] MEDS: INSULIN ASPART (*BKC) 100 UNITS/ML SUB-Q ×3 (05:21→17:53)
[2020-10-04 08:37] LABS: Glucose Point of Care 207 (65-105)
[2020-10-04] MEDS: PANTOPRAZOLE SODIUM IV 40 MG VIAL IV PUSH ×2 (09:44→20:09)
[2020-10-04] MEDS: ENOXAPARIN 40 MG/0.4 ML SYRINGE SUB-Q (09:44)
[2020-10-04] MEDS: SOD HYPOCHLORITE 1/4 STRENGTH 473 ML 1 APPLIC TOPICAL (09:44)
[2020-10-04] MEDS: TOLNAFTATE 1% POWDER 45 GM BTL 1 APPLIC TOPICAL ×2 (09:45→20:09)
[2020-10-04] MEDS: acetaZOLAMIDE TAB 250 MG TABLET 500 MG PO (10:00)
[2020-10-04] MEDS: INSULIN DETEMIR 100 UNITS/ML 42 UNITS SUB-Q (10:00)
--- NOTE | 2020-10-04 10:51 | PM.IMPN ---
Progress Note: A&P Assessment and Plan (1) Acute and chronic respiratory failure: Qualifiers: Respiratory failure complication: hypoxia and hypercapnia Qualified Code(s): J96.21 - Acute and chronic respiratory failure with hypoxia; J96.22 - Acute and chronic respiratory failure with hypercapnia Code(s): J96.20 - Acute and chronic respiratory failure, unspecified whether with hypoxia or hypercapnia Status: Acute Assessment and Plan: Patient is chronically on oxygen at 2 L which she increased to 4 L prior to admission. pH 7.31 with pCO2 63 on admission. She tested positive for COVID 09/14/20. [facility] the reason for respiratory failure from COVID complicated by COPD, CHF, JOHNNY, and bacterail PNA. ABG worsened and BiPAP started without benefits. She was moved to ICU and intubated 09/15/20. She is at 40% FiO2 and PEEP 5. Extubate soon? Vent management per radio message router. (2) Pneumonia due to COVID-19 virus: Code(s): U07.1 - COVID-19; J12.89 - Other viral pneumonia Status: Acute Assessment and Plan: CXR from admission showing diffuse airspace disease related to COVID PNA/ARDS. Finished 10 d of Dexamethasone and finished Remdesivir. Convalescent plasma 09/18. Broad spectrum abx were started 09/15 but stopped 09/20. Sputum form 09/24 growing Serratia and 1 BCx from 09/25 also growing Serratia. 1 BCx 09/24 growing Morganella morganii so Cefepime restarted 09/26. Suspect bacteremia is from her coccyx wound but unclear why in sputum - seeded lung and/or VAP?. Pseudomonas from wound 09/28. Levaquin and Vanco added 09/30 (Vanco stopped 10/01). Fevers resolved. WBC up and down and currently elevated at 25K. Inflammatory markers better. Continue broad spectrum abx, albuterol nebulizer treatments and Pulmicort Respules. Continue supportive care (3) Electrolyte abnormality: Code(s): E87.8 - Other disorders of electrolyte and fluid balance, not elsewhere classified Status: Acute Assessment and Plan: Sodium low and potassium high still. Consider adrenal insufficiency especially if she has hypothyroidism. Cortisol level okay. Potassium better today. Treatment ordered. Follow closely. (4) Septicemia: Code(s): A41.9 - Sepsis, unspecified organism Status: Acute Assessment and Plan: Patient with septicemia with shock. BP became soft emergency medical dispatcher hours of 09/30 so Levophed started. Able to weaned off Levophed 10/01. Sputum form 09/24 growing Serratia and 1 BCx from 09/25 also growing Serratia. 1 BCx 09/24 growing Morganella morganii so Cefepime restarted 09/26. Pseudomonas from wound 09/28. Repeat BCx NGTD. Suspect bacteremia is from her coccyx wound but not sure why serratia in lung unless VAP. Continue Cefepime and levaquin. Continue to follow. (5) Decubitus ulcer of coccyx: Qualifiers: Pressure injury stage: unspecified pressure injury stage Qualified Code(s): L89.159 - Pressure ulcer of sacral region, unspecified stage Code(s): L89.159 - Pressure ulcer of sacral region, unspecified stage Status: Acute Assessment and Plan: Patient with a large decubitus ulcer present on admission. Will need debridement once more stable. Continue current wound care. Has a specialty bed. (6) Congestive heart failure: Qualifiers: Heart failure chronicity: acute on chronic Heart failure type: diastolic Qualified Code(s): I50.33 - Acute on chronic diastolic (congestive) heart failure Code(s): I50.9 - Heart failure, unspecified Status: Acute Assessment and Plan: Concern for diastolic CHF with CXR findings and BNP 1340 but no clinical evidence of fluid overload. Echo 09/16 showing EF 50-55% with poorly visualized LV; small to moderate pericardial effusion. Patient takes Lasix 80mg daily home. She initially had excellent UOP with negative fluid balance with Lasix. Lasix was held with contraction al
[2020-10-04] MEDS: dexmedeTOMIDine 400 MCG/100 ML 400 MCG/100 ML BAG 9.85 MCG IV CONT (11:48)
[2020-10-04] MEDS: ALBUMIN HUMAN 25% 12.5 GM/50ML 50 ML IVPB ×2 (12:04→20:07)
[2020-10-04 12:44] LABS: Glucose Point of Care 238 (65-105)
--- NOTE | 2020-10-04 13:03 | PCDIET ---
ICU Rounding Note: Patient tolerating Glucerna 1.2 at 60mL/hr goal rate with Pro-Stat TID. Last recorded weight is 197kg which is decreased from last review. +I/O noted. Bowel Motility: Liquid stool x 2 reported on last shift. Labs Reviewed: Hgb (8.3), Hct (27.4), Glu (207), BUN (69), Cr (1.1), K (5.3) Meds Noted: Albumin, Albuterol, Pulmicort, Cefepime, Precedex, Fentanyl, Hydralazine, Novolog, Levemir, Levaquin, Synthroid, Versed, Protonix Additional Notes: Coccyx pressure ulcer. Buttocks macerated. Following daily in ICU rounds. Assessing/reassessing every Sunday/Sunday.
[2020-10-04 17:37] LABS: Glucose Point of Care 228 (65-105)
--- NOTE | 2020-10-04 18:10 | WPDINTPN ---
Progress Note: A&P Assessment and Plan (1) Sepsis: Qualifiers: Severe sepsis acute organ dysfunction type: acute respiratory failure Code(s): A41.9 - Sepsis, unspecified organism Status: Acute Assessment and Plan: Severe sepsis because of urine tract infection, bacteremia and wound infection at the decubitus ulcer - Continue cefepime and Levaquin. - Sputum from 09/24 grew Serratia marcescens and morganella sensitive to cefepime - Culture from the coccyx wound is growing Pseudomonas aeruginosa, pansensitive. - Repeat blood culture 10/02 no growth x2 -patient of Levophed (2) ARDS (adult respiratory distress syndrome): Code(s): J80 - Acute respiratory distress syndrome Status: Acute Assessment and Plan: Intubated on 09/15. -continue ASV mode of ventilation, peep of 5, 40% FiO2 -will wean fentanyl and Versed, tried to wake the patient and place her on SBT and evaluate for extubation -if patient is agitated will start Precedex infusion (3) Congestive heart failure: Qualifiers: Heart failure chronicity: acute on chronic Heart failure type: diastolic Qualified Code(s): I50.33 - Acute on chronic diastolic (congestive) heart failure Code(s): I50.9 - Heart failure, unspecified Status: Acute Assessment and Plan: Patient with contraction alkalosis, will diurese with Diamox (4) Morbid obesity: Code(s): E66.01 - Morbid (severe) obesity due to excess calories Status: Acute Assessment and Plan: Will encourage weight loss if she survive this acute illness. (5) Chronic respiratory failure with hypoxia and hypercapnia: Code(s): J96.11 - Chronic respiratory failure with hypoxia; J96.12 - Chronic respiratory failure with hypercapnia Status: Acute Assessment and Plan: Patient may require to be extubated to BiPAP given history of chronic respiratory failure. BiPAP of 20/10 with backup rate of 16 (6) Decubitus ulcer of coccyx: Qualifiers: Pressure injury stage: unspecified pressure injury stage Qualified Code(s): L89.159 - Pressure ulcer of sacral region, unspecified stage Code(s): L89.159 - Pressure ulcer of sacral region, unspecified stage Status: Acute Assessment and Plan: Local wound care as per nursing. Cultures from the wound is growing Pseudomonas aeruginosa, pansensitive. Will continue cefepime and levofloxacin for now. (7) Atrial fibrillation: Qualifiers: Atrial fibrillation type: unspecified chronic Qualified Code(s): I48.20 - Chronic atrial fibrillation, unspecified Code(s): I48.91 - Unspecified atrial fibrillation Status: Chronic Assessment and Plan: Currently heart rate is in 60s. Pradaxa has been on hold because of GI bleeding. -will lead to restart Pradaxa at some point (8) COVID-19: Code(s): U07.1 - COVID-19 Status: Acute Assessment and Plan: Completed dexamethasone and remdisivir. Received convalescent plasma on 09/18. (9) DM2 (diabetes mellitus, type 2): Qualifiers: Diabetes mellitus intermediate insulin use: without intermediate frame tender use Diabetes mellitus complication status: with hyperglycemia Qualified Code(s): E11.65 - Type 2 diabetes mellitus with hyperglycemia Code(s): E11.9 - Type 2 diabetes mellitus without complications Status: Chronic Assessment and Plan: Patient hyperglycemic, continue sliding scale insulin Accu-Cheks -continue Levemir Additional Plan DVT prophylaxis with subcu Lovenox. Hold home Pradaxa because of blood in the stool which has subsided now. GI prophylaxis with pantoprazole Code status: Full code Critical care time spent: 33 minutes Due to a high probability of clinically significant, life threatening deterioration, the patient required my highest level of preparedness to intervene emergently and I personally spent this critical car
--- NOTE | 2020-10-04 18:45 | PM.PNPUL ---
Progress Note: A&P Assessment and Plan (1) Sepsis: Qualifiers: Severe sepsis acute organ dysfunction type: acute respiratory failure Code(s): A41.9 - Sepsis, unspecified organism Status: Acute Assessment and Plan: continue Cefipime, Vancomycin and Levaquin and f/u on blood, sputum and urine cultures on treatment for sputum with Serratia marcescens (2) ARDS (adult respiratory distress syndrome): Code(s): J80 - Acute respiratory distress syndrome Status: Acute Assessment and Plan: Tolerating low tidal volume strategy of 350/10/40% with stable ABG. She did not tolerate weaning trials earlier today. (3) Congestive heart failure: Qualifiers: Heart failure chronicity: acute on chronic Heart failure type: diastolic Qualified Code(s): I50.33 - Acute on chronic diastolic (congestive) heart failure Code(s): I50.9 - Heart failure, unspecified Status: Acute Assessment and Plan: appears euvolemic (4) Chronic respiratory failure with hypoxia and hypercapnia: Code(s): J96.11 - Chronic respiratory failure with hypoxia; J96.12 - Chronic respiratory failure with hypercapnia Status: Acute Assessment and Plan: Will need transition from invasive mechanical ventilation to BIPAP upon extubation. Would recommend 20/10 with backup rate of 16 at that time. Subjective Date/time seen: 10/04/20 18:45 55 yo female seen in follow up for acute respiratory failure, has not tolerated weaning today. Plan to try again tomorrow, and likely will need to transition from vent to biPAP. SHe needs to have a trial of extubation before being committed to having a tracheostomy, marychuy with COVID. Review of Systems Review of Systems: All systems reviewed & are unremarkable except as noted in HPI and below Exam Narrative: Exam Narrative: intubated, sedated and mechanically ventilated. HENMT: Other: ETT in place moist oral membranes Chest: Chest palpation & inspection: normal inspection of the chest Resp: Auscultation: diminished lung sounds Cardio: Rhythm: regular rhythm GI: Other: morbidly obese : Other: Baeza catheter in place Skin: Other: areas of dry skin on her lower extremities noted Neuro: Other: patient is sedated and intubated. Does not open her eyes or follow simple commands. Psych: Other: unable to assess at this time Objective Data Vital Signs Vital Signs: Vital Signs - 24 hr 10/03/20 19:42 10/03/20 19:43 10/03/20 20:00 Temperature 37.7 C H Pulse Rate 64 64 70 Respiratory Rate 17 17 21 H Blood Pressure 123/62 Pulse Oximetry 96 10/03/20 20:18 10/03/20 20:29 10/03/20 22:00 Temperature Pulse Rate 68 64 68 Respiratory Rate 17 22 H 28 H Blood Pressure 146/74 H Pulse Oximetry 97 96 10/03/20 23:47 10/03/20 23:54 10/03/20 23:55 Temperature Pulse Rate 70 70 75 Respiratory Rate 19 22 H Blood Pressure Pulse Oximetry 95 10/04/20 00:00 10/04/20 02:00 10/04/20 03:13 Temperature 37.1 C Pulse Rate 66 63 63 Respiratory Rate 22 H 22 H 22 H Blood Pressure 130/66 133/63 Pulse Oximetry 96 96 96 10/04/20 03:58 10/04/20 04:00 10/04/20 04:05 Temperature 37.3 C Pulse Rate 62 65 70 Respiratory Rate 25 H 27 H 25 H Blood Pressure 140/81 Pulse Oximetry 96 96 10/04/20 05:22 10/04/20 05:23 10/04/20 06:00 Temperature Pulse Rate 68 72 74 Respiratory Rate 28 H 32 H 26 H Blood Pressure 134/64 Pulse Oximetry 96 10/04/20 08:00 10/04/20 08:14 10/04/20 08:32 Temperature 36.8 C Pulse Rate 67 74 65 Respiratory Rate 26 H 27 H 23 H Blood Pressure 131/64 Pulse Oximetry 97 95 10/04/20 08:33 10/04/20 10:00
[2020-10-04] MEDS: INSULIN DETEMIR 100 UNITS/ML 48 UNITS SUB-Q (20:08)
[2020-10-05] VITALS (22 sets, daily range): BP systolic 123–156; BP diastolic 60–74; PULSE 67–96; RESP 16–31; TEMP 36.7–37.3; O2SAT 94–98
[2020-10-05 01:29] LABS: Glucose Point of Care 239 (65-105)
[2020-10-05] MEDS: INSULIN ASPART (*BKC) 100 UNITS/ML SUB-Q (01:56)
[2020-10-05] MEDS: acetaZOLAMIDE TAB 250 MG TABLET 500 MG PO (01:56)
[2020-10-05] MEDS: ALBUTEROL SULFATE NEB 2.5 MG/0.5 ML INH INHALATION ×4 (03:30→22:37)
[2020-10-05 04:12] LABS: Alveolar/Arterial O2 Gradient 141.7 mmHg; Base Excess ABG 5.8 mEq/l (+/-2.0); Carboxyhemoglobin 0.3 % THb (0-2.0); Fractional Inspired Oxygen 40 %; HCO3 ABG 32.1 mEq/l (22.0-26.0); Methemoglobin ABG 0.4 %THb (0-1.5); Oxygen Content ABG 10.9 %vol (16.0-22.0); Oxygen Saturation ABG 94.4 % (95.0-100.0); Oxyhemoglobin 93.3 % THb (90.0-100.0); PCO2 ABG 58.6 mmHg (35.0-45.0); PO2 ABG 76.1 mmHg (80.0-100.0); Total Hemoglobin 8.2 g/dL (12.0-18.0); pH ABG 7.357 (7.350-7.450)
[2020-10-05 04:16] LABS: Device VENTILATOR; Modified Allen's Test Unable to perform; Site Drawn RIGHT RADIAL
[2020-10-05 04:17] LABS: Arterial Blood Gas Minute Volume 7 LPM; Arterial Blood Gas PEEP 5 cmH2O; Arterial Blood Gas Vent Mode ASV
[2020-10-05 05:50] LABS: Hematocrit 28.7 % (37.0-47.0); Hemoglobin 8.3 g/dL (12.0-15.0); Mean Corpuscular HGB Conc 28.9 g/dl (32-36); Mean Corpuscular Hemoglobin 27.5 pg (26-34); Mean Platelet Volume 10.6 fl (7.4-10.4); Platelet Count Result 249 k/mm3 (150-375); Red Blood Count 3.02 M/mm3 (4.2-5.4); White Blood Count 21.9 K/mm3 (4.5-10.0)
[2020-10-05 05:56] LABS: Glucose Point of Care 175 (65-105)
[2020-10-05] MEDS: CENTRAL LINE FLUSH 10 ML IV PUSH ×3 (05:58→21:10)
[2020-10-05 06:11] LABS: Alanine Aminotransferase 101 U/L (4-35); Albumin Level 2.9 g/dL (3.5-5.1); Alkaline Phosphatase 158 U/L (38-126); Anion Gap -3.00001 mmol/L (8-16); Aspartate Amino Transferase 54 U/L (14-36); Bilirubin,Total 0.5 mg/dL (0.2-1.3); Blood Urea Nitrogen 64 mg/dL (7-17); Carbon Dioxide > 40 mmol/L (22-30); Chloride 94 mmol/L (98-107); Estimated CRCL calculation 89 ml/min; Estimated Glomerular Filt Rate 52; Glucose 177 mg/dL (65-105); Magnesium 2.9 mg/dL (1.6-2.3); Phosphorus 3.6 mg/dL (2.5-4.5); Potassium 4.6 mmol/L (3.4-5.0); Sodium 131 mmol/L (137-145)
[2020-10-05] MEDS: ENOXAPARIN 40 MG/0.4 ML SYRINGE SUB-Q (08:13)
[2020-10-05] MEDS: LEVOTHYROXINE SODIUM 125 MCG TABLET PO (08:13)
[2020-10-05] MEDS: PANTOPRAZOLE SODIUM IV 40 MG VIAL IV PUSH ×2 (08:14→21:09)
[2020-10-05] MEDS: SOD HYPOCHLORITE 1/4 STRENGTH 473 ML 1 APPLIC TOPICAL (08:15)
[2020-10-05] MEDS: INSULIN DETEMIR 100 UNITS/ML 48 UNITS SUB-Q ×2 (08:15→21:05)
[2020-10-05] MEDS: TOLNAFTATE 1% POWDER 45 GM BTL 1 APPLIC TOPICAL ×2 (08:15→21:10)
--- NOTE | 2020-10-05 12:21 | WPDINFPN2 ---
Progress Note: A&P Assessment and Plan (1) Decubitus ulcer of coccyx: Qualifiers: Pressure injury stage: unspecified pressure injury stage Qualified Code(s): L89.159 - Pressure ulcer of sacral region, unspecified stage Code(s): L89.159 - Pressure ulcer of sacral region, unspecified stage Status: Acute Assessment and Plan: 1. Decub ulcer 2. Recent polymicrobial septicemia, wound vs lung source 3. CoVid viral pneumonia, present on admission 09/14 4. Morbid obesity REC Levofloxacin # 6/7 days. Local care. Stop cefepime. Subjective Date/time seen: 10/05/20 12:21 Objective Data Vital Signs Vital Signs: Vital Signs - 24 hr 10/04/20 14:00 10/04/20 15:29 10/04/20 16:00 Temperature 36.4 C Pulse Rate 62 58 L 60 Respiratory Rate 19 20 20 Blood Pressure 113/66 106/61 Pulse Oximetry 98 98 99 10/04/20 17:21 10/04/20 17:28 10/04/20 18:00 Temperature Pulse Rate 57 L 56 L 63 Respiratory Rate 18 20 Blood Pressure 108/71 Pulse Oximetry 98 96 10/04/20 18:03 10/04/20 18:05 10/04/20 20:00 Temperature 36.6 C Pulse Rate 47 L 40 L 96 Respiratory Rate 18 20 21 H Blood Pressure 116/62 Pulse Oximetry 94 10/04/20 20:35 10/04/20 22:00 10/05/20 00:00 Temperature 36.9 C Pulse Rate 71 72 96 Respiratory Rate 27 H 21 H 21 H Blood Pressure 110/52 L 129/74 Pulse Oximetry 97 98 94 10/05/20 02:00 10/05/20 03:35 10/05/20 04:00 Temperature 37.1 C 36.9 C Pulse Rate 72 74 75 Respiratory Rate 25 H 24 H 20 Blood Pressure 130/68 129/70 Pulse Oximetry 97 95 96 10/05/20 06:00 10/05/20 08:00 10/05/20 10:00 Temperature 36.7 C Pulse Rate 73 77 76 Respiratory Rate 23 H 31 H 28 H Blood Pressure 124/69 156/65 H 148/66 H Pulse Oximetry 96 97 98 Intake/Output Intake/Output: Intake & Output 10/02/20 10/03/20 10/04/20 12/01/20 23:59 23:59 23:59 23:59 Intake Total 2452 7433 1918 845 Output Total 650 2644 2124 1652 Balance 1800 624 -756 -874 Meds/Results Medications: Active Medications Generic Name Dose Route Start Last Admin Trade Name Freq PRN Reason Stop Dose Admin Acetaminophen 650 mg 09/14/20 20:28 09/30/20 05:23 Acetaminophen 325 Mg Tablet PO 650 mg Q4H PRN Administration Fever Albuterol 2.5 mg 09/15/20 20:15 10/05/20 09:03 Albuterol Sulfate Neb 2.5 Mg/0.5 Ml Inh INHALATION 2.5 mg Q6HRT DENISE Administration Alteplase, Recombinant 2 mg 09/28/20 11:11 10/02/20 15:06 Alteplase 2 Mg Vial (Cathflo) IV PUSH 2 mg ONCE PRN Administration Line Occlusion Alteplase, Recombinant 2 mg 09/28/20 16:40 09/28/20 17:37 Alteplase 2 Mg Vial (Cathflo) IV PUSH 2 mg ONCE PRN Administration Line Occlusion Alteplase, Recombinant 2 mg 10/02/20 10:43 Alteplase 2 Mg Vial (Cathflo) IV PUSH ONCE PRN Line Occlusion Budesonide 0.5 mg 09/15/20 20:00 09/28/20 09:05 Budesonide Respule Neb 0.5 Mg/2 Ml Amp INHALATION 0.5 mg Q12HRT DENISE Administration Dextrose 12.5 gm 09/21/20 14:36 09/27/20 00:10 Dextrose 50% 25 Gm/50 Ml Syringe IV PUSH 12.5 gm PRN PRN Administration Hypoglycemia Protocol Enoxaparin Sodium 40 mg 10/02/20 09:00 10/05/20 08:13 Enoxaparin 40 Mg/0.4 Ml Syringe SUB-Q 40 mg DAILY DENISE Administration Glucagon 1 mg 09/21/20 14:36 Glucagon For Inj 1 Mg Vial IM PRN PRN Hypoglycemia Protocol Glucose 15 gm 09/21/20 14:36 Glucose Oral Gel 15 Gm Of Glucse In 37.5 Gm Tube PO PRN PRN Hypoglycemia Protocol Hydralazine HCl 10 mg 09/25/20 08:50 Hydralazine Hcl 20 Mg/Ml Vial IV PUSH Q4H PRN Blood Pressure - High Midazolam HCl 50 mg in 100 mls @ 0 mls/hr 09/15/20 14:00 10/04/20 11:47 Versed 50 Mg/D5w 100 Ml IV CONT 10/14/20 14:01 0 mg/hr .Q0M DENISE 0 mls/hr Titration Protocol 0 MG/HR Fentanyl Citrate 2,500 mcg in 250 mls @ 0 mls/hr 09/15/20 14:00 10/04/20 11:46 Fentanyl 2,500 Mcg/Ns 250 Ml
[2020-10-05 12:35] LABS: Glucose Point of Care 195 (65-105)
--- NOTE | 2020-10-05 13:03 | PCDIET ---
Nutrition Follow-Up Complete: Nutrition Diagnosis: Inadequate oral intake related to inability to consume foods orally as evidence by need for enteral nutrition to meet needs. Nutrition Goal: Total intake will meet estimated kcal and protein needs. Goal met. Patient tolerating Glucerna 1.2 at 60mL/hr with Pro-Stat flush TID. Receiving 30mL water flush every 4 hours. Plan for tracheostomy and PEG discussed during rounds. Last recorded weight is 200 kg which is increased from last review. I/O slightly negative. Bowel Motility: +BM x 2 today. Labs Reviewed: Hgb (8.3), Hct (28.7), Glu (177), BUN (64), Cr (1.1), Na (131), Alb (2.9) Meds Noted: Albuterol, Pulmicort, Precedex, Fentanyl, Hydralazine, Novolog, Levemir, Levaquin, Synthroid, Versed, Levophed Additional Notes: Integumentary notes reviewed. Recommend continued Pro-Stat supplementation to meet estimated needs for healing. Will continue to monitor with same goal. Nutrition Monitoring and Evaluation: Follow up every Sunday/Sunday.
--- NOTE | 2020-10-05 13:04 | WPDGIPROGNO ---
Progress Note: A&P Assessment and Plan (1) Ventilator dependent: Code(s): Z99.11 - Dependence on respirator [ventilator] status Status: Acute Assessment and Plan: Patient is ventilator dependent. Continues to require NG tube for nutritional. Plan is for PEG tube placement so the placement can be accomplished. Obesity may be a hindrance to placement of PEG tube. Will attempt PEG tube placement in the morning. Hold blood thinners such as Lovenox in anticipation of this period (2) COVID-19: Code(s): U07.1 - COVID-19 Status: Acute (3) Atrial fibrillation: Qualifiers: Atrial fibrillation type: unspecified chronic Qualified Code(s): I48.20 - Chronic atrial fibrillation, unspecified Code(s): I48.91 - Unspecified atrial fibrillation Status: Chronic (4) Morbid obesity: Code(s): E66.01 - Morbid (severe) obesity due to excess calories Status: Acute Subjective Date/time seen: 10/05/20 13:04 Patient remains on the ventilator. Unable to be wean. Now receiving nutrition via NG tube. Review of Systems Review of Systems: ROS unobtainable: Yes unobtainable due to endotracheal tube Exam Narrative: Exam Narrative: Vital signs stable. Abdomen markedly obese. Soft nontender. No masses. Objective Data Vital Signs Vital Signs: Vital Signs - 24 hr 10/04/20 14:00 10/04/20 15:29 10/04/20 16:00 Temperature 97.6 F Pulse Rate 62 58 L 60 Respiratory Rate 19 20 20 Blood Pressure 113/66 106/61 Pulse Oximetry 98 98 99 10/04/20 17:21 10/04/20 17:28 10/04/20 18:00 Temperature Pulse Rate 57 L 56 L 63 Respiratory Rate 18 20 Blood Pressure 108/71 Pulse Oximetry 98 96 10/04/20 18:03 10/04/20 18:05 10/04/20 20:00 Temperature 97.9 F Pulse Rate 47 L 40 L 96 Respiratory Rate 18 20 21 H Blood Pressure 116/62 Pulse Oximetry 94 10/04/20 20:35 10/04/20 22:00 10/05/20 00:00 Temperature 98.5 F Pulse Rate 71 72 96 Respiratory Rate 27 H 21 H 21 H Blood Pressure 110/52 L 129/74 Pulse Oximetry 97 98 94 10/05/20 02:00 10/05/20 03:35 10/05/20 04:00 Temperature 98.7 F 98.5 F Pulse Rate 72 74 75 Respiratory Rate 25 H 24 H 20 Blood Pressure 130/68 129/70 Pulse Oximetry 97 95 96 10/05/20 06:00 10/05/20 08:00 10/05/20 09:03 Temperature 98.0 F Pulse Rate 73 77 77 Respiratory Rate 23 H 31 H 31 H Blood Pressure 124/69 156/65 H Pulse Oximetry 96 97 96 10/05/20 09:11 10/05/20 10:00 10/05/20 11:58 Temperature Pulse Rate 74 76 74 Respiratory Rate 28 H 28 H Blood Pressure 148/66 H Pulse Oximetry 98 98 10/05/20 12:00 Temperature Pulse Rate 75 Respiratory Rate 26 H Blood Pressure 123/62 Pulse Oximetry 97 Intake/Output Intake/Output: Intake & Output 10/02/20 10/03/20 10/04/20 10/05/20 23:59 23:59 23:59 23:59 Intake Total 2450 2353 1912 845 Output Total 650 1600 2125 1655 Balance 1800 581 -167 -194 Meds/Results Medications: Active Medications Generic Name Dose Route Start Last Admin Trade Name Freq PRN Reason Stop Dose Admin Acetaminophen 650 mg 09/14/20 20:28 09/30/20 05:23 Acetaminophen 325 Mg Tablet PO 650 mg Q4H PRN Administration Fever Albuterol 2.5 mg 09/15/20 20:15 10/05/20 09:03 Albuterol Sulfate Neb 2.5 Mg/0.5 Ml Inh INHALATION 2.5 mg Q6HRT DENISE Administration Alteplase, Recombinant 2 mg 09/28/20 11:11 10/02/20 15:06 Alteplase 2 Mg Vial (Cathflo) IV PUSH 2 mg ONCE PRN Administration Line Occlusion Alteplase, Recombinant 2 mg 09/28/20 16:40 09/28/20 17:37 Alteplase 2 Mg Vial (Cathflo) IV PUSH 2 mg ONCE PRN Administration Line Occlusion Alteplase, Recombinant 2 mg 10/02/20 10:43 Alteplase 2 Mg Vial (Cathflo) IV PUSH ONCE PRN Line Occlusion Budesonide 0.5 mg 09/15/20 20:00 09/28/20 09:05 Budesonide Respule Neb 0.5 Mg/2 Ml Amp INHALATION 0.5 mg Q12HRT DENISE Administration Dextrose 12.5 gm 09/21/20 14:
--- NOTE | 2020-10-05 13:46 | WPDINTPN ---
Progress Note: A&P Assessment and Plan (1) Sepsis: Qualifiers: Severe sepsis acute organ dysfunction type: acute respiratory failure Code(s): A41.9 - Sepsis, unspecified organism Status: Acute Assessment and Plan: Severe sepsis because of urine tract infection, bacteremia and wound infection at the decubitus ulcer - Sputum from 09/24 grew Serratia marcescens and morganella sensitive to cefepime - Culture from the coccyx wound is growing Pseudomonas aeruginosa, pansensitive. - Repeat blood culture 10/02 no growth x2 -patient on cefepime and levofloxacin, infectious Disease has been consulted. Recommended continue levofloxacin and discontinuing cefepime. (2) ARDS (adult respiratory distress syndrome): Code(s): J80 - Acute respiratory distress syndrome Status: Acute Assessment and Plan: Intubated on 09/15. -continue ASV mode of ventilation, peep of 5, 40% FiO2 -off all sedation, patient opens her eyes but does not follow commands -just with sister who is the POA, agreeable to trach and PEG -ENT and GI have been consulted (3) Congestive heart failure: Qualifiers: Heart failure chronicity: acute on chronic Heart failure type: diastolic Qualified Code(s): I50.33 - Acute on chronic diastolic (congestive) heart failure Code(s): I50.9 - Heart failure, unspecified Status: Acute Assessment and Plan: Patient being diuresed with Diamox as she has contraction alkalosis (4) Morbid obesity: Code(s): E66.01 - Morbid (severe) obesity due to excess calories Status: Acute Assessment and Plan: Will encourage weight loss if she survive this acute illness. (5) Chronic respiratory failure with hypoxia and hypercapnia: Code(s): J96.11 - Chronic respiratory failure with hypoxia; J96.12 - Chronic respiratory failure with hypercapnia Status: Acute Assessment and Plan: Patient will require tracheostomy (6) Decubitus ulcer of coccyx: Qualifiers: Pressure injury stage: unspecified pressure injury stage Qualified Code(s): L89.159 - Pressure ulcer of sacral region, unspecified stage Code(s): L89.159 - Pressure ulcer of sacral region, unspecified stage Status: Acute Assessment and Plan: Local wound care as per nursing. Cultures from the wound is growing Pseudomonas aeruginosa, pansensitive. Continue antibiotics as above. (7) Atrial fibrillation: Qualifiers: Atrial fibrillation type: unspecified chronic Qualified Code(s): I48.20 - Chronic atrial fibrillation, unspecified Code(s): I48.91 - Unspecified atrial fibrillation Status: Chronic Assessment and Plan: Currently heart rate is in 60s. Pradaxa has been on hold because of GI bleeding. -will require to restart Pradaxa at some point (8) COVID-19: Code(s): U07.1 - COVID-19 Status: Acute Assessment and Plan: Completed dexamethasone and remdisivir. Received convalescent plasma on 09/18. (9) DM2 (diabetes mellitus, type 2): Qualifiers: Diabetes mellitus terminal superintendent insulin use: without penitentiary use Diabetes mellitus complication status: with hyperglycemia Qualified Code(s): E11.65 - Type 2 diabetes mellitus with hyperglycemia Code(s): E11.9 - Type 2 diabetes mellitus without complications Status: Chronic Assessment and Plan: Patient hyperglycemic, continue sliding scale insulin Accu-Cheks -continue Levemir Additional Plan Discussed with Carmella, patient's sister does the POA and explained to her and updated her with patient's condition and plan of care. She is agreeable to the ostomy and PEG tube placement. She is also aware that the patient will be going to LTAC facility post tracheostomy and PEG tube placement DVT prophylaxis with subcu Lovenox. Hold home Pradaxa because of blood in the stool which has subsided now. GI prophylaxis with bell
[2020-10-05] MEDS: acetaZOLAMIDE TAB 250 MG TABLET PO (14:22)
[2020-10-05] MEDS: ALTEPLASE 2 MG VIAL (CATHFLO) IV PUSH (14:23)
[2020-10-05 17:02] LABS: Glucose Point of Care 161 (65-105)
[2020-10-05 17:43] LABS: Hematocrit 27.7 % (37.0-47.0); Hemoglobin 8.1 g/dL (12.0-15.0); Mean Corpuscular HGB Conc 29.2 g/dl (32-36); Mean Corpuscular Hemoglobin 27.4 pg (26-34); Mean Corpuscular Volume 93.6 fl (80-100); Mean Platelet Volume 10.7 fl (7.4-10.4); Platelet Count Result 241 k/mm3 (150-375); Red Blood Count 2.96 M/mm3 (4.2-5.4); Red Cell Distribution Width 18.1 % (11.5-14.5); White Blood Count 20.9 K/mm3 (4.5-10.0)
[2020-10-05 18:02] LABS: Neutrophils Percent Manual 67 % (46-73); Total Cells Counted 100
[2020-10-05 18:03] LABS: Band Neutrophils Percent 17 % (0-6); Lymphocytes Absolute Manual 2.09 K/mm3 (1.1-4.5); Lymphocytes Percent Manual 10 % (18-44); Metamyelocytes Percent 2 %; Monocytes Absolute Manual 0.83 K/mm3 (0.1-0.90); Monocytes Percent Manual 4 % (3-9); Neutrophils Absolute Manual 17.55 K/mm3 (1.7-7.2); Nucleated Red Blood Cells 1 %; Platelet Estimate Adequate (Adequate)
[2020-10-05 18:04] LABS: Anisocytosis 1+ (NORMAL); Hypochromasia 1+ (NORMAL); Ovalocytes 1+ (NORMAL)
--- NOTE | 2020-10-05 18:06 | PM.IMPN ---
Progress Note: A&P Assessment and Plan (1) Acute and chronic respiratory failure: Qualifiers: Respiratory failure complication: hypoxia and hypercapnia Qualified Code(s): J96.21 - Acute and chronic respiratory failure with hypoxia; J96.22 - Acute and chronic respiratory failure with hypercapnia Code(s): J96.20 - Acute and chronic respiratory failure, unspecified whether with hypoxia or hypercapnia Status: Acute Assessment and Plan: Patient is chronically on oxygen at 2 L which she increased to 4 L prior to admission. pH 7.31 with pCO2 63 on admission. She tested positive for COVID 09/14/20. [place] the reason for respiratory failure from COVID complicated by COPD, CHF, JOHNNY, and bacterail PNA. ABG worsened and BiPAP started without benefits. She was moved to ICU and intubated 09/15/20. She is at 40% FiO2 and PEEP 5. probable trach soon. (2) Pneumonia due to COVID-19 virus: Code(s): U07.1 - COVID-19; J12.89 - Other viral pneumonia Status: Acute Assessment and Plan: CXR from admission showing diffuse airspace disease related to COVID PNA/ARDS. Finished 10 d of Dexamethasone and finished Remdesivir. Convalescent plasma 09/18. Broad spectrum abx were started 09/15 but stopped 09/20. Sputum form 09/24 growing Serratia and 1 BCx from 09/25 also growing Serratia. 1 BCx 09/24 growing Morganella morganii so Cefepime restarted 09/26. Suspect bacteremia is from her coccyx wound but unclear why in sputum - seeded lung and/or VAP?. Pseudomonas from wound 09/28. Levaquin and Vanco added 09/30 (Vanco stopped 10/01). Fevers resolved. WBC up and down and currently elevated at 25K. Inflammatory markers better. Stopped broad spectrum abx today , continue albuterol nebulizer treatments and Pulmicort Respules. Continue supportive care (3) Electrolyte abnormality: Code(s): E87.8 - Other disorders of electrolyte and fluid balance, not elsewhere classified Status: Acute Assessment and Plan: Sodium low and potassium high still. Consider adrenal insufficiency especially if she has hypothyroidism. Cortisol level okay. Potassium better today. Treatment ordered. Follow closely. (4) Septicemia: Code(s): A41.9 - Sepsis, unspecified organism Status: Acute Assessment and Plan: Patient with septicemia with shock. BP became soft early intervention school psychologist hours of 09/30 so Levophed started. Able to weaned off Levophed 10/01. Sputum form 09/24 growing Joyce and 1 BCx from 09/25 also growing Serratia. 1 BCx 09/24 growing Morganella morganii so Cefepime restarted 09/26 and stopped 10/05. Pseudomonas from wound 09/28. Repeat BCx NGTD. Suspect bacteremia is from her coccyx wound but not sure why serratia in lung unless VAP. stopped antibiotics today. Continue to follow. (5) Decubitus ulcer of coccyx: Qualifiers: Pressure injury stage: unspecified pressure injury stage Qualified Code(s): L89.159 - Pressure ulcer of sacral region, unspecified stage Code(s): L89.159 - Pressure ulcer of sacral region, unspecified stage Status: Acute Assessment and Plan: Patient with a large decubitus ulcer present on admission. Will need debridement once more stable. Continue current wound care. Has a specialty bed. (6) Congestive heart failure: Qualifiers: Heart failure chronicity: acute on chronic Heart failure type: diastolic Qualified Code(s): I50.33 - Acute on chronic diastolic (congestive) heart failure Code(s): I50.9 - Heart failure, unspecified Status: Acute Assessment and Plan: Concern for diastolic CHF with CXR findings and BNP 1340 but no clinical evidence of fluid overload. Echo 09/16 showing EF 50-55% with poorly visualized LV; small to moderate pericardial effusion. Patient takes Lasix 80mg daily home. She initially had excellent UOP with negative fluid balance with Lasix. Lasix was held with contraction a
[2020-10-05 18:11] LABS: Blood Urea Nitrogen 64 mg/dL (7-17); Carbon Dioxide > 40 mmol/L (22-30); Chloride 95 mmol/L (98-107); Estimated CRCL calculation 89 ml/min; Estimated Glomerular Filt Rate 52; Glucose 167 mg/dL (65-105); INR 1.1; Potassium 4.7 mmol/L (3.4-5.0); Prothrombin Time 15.2 Seconds (11.1-14.7); Sodium 134 mmol/L (137-145)
[2020-10-05 18:12] LABS: Partial Thromboplastin Time 35.9 SECONDS (22.3-36.8)
[2020-10-05 21:39] LABS: Glucose Point of Care 167 (65-105)
[2020-10-05 23:47] LABS: Glucose Point of Care 125 (65-105)
[2020-10-06] VITALS (26 sets, daily range): BP systolic 98–145; BP diastolic 53–106; PULSE 63–88; RESP 12–62; TEMP 36.3–37.3; O2SAT 94–99
[2020-10-06 03:56] LABS: Hematocrit 28.4 % (37.0-47.0); Hemoglobin 8.3 g/dL (12.0-15.0); Mean Corpuscular HGB Conc 29.2 g/dl (32-36); Mean Corpuscular Hemoglobin 27.9 pg (26-34); Mean Corpuscular Volume 95.3 fl (80-100); Mean Platelet Volume 9.8 fl (7.4-10.4); Platelet Count Result 219 k/mm3 (150-375); Red Blood Count 2.98 M/mm3 (4.2-5.4); Red Cell Distribution Width 18.6 % (11.5-14.5); White Blood Count 18.8 K/mm3 (4.5-10.0)
[2020-10-06 04:06] LABS: Anion Gap 1 mmol/L (8-16); Blood Urea Nitrogen 59 mg/dL (7-17); Carbon Dioxide 38 mmol/L (22-30); Chloride 97 mmol/L (98-107); Estimated CRCL calculation 98 ml/min; Estimated Glomerular Filt Rate 58; Glucose 92 mg/dL (65-105); Magnesium 2.8 mg/dL (1.6-2.3); Potassium 4.4 mmol/L (3.4-5.0); Sodium 136 mmol/L (137-145)
--- NOTE | 2020-10-06 04:14 | PCRCNOTE ---
Window of time for administration has passed. See next scheduled administration.
[2020-10-06 04:26] LABS: Glucose Point of Care 85 (65-105)
[2020-10-06 05:25] LABS: Alveolar/Arterial O2 Gradient 141.8 mmHg; Base Excess ABG 5.4 mEq/l (+/-2.0); Carboxyhemoglobin 0.2 % THb (0-2.0); Fractional Inspired Oxygen 40 %; HCO3 ABG 32.5 mEq/l (22.0-26.0); Methemoglobin ABG 0.2 %THb (0-1.5); Oxygen Content ABG 13.8 %vol (16.0-22.0); Oxygen Saturation ABG 93.2 % (95.0-100.0); Oxyhemoglobin 93.1 % THb (90.0-100.0); PO2 ABG 72.4 mmHg (80.0-100.0); PO2 FiO2 Ratio Arterial Blood 1.81 %; Reduced Hemoglobin 6.5 %THb (0-5.0); Total Hemoglobin 10.5 g/dL (12.0-18.0); pH ABG 7.339 (7.350-7.450)
[2020-10-06 05:30] LABS: Device VENTILATOR; Modified Allen's Test Unable to perform; PCO2 ABG 61.7 mmHg (35.0-45.0); Site Drawn LEFT RADIAL
[2020-10-06 05:31] LABS: Arterial Blood Gas Minute Volume 100 LPM; Arterial Blood Gas PEEP 5 cmH2O; Arterial Blood Gas Vent Mode ASV
[2020-10-06] MEDS: LEVOTHYROXINE SODIUM INJ 100 MCG/5 ML VIAL 112.5 MCG IV PUSH (06:18)
[2020-10-06] MEDS: DEXTROSE 5% 1,000 ML 1,000 ML 100 ML IVPB (06:18)
--- NOTE | 2020-10-06 06:31 | CONS_ITS ---
DATE OF CONSULTATION: 10/05/2020 REASON FOR CONSULTATION: Pseudomonas in wound. HISTORY OF PRESENT ILLNESS: A middle-aged female admitted September 14 to the emergency room with 2 days of fever, shortness of breath, recent antibiotic use with Augmentin. She is on home O2 and has a history of JOHNNY, heart failure, COPD. Here, she was found to have a positive coronavirus assay and was admitted. She has been given dexamethasone, remdesivir, and convalescent plasma, all have since after a full course. She remains on the ventilator. She has had several positive blood cultures as noted below, who has been given antibacterials accordingly. Consultation requested due to a positive wound culture for Pseudomonas. She does not have a chronic decubitus ulcer, but one did develop since arrival. Hospital course otherwise has been complicated by persistent respiratory failure, breakthrough fever with the blood cultures, multiple electrolyte abnormalities, heart failure, bradycardia, atrial flutter, hyperglycemia, melena, and abnormal liver function test. My further review of her chart indicates that she did have a decubitus ulcer present upon admission. She cannot provide any additional history. ALLERGIES: NONE KNOWN. PRESENT MEDICATIONS: No immunosuppressants at home. Her dexamethasone has been stopped. She has extensive list of home medications include minocycline, further details not available. HABITS: No tobacco, alcohol, or illicit drugs. PAST MEDICAL HISTORY: Morbid obesity, diabetic neuropathy, cervical cancer with implants, cholecystectomy, tonsillectomy, psoriasis, hypothyroidism, dyslipidemia, type 2 diabetes mellitus, AF, hypertension. FAMILY HISTORY: Not pertinent to present illness. SOCIAL HISTORY: Lives with a sister. She is . No children. Lives locally, disabled. REVIEW OF SYSTEMS: A 14-point review not obtainable from the patient due to intubated status. No sedation drips. PHYSICAL EXAMINATION: VITAL SIGNS: She was febrile on September 30 and up to 37.7 two days ago; otherwise, afebrile in the last 5 days. 76, 28, 148/66, 93%. SKIN: No generalized rash. Warm and dry. Due to massive obesity, intubated status. I was unable to view her decubitus ulcer. I did review the nursing notes regarding skin care NODES: No cervical adenopathy. EENT: Conjunctivae are clear. Oral mucosa is normal though exam limited by ET tube. NECK: No masses. Obese. LUNGS: Wheezing on the left, otherwise clear to auscultation and percussion. CARDIAC: Distant S1, S2. Tachycardic. No murmurs. ABDOMEN: Massively obese. No distention noted and she has rare bowel sounds. EXTREMITIES: No clubbing, cyanosis, or edema. : Baeza catheter in place. Draining clear yellow urine. LABORATORY DATA: Wound culture with Pseudomonas. Blood cultures at the time she was febrile last week, grew Morganella, Serratia, total of 3 sets drawn over the course of 13 hours into the . The Pseudomonas from the wound were relatively susceptible. Repeat blood cultures from the , no growth after 3 days incubation. Her white blood cell count has been high at all times during this admission other than the first 2 days, currently 21.9, hemoglobin 8.3, platelets are 249. Blood gas 7.36, 59, 76, noted ventilator setting. She has hyponatremia, CO2 over 40, BUN 64, creatinine 1.1. Accu-Cheks widely variable. Transaminases 2-3 times normal. Elevated alkaline phosphatase. Albumin 2.9. RADIOLOGY: Chest x-ray with bilateral infiltrates, moderate to severe amount stable. ASSESSMENT: 1. Chronic decubitus ulcer with Pseudomonas in the wound. 2. Morbid obesity. 3. Respiratory failure. 4. Viral pneumonia due to coronavirus, no active viral replication is bravo
[2020-10-06 06:59] LABS: Glucose Point of Care 74 (65-105)
[2020-10-06] MEDS: CENTRAL LINE FLUSH 10 ML IV PUSH ×3 (07:02→21:49)
[2020-10-06] MEDS: DEXTROSE 10% 1,000 ML 30 ML IV CONT (07:52)
[2020-10-06] MEDS: PANTOPRAZOLE SODIUM IV 40 MG VIAL IV PUSH ×2 (08:02→21:48)
[2020-10-06] MEDS: TOLNAFTATE 1% POWDER 45 GM BTL 1 APPLIC TOPICAL ×2 (08:02→21:48)
[2020-10-06] MEDS: SOD HYPOCHLORITE 1/4 STRENGTH 473 ML 1 APPLIC TOPICAL (08:02)
[2020-10-06] MEDS: ALBUTEROL SULFATE NEB 2.5 MG/0.5 ML INH INHALATION ×3 (09:16→21:20)
[2020-10-06 10:17] LABS: Glucose Point of Care 77 (65-105)
[2020-10-06] MEDS: PROPOFOL IV EMULSION 100 ML 5 MG (11:00)
[2020-10-06] MEDS: PROPOFOL IV EMULSION 200 MG/20 ML VIAL (11:00)
--- NOTE | 2020-10-06 11:27 | PCDIET ---
ICU Rounding Note: Tube feedings held with NPO for PEG placement. Last recorded weight is 199.5kg which is stable with last review. Bowel Motility: BM x 1 today. Labs Reviewed: Hgb (8.3), Hct (28.4), BUN (59), Na (136) Meds Noted: Albuterol, Pulmicort, Hydralazine, Synthroid, Levophed, Protonix Additional Notes: Integumentary notes reviewed; coccyx pressure ulcer noted. Following daily in ICU rounds. Assessing/reassessing every Sunday/Sunday.
--- NOTE | 2020-10-06 11:31 | PM.OP ---
Procedure Note - Brief Procedure Note - Brief Date of procedure: 10/06/20 Pre-op diagnosis: CHF acute exacerbation, COPD exacerbation ventilator dependent, nutritional support Procedure performed: EGD with PEG placement Description of procedure: Informed consent obtained from power of radiology transcriptionist risks benefits alternatives indications are discussed agreed to the risks include but are not limited to adverse reaction to medications including allergies. Risk of bleeding possible need for transfusion. Risk perforation possible need for surgery. Risks for missed pathology. Agree to proceed. Patient is sedated with in hand frame surgical elastic knitter giving propofol. [employer] video endoscope. Instrument passes the esophagus which appears normal squamocolumnar junction intact at 40cm. Stomach is seen in its entirety including U-turn is normal. Duodenum reveals normal bulb and sweep to 2nd portion. Area of maximal finger indentation is identified midepigastric area. In this area 1% lidocaine anesthesia is injected. Guidewire passed through the abdominal wall visualized within the body of the stomach. Withdrawn via the endoscope. Over this 20 gauge gastrostomy tube is placed without difficulty. Surgeon: John Paul Nash MD Findings: Normal EGD PEG placed. Plan is to start tube feedings in 4-5 hours. A slow rate. Advanced the morning. Frequent cleansing the G-tube site encourage.
--- NOTE | 2020-10-06 12:13 | OP_ITS ---
DATE OF PROCEDURE: 10/06/2020 PROCEDURE: Esophagogastroduodenoscopy with percutaneous endoscopic gastrostomy placement. PREOPERATIVE DIAGNOSIS: Ventilator-dependent nutritional support. POSTOPERATIVE DIAGNOSIS: Unremarkable esophagogastroduodenoscopy with PEG placement. DESCRIPTION OF PROCEDURE: Informed consent was obtained. Power of tax attorney. The risks benefits alternatives, indications discussed and agreed to the risks include, but are not limited to, adverse reaction to medications including allergies. Risk of bleeding, possible need for transfusion, risk of perforation, possible need for surgery, and the risk for missed pathology. They voiced clear understanding, agreed to proceed. The patient is sedated with propofol given by the tan room supervisor. INSTRUMENT: [employer] video endoscope. FINDINGS: The esophagus appeared normal. Squamocolumnar junction intact at 40 cm. Stomach is seen in its entirety including U-turn is normal. The duodenum reveals normal bulb sweep to 2nd portion. After this, the maximal area of finger indentation identified in the mid epigastric area of the abdomen. In this area, 1% lidocaine anesthesia is used. Needle is passed through the stomach wall visualized within the body of the stomach. Guidewire passed through the needle and withdrawn endoscopically. Over this, a 20-gauge PEG tube is placed without difficulty followed. PLAN: Plan is to start frequent cleansing of the G-tube site, start tube feedings in 4 hours at slow rate and advance slowly in the morning. D I MT: Donita
[2020-10-06 12:27] LABS: Glucose Point of Care 82 (65-105)
--- NOTE | 2020-10-06 13:38 | WPDINFPN2 ---
Progress Note: A&P Assessment and Plan (1) Decubitus ulcer of coccyx: Qualifiers: Pressure injury stage: unspecified pressure injury stage Qualified Code(s): L89.159 - Pressure ulcer of sacral region, unspecified stage Code(s): L89.159 - Pressure ulcer of sacral region, unspecified stage Status: Acute Assessment and Plan: 1. Decub ulcer, on therapy and stable 2. Recent polymicrobial septicemia, wound vs lung source 3. CoVid viral pneumonia, present on admission 09/14. Persistent abnormal CXR 4. Leukocytosis due to all of above 5. Morbid obesity REC Levofloxacin # 7/7 days. Local care. Subjective Date/time seen: 10/06/20 13:38 Interval history: examined from outside room to decrease risk of viral transmission Exam Narrative: Exam Narrative: afebrile. Intubated, no pressors Const: General: no acute distress Urinary Catheter: Urinary Catheter: patent and draining Skin: General skin exam: normal color and no rashes or lesions noted Objective Data Vital Signs Vital Signs: Vital Signs - 24 hr 10/05/20 14:00 10/05/20 14:27 10/05/20 14:37 Temperature Pulse Rate 75 70 72 Respiratory Rate 30 H 24 H 26 H Blood Pressure 134/72 Pulse Oximetry 97 97 10/05/20 16:00 10/05/20 17:00 10/05/20 18:00 Temperature Pulse Rate 74 74 75 Respiratory Rate 21 H 18 Blood Pressure 128/64 132/60 Pulse Oximetry 97 97 97 10/05/20 20:00 10/05/20 22:00 10/05/20 22:37 Temperature 37.3 C Pulse Rate 75 80 75 Respiratory Rate 18 16 18 Blood Pressure 132/70 134/70 Pulse Oximetry 97 97 10/05/20 22:43 10/05/20 22:44 10/06/20 00:00 Temperature 37.3 C Pulse Rate 78 79 82 Respiratory Rate 19 27 H Blood Pressure 145/73 H Pulse Oximetry 97 96 10/06/20 02:00 10/06/20 03:09 10/06/20 04:00 Temperature 36.7 C Pulse Rate 70 63 63 Respiratory Rate 14 12 17 Blood Pressure 122/61 107/53 L Pulse Oximetry 99 99 96 10/06/20 05:04 10/06/20 06:00 10/06/20 08:00 Temperature 36.3 C L Pulse Rate 69 65 69 Respiratory Rate 24 H 62 H Blood Pressure 114/67 124/106 H Pulse Oximetry 97 98 98 10/06/20 09:16 10/06/20 10:10 10/06/20 11:58 Temperature Pulse Rate 68 75 64 Respiratory Rate 19 Blood Pressure Pulse Oximetry 97 97 Intake/Output Intake/Output: Intake & Output 10/03/20 10/04/20 10/05/20 10/06/20 23:59 23:59 23:59 23:59 Intake Total 2353 1912 1797 447.9 Output Total 1600 2125 2605 800 Balance 753 -213 -808 -352.1 Meds/Results Medications: Active Medications Generic Name Dose Route Start Last Admin Trade Name Freq PRN Reason Stop Dose Admin Acetaminophen 650 mg 09/14/20 20:28 09/30/20 05:23 Acetaminophen 325 Mg Tablet PO 650 mg Q4H PRN Administration Fever Acetazolamide 250 mg 10/05/20 13:55 10/06/20 07:54 Acetazolamide Tab 250 Mg Tablet PO Not Given QAM DENISE Albuterol 2.5 mg 09/15/20 20:15 10/06/20 09:16 Albuterol Sulfate Neb 2.5 Mg/0.5 Ml Inh INHALATION 2.5 mg Q6HRT DENISE Administration Alteplase, Recombinant 2 mg 09/28/20 11:11 10/05/20 14:23 Alteplase 2 Mg Vial (Cathflo) IV PUSH 2 mg ONCE PRN Administration Line Occlusion Alteplase, Recombinant 2 mg 09/28/20 16:40 09/28/20 17:37 Alteplase 2 Mg Vial (Cathflo) IV PUSH 2 mg ONCE PRN Administration Line Occlusion Alteplase, Recombinant 2 mg 10/02/20 10:43 Alteplase 2 Mg Vial (Cathflo) IV PUSH ONCE PRN Line Occlusion Budesonide 0.5 mg 09/15/20 20:00 09/28/20 09:05 Budesonide Respule Neb 0.5 Mg/2 Ml Amp INHALATION 0.5 mg Q12HRT DENISE Administration Dextrose 12.5 gm 09/21/20 14:36 09/27/20 00:10 Dextrose 50% 25 Gm/50 Ml Syringe IV PUSH 12.5 gm PRN PRN Administration Hypoglycemia Protocol Enoxaparin Sodium 40 mg 10/02/20 09:00 10/05/20 08:13 Enoxaparin 40 Mg/0.4 Ml Syringe SUB-Q 40 mg DAILY DENISE Administration Glucagon 1 mg 09/21/20 14:36 Glucagon For In
--- NOTE | 2020-10-06 13:59 | WPDINTPN ---
Progress Note: A&P Assessment and Plan (1) Sepsis: Qualifiers: Severe sepsis acute organ dysfunction type: acute respiratory failure Code(s): A41.9 - Sepsis, unspecified organism Status: Acute Assessment and Plan: Severe sepsis because of urine tract infection, bacteremia and wound infection at the decubitus ulcer - Sputum from 09/24 grew Serratia marcescens and morganella sensitive to cefepime - Culture from the coccyx wound is growing Pseudomonas aeruginosa, pansensitive. - Repeat blood culture 10/02 no growth x2 - Continue levofloxacin for infectious disease (2) ARDS (adult respiratory distress syndrome): Code(s): J80 - Acute respiratory distress syndrome Status: Acute Assessment and Plan: Intubated on 09/15. -continue ASV mode of ventilation, peep of 5, 40% FiO2 -off all sedation, patient opens her eyes but does not follow commands -just with sister who is the POA, agreeable to trach and PEG -PEG tube to be placed today on 10/06/2020 (3) Congestive heart failure: Qualifiers: Heart failure chronicity: acute on chronic Heart failure type: diastolic Qualified Code(s): I50.33 - Acute on chronic diastolic (congestive) heart failure Code(s): I50.9 - Heart failure, unspecified Status: Acute Assessment and Plan: Patient being diuresed with Diamox as she has contraction alkalosis (4) Chronic respiratory failure with hypoxia and hypercapnia: Code(s): J96.11 - Chronic respiratory failure with hypoxia; J96.12 - Chronic respiratory failure with hypercapnia Status: Acute Assessment and Plan: Patient will require tracheostomy (5) Decubitus ulcer of coccyx: Qualifiers: Pressure injury stage: unspecified pressure injury stage Qualified Code(s): L89.159 - Pressure ulcer of sacral region, unspecified stage Code(s): L89.159 - Pressure ulcer of sacral region, unspecified stage Status: Acute Assessment and Plan: Local wound care as per nursing. Cultures from the wound is growing Pseudomonas aeruginosa, pansensitive. Continue antibiotics as above. (6) Atrial fibrillation: Qualifiers: Atrial fibrillation type: unspecified chronic Qualified Code(s): I48.20 - Chronic atrial fibrillation, unspecified Code(s): I48.91 - Unspecified atrial fibrillation Status: Chronic Assessment and Plan: Currently heart rate is in 60s. Pradaxa has been on hold because of GI bleeding. -will require to restart Pradaxa at some point (7) COVID-19: Code(s): U07.1 - COVID-19 Status: Acute Assessment and Plan: Completed dexamethasone and remdisivir. Received convalescent plasma on 09/18. (8) DM2 (diabetes mellitus, type 2): Qualifiers: Diabetes mellitus pharmacy operations specialist insulin use: without fci use Diabetes mellitus complication status: with hyperglycemia Qualified Code(s): E11.65 - Type 2 diabetes mellitus with hyperglycemia Code(s): E11.9 - Type 2 diabetes mellitus without complications Status: Chronic Assessment and Plan: Patient hyperglycemic, continue sliding scale insulin Accu-Cheks -continue Levemir Additional Plan Discussed with Carmella, patient's sister does the POA and explained to her and updated her with patient's condition and plan of care. DVT prophylaxis with subcu Lovenox. Hold home Pradaxa because of blood in the stool which has subsided now. GI prophylaxis with pantoprazole Code status: Full code Critical care time spent: 33 minutes Due to a high probability of clinically significant, life threatening deterioration, the patient required my highest level of preparedness to intervene emergently and I personally spent this critical care time directly and personally managing the patient. This critical care time included obtaining a history; examining the patient; pulse oximetry; ordering and review of
[2020-10-06 18:10] LABS: Glucose Point of Care 91 (65-105)
[2020-10-06 22:00] LABS: Glucose Point of Care 110 (65-105)
[2020-10-07] VITALS (23 sets, daily range): BP systolic 100–134; BP diastolic 47–74; PULSE 50–90; RESP 10–24; TEMP 36.3–37.1; O2SAT 92–100
[2020-10-07 00:33] LABS: Glucose Point of Care 160 (65-105)
[2020-10-07] MEDS: ALBUTEROL SULFATE NEB 2.5 MG/0.5 ML INH INHALATION ×4 (03:34→20:05)
[2020-10-07 05:00] LABS: Hematocrit 28.1 % (37.0-47.0); Hemoglobin 8.1 g/dL (12.0-15.0); Mean Corpuscular HGB Conc 28.8 g/dl (32-36); Mean Corpuscular Hemoglobin 27.6 pg (26-34); Mean Corpuscular Volume 95.6 fl (80-100); Mean Platelet Volume 10.1 fl (7.4-10.4); Platelet Count Result 221 k/mm3 (150-375); Red Blood Count 2.94 M/mm3 (4.2-5.4); Red Cell Distribution Width 19.1 % (11.5-14.5); White Blood Count 14.8 K/mm3 (4.5-10.0)
[2020-10-07 05:14] LABS: Anion Gap 2 mmol/L (8-16); Blood Urea Nitrogen 52 mg/dL (7-17); Carbon Dioxide 36 mmol/L (22-30); Chloride 97 mmol/L (98-107); Estimated CRCL calculation 89 ml/min; Estimated Glomerular Filt Rate 52; Glucose 211 mg/dL (65-105); Magnesium 2.7 mg/dL (1.6-2.3); Phosphorus 4.3 mg/dL (2.5-4.5); Potassium 4.4 mmol/L (3.4-5.0); Sodium 135 mmol/L (137-145)
[2020-10-07 05:54] LABS: Alveolar/Arterial O2 Gradient 144.9 mmHg; Base Excess ABG 4.6 mEq/l (+/-2.0); Carboxyhemoglobin 0.2 % THb (0-2.0); Fractional Inspired Oxygen 40 %; HCO3 ABG 31.7 mEq/l (22.0-26.0); Methemoglobin ABG 0.1 %THb (0-1.5); Oxygen Content ABG 12.5 %vol (16.0-22.0); Oxygen Saturation ABG 92.2 % (95.0-100.0); Oxyhemoglobin 92.1 % THb (90.0-100.0); PO2 ABG 69.3 mmHg (80.0-100.0); PO2 FiO2 Ratio Arterial Blood 1.73 %; Reduced Hemoglobin 7.6 %THb (0-5.0); Total Hemoglobin 9.6 g/dL (12.0-18.0); pH ABG 7.328 (7.350-7.450)
[2020-10-07 05:56] LABS: Modified Allen's Test Pass; PCO2 ABG 61.7 mmHg (35.0-45.0); Site Drawn RIGHT RADIAL
[2020-10-07 05:57] LABS: Arterial Blood Gas PEEP 5 cmH2O; Arterial Blood Gas Vent Mode ASV; Device VENTILATOR
--- NOTE | 2020-10-07 08:28 | WPDGIPROGNO ---
Progress Note: A&P Assessment and Plan (1) PEG (percutaneous endoscopic gastrostomy) status: Code(s): Z93.1 - Gastrostomy status Status: Acute Assessment and Plan: Peg tube functioning adequately. Plan to increase tube feeding rate to60cc an hour. Continue local care to PEG site. (2) Ventilator dependent: Code(s): Z99.11 - Dependence on respirator [ventilator] status Status: Acute (3) COVID-19: Code(s): U07.1 - COVID-19 Status: Acute (4) Atrial flutter: Code(s): I48.92 - Unspecified atrial flutter Status: Acute Subjective Date/time seen: 10/07/20 08:28 Patient remains on the ventilator. Unable to eat at any useful history. Reported to tolerate tube feedings via PEG tube without difficulty. Review of Systems Review of Systems: ROS unobtainable: Yes unobtainable due to endotracheal tube and unobtainable due to mental status Objective Data Vital Signs Vital Signs: Vital Signs - 24 hr 10/06/20 09:16 10/06/20 10:00 10/06/20 10:10 Temperature Pulse Rate 68 80 75 Respiratory Rate 19 Blood Pressure Pulse Oximetry 97 10/06/20 11:00 10/06/20 11:30 10/06/20 11:58 Temperature Pulse Rate 72 65 64 Respiratory Rate 30 H 25 H Blood Pressure Pulse Oximetry 97 10/06/20 12:00 10/06/20 14:00 10/06/20 15:06 Temperature Pulse Rate 80 79 70 Respiratory Rate 16 Blood Pressure Pulse Oximetry 10/06/20 15:13 10/06/20 15:18 10/06/20 16:00 Temperature Pulse Rate 82 80 79 Respiratory Rate 16 Blood Pressure Pulse Oximetry 97 10/06/20 17:09 10/06/20 18:00 10/06/20 20:00 Temperature 98.8 F Pulse Rate 83 64 74 Respiratory Rate 21 H Blood Pressure 98/59 L Pulse Oximetry 94 98 10/06/20 21:21 10/06/20 21:28 10/06/20 22:00 Temperature Pulse Rate 84 84 88 Respiratory Rate 19 17 16 Blood Pressure 127/76 Pulse Oximetry 98 97 10/06/20 23:00 10/07/20 00:00 10/07/20 02:00 Temperature 98.2 F Pulse Rate 84 90 72 Respiratory Rate 20 22 H Blood Pressure 134/74 100/55 L Pulse Oximetry 98 96 99 10/07/20 03:34 10/07/20 03:42 10/07/20 04:00 Temperature 97.9 F Pulse Rate 70 70 69 Respiratory Rate 11 L 12 23 H Blood Pressure 102/59 L Pulse Oximetry 99 99 10/07/20 05:43 10/07/20 06:00 Temperature Pulse Rate 70 64 Respiratory Rate 24 H Blood Pressure 123/51 L Pulse Oximetry 97 97 Intake/Output Intake/Output: Intake & Output 10/04/20 10/05/20 10/06/20 10/07/20 23:59 23:59 23:59 23:59 Intake Total 1912 1797 785.2 445 Output Total 5063 8215 1650 [address] [facility] -213 -808 -864.8 -130 Meds/Results Medications: Active Medications Generic Name Dose Route Start Last Admin Trade Name Freq PRN Reason Stop Dose Admin Acetaminophen 650 mg 09/14/20 20:28 09/30/20 05:23 Acetaminophen 325 Mg Tablet PO 650 mg Q4H PRN Administration Fever Acetazolamide 250 mg 10/05/20 13:55 10/06/20 07:54 Acetazolamide Tab 250 Mg Tablet PO Not Given QAM DENISE Albuterol 2.5 mg 09/15/20 20:15 10/07/20 03:34 Albuterol Sulfate Neb 2.5 Mg/0.5 Ml Inh INHALATION 2.5 mg Q6HRT DENISE Administration Alteplase, Recombinant 2 mg 09/28/20 11:11 10/05/20 14:23 Alteplase 2 Mg Vial (Cathflo) IV PUSH 2 mg ONCE PRN Administration Line Occlusion Alteplase, Recombinant 2 mg 09/28/20 16:40 09/28/20 17:37 Alteplase 2 Mg Vial (Cathflo) IV PUSH 2 mg ONCE PRN Administration Line Occlusion Alteplase, Recombinant 2 mg 10/02/20 10:43 Alteplase 2 Mg Vial (Cathflo) IV PUSH ONCE PRN Line Occlusion Budesonide 0.5 mg 09/15/20 20:00 09/28/20 09:05 Budesonide Respule Neb 0.5 Mg/2 Ml Amp INHALATION 0.5 mg Q12HRT DENISE Administration Dextrose 12.5 gm 09/21/20 14:36 09/27/20 00:10 Dextrose 50% 25 Gm/50 Ml Syringe IV PUSH 12.5 gm PRN PRN Administration Hypoglycemia Protocol Enoxaparin Sodium 40 mg 10/02/20 09:0
[2020-10-07] MEDS: PANTOPRAZOLE SODIUM IV 40 MG VIAL IV PUSH ×2 (08:43→21:01)
[2020-10-07] MEDS: TOLNAFTATE 1% POWDER 45 GM BTL 1 APPLIC TOPICAL ×2 (08:44→21:01)
[2020-10-07] MEDS: SOD HYPOCHLORITE 1/4 STRENGTH 473 ML 1 APPLIC TOPICAL (08:44)
[2020-10-07] MEDS: CENTRAL LINE FLUSH 10 ML IV PUSH ×3 (08:44→21:06)
--- NOTE | 2020-10-07 09:30 | WPDANESEPP ---
Anes - Eval Pre Procedure Procedure: Operation Date: 10/07/20 14:45 Proposed Procedures p Tracheostomy - Larry Alejandra MD Date/Time: 10/07/20 09:30 Pre Op Diagnosis: CHF acute exacerbation, COPD exacerbation Patient Data Age: 55 Gender: F Height: 1.57 m Weight: 196.9 kg Last Vital Signs Temp 36.6 C 10/07/20 08:00 Pulse 55 L 10/07/20 08:00 Resp 14 10/07/20 08:00 BP 109/52 L 10/07/20 08:00 Pulse Ox 97 10/07/20 08:00 Allergies Allergy/AdvReac Type Severity Reaction Status Date / Time No Known Allergies Allergy Verified 09/14/20 14:29 Home Medications Medication Instructions Recorded Confirmed Type atorvastatin 40 mg tablet 40 mg PO DAILY 09/10/19 09/15/20 History cyanocobalamin (vitamin B-12) 1,000 mcg PO DAILY 09/10/19 09/15/20 History 1,000 mcg tablet fluticasone propionate 50 1 spray NASAL DAILY 09/10/19 09/15/20 History mcg/actuation nasal spray,suspension furosemide 40 mg tablet 80 mg PO DAILY tablet 09/11/19 09/15/20 History enalapril maleate 20 mg tablet 20 mg PO DAILY #90 tablet 11/20/19 09/15/20 Rx levothyroxine 100 mcg tablet 100 mcg PO DAILY #90 tablet 11/20/19 09/15/20 Rx levothyroxine 125 mcg tablet 125 mcg PO DAILY #90 tablet 11/20/19 09/15/20 Rx glimepiride 4 mg tablet 8 mg PO QAM #180 tablet 01/06/20 09/15/20 Rx montelukast 10 mg tablet 10 mg PO DAILY 90 Days #90 tablet 01/13/20 09/15/20 Rx loratadine 10 mg tablet 10 mg PO DAILY 02/02/20 09/15/20 History metformin 500 mg tablet,extended 1,500 mg PO QPM #270 tablet 02/16/20 09/15/20 Rx release 24 hr fluticasone furoate 100 1 inhalation INHALATION DAILY 90 04/28/20 09/15/20 Rx mcg-vilanterol 25 mcg/dose Days #180 each inhalation powder diltiazem HCl 240 mg 240 mg PO DAILY #90 cap 05/14/20 09/15/20 Rx capsule,extended release 24 hr famotidine 20 mg tablet 20 mg PO BID #180 tablet 07/02/20 09/15/20 Rx albuterol sulfate 90 mcg/actuation 2 inhalation INHALATION Q4-6H PRN 07/09/20 09/15/20 Rx aerosol inhaler 90 Days #25.5 gm hydrocodone 5 mg-acetaminophen 325 1 tablet PO TID PRN #90 tablet 08/20/20 09/15/20 Rx mg tablet pregabalin 150 mg capsule 150 mg PO BID #180 cap 08/24/20 09/15/20 Rx ezetimibe 10 mg tablet 10 mg PO DAILY #90 tablet 08/27/20 09/15/20 Rx amoxicillin 875 mg-potassium 1 tablet PO BID #14 tablet 09/09/20 09/15/20 Rx clavulanate 125 mg tablet dabigatran etexilate [Pradaxa] 150 mg PO BID 09/15/20 09/15/20 History minocycline 100 mg PO Q12H PRN 09/15/20 09/15/20 History olopatadine 1 drop EACH EYE DAILY PRN 09/15/20 09/15/20 History Laboratory Tests 10/06/20 10/06/20 10/06/20 10:10 12:23 18:06 WBC RBC Hgb Hct MCV MCH MCHC RDW Plt Count MPV Puncture Site ABG pH ABG pCO2 ABG pO2 ABG PO2/FiO2 Ratio ABG HCO3 ABG O2 Saturation ABG O2 Content ABG Base Excess A-a Gradient Oxyhemoglobin Carboxyhemoglobin Methemoglobin Reduced Hemoglobin Total Hemoglobin O2 Delivery Device O2 Liters/Min Minute Volume Vent Rate Vent Mode FiO2 Tidal Volume PEEP Peak Inspir Pressure Pressure Support Sodium Potassium Chloride Carbon Dioxide Anion Gap BUN Creatinine Estim Creat Clear Calc Estimated GFR Glucose POC Capillary Glucose 77 mg/dl mg/dl 82 mg/dl mg/dl 91 mg/dl mg/dl (65-105) (65-105) (65-105) Calcium Phosphorus Magnesium 10/06/20 10/07/20 10/07/20 21:46 00:19 04:49 WBC 14.8 K/mm3 H K/mm3
--- NOTE | 2020-10-07 09:53 | PM.PNPUL ---
Progress Note: A&P Assessment and Plan (1) JOHNNY (obstructive sleep apnea): Code(s): G47.33 - Obstructive sleep apnea (adult) (pediatric) Status: Acute (2) Mixed restrictive and obstructive lung disease: Code(s): J43.9 - Emphysema, unspecified; J98.4 - Other disorders of lung Status: Acute (3) Ventilator dependent: Code(s): Z99.11 - Dependence on respirator [ventilator] status Status: Acute Assessment and Plan: Awaiting tracheostomy and weaning (4) COVID-19: Code(s): U07.1 - COVID-19 Status: Acute Assessment and Plan: May need a negative SARS-CoV-2 RT PCR for transfer to LTAC (5) Morbid obesity with BMI of 70 and over, adult: Code(s): E66.01 - Morbid (severe) obesity due to excess calories; Z68.45 - Body mass index [BMI] 70 or greater, adult Status: Acute (6) Congestive heart failure: Qualifiers: Heart failure chronicity: acute on chronic Heart failure type: diastolic Qualified Code(s): I50.33 - Acute on chronic diastolic (congestive) heart failure Code(s): I50.9 - Heart failure, unspecified Status: Acute Assessment and Plan: appears euvolomeic Subjective Date/time seen: 10/07/20 09:53 Interval history: Intubated on minimal vent settings. PEG yesterday. Awaiting trach and transfer to LTAC. May need to have negative SARS CoV-2 RT PCR to transfer depending on accepting facility Review of Systems Review of Systems: All systems reviewed & are unremarkable except as noted in HPI and below Exam Narrative: Exam Narrative: intubated, sedated and mechanically ventilated. HENMT: Other: ETT in place moist oral membranes Chest: Chest palpation & inspection: normal inspection of the chest Resp: Auscultation: diminished lung sounds Cardio: Rhythm: regular rhythm GI: Other: morbidly obese : Other: Baeza catheter in place Skin: Other: areas of dry skin on her lower extremities noted Neuro: Other: patient is sedated and intubated. Does not open her eyes or follow simple commands. Psych: Other: unable to assess at this time Objective Data Vital Signs Vital Signs: Vital Signs - 24 hr 10/06/20 10:00 10/06/20 10:10 10/06/20 11:00 Temperature Pulse Rate 80 75 72 Respiratory Rate 30 H Blood Pressure Pulse Oximetry 97 10/06/20 11:30 10/06/20 11:58 10/06/20 12:00 Temperature Pulse Rate 65 64 80 Respiratory Rate 25 H Blood Pressure Pulse Oximetry 97 10/06/20 14:00 10/06/20 15:06 10/06/20 15:13 Temperature Pulse Rate 79 70 82 Respiratory Rate 16 Blood Pressure Pulse Oximetry 97 10/06/20 15:18 10/06/20 16:00 10/06/20 17:09 Temperature Pulse Rate 80 79 83 Respiratory Rate 16 Blood Pressure Pulse Oximetry 94 10/06/20 18:00 10/06/20 20:00 10/06/20 21:21 Temperature 37.1 C Pulse Rate 64 74 84 Respiratory Rate 21 H 19 Blood Pressure 98/59 L Pulse Oximetry 98 98 10/06/20 21:28 10/06/20 22:00 10/06/20 23:00 Temperature Pulse Rate 84 88 84 Respiratory Rate 17 16 Blood Pressure 127/76 Pulse Oximetry 97 98 10/07/20 00:00 10/07/20 02:00 10/07/20 03:34 Temperature 36.8 C Pulse Rate 90 72 70 Respiratory Rate 20 22 H 11 L Blood Pressure 134/74 100/55 L Pulse Oximetry 96 99 99 10/07/20 03:42 10/07/20 04:00 10/07/20 05:43 Temperature 36.6 C Pulse Rate 70 69 70 Respiratory Rate 12 23 H Blood Pressure 102/59 L Pulse Oximetry 99 97 10/07/20 06:00 10/07/20 08:00 Temperature 36.6 C Pulse Rate 64 55 L Respiratory Rate 24 H 14 Blood Pressure 123/51 L 109/52 L Pulse Oximetry 97 97 Intake/Output Intake/Output: Intake & Output 10/04/20 10/05/20 10/06/20 10/07/20 23:59 23:59 23:59 23:59 Intake Total 1912 1797 785.2 445 Output Total 9753 3675 1650 575 [facility] -213 -808 -864.8 -130 Meds/Results Medications: Active Medications Generic Name Dose Route Start Last Admin Trade Nam
--- NOTE | 2020-10-07 11:40 | PCDIET ---
Nutrition Note: Patient tolerating Jevity 1.2 at 30mL/hr with 30mL water flush every 4 hours via PEG. Goal rate ordered at 60mL/hr. Recommend resuming Pro-Stat flushes TID. If blood sugars remain elevated, recommend change to Glucerna 1.2 at 60mL/hr. Last recorded weight is 196.9 kg which is down from last review. -I/O. Bowel Motility: Last documented BM on 10/06/20. Labs Reviewed: Hgb (8.1), Hct (28.1), Glu (211), BUN (52), Cr (1.1), Na (135) Meds Noted: Albuterol, Pulmicort, Precedex, Hydralazine, Novolog, Levemir, Synthroid, Levophed, Protonix Additional Notes: No documented change in skin. Patient still with coccyx ulcer.
--- NOTE | 2020-10-07 12:51 | WPDCN ---
Assessment and Plan Assessment and plan (1) Respiratory failure: Code(s): J96.90 - Respiratory failure, unspecified, unspecified whether with hypoxia or hypercapnia Status: Acute Assessment and Plan: Plan is for the OR for tracheostomy. Please obtain consent from the patient's POA. Please hold anticoagulation. (2) ARDS (adult respiratory distress syndrome): Code(s): J80 - Acute respiratory distress syndrome Status: Acute HPI Data of Consult Date/Time: 10/07/20 12:51 Requesting Physician: Kirill Hdz MD Primary Care Provider: Tahmina Coyle MD Consult Narrative Narrative: Dai Jacob is a 55 year old female With past medical history significant for ARDS as well as respiratory failure. I have been consulted for placement of tracheostomy. Review of Systems Review of Systems: ROS unobtainable: Yes unobtainable due to endotracheal tube PMFSH Past Medical History Medical History (Updated 10/07/20 @ 12:54 by Larry Alejandra MD) Abnormal gait Atrial fibrillation Benign hypertension Bilateral leg weakness Bilateral wrist pain Blood in stool Bronchospasm Congestive heart failure COVID-19 Decubitus ulcer of coccyx DM2 (diabetes mellitus, type 2) Encounter for general adult medical examination w/o abnormal findings History of cervical cancer HISTORY OF CISIUM IMPLANT Hyperlipidemia Hyperlipidemia LDL goal <100 Hypertriglyceridemia Hypothyroidism Hypothyroidism determined by thyroid function test Hypoxemia Idiopathic peripheral autonomic neuropathy (06/26/19) Left shoulder pain Mixed restrictive and obstructive lung disease Morbid obesity Morbid obesity with BMI of 70 and over, adult JOHNNY (obstructive sleep apnea) Peripheral neuropathy Psoriasis Recurrent falls while walking Screening for malignant neoplasm of colon Septicemia Type 2 diabetes, controlled, with neuropathy Ventilator dependent Surgical History Surgical History (Updated 10/07/20 @ 09:32 by Radha Trevino CRNA) History of cholecystectomy History of tonsillectomy PEG (percutaneous endoscopic gastrostomy) status Family History Family History Father Acute myocardial infarction Mother Family history of malignant neoplasm of cervix Other Diabetes mellitus Family history of coronary artery disease Hypertension Social History Social History (Updated 09/14/20 @ 21:50 by Marielena Gallagher NP) Social History: THE PATIENT LIVES WITH HER SISTER. SHE HAS NEVER HAD ANY CHILDREN. THE PATIENT STATED THAT HER WHEN SHE WAS 22 YEARS OLD AND NEVER REMARRIED. THE PATIENT IS ON DISABILITY. SHE DENIES ANY TOBACCO ABUSE. NO ALCOHOL MARIJUANA OR ILLICIT DRUGS. 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 SHE DESIRES TO BE A FULL CODE. Smoking status: Never smoker Second hand tobacco smoke exposure: No Alcohol intake: never Substance use: never Gender identity (if verbalized by the patient): Female Spiritual care concerns: No Meds Home Medications and Allergies Home Medications Medication Instructions Recorded Confirmed Type atorvastatin 40 mg tablet 40 mg PO DAILY 09/10/19 09/15/20 History cyanocobalamin (vitamin B-12) 1,000 mcg PO DAILY 09/10/19 09/15/20 History 1,000 mcg tablet fluticasone propionate 50 1 spray NASAL DAILY 09/10/19 09/15/20 History mcg/actuation nasal spray,suspension furosemide 40 mg tablet 80 mg PO DAILY tablet 09/11/19 09/15/20 History enalapril maleate 20 mg tablet 20 mg PO DAILY #90 tablet 11/20/19 09/15/20 Rx levothyroxine 100 mcg tablet 100 mcg PO DAILY #90 tablet 11/20/19 09/15/20 Rx levothyroxine 125 mcg tablet 125 mcg PO DAILY #90 tablet 11/20/19 09/15/20 Rx glimepiride 4 mg tablet 8 mg PO QAM #180 tablet 01/06/20 09/15/20 Rx montelukast 10 mg tablet 10 mg PO DAILY 90 Days #90 tablet 01/13/20 09/15/20 Rx loratadine 10 mg tablet 10 mg PO DAILY
--- NOTE | 2020-10-07 13:05 | PC.NURSE ---
Tube feed and flushes held since 0600 this morning for potential tracheostomy with Dr. Alejandra this afternoon. Lovenox and PO meds held as well. Consent to be obtained from POA
--- NOTE | 2020-10-07 14:32 | WPDINFPN2 ---
Progress Note: A&P Assessment and Plan (1) Decubitus ulcer of coccyx: Qualifiers: Pressure injury stage: unspecified pressure injury stage Qualified Code(s): L89.159 - Pressure ulcer of sacral region, unspecified stage Code(s): L89.159 - Pressure ulcer of sacral region, unspecified stage Status: Acute Assessment and Plan: 1. Decub ulcer, on therapy and stable 2. Recent polymicrobial septicemia, wound vs lung source. microbiologic cure 3. CoVid viral pneumonia, present on admission 09/14. Persistent abnormal CXR 4. Leukocytosis due to all of above, almost back to normal 5. Morbid obesity REC Levofloxacin #8 , stop and follow. Local care. Subjective Date/time seen: 10/07/20 14:32 Interval history: on vent, no pressors Exam Narrative: Exam Narrative: afebrile Const: General: no acute distress Resp: Effort & Inspection: normal respiratory effort Auscultation: rhonchi Cardio: Rate: regular rate Rhythm: regular rhythm GI: Inspection: non-distended GI Palp: Yes Soft to palpation and No Tenderness to palpation present (GI) Skin: General skin exam: normal color and no rashes or lesions noted Objective Data Vital Signs Vital Signs: Vital Signs - 24 hr 10/06/20 15:06 10/06/20 15:13 10/06/20 15:18 Temperature Pulse Rate 70 82 80 Respiratory Rate 16 16 Blood Pressure Pulse Oximetry 97 10/06/20 16:00 10/06/20 17:09 10/06/20 18:00 Temperature Pulse Rate 79 83 64 Respiratory Rate Blood Pressure Pulse Oximetry 94 10/06/20 20:00 10/06/20 21:21 10/06/20 21:28 Temperature 37.1 C Pulse Rate 74 84 84 Respiratory Rate 21 H 19 17 Blood Pressure 98/59 L Pulse Oximetry 98 98 10/06/20 22:00 10/06/20 23:00 10/07/20 00:00 Temperature 36.8 C Pulse Rate 88 84 90 Respiratory Rate 16 20 Blood Pressure 127/76 134/74 Pulse Oximetry 97 98 96 10/07/20 02:00 10/07/20 03:34 10/07/20 03:42 Temperature Pulse Rate 72 70 70 Respiratory Rate 22 H 11 L 12 Blood Pressure 100/55 L Pulse Oximetry 99 99 10/07/20 04:00 10/07/20 05:43 10/07/20 06:00 Temperature 36.6 C Pulse Rate 69 70 64 Respiratory Rate 23 H 24 H Blood Pressure 102/59 L 123/51 L Pulse Oximetry 99 97 97 10/07/20 08:00 10/07/20 09:00 10/07/20 09:10 Temperature 36.6 C Pulse Rate 59 L 59 L 56 L Respiratory Rate 14 10 L 10 L Blood Pressure 109/52 L Pulse Oximetry 97 97 10/07/20 10:00 10/07/20 10:54 Temperature Pulse Rate 55 L 72 Respiratory Rate 14 Blood Pressure 105/56 L Pulse Oximetry 98 92 Intake/Output Intake/Output: Intake & Output 10/04/20 10/05/20 10/06/20 10/07/20 23:59 23:59 23:59 23:59 Intake Total 1912 1797 785.2 445 Output Total 2125 2605 1650 575 Balance -213 -808 -864.8 -130 Meds/Results Medications: Active Medications Generic Name Dose Route Start Last Admin Trade Name Freq PRN Reason Stop Dose Admin Acetaminophen 650 mg 09/14/20 20:28 09/30/20 05:23 Acetaminophen 325 Mg Tablet PO 650 mg Q4H PRN Administration Fever Acetazolamide 250 mg 10/05/20 13:55 10/07/20 09:48 Acetazolamide Tab 250 Mg Tablet PO Not Given QAM DENISE Albuterol 2.5 mg 09/15/20 20:15 10/07/20 13:50 Albuterol Sulfate Neb 2.5 Mg/0.5 Ml Inh INHALATION 2.5 mg Q6HRT DENISE Administration Alteplase, Recombinant 2 mg 09/28/20 11:11 10/05/20 14:23 Alteplase 2 Mg Vial (Cathflo) IV PUSH 2 mg ONCE PRN Administration Line Occlusion Alteplase, Recombinant 2 mg 09/28/20 16:40 09/28/20 17:37 Alteplase 2 Mg Vial (Cathflo) IV PUSH 2 mg ONCE PRN Administration Line Occlusion Alteplase, Recombinant 2 mg 10/02/20 10:43 Alteplase 2 Mg Vial (Cathflo) IV PUSH ONCE PRN Line Occlusion Budesonide 0.5 mg 09/15/20 20:00 09/28/20 09:05 Budesonide Respule Neb 0.5 Mg/2 Ml Amp INHALATION 0.5 mg Q12HRT DENISE Administration Dextrose 12.5 gm 09/21/20 14:36 09/27/20 00:10 Dextrose 50%
--- NOTE | 2020-10-07 14:46 | PM.IMHP ---
H&P: HPI History of Present Illness Date/Time: 10/07/20 14:46 Chief complaint: CHF acute exacerbation, COPD exacerbation Narrative: Dai Jacob is a 55 year old female with history of COVID-19, ARDS, and respiratory insufficiency/failure. I was consulted to place a tracheostomy. Review of Systems Review of Systems: ROS unobtainable: Yes unobtainable due to endotracheal tube PMFSH Past Medical History Medical History (Updated 10/07/20 @ 12:54 by Larry Alejandra MD) Abnormal gait Atrial fibrillation Benign hypertension Bilateral leg weakness Bilateral wrist pain Blood in stool Bronchospasm Congestive heart failure COVID-19 Decubitus ulcer of coccyx DM2 (diabetes mellitus, type 2) Encounter for general adult medical examination w/o abnormal findings History of cervical cancer HISTORY OF CISIUM IMPLANT Hyperlipidemia Hyperlipidemia LDL goal <100 Hypertriglyceridemia Hypothyroidism Hypothyroidism determined by thyroid function test Hypoxemia Idiopathic peripheral autonomic neuropathy (06/26/19) Left shoulder pain Mixed restrictive and obstructive lung disease Morbid obesity Morbid obesity with BMI of 70 and over, adult JOHNNY (obstructive sleep apnea) Peripheral neuropathy Psoriasis Recurrent falls while walking Screening for malignant neoplasm of colon Septicemia Type 2 diabetes, controlled, with neuropathy Ventilator dependent Surgical History Surgical History (Updated 10/07/20 @ 09:32 by Radha Trevino CRNA) History of cholecystectomy History of tonsillectomy PEG (percutaneous endoscopic gastrostomy) status Family History Family History Father Acute myocardial infarction Mother Family history of malignant neoplasm of cervix Other Diabetes mellitus Family history of coronary artery disease Hypertension Social History Social History (Updated 09/14/20 @ 21:50 by Marielena Gallagher NP) Social History: THE PATIENT LIVES WITH HER SISTER. SHE HAS NEVER HAD ANY CHILDREN. THE PATIENT STATED THAT HER WHEN SHE WAS 22 YEARS OLD AND NEVER REMARRIED. THE PATIENT IS ON DISABILITY. SHE DENIES ANY TOBACCO ABUSE. NO ALCOHOL MARIJUANA OR ILLICIT DRUGS. 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 SHE DESIRES TO BE A FULL CODE. Smoking status: Never smoker Second hand tobacco smoke exposure: No Alcohol intake: never Substance use: never Gender identity (if verbalized by the patient): Female Spiritual care concerns: No Meds Home Medications and Allergies Home Medications Medication Instructions Recorded Confirmed Type atorvastatin 40 mg tablet 40 mg PO DAILY 11/06/19 11/11/20 History cyanocobalamin (vitamin B-12) 1,000 mcg PO DAILY 09/10/19 09/15/20 History 1,000 mcg tablet fluticasone propionate 50 1 spray NASAL DAILY 09/10/19 09/15/20 History mcg/actuation nasal spray,suspension furosemide 40 mg tablet 80 mg PO DAILY tablet 09/11/19 09/15/20 History enalapril maleate 20 mg tablet 20 mg PO DAILY #90 tablet 11/20/19 09/15/20 Rx levothyroxine 100 mcg tablet 100 mcg PO DAILY #90 tablet 11/20/19 09/15/20 Rx levothyroxine 125 mcg tablet 125 mcg PO DAILY #90 tablet 11/20/19 09/15/20 Rx glimepiride 4 mg tablet 8 mg PO QAM #180 tablet 01/06/20 09/15/20 Rx montelukast 10 mg tablet 10 mg PO DAILY 90 Days #90 tablet 01/13/20 09/15/20 Rx loratadine 10 mg tablet 10 mg PO DAILY 02/02/20 09/15/20 History metformin 500 mg tablet,extended 1,500 mg PO QPM #270 tablet 02/16/20 09/15/20 Rx release 24 hr fluticasone furoate 100 1 inhalation INHALATION DAILY 90 04/28/20 09/15/20 Rx mcg-vilanterol 25 mcg/dose Days #180 each inhalation powder diltiazem HCl 240 mg 240 mg PO DAILY #90 cap 05/14/20 09/15/20 Rx capsule,extended release 24 hr famotidine 20 mg tablet 20 mg PO BID #180 tablet 07/02/20 09/15/20 Rx albuterol sulfate 90 mcg/actuation 2 inhalation INHALATION Q4-6H PRN 07/09/20 09/15/20 R
--- NOTE | 2020-10-07 14:48 | WPDHPUPDATE1 ---
History and Physical Update Update Date/Time: 10/07/20 14:48 History and Physical has been reviewed, including an updated exam of the patient. There are NO changes in the patient's condition. Risks, benefits, and alternatives have been discussed and questions answered. Patient agrees to proceed with procedure.
--- NOTE | 2020-10-07 14:57 | WPDANESEFPP ---
Anes - Eval Final PreProcedure Day of Procedure 10/07/20 14:57 Patient weight: super morbidly obese Heart: regular rate and rhythm Lungs: decreased breath sounds Neurological: unresponsive Last oral intake: >/= 8 hours ASA classification: V Emergent: no Anesthetic plan: proceed Anesthesia type and monitoring: general and standard monitoring Informed Consent: The patient's anesthetic plan and its attendant risks and benefits were discussed with the surgeon..
[2020-10-07] MEDS: LIDO 1%/EPINEPHRINE 1:100,000 20 ML VIAL 12 ML INFILTRATE (15:22)
--- NOTE | 2020-10-07 15:22 | SUR.OPER ---
procedure in bed. arrives with xiong arsh u/a 600ml in bag.
--- NOTE | 2020-10-07 15:53 | WPDINTPN ---
Progress Note: A&P Assessment and Plan (1) Sepsis: Qualifiers: Severe sepsis acute organ dysfunction type: acute respiratory failure Code(s): A41.9 - Sepsis, unspecified organism Status: Acute Assessment and Plan: Severe sepsis because of urine tract infection, bacteremia and wound infection at the decubitus ulcer - Sputum from 09/24 grew Serratia marcescens and morganella sensitive to cefepime - Culture from the coccyx wound is growing Pseudomonas aeruginosa, pansensitive. - Repeat blood culture 10/02 no growth x2 -status post 7 days of levofloxacin treatment which ended on 10/06/2020 (2) ARDS (adult respiratory distress syndrome): Code(s): J80 - Acute respiratory distress syndrome Status: Acute Assessment and Plan: Intubated on 09/15. -continue ASV mode of ventilation, peep of 5, 40% FiO2 -off all sedation, patient opens her eyes but does not follow commands -just with sister who is the POA, agreeable to trach and PEG -PEG tube to be placed today on 10/06/2020 -tracheostomy will be placed today on 10/07/2020 (3) Congestive heart failure: Qualifiers: Heart failure chronicity: acute on chronic Heart failure type: diastolic Qualified Code(s): I50.33 - Acute on chronic diastolic (congestive) heart failure Code(s): I50.9 - Heart failure, unspecified Status: Acute Assessment and Plan: Patient being diuresed with Diamox as she has contraction alkalosis (4) Chronic respiratory failure with hypoxia and hypercapnia: Code(s): J96.11 - Chronic respiratory failure with hypoxia; J96.12 - Chronic respiratory failure with hypercapnia Status: Acute Assessment and Plan: Patient be getting tracheostomy today and will be transferred to LTAC once she is accepted (5) Decubitus ulcer of coccyx: Qualifiers: Pressure injury stage: unspecified pressure injury stage Qualified Code(s): L89.159 - Pressure ulcer of sacral region, unspecified stage Code(s): L89.159 - Pressure ulcer of sacral region, unspecified stage Status: Acute Assessment and Plan: Local wound care as per nursing. Cultures from the wound is growing Pseudomonas aeruginosa, pansensitive. Status post 7 days of levofloxacin per infectious disease (6) Atrial fibrillation: Qualifiers: Atrial fibrillation type: unspecified chronic Qualified Code(s): I48.20 - Chronic atrial fibrillation, unspecified Code(s): I48.91 - Unspecified atrial fibrillation Status: Chronic Assessment and Plan: Currently heart rate is in 60s. Pradaxa has been on hold because of GI bleeding. -will require to restart Pradaxa at some point (7) COVID-19: Code(s): U07.1 - COVID-19 Status: Acute Assessment and Plan: Completed dexamethasone and remdisivir. Received convalescent plasma on 09/18. (8) DM2 (diabetes mellitus, type 2): Qualifiers: Diabetes mellitus snf insulin use: without snf use Diabetes mellitus complication status: with hyperglycemia Qualified Code(s): E11.65 - Type 2 diabetes mellitus with hyperglycemia Code(s): E11.9 - Type 2 diabetes mellitus without complications Status: Chronic Assessment and Plan: Patient hyperglycemic, continue sliding scale insulin Accu-Cheks -continue Levemir Additional Plan Discussed with Carmella, patient's sister does the POA and explained to her and updated her with patient's condition and plan of care. DVT prophylaxis with subcu Lovenox. Hold home Pradaxa because of blood in the stool which has subsided now. GI prophylaxis with pantoprazole Code status: Full code Critical care time spent: 33 minutes Due to a high probability of clinically significant, life threatening deterioration, the patient required my highest level of preparedness to intervene emergently and I personally spent this critical care time directly
--- NOTE | 2020-10-07 16:01 | PM.IMPN ---
Progress Note: A&P Assessment and Plan (1) Acute and chronic respiratory failure: Qualifiers: Respiratory failure complication: hypoxia and hypercapnia Qualified Code(s): J96.21 - Acute and chronic respiratory failure with hypoxia; J96.22 - Acute and chronic respiratory failure with hypercapnia Code(s): J96.20 - Acute and chronic respiratory failure, unspecified whether with hypoxia or hypercapnia Status: Acute Assessment and Plan: Patient is chronically on oxygen at 2 L which she increased to 4 L prior to admission. pH 7.31 with pCO2 63 on admission. She tested positive for COVID 09/14/20. [place] the reason for respiratory failure from COVID complicated by COPD, CHF, JOHNNY, and bacterail PNA. ABG worsened and BiPAP started without benefits. She was moved to ICU and intubated 09/15/20. She is at 40% FiO2 and PEEP 5. trach today. PEG place 10/06 Will need continued inpatient care due to persistent respiratory failure and COVID pneumonia (2) Pneumonia due to COVID-19 virus: Code(s): U07.1 - COVID-19; J12.89 - Other viral pneumonia Status: Acute Assessment and Plan: CXR from admission showing diffuse airspace disease related to COVID PNA/ARDS. Finished 10 d of Dexamethasone and finished Remdesivir. Convalescent plasma 09/18. Broad spectrum abx were started 09/15 but stopped 09/20. Sputum form 09/24 growing Serratia and 1 BCx from 09/25 also growing Serratia. 1 BCx 09/24 growing Morganella morganii so Cefepime restarted 09/26. Suspect bacteremia is from her coccyx wound but unclear why in sputum - seeded lung and/or VAP?. Pseudomonas from wound 09/28. Levaquin and Vanco added 09/30 (Vanco stopped 10/01). Fevers resolved. WBC up and down and currently elevated at 25K. Inflammatory markers better. Stopped broad spectrum abx 10/05 , continue albuterol nebulizer treatments and Pulmicort Respules. Continue supportive care (3) Electrolyte abnormality: Code(s): E87.8 - Other disorders of electrolyte and fluid balance, not elsewhere classified Status: Acute Assessment and Plan: Sodium low and potassium high still. Cortisol level okay. Potassium better . Treatment ordered. Follow closely. (4) Septicemia: Code(s): A41.9 - Sepsis, unspecified organism Status: Acute Assessment and Plan: Patient with septicemia with shock. BP became soft supervisor brake repair hours of 09/30 so Levophed started. Able to weaned off Levophed 10/01. Sputum form 09/24 growing Joyce and 1 BCx from 09/25 also growing Serratia. 1 BCx 09/24 growing Morganella morganii so Cefepime restarted 09/26 and stopped 10/05. Pseudomonas from wound 09/28. Repeat BCx NGTD. Suspect bacteremia is from her coccyx wound but not sure why serratia in lung unless VAP. stopped antibiotics 10/05. Continue to follow. (5) Decubitus ulcer of coccyx: Qualifiers: Pressure injury stage: unspecified pressure injury stage Qualified Code(s): L89.159 - Pressure ulcer of sacral region, unspecified stage Code(s): L89.159 - Pressure ulcer of sacral region, unspecified stage Status: Acute Assessment and Plan: Patient with a large decubitus ulcer present on admission. Will need debridement once more stable. Continue current wound care. Has a specialty bed. (6) Congestive heart failure: Qualifiers: Heart failure chronicity: acute on chronic Heart failure type: diastolic Qualified Code(s): I50.33 - Acute on chronic diastolic (congestive) heart failure Code(s): I50.9 - Heart failure, unspecified Status: Acute Assessment and Plan: Concern for diastolic CHF with CXR findings and BNP 1340 but no clinical evidence of fluid overload. Echo 09/16 showing EF 50-55% with poorly visualized LV; small to moderate pericardial effusion. Patient takes Lasix 80mg daily home. She initially had excellent UOP with negative fluid balance with Lasix. Las
--- NOTE | 2020-10-07 16:05 | SUR.OPER ---
Shiley Tracheostomy Tube XLT Cuffed 8.0 Inner Cannula 8.0XLTIN at head of patient bed and sent to unit.
--- NOTE | 2020-10-07 16:16 | SUR.OPER ---
to ICU Karol Vera SPINNING FRAME CHANGER, Lexi Aguilera SPINNING FRAME CHANGER, Caryn MORRISONA
--- NOTE | 2020-10-07 16:25 | P.OP_ITS ---
Procedure Note - Detailed Date of procedure: 10/07/20 Pre-op diagnosis: CHF acute exacerbation, COPD exacerbation Post-op diagnosis: same Procedure performed: Tracheostomy Description of procedure: The patient was correctly identified and consent was verified in her ICU room. The patient was then brought to the operating room and a time-out was performed. General anesthesia was deepened and the patient was prepped and draped and marked for the aforementioned procedure. A 15 blade was utilized to perform an approximately 5 cm incision 2 fingerbreadths above the clavicle. A subcutaneous lipectomy was performed using Bovie electric ca utery. Dissection was then performed using Bovie electrocautery as well as blunt dissection down to the thyroid isthmus. The thyroid isthmus was undermined with a hemostats and Bovie electrocautery was used to incise it. The trachea was then exposed. A cricoid hook was placed elevating the laryngeal framework into the operative field. Anesthesia was instructed to deflate the balloon and as a 15 blade was utilized to perform a tracheotomy. Trach assistant grocery store manager was then placed confirming an adequate tracheotomy. Anesthesia then removed their endotracheal tube into the tip was no longer visible in the operative field. An 8 cuffed distal XLT Shiley was then placed in the tracheotomy with end-tidal CO2 being confirmed. For trach sutures were placed and Velcro trach ties were placed. This marked end the procedure, I performed all dictated portions. Anesthesia: GLMA Surgeon: Larry Alejandra MD Estimated blood loss (mL): 5 Complications: No immediate complications Condition: stable Disposition: ICU
[2020-10-07] MEDS: CENTRAL LINE FLUSH 20 ML IV PUSH (21:02)
[2020-10-08] VITALS (26 sets, daily range): BP systolic 112–143; BP diastolic 50–76; PULSE 63–85; RESP 13–27; TEMP 36.8–37.7; O2SAT 98–100
[2020-10-08] MEDS: INSULIN ASPART (*BKC) 100 UNITS/ML SUB-Q ×4 (00:02→17:49)
[2020-10-08] MEDS: ACETAMINOPHEN 325 MG TABLET 650 MG PO ×2 (00:47→20:39)
[2020-10-08 01:14] LABS: Glucose Point of Care 223 (65-105)
[2020-10-08] MEDS: ALBUTEROL SULFATE NEB 2.5 MG/0.5 ML INH INHALATION ×4 (01:38→19:50)
[2020-10-08 04:20] LABS: Alveolar/Arterial O2 Gradient 240.4 mmHg; Base Excess ABG 2.4 mEq/l (+/-2.0); Carboxyhemoglobin 0.9 % THb (0-2.0); Fractional Inspired Oxygen 65 %; HCO3 ABG 31.3 mEq/l (22.0-26.0); Methemoglobin ABG 0.3 %THb (0-1.5); Oxygen Content ABG 19.9 %vol (16.0-22.0); Oxygen Saturation ABG 98.6 % (95.0-100.0); Oxyhemoglobin 97.2 % THb (90.0-100.0); PO2 ABG 148.3 mmHg (80.0-100.0); PO2 FiO2 Ratio Arterial Blood 2.28 %; Reduced Hemoglobin 1.6 %THb (0-5.0); Total Hemoglobin 14.4 g/dL (12.0-18.0)
[2020-10-08 04:21] LABS: Device VENTILATOR; Modified Allen's Test Pass; PCO2 ABG 68.7 mmHg (35.0-45.0); Site Drawn RIGHT RADIAL; pH ABG 7.277 (7.350-7.450)
[2020-10-08 04:22] LABS: Arterial Blood Gas PEEP 5 cmH2O; Arterial Blood Gas Vent Mode ASV
[2020-10-08 06:03] LABS: Hematocrit 28.6 % (37.0-47.0); Hemoglobin 8.3 g/dL (12.0-15.0); Mean Corpuscular Hemoglobin 28.1 pg (26-34); Mean Corpuscular Volume 96.9 fl (80-100); Mean Platelet Volume 9.8 fl (7.4-10.4); Platelet Count Result 243 k/mm3 (150-375); Red Blood Count 2.95 M/mm3 (4.2-5.4); Red Cell Distribution Width 19.9 % (11.5-14.5)
[2020-10-08] MEDS: LEVOTHYROXINE SODIUM 100 MCG TABLET PO (06:03)
[2020-10-08] MEDS: LEVOTHYROXINE SODIUM 125 MCG TABLET PO (06:03)
[2020-10-08] MEDS: CENTRAL LINE FLUSH 10 ML IV PUSH ×3 (06:03→20:38)
[2020-10-08 06:15] LABS: Anion Gap 2 mmol/L (8-16); Blood Urea Nitrogen 50 mg/dL (7-17); Calcium 8.8 mg/dL (8.4-10.2); Carbon Dioxide 36 mmol/L (22-30); Chloride 99 mmol/L (98-107); Estimated CRCL calculation 88 ml/min; Estimated Glomerular Filt Rate 52; Glucose 243 mg/dL (65-105); Magnesium 2.6 mg/dL (1.6-2.3); Phosphorus 5.2 mg/dL (2.5-4.5); Potassium 4.3 mmol/L (3.4-5.0); Sodium 137 mmol/L (137-145)
[2020-10-08 06:59] LABS: Glucose Point of Care 210 (65-105)
--- NOTE | 2020-10-08 08:20 | WPDANESPN ---
Anes - Prog Note Post-Op Date/Time: 10/08/20 08:20 Cardiovascular status: normal Respiratory status: other (patient remains on ventilator. fio2 at 65%) Airway patency: other (tracheostomy) Mental status: other (unable to determine) Post-Op hydration status: other (IV fluids) Vital Signs: Last Vital Signs Temp 37.3 C 10/08/20 05:00 Pulse 79 10/08/20 06:00 Resp 13 10/08/20 05:00 BP 112/62 10/08/20 05:00 Pulse Ox 100 10/08/20 05:00 Pain Score (VAS): 0 I/O: Intake & Output 10/07/20 10/08/20 10/08/20 23:59 07:59 15:59 Intake Total 0 533 Output Total 550 400 Balance -550 133 Laboratory Tests 10/08/20 05:57 10/08/20 05:57 10/08/20 10/08/20 10/08/20 00:01 04:00 05:51 WBC RBC Hgb Hct MCV MCH MCHC RDW Plt Count MPV Puncture Site Right radial ABG pH 7.277 L* ABG pCO2 68.7 H* ABG pO2 148.3 H ABG PO2/FiO2 Ratio 2.28 ABG HCO3 31.3 H ABG O2 Saturation 98.6 ABG O2 Content 19.9 ABG Base Excess 2.4 A-a Gradient 240.4 Oxyhemoglobin 97.2 Carboxyhemoglobin 0.9 Methemoglobin 0.3 Reduced Hemoglobin 1.6 Total Hemoglobin 14.4 O2 Delivery Device Ventilator O2 Liters/Min Not Reportable Minute Volume Not Reportable Vent Rate Not Reportable Vent Mode Asv FiO2 65 Tidal Volume Not Reportable PEEP 5 Peak Inspir Pressure Not Reportable Pressure Support Not Reportable Sodium Potassium Chloride Carbon Dioxide Anion Gap BUN Creatinine Estim Creat Clear Calc Estimated GFR Glucose POC Capillary Glucose 223 H 210 H Calcium Phosphorus Magnesium 10/08/20 10/08/20 05:57 05:57 WBC 16.0 H RBC 2.95 L Hgb 8.3 L Hct 28.6 L MCV 96.9 MCH 28.1 MCHC 29.0 L RDW 19.9 H Plt Count 243 MPV 9.8 Puncture Site ABG pH ABG pCO2 ABG pO2 ABG PO2/FiO2 Ratio ABG HCO3 ABG O2 Saturation ABG O2 Content ABG Base Excess A-a Gradient Oxyhemoglobin Carboxyhemoglobin Methemoglobin Reduced Hemoglobin Total Hemoglobin O2 Delivery Device O2 Liters/Min Minute Volume Vent Rate Vent Mode FiO2 Tidal Volume PEEP Peak Inspir Pressure Pressure Support Sodium 137 Potassium 4.3 Chloride 99 Carbon Dioxide 36 H Anion Gap 2 L BUN 50 H Creatinine 1.10 H Estim Creat Clear Calc 88 Estimated GFR 52 L Glucose 243 H POC Capillary Glucose Calcium 8.8 Phosphorus 5.2 H Magnesium 2.6 H Post-procedural complaints: none Patient Feedback: Patient satisfied with anesthetic care.
[2020-10-08] MEDS: acetaZOLAMIDE TAB 250 MG TABLET PO (08:26)
[2020-10-08] MEDS: ENOXAPARIN 40 MG/0.4 ML SYRINGE SUB-Q (08:26)
[2020-10-08] MEDS: PANTOPRAZOLE SODIUM IV 40 MG VIAL IV PUSH ×2 (08:26→20:38)
[2020-10-08] MEDS: TOLNAFTATE 1% POWDER 45 GM BTL 1 APPLIC TOPICAL ×2 (08:27→20:38)
[2020-10-08] MEDS: SOD HYPOCHLORITE 1/4 STRENGTH 473 ML 1 APPLIC TOPICAL (08:27)
--- NOTE | 2020-10-08 11:56 | WPDINTPN ---
Progress Note: A&P Assessment and Plan (1) Sepsis: Qualifiers: Severe sepsis acute organ dysfunction type: acute respiratory failure Code(s): A41.9 - Sepsis, unspecified organism Status: Acute Assessment and Plan: Severe sepsis because of urine tract infection, bacteremia and wound infection at the decubitus ulcer - Sputum from 09/24 grew Serratia marcescens and morganella sensitive to cefepime - Culture from the coccyx wound is growing Pseudomonas aeruginosa, pansensitive. - Repeat blood culture 10/02 no growth x2 -status post 7 days of levofloxacin treatment which ended on 10/06/2020 (2) ARDS (adult respiratory distress syndrome): Code(s): J80 - Acute respiratory distress syndrome Status: Acute Assessment and Plan: Intubated on 09/15. -continue ASV mode of ventilation, peep of 5, 40% FiO2 -off all sedation, patient opens her eyes but does not follow commands -just with sister who is the POA, agreeable to trach and PEG -PEG placed on 10/06/2020 -tracheostomy placed on 10/07/2020 -patient is off all sedation -patient is medically stable to be transferred to LTAC facility (3) Congestive heart failure: Qualifiers: Heart failure chronicity: acute on chronic Heart failure type: diastolic Qualified Code(s): I50.33 - Acute on chronic diastolic (congestive) heart failure Code(s): I50.9 - Heart failure, unspecified Status: Acute Assessment and Plan: Patient being diuresed with Diamox as she has contraction alkalosis (4) Chronic respiratory failure with hypoxia and hypercapnia: Code(s): J96.11 - Chronic respiratory failure with hypoxia; J96.12 - Chronic respiratory failure with hypercapnia Status: Acute Assessment and Plan: Tracheostomy was placed 09/07/2020: Patient is ready to be placed at an LTAC facility (5) Decubitus ulcer of coccyx: Qualifiers: Pressure injury stage: unspecified pressure injury stage Qualified Code(s): L89.159 - Pressure ulcer of sacral region, unspecified stage Code(s): L89.159 - Pressure ulcer of sacral region, unspecified stage Status: Acute Assessment and Plan: Local wound care as per nursing. Cultures from the wound is growing Pseudomonas aeruginosa, pansensitive. Status post 7 days of levofloxacin per infectious disease (6) Atrial fibrillation: Qualifiers: Atrial fibrillation type: unspecified chronic Qualified Code(s): I48.20 - Chronic atrial fibrillation, unspecified Code(s): I48.91 - Unspecified atrial fibrillation Status: Chronic Assessment and Plan: Currently heart rate is in 60s. Pradaxa has been on hold because of GI bleeding. -will require to restart Pradaxa at some point (7) COVID-19: Code(s): U07.1 - COVID-19 Status: Acute Assessment and Plan: Completed dexamethasone and remdisivir. Received convalescent plasma on 09/18. (8) DM2 (diabetes mellitus, type 2): Qualifiers: Diabetes mellitus chcf insulin use: without chcf use Diabetes mellitus complication status: with hyperglycemia Qualified Code(s): E11.65 - Type 2 diabetes mellitus with hyperglycemia Code(s): E11.9 - Type 2 diabetes mellitus without complications Status: Chronic Assessment and Plan: Patient hyperglycemic, continue sliding scale insulin Accu-Cheks -continue Levemir Additional Plan Discussed with Carmella, patient's sister does the POA and explained to her and updated her with patient's condition and plan of care. DVT prophylaxis with subcu Lovenox. Hold home Pradaxa because of blood in the stool which has subsided now. GI prophylaxis with pantoprazole Code status: Full code Critical care time spent: 32 minutes Due to a high probability of clinically significant, life threatening deterioration, the patient required my highest level of preparedness to intervene emergen
[2020-10-08 12:38] LABS: Glucose Point of Care 296 (65-105)
--- NOTE | 2020-10-08 13:29 | PCDIET ---
Nutrition Follow-Up Complete: Nutrition Diagnosis: Inadequate oral intake related to inability to consume foods orally as evidence by need for enteral nutrition to meet needs Nutrition Goal: Total intake will meet estimated kcal and protein needs Goal in progress. Patient has been tolerating Jevity 1.2 feedings. MD ordered to change back to Glucerna 1.2 at 60mL/hr with Pro-Stat flush TID. Last recorded weight is 198kg which is increased from last review. -I/O noted. Bowel Motility: +BM x 1 today. Labs Reviewed: Hgb (8.3), Hct (28.6), Glu (243), BUN (50), Cr (1.1), PO4 (5.2), Mg (2.6) Meds Noted: Albuterol, Pulmicort, Precedex, Levophed, Protonix, Hydralazine, Novolog, Levemir, Synthroid Additional Notes: s/p tracheostomy on 10/07/20. Plan for transfer to LTAC. Will continue to monitor with same goal if patient remains in house. Nutrition Monitoring and Evaluation: Follow up every Sunday/Sunday.
--- NOTE | 2020-10-08 14:19 | PM.PNPUL ---
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 Still on CMV with minimal settings. Awaiting placement to LTAC (4) COVID-19: Code(s): U07.1 - COVID-19 Status: Acute Assessment and Plan: May need a negative SARS-CoV-2 RT PCR for transfer to LTAC (5) Morbid obesity with BMI of 70 and over, adult: Code(s): E66.01 - Morbid (severe) obesity due to excess calories; Z68.45 - Body mass index [BMI] 70 or greater, adult Status: Acute (6) Congestive heart failure: Qualifiers: Heart failure chronicity: acute on chronic Heart failure type: diastolic Qualified Code(s): I50.33 - Acute on chronic diastolic (congestive) heart failure Code(s): I50.9 - Heart failure, unspecified Status: Acute Assessment and Plan: appears euvolomeic Subjective Date/time seen: 10/08/20 14:19 Interval history: S/p Trach and PEG, opening eyes spontaneously and seems to be doing well. Responds to simple commands Review of Systems Review of Systems: All systems reviewed & are unremarkable except as noted in HPI and below Exam Narrative: Exam Narrative: intubated, sedated and mechanically ventilated. HENMT: Other: ETT in place moist oral membranes Neck: Other: tracheostomy in place with with some blood around the trach Chest: Chest palpation & inspection: normal inspection of the chest Resp: Auscultation: diminished lung sounds Cardio: Rhythm: regular rhythm GI: Other: morbidly obese : Other: Baeza catheter in place Skin: Other: areas of dry skin on her lower extremities noted Neuro: Other: patient is sedated and intubated. Does not open her eyes or follow simple commands. Psych: Other: unable to assess at this time Objective Data Vital Signs Vital Signs: Vital Signs - 24 hr 10/07/20 16:00 10/07/20 17:16 10/07/20 18:00 Temperature 37.1 C Pulse Rate 56 L 82 56 L Respiratory Rate 16 15 Blood Pressure 100/49 L 114/59 L Pulse Oximetry 100 99 100 10/07/20 20:00 10/07/20 20:05 10/07/20 21:00 Temperature 36.3 C L Pulse Rate 50 L 50 L 56 L Respiratory Rate 16 16 Blood Pressure 100/49 L Pulse Oximetry 100 100 10/07/20 22:00 10/07/20 23:30 10/08/20 00:00 Temperature 36.8 C Pulse Rate 61 69 77 Respiratory Rate 16 24 H Blood Pressure 105/56 L 123/54 L Pulse Oximetry 100 100 99 10/08/20 01:38 10/08/20 01:53 10/08/20 02:00 Temperature Pulse Rate 75 77 76 Respiratory Rate 16 16 17 Blood Pressure 118/59 L Pulse Oximetry 100 100 10/08/20 04:00 10/08/20 04:09 10/08/20 05:00 Temperature 37.3 C Pulse Rate 80 76 80 Respiratory Rate 13 Blood Pressure 112/62 Pulse Oximetry 100 100 10/08/20 06:00 10/08/20 08:00 10/08/20 09:23 Temperature 37.3 C Pulse Rate 79 81 80 Respiratory Rate 23 H 27 H Blood Pressure 133/69 Pulse Oximetry 99 10/08/20 09:30 10/08/20 10:00 10/08/20 11:41 Temperature 37.2 C Pulse Rate 83 85 78 Respiratory Rate 26 H Blood Pressure 143/76 H Pulse Oximetry 99 99 99 10/08/20 12:00 10/08/20 13:41 10/08/20 13:46 Temperature 37.3 C Pulse Rate 75 83 78 Respiratory Rate 21 H 22 H Blood Pressure 112/57 L Pulse Oximetry 100 100 Intake/Output Intake/Output: Intake & Output 10/05/20 10/06/20 10/07/20 10/08/20 23:59 23:59 23:59 23:59 Intake Total 1797 785.2 595 533 Output Total 2605 1650 1125 400 [facility] -808 -864.8 -530 133 Meds/Results Medications: Active Medications Generic Name Dose Route Start Last Admin Trade Name Fretaiwo Sumner
--- NOTE | 2020-10-08 16:46 | PM.IMPN ---
Progress Note: A&P Assessment and Plan (1) Acute and chronic respiratory failure: Qualifiers: Respiratory failure complication: hypoxia and hypercapnia Qualified Code(s): J96.21 - Acute and chronic respiratory failure with hypoxia; J96.22 - Acute and chronic respiratory failure with hypercapnia Code(s): J96.20 - Acute and chronic respiratory failure, unspecified whether with hypoxia or hypercapnia Status: Acute Assessment and Plan: Patient is chronically on oxygen at 2 L which she increased to 4 L prior to admission. pH 7.31 with pCO2 63 on admission. She tested positive for COVID 09/14/20. [place] the reason for respiratory failure from COVID complicated by COPD, CHF, JOHNNY, and bacterail PNA. ABG worsened and BiPAP started without benefits. She was moved to ICU and intubated 09/15/20. She is at 65% FiO2 and PEEP 5. trach 10/07. PEG placed 10/06 Will need continued inpatient care due to persistent respiratory failure and COVID pneumonia (2) Pneumonia due to COVID-19 virus: Code(s): U07.1 - COVID-19; J12.89 - Other viral pneumonia Status: Acute Assessment and Plan: CXR from admission showing diffuse airspace disease related to COVID PNA/ARDS. Finished 10 d of Dexamethasone and finished Remdesivir. Convalescent plasma 09/18. Broad spectrum abx were started 09/15 but stopped 09/20. Sputum form 09/24 growing Serratia and 1 BCx from 09/25 also growing Serratia. 1 BCx 09/24 growing Morganella morganii so Cefepime restarted 09/26. Suspect bacteremia is from her coccyx wound but unclear why in sputum - seeded lung and/or VAP?. Pseudomonas from wound 09/28. Levaquin and Vanco added 09/30 (Vanco stopped 10/01). Fevers resolved. WBC up and down and currently elevated at 25K. Inflammatory markers better. Stopped broad spectrum abx 10/05 , continue albuterol nebulizer treatments and Pulmicort Respules. Continue supportive care (3) Electrolyte abnormality: Code(s): E87.8 - Other disorders of electrolyte and fluid balance, not elsewhere classified Status: Acute Assessment and Plan: Sodium low and potassium high still. Cortisol level okay. Potassium better 4.3 today . Treatment ordered. Follow closely. (4) Septicemia: Code(s): A41.9 - Sepsis, unspecified organism Status: Acute Assessment and Plan: Patient with septicemia with shock. BP became soft liquor blender hours of 09/30 so Levophed started. Able to weaned off Levophed 10/01. Sputum form 09/24 growing Joyce and 1 BCx from 09/25 also growing Serratia. 1 BCx 09/24 growing Morganella morganii so Cefepime restarted 09/26 and stopped 10/05. Pseudomonas from wound 09/28. Repeat BCx NGTD. Suspect bacteremia is from her coccyx wound but not sure why serratia in lung unless VAP. stopped antibiotics 10/05. Continue to follow. (5) Decubitus ulcer of coccyx: Qualifiers: Pressure injury stage: unspecified pressure injury stage Qualified Code(s): L89.159 - Pressure ulcer of sacral region, unspecified stage Code(s): L89.159 - Pressure ulcer of sacral region, unspecified stage Status: Acute Assessment and Plan: Patient with a large decubitus ulcer present on admission. Will need debridement once more stable. Continue current wound care. Has a specialty bed. (6) Congestive heart failure: Qualifiers: Heart failure chronicity: acute on chronic Heart failure type: diastolic Qualified Code(s): I50.33 - Acute on chronic diastolic (congestive) heart failure Code(s): I50.9 - Heart failure, unspecified Status: Acute Assessment and Plan: Concern for diastolic CHF with CXR findings and BNP 1340 but no clinical evidence of fluid overload. Echo 09/16 showing EF 50-55% with poorly visualized LV; small to moderate pericardial effusion. Patient takes Lasix 80mg daily home. She initially had excellent UOP with negative fluid balance with L
--- NOTE | 2020-10-08 17:45 | WPDINFPN2 ---
Progress Note: A&P Assessment and Plan (1) Decubitus ulcer of coccyx: Qualifiers: Pressure injury stage: unspecified pressure injury stage Qualified Code(s): L89.159 - Pressure ulcer of sacral region, unspecified stage Code(s): L89.159 - Pressure ulcer of sacral region, unspecified stage Status: Acute Assessment and Plan: 1. Decub ulcer, on therapy and stable 2. Recent polymicrobial septicemia, wound vs lung source. microbiologic cure 3. CoVid viral pneumonia, present on admission 09/14. Persistent abnormal CXR 4. Leukocytosis due to all of above, back up today 5. Morbid obesity REC Off antibiotics. Will sign off, call if other Qs. Local care. Subjective Date/time seen: 10/08/20 17:45 Interval history: on vent new trach Exam Narrative: Exam Narrative: afebrile Const: General: no acute distress Other: massive obesity Neck: Neck: supple Other: new trach Resp: Effort & Inspection: normal respiratory effort Auscultation: crackles Cardio: Rate: regular rate Rhythm: regular rhythm Heart sounds: no murmurs GI: Inspection: non-distended GI Palp: Yes Soft to palpation, No Tenderness to palpation present (GI) and No Guarding due to palpation present (GI) Objective Data Vital Signs Vital Signs: Vital Signs - 24 hr 10/07/20 18:00 10/07/20 20:00 10/07/20 20:05 Temperature Pulse Rate 56 L 50 L 50 L Respiratory Rate 15 16 Blood Pressure 114/59 L Pulse Oximetry 100 100 10/07/20 21:00 10/07/20 22:00 10/07/20 23:30 Temperature 36.3 C L Pulse Rate 56 L 61 69 Respiratory Rate 16 16 Blood Pressure 100/49 L 105/56 L Pulse Oximetry 100 100 100 10/08/20 00:00 10/08/20 01:38 10/08/20 01:53 Temperature 36.8 C Pulse Rate 77 75 77 Respiratory Rate 24 H 16 16 Blood Pressure 123/54 L Pulse Oximetry 99 100 10/08/20 02:00 10/08/20 04:00 10/08/20 04:09 Temperature Pulse Rate 76 80 76 Respiratory Rate 17 Blood Pressure 118/59 L Pulse Oximetry 100 100 10/08/20 05:00 10/08/20 06:00 10/08/20 08:00 Temperature 37.3 C 37.3 C Pulse Rate 80 79 81 Respiratory Rate 13 23 H Blood Pressure 112/62 133/69 Pulse Oximetry 100 99 10/08/20 09:23 10/08/20 09:30 10/08/20 10:00 Temperature 37.2 C Pulse Rate 80 83 85 Respiratory Rate 27 H 26 H Blood Pressure 143/76 H Pulse Oximetry 99 99 10/08/20 11:41 10/08/20 12:00 10/08/20 13:41 Temperature 37.3 C Pulse Rate 78 75 83 Respiratory Rate 21 H 22 H Blood Pressure 112/57 L Pulse Oximetry 99 100 10/08/20 13:46 10/08/20 14:00 10/08/20 16:00 Temperature 37.2 C 37.4 C Pulse Rate 78 77 79 Respiratory Rate 24 H 20 Blood Pressure 113/54 L 112/52 L Pulse Oximetry 100 99 99 10/08/20 17:17 Temperature Pulse Rate 63 Respiratory Rate Blood Pressure Pulse Oximetry 98 Intake/Output Intake/Output: Intake & Output 10/05/20 10/06/20 10/07/20 10/08/20 23:59 23:59 23:59 23:59 Intake Total 1797 785.2 595 533 Output Total 2605 1650 1125 400 [facility] -808 -864.8 -530 133 Meds/Results Medications: Active Medications Generic Name Dose Route Start Last Admin Trade Name Freq PRN Reason Stop Dose Admin Acetaminophen 650 mg 09/14/20 20:28 10/08/20 00:47 Acetaminophen 325 Mg Tablet PO 650 mg Q4H PRN Administration Fever Acetazolamide 250 mg 10/05/20 13:55 10/08/20 08:26 Acetazolamide Tab 250 Mg Tablet PO 250 mg QAM DENISE Administration Albuterol 2.5 mg 09/15/20 20:15 10/08/20 13:41 Albuterol Sulfate Neb 2.5 Mg/0.5 Ml Inh INHALATION 2.5 mg Q6HRT DENISE Administration Alteplase, Recombinant 2 mg 09/28/20 11:11 10/05/20 14:23 Alteplase 2 Mg Vial (Cathflo) IV PUSH 2 mg ONCE PRN Administration Line Occlusion Alteplase, Recombinant 2 mg 09/28/20 16:40 09/28/20 17:37 Alteplase 2 Mg Vial (Cathflo) IV PUSH 2 mg ONCE PRN Administration Line Occlusion Alteplase, Recombinant 2 mg 10/02/20 10:43 Alteplase 2 Mg Via
[2020-10-08 18:00] LABS: Glucose Point of Care 270 (65-105)
[2020-10-08] MEDS: HYDROmorphone HCL INJ (*CRX) 1 MG/ML SYR 0.5 MG IV PUSH (22:54)
[2020-10-09] VITALS (25 sets, daily range): BP systolic 97–148; BP diastolic 49–85; PULSE 58–86; RESP 12–29; TEMP 36.2–37.5; O2SAT 94–100
[2020-10-09] MEDS: INSULIN ASPART (*BKC) 100 UNITS/ML SUB-Q ×4 (00:44→18:21)
[2020-10-09 01:55] LABS: Glucose Point of Care 301 (65-105)
[2020-10-09] MEDS: ALBUTEROL SULFATE NEB 2.5 MG/0.5 ML INH INHALATION ×4 (01:57→21:16)
[2020-10-09 04:23] LABS: Hematocrit 28.3 % (37.0-47.0); Mean Corpuscular HGB Conc 28.3 g/dl (32-36); Mean Corpuscular Hemoglobin 27.9 pg (26-34); Mean Corpuscular Volume 98.6 fl (80-100); Mean Platelet Volume 9.7 fl (7.4-10.4); Platelet Count Result 236 k/mm3 (150-375); Red Blood Count 2.87 M/mm3 (4.2-5.4); Red Cell Distribution Width 20.3 % (11.5-14.5); White Blood Count 14.6 K/mm3 (4.5-10.0)
[2020-10-09 04:26] LABS: Alveolar/Arterial O2 Gradient 158.2 mmHg; Carboxyhemoglobin 0.1 % THb (0-2.0); Fractional Inspired Oxygen 45 %; Methemoglobin ABG 0.2 %THb (0-1.5); Oxygen Content ABG 14.4 %vol (16.0-22.0); Oxygen Saturation ABG 94.8 % (95.0-100.0); Oxyhemoglobin 94.9 % THb (90.0-100.0); PO2 ABG 82.5 mmHg (80.0-100.0); PO2 FiO2 Ratio Arterial Blood 1.83 %; Reduced Hemoglobin 4.8 %THb (0-5.0); Total Hemoglobin 10.7 g/dL (12.0-18.0); pH ABG 7.314 (7.350-7.450)
[2020-10-09 04:27] LABS: PCO2 ABG 70.5 mmHg (35.0-45.0)
[2020-10-09 04:28] LABS: Arterial Blood Gas Minute Volume 100 LPM; Arterial Blood Gas PEEP 5 cmH2O; Arterial Blood Gas Vent Mode ASV; Device VENTILATOR; Modified Allen's Test Unable to perform; Site Drawn LEFT BRACHIAL
[2020-10-09 04:38] LABS: Anion Gap 0 mmol/L (8-16); Blood Urea Nitrogen 55 mg/dL (7-17); Calcium 8.8 mg/dL (8.4-10.2); Carbon Dioxide 39 mmol/L (22-30); Chloride 100 mmol/L (98-107); Estimated CRCL calculation 78 ml/min; Estimated Glomerular Filt Rate 52; Glucose 268 mg/dL (65-105); Magnesium 2.7 mg/dL (1.6-2.3); Phosphorus 4.6 mg/dL (2.5-4.5); Potassium 4.3 mmol/L (3.4-5.0); Sodium 139 mmol/L (137-145)
[2020-10-09] MEDS: HYDROmorphone HCL INJ (*CRX) 1 MG/ML SYR 0.5 MG IV PUSH (04:41)
[2020-10-09] MEDS: LEVOTHYROXINE SODIUM 125 MCG TABLET PO (06:11)
[2020-10-09] MEDS: CENTRAL LINE FLUSH 10 ML IV PUSH ×3 (06:11→20:39)
[2020-10-09] MEDS: LEVOTHYROXINE SODIUM 100 MCG TABLET PO (06:11)
[2020-10-09 06:29] LABS: Glucose Point of Care 243 (65-105)
--- NOTE | 2020-10-09 07:53 | WPDINTPN ---
Progress Note: A&P Assessment and Plan (1) ARDS (adult respiratory distress syndrome): Code(s): J80 - Acute respiratory distress syndrome Status: Acute (2) Respiratory failure: Qualifiers: Chronicity: acute Respiratory failure complication: hypoxia and hypercapnia Qualified Code(s): J96.01 - Acute respiratory failure with hypoxia; J96.02 - Acute respiratory failure with hypercapnia Code(s): J96.90 - Respiratory failure, unspecified, unspecified whether with hypoxia or hypercapnia Status: Acute Assessment and Plan: CXR stable w/ bilateral infiltrates 10/08 AB.314/70/82/35/95% on ASV FIO2 45%, PEEP 5; would benefit from improved ventilation Continues on acetazolamide to minimize metabolic alkalosis (3) Decubitus ulcer of coccyx: Qualifiers: Pressure injury stage: unspecified pressure injury stage Qualified Code(s): L89.159 - Pressure ulcer of sacral region, unspecified stage Code(s): L89.159 - Pressure ulcer of sacral region, unspecified stage Status: Acute Assessment and Plan: Continue wound care (4) Congestive heart failure: Qualifiers: Heart failure chronicity: acute on chronic Heart failure type: diastolic Qualified Code(s): I50.33 - Acute on chronic diastolic (congestive) heart failure Code(s): I50.9 - Heart failure, unspecified Status: Acute Assessment and Plan: 10/07: I/O 1597/875 On acetazolamide (5) COVID-19: Code(s): U07.1 - COVID-19 Status: Acute Assessment and Plan: Upon admission 09/14 Completed dexamethasone and remdesivir (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: Code(s): J43.9 - Emphysema, unspecified; J98.4 - Other disorders of lung Status: Acute (7) Blood in stool: Code(s): K92.1 - Melena Status: Acute Assessment and Plan: H/H stable Further evaluation deferred (8) Ventilator dependent: Code(s): Z99.11 - Dependence on respirator [ventilator] status Status: Acute Assessment and Plan: Plan for LTAC with trach and PEG in place (9) PEG (percutaneous endoscopic gastrostomy) status: Code(s): Z93.1 - Gastrostomy status Status: Acute Assessment and Plan: Tolerating TF (10) Atrial flutter: Qualifiers: Atrial flutter type: unspecified Qualified Code(s): I48.92 - Unspecified atrial flutter Code(s): I48.92 - Unspecified atrial flutter Status: Acute Assessment and Plan: Resolved (11) Elevated LFTs: Code(s): R79.89 - Other specified abnormal findings of blood chemistry Status: Acute (12) Sepsis: Qualifiers: Acute respiratory failure type: with hypoxia Sepsis acute organ dysfunction status: with acute organ dysfunction Sepsis type: sepsis due to unspecified organism Severe sepsis acute organ dysfunction type: acute respiratory failure Severe sepsis shock status: with septic shock Qualified Code(s): A41.9 - Sepsis, unspecified organism; R65.21 - Severe sepsis with septic shock; J96.01 - Acute respiratory failure with hypoxia Code(s): A41.9 - Sepsis, unspecified organism Status: Acute Assessment and Plan: Resolved (13) Hypertension: Qualifiers: Hypertension type: unspecified Qualified Code(s): I10 - Essential (primary) hypertension Code(s): I10 - Essential (primary) hypertension Status: Acute Assessment and Plan: 10/08 127/65 Continue to monitor (14) JOHNNY (obstructive sleep apnea): Code(s): G47.33 - Obstructive sleep apnea (adult) (pediatric) Status: Acute Subjective Date/time seen: 10/09/20 07:53 Interval history: 55 y/o morbidly obese female with JOHNNY, COPD, chronic mixed resp failure was admitted and intubated 09/14 due to pneumonia w/ acute on chronic respiratory failure. 10/09: Awake. Cooperative. Awaiting placement at LTAC. Review of Systems
[2020-10-09] MEDS: ENOXAPARIN 40 MG/0.4 ML SYRINGE SUB-Q (09:09)
[2020-10-09] MEDS: PANTOPRAZOLE SODIUM IV 40 MG VIAL IV PUSH ×2 (09:09→20:34)
[2020-10-09] MEDS: acetaZOLAMIDE TAB 250 MG TABLET PO (09:09)
[2020-10-09] MEDS: TOLNAFTATE 1% POWDER 45 GM BTL 1 APPLIC TOPICAL ×2 (09:10→20:34)
[2020-10-09] MEDS: SOD HYPOCHLORITE 1/4 STRENGTH 473 ML 1 APPLIC TOPICAL (09:10)
[2020-10-09 11:33] LABS: Glucose Point of Care 201 (65-105)
--- NOTE | 2020-10-09 16:20 | PM.IMPN ---
Progress Note: A&P Assessment and Plan (1) Acute and chronic respiratory failure: Qualifiers: Respiratory failure complication: hypoxia and hypercapnia Qualified Code(s): J96.21 - Acute and chronic respiratory failure with hypoxia; J96.22 - Acute and chronic respiratory failure with hypercapnia Code(s): J96.20 - Acute and chronic respiratory failure, unspecified whether with hypoxia or hypercapnia Status: Acute Assessment and Plan: Patient is chronically on oxygen at 2 L which she increased to 4 L prior to admission. pH 7.31 with pCO2 63 on admission. She tested positive for COVID 09/14/20. [place] the reason for respiratory failure from COVID complicated by COPD, CHF, JOHNNY, and bacterail PNA. ABG worsened and BiPAP started without benefits. She was moved to ICU and intubated 09/15/20. She is at 45% FiO2 and PEEP 5. trach 10/07. PEG placed 10/06 acetazolamide for metabolic alkalosis Will need continued inpatient care due to persistent respiratory failure and COVID pneumonia (2) Pneumonia due to COVID-19 virus: Code(s): U07.1 - COVID-19; J12.89 - Other viral pneumonia Status: Acute Assessment and Plan: CXR from admission showing diffuse airspace disease related to COVID PNA/ARDS. Finished 10 d of Dexamethasone and finished Remdesivir. Convalescent plasma 09/18. Broad spectrum abx were started 09/15 but stopped 09/20. Sputum form 09/24 growing Serratia and 1 BCx from 09/25 also growing Serratia. 1 BCx 09/24 growing Morganella morganii so Cefepime restarted 09/26. Suspect bacteremia is from her coccyx wound but unclear why in sputum - seeded lung and/or VAP?. Pseudomonas from wound 09/28. Levaquin and Vanco added 09/30 (Vanco stopped 10/01). Fevers resolved. WBC up and down and currently elevated at 14.6K. Inflammatory markers better. Stopped broad spectrum abx 10/05 , continue albuterol nebulizer treatments and Pulmicort Respules. Continue supportive care (3) Electrolyte abnormality: Code(s): E87.8 - Other disorders of electrolyte and fluid balance, not elsewhere classified Status: Acute Assessment and Plan: Sodium low and potassium high still. Cortisol level okay. Potassium better 4.3 today . Treatment ordered. Follow closely. (4) Septicemia: Code(s): A41.9 - Sepsis, unspecified organism Status: Acute Assessment and Plan: Patient with septicemia with shock. 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 Able to weaned off Levophed 10/01. Sputum form 09/24 growing Joyce and 1 BCx from 09/25 also growing Serratia. 1 BCx 09/24 growing Morganella morganii so Cefepime restarted 09/26 and stopped 10/05. Pseudomonas from wound 09/28. Repeat BCx NGTD. Suspect bacteremia is from her coccyx wound but not sure why serratia in lung unless VAP. stopped antibiotics 10/05. Continue to follow. (5) Decubitus ulcer of coccyx: Qualifiers: Pressure injury stage: unspecified pressure injury stage Qualified Code(s): L89.159 - Pressure ulcer of sacral region, unspecified stage Code(s): L89.159 - Pressure ulcer of sacral region, unspecified stage Status: Acute Assessment and Plan: Patient with a large decubitus ulcer present on admission. Will need debridement once more stable. Continue current wound care. Has a specialty bed. (6) Congestive heart failure: Qualifiers: Heart failure chronicity: acute on chronic Heart failure type: diastolic Qualified Code(s): I50.33 - Acute on chronic diastolic (congestive) heart failure Code(s): I50.9 - Heart failure, unspecified Status: Acute Assessment and Plan: Concern for diastolic CHF with CXR findings and BNP 1340 but no clinical evidence of fluid overload. Echo 09/16 showing EF 50-55% with poorly visualized LV; small to moderate pericardial effusion. Patient takes Lasix 80mg daily home. She initially had excell
[2020-10-09 17:59] LABS: Glucose Point of Care 294 (65-105)
[2020-10-09] MEDS: ACETAMINOPHEN 325 MG TABLET 650 MG PO (20:30)
[2020-10-09] MEDS: INSULIN DETEMIR 100 UNITS/ML 15 UNITS SUB-Q (20:30)
[2020-10-09 20:48] LABS: Glucose Point of Care 268 (65-105)
[2020-10-10] VITALS (26 sets, daily range): BP systolic 118–169; BP diastolic 60–85; PULSE 65–92; RESP 12–31; TEMP 36.3–37.4; O2SAT 81–98
[2020-10-10 00:43] LABS: Glucose Point of Care 255 (65-105)
[2020-10-10] MEDS: INSULIN ASPART (*BKC) 100 UNITS/ML SUB-Q ×3 (00:55→17:31)
[2020-10-10] MEDS: HYDROmorphone HCL INJ (*CRX) 1 MG/ML SYR (02:06)
[2020-10-10 05:16] LABS: Glucose Point of Care 177 (65-105)
[2020-10-10] MEDS: CENTRAL LINE FLUSH 10 ML IV PUSH ×3 (05:37→21:35)
[2020-10-10] MEDS: LEVOTHYROXINE SODIUM 125 MCG TABLET PO (05:38)
[2020-10-10] MEDS: LEVOTHYROXINE SODIUM 100 MCG TABLET PO (05:38)
[2020-10-10 05:40] LABS: Hematocrit 29.2 % (37.0-47.0); Hemoglobin 8.3 g/dL (12.0-15.0); Mean Corpuscular HGB Conc 28.4 g/dl (32-36); Mean Corpuscular Hemoglobin 27.9 pg (26-34); Mean Platelet Volume 9.7 fl (7.4-10.4); Platelet Count Result 277 k/mm3 (150-375); Red Blood Count 2.98 M/mm3 (4.2-5.4); Red Cell Distribution Width 20.6 % (11.5-14.5); White Blood Count 13.4 K/mm3 (4.5-10.0)
[2020-10-10 05:55] LABS: Potassium 4.2 mmol/L (3.4-5.0)
[2020-10-10 06:02] LABS: Blood Urea Nitrogen 60 mg/dL (7-17); Calcium 9.1 mg/dL (8.4-10.2); Carbon Dioxide > 40 mmol/L (22-30); Chloride 101 mmol/L (98-107); Estimated CRCL calculation 79 ml/min; Estimated Glomerular Filt Rate 52; Glucose 212 mg/dL (65-105); Magnesium 2.7 mg/dL (1.6-2.3); Phosphorus 4.3 mg/dL (2.5-4.5); Sodium 142 mmol/L (137-145)
[2020-10-10 06:27] LABS: Alveolar/Arterial O2 Gradient 142.6 mmHg; Base Excess ABG 8.6 mEq/l (+/-2.0); Carboxyhemoglobin 0.5 % THb (0-2.0); Fractional Inspired Oxygen 40 %; HCO3 ABG 35.9 mEq/l (22.0-26.0); Methemoglobin ABG 0.2 %THb (0-1.5); Oxygen Content ABG 16.3 %vol (16.0-22.0); Oxygen Saturation ABG 93.1 % (95.0-100.0); Oxyhemoglobin 92.8 % THb (90.0-100.0); PO2 ABG 69.9 mmHg (80.0-100.0); PO2 FiO2 Ratio Arterial Blood 1.75 %; Reduced Hemoglobin 6.5 %THb (0-5.0); Total Hemoglobin 12.5 g/dL (12.0-18.0); pH ABG 7.372 (7.350-7.450)
[2020-10-10 06:28] LABS: Device VENTILATOR; Modified Allen's Test Pass; PCO2 ABG 63.2 mmHg (35.0-45.0); Site Drawn LEFT RADIAL
[2020-10-10 06:29] LABS: Arterial Blood Gas PEEP 5 cmH2O; Arterial Blood Gas Vent Mode ASV
--- NOTE | 2020-10-10 06:34 | PC.NURSE ---
morning weight not done due to bed malfunction; waiting for bed lift to charge to zero bed.
[2020-10-10] MEDS: ALBUTEROL SULFATE NEB 2.5 MG/0.5 ML INH INHALATION ×3 (07:32→20:00)
--- NOTE | 2020-10-10 08:18 | WPDINTPN ---
Progress Note: A&P Assessment and Plan (1) ARDS (adult respiratory distress syndrome): Code(s): J80 - Acute respiratory distress syndrome Status: Acute Assessment and Plan: 10/10 CXR still with bilateral infiltrates, may be a bit worse, but clinically stable (2) Respiratory failure: Qualifiers: Chronicity: acute Respiratory failure complication: hypoxia and hypercapnia Qualified Code(s): J96.01 - Acute respiratory failure with hypoxia; J96.02 - Acute respiratory failure with hypercapnia Code(s): J96.90 - Respiratory failure, unspecified, unspecified whether with hypoxia or hypercapnia Status: Acute Assessment and Plan: CXR w/ bilateral infiltrates 10/10 AB.372/63.2/69.9/35.9/93.1% on ASV FIO2 45%, PEEP 5; would benefit from improved ventilation 10/10 Trach collar Continues on acetazolamide to minimize metabolic alkalosis (3) Congestive heart failure: Qualifiers: Heart failure chronicity: acute on chronic Heart failure type: diastolic Qualified Code(s): I50.33 - Acute on chronic diastolic (congestive) heart failure Code(s): I50.9 - Heart failure, unspecified Status: Acute Assessment and Plan: 10/09 I/O 1775/925, 10/10 overnight UO 550 On acetazolamide (4) COVID-19: Code(s): U07.1 - COVID-19 Status: Acute Assessment and Plan: Upon admission 09/14 Completed dexamethasone and remdesivir (5) Blood in stool: Code(s): K92.1 - Melena Status: Acute Assessment and Plan: H/H stable Further evaluation deferred (6) Decubitus ulcer of coccyx: Qualifiers: Pressure injury stage: unspecified pressure injury stage Qualified Code(s): L89.159 - Pressure ulcer of sacral region, unspecified stage Code(s): L89.159 - Pressure ulcer of sacral region, unspecified stage Status: Acute Assessment and Plan: Continue wound care (7) DM2 (diabetes mellitus, type 2): Qualifiers: Diabetes mellitus complication status: with hyperglycemia Diabetes mellitus senior care insulin use: without senior care use Qualified Code(s): E11.65 - Type 2 diabetes mellitus with hyperglycemia Code(s): E11.9 - Type 2 diabetes mellitus without complications Status: Chronic Assessment and Plan: 10/10 BS 170's to 250's Continue Detemir 15 U bid, SSI (8) Ventilator dependent: Code(s): Z99.11 - Dependence on respirator [ventilator] status Status: Acute Assessment and Plan: Plan for LTAC with trach and PEG in place (9) Atrial flutter: Qualifiers: Atrial flutter type: unspecified Qualified Code(s): I48.92 - Unspecified atrial flutter Code(s): I48.92 - Unspecified atrial flutter Status: Acute Assessment and Plan: 10/10 NSR Holding Pradaxa due to prior GI bleed (10) Elevated LFTs: Code(s): R79.89 - Other specified abnormal findings of blood chemistry Status: Acute Assessment and Plan: Resolving F/u lab (11) Sepsis: Qualifiers: Acute respiratory failure type: with hypoxia Sepsis acute organ dysfunction status: with acute organ dysfunction Sepsis type: sepsis due to unspecified organism Severe sepsis acute organ dysfunction type: acute respiratory failure Severe sepsis shock status: with septic shock Qualified Code(s): A41.9 - Sepsis, unspecified organism; R65.21 - Severe sepsis with septic shock; J96.01 - Acute respiratory failure with hypoxia Code(s): A41.9 - Sepsis, unspecified organism Status: Acute Assessment and Plan: Resolved (12) Hypertension: Qualifiers: Hypertension type: unspecified Qualified Code(s): I10 - Essential (primary) hypertension Code(s): I10 - Essential (primary) hypertension Status: Acute Assessment and Plan: 10/08 127/65 Continue to monitor (13) JOHNNY (obstructive sleep apnea): Code(s): G47.33 -
[2020-10-10] MEDS: SOD HYPOCHLORITE 1/4 STRENGTH 473 ML 1 APPLIC TOPICAL (08:23)
[2020-10-10] MEDS: PANTOPRAZOLE SODIUM IV 40 MG VIAL IV PUSH ×2 (08:23→21:35)
[2020-10-10] MEDS: TOLNAFTATE 1% POWDER 45 GM BTL 1 APPLIC TOPICAL ×2 (08:23→21:35)
[2020-10-10] MEDS: acetaZOLAMIDE TAB 250 MG TABLET PO (08:24)
[2020-10-10] MEDS: ENOXAPARIN 40 MG/0.4 ML SYRINGE SUB-Q (08:24)
[2020-10-10] MEDS: INSULIN DETEMIR 100 UNITS/ML 15 UNITS SUB-Q ×2 (08:35→21:00)
[2020-10-10 11:58] LABS: Glucose Point of Care 262 (65-105)
--- NOTE | 2020-10-10 17:15 | PM.IMPN ---
Progress Note: A&P Assessment and Plan (1) Acute and chronic respiratory failure: Qualifiers: Respiratory failure complication: hypoxia and hypercapnia Qualified Code(s): J96.21 - Acute and chronic respiratory failure with hypoxia; J96.22 - Acute and chronic respiratory failure with hypercapnia Code(s): J96.20 - Acute and chronic respiratory failure, unspecified whether with hypoxia or hypercapnia Status: Acute Assessment and Plan: Patient is chronically on oxygen at 2 L which she increased to 4 L prior to admission. pH 7.31 with pCO2 63 on admission. She tested positive for COVID 09/14/20. [place] the reason for respiratory failure from COVID complicated by COPD, CHF, JOHNNY, and bacterail PNA. ABG worsened and BiPAP started without benefits. She was moved to ICU and intubated 09/15/20. She is at 40% FiO2 and PEEP 5. trach 10/07. PEG placed 10/06 acetazolamide for metabolic alkalosis Will need continued inpatient care due to persistent respiratory failure and COVID pneumonia Awaiting acceptance at LTAC facility (2) Pneumonia due to COVID-19 virus: Code(s): U07.1 - COVID-19; J12.89 - Other viral pneumonia Status: Acute Assessment and Plan: CXR from admission showing diffuse airspace disease related to COVID PNA/ARDS. Finished 10 d of Dexamethasone and finished Remdesivir. Convalescent plasma 09/18. Broad spectrum abx were started 09/15 but stopped 09/20. Sputum form 09/24 growing Serratia and 1 BCx from 09/25 also growing Serratia. 1 BCx 09/24 growing Morganella morganii so Cefepime restarted 09/26. Suspect bacteremia is from her coccyx wound but unclear why in sputum - seeded lung and/or VAP?. Pseudomonas from wound 09/28. Levaquin and Vanco added 09/30 (Vanco stopped 10/01). Fevers resolved. WBC up and down and currently elevated at 13.4K. Inflammatory markers better. Stopped broad spectrum abx 10/05 , continue albuterol nebulizer treatments and Pulmicort Respules. Continue supportive care (3) Electrolyte abnormality: Code(s): E87.8 - Other disorders of electrolyte and fluid balance, not elsewhere classified Status: Acute Assessment and Plan: Sodium low and potassium high still. Cortisol level okay. Potassium better 4.2 today . Treatment ordered. Follow closely. (4) Septicemia: Code(s): A41.9 - Sepsis, unspecified organism Status: Acute Assessment and Plan: Patient with septicemia with shock. 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 Able to weaned off Levophed 10/01. Sputum form 09/24 growing Joyce and 1 BCx from 09/25 also growing Serratia. 1 BCx 09/24 growing Morganella morganii so Cefepime restarted 09/26 and stopped 10/05. Pseudomonas from wound 09/28. Repeat BCx NGTD. Suspect bacteremia is from her coccyx wound but not sure why serratia in lung unless VAP. stopped antibiotics 10/05. Continue to follow. (5) Decubitus ulcer of coccyx: Qualifiers: Pressure injury stage: unspecified pressure injury stage Qualified Code(s): L89.159 - Pressure ulcer of sacral region, unspecified stage Code(s): L89.159 - Pressure ulcer of sacral region, unspecified stage Status: Acute Assessment and Plan: Patient with a large decubitus ulcer present on admission. Will need debridement once more stable. Continue current wound care. Has a specialty bed. (6) Congestive heart failure: Qualifiers: Heart failure chronicity: acute on chronic Heart failure type: diastolic Qualified Code(s): I50.33 - Acute on chronic diastolic (congestive) heart failure Code(s): I50.9 - Heart failure, unspecified Status: Acute Assessment and Plan: Concern for diastolic CHF with CXR findings and BNP 1340 but no clinical evidence of fluid overload. Echo 09/16 showing EF 50-55% with poorly visualized LV; small to moderate pericardial effusion. Patient takes Lasix 80mg d
[2020-10-10 17:47] LABS: Glucose Point of Care 346 (65-105)
[2020-10-11] VITALS (16 sets, daily range): BP systolic 114–176; BP diastolic 66–92; PULSE 79–104; RESP 13–44; TEMP 36.7–38.5; O2SAT 93–97
[2020-10-11] MEDS: INSULIN ASPART (*BKC) 100 UNITS/ML SUB-Q ×3 (00:06→11:49)
[2020-10-11 01:06] LABS: Glucose Point of Care 337 (65-105)
[2020-10-11] MEDS: ALBUTEROL SULFATE NEB 2.5 MG/0.5 ML INH INHALATION ×3 (02:08→08:34)
[2020-10-11 04:15] LABS: Hematocrit 31.5 % (37.0-47.0); Mean Corpuscular HGB Conc 28.6 g/dl (32-36); Mean Corpuscular Hemoglobin 27.9 pg (26-34); Mean Corpuscular Volume 97.5 fl (80-100); Mean Platelet Volume 9.7 fl (7.4-10.4); Platelet Count Result 351 k/mm3 (150-375); Red Blood Count 3.23 M/mm3 (4.2-5.4); Red Cell Distribution Width 21.1 % (11.5-14.5); White Blood Count 13.8 K/mm3 (4.5-10.0)
[2020-10-11 04:31] LABS: Alanine Aminotransferase 24 U/L (4-35); Alkaline Phosphatase 151 U/L (38-126); Anion Gap 1 mmol/L (8-16); Aspartate Amino Transferase 38 U/L (14-36); Bilirubin,Total 0.5 mg/dL (0.2-1.3); Blood Urea Nitrogen 61 mg/dL (7-17); Calcium 9.5 mg/dL (8.4-10.2); Carbon Dioxide 39 mmol/L (22-30); Chloride 103 mmol/L (98-107); Estimated CRCL calculation 79 ml/min; Estimated Glomerular Filt Rate 52; Glucose 319 mg/dL (65-105); Magnesium 2.7 mg/dL (1.6-2.3); Potassium 4.5 mmol/L (3.4-5.0); Sodium 143 mmol/L (137-145)
[2020-10-11 04:35] LABS: Alveolar/Arterial O2 Gradient 126.4 mmHg; Base Excess ABG 6.8 mEq/l (+/-2.0); Carboxyhemoglobin 0.5 % THb (0-2.0); Fractional Inspired Oxygen 35 %; HCO3 ABG 32.8 mEq/l (22.0-26.0); Methemoglobin ABG 0.2 %THb (0-1.5); Modified Allen's Test Pass; Oxygen Content ABG 12.9 %vol (16.0-22.0); Oxygen Saturation ABG 90.3 % (95.0-100.0); Oxyhemoglobin 90.3 % THb (90.0-100.0); PCO2 ABG 54.6 mmHg (35.0-45.0); PO2 ABG 59.7 mmHg (80.0-100.0); PO2 FiO2 Ratio Arterial Blood 1.71 %; Site Drawn LEFT RADIAL; Total Hemoglobin 10.1 g/dL (12.0-18.0); pH ABG 7.396 (7.350-7.450)
[2020-10-11 04:36] LABS: Arterial Blood Gas PEEP 5 cmH2O; Arterial Blood Gas Vent Mode ASV; Device VENTILATOR
[2020-10-11 04:37] LABS: Arterial Blood Gas Minute Volume 7 LPM
[2020-10-11] MEDS: CENTRAL LINE FLUSH 10 ML IV PUSH (06:30)
[2020-10-11] MEDS: LEVOTHYROXINE SODIUM 100 MCG TABLET PO (06:31)
[2020-10-11] MEDS: LEVOTHYROXINE SODIUM 125 MCG TABLET PO (06:31)
[2020-10-11 06:54] LABS: Glucose Point of Care 297 (65-105)
--- NOTE | 2020-10-11 07:45 | WPDINTPN ---
Progress Note: A&P Assessment and Plan (1) Chronic respiratory failure with hypoxia and hypercapnia: Code(s): J96.11 - Chronic respiratory failure with hypoxia; J96.12 - Chronic respiratory failure with hypercapnia Status: Acute Assessment and Plan: Tracheostomy was placed 09/07/2020. CXR shows No significant change in diffuse bilateral lung disease which could represent moderate pulmonary edema, pneumonia, ARDS or some combination thereof. Continue ASV mode ventilation Patient is ready to be placed at an LTAC facility and awaits bed assignment (2) Sepsis: Qualifiers: Sepsis type: sepsis due to unspecified organism Sepsis acute organ dysfunction status: with acute organ dysfunction Severe sepsis acute organ dysfunction type: acute respiratory failure Acute respiratory failure type: with hypoxia Severe sepsis shock status: with septic shock Qualified Code(s): A41.9 - Sepsis, unspecified organism; R65.21 - Severe sepsis with septic shock; J96.01 - Acute respiratory failure with hypoxia Code(s): A41.9 - Sepsis, unspecified organism Status: Acute Assessment and Plan: Severe sepsis because of urine tract infection, bacteremia and wound infection at the decubitus ulcer - Sputum from 09/24 grew Serratia marcescens and morganella sensitive to cefepime - Culture from the coccyx wound is growing Pseudomonas aeruginosa, pansensitive. - Repeat blood culture 10/02 no growth x2 -status post 7 days of levofloxacin treatment which ended on 10/06/2020 -afebrile and white cell count is improving (3) Congestive heart failure: Qualifiers: Heart failure chronicity: acute on chronic Heart failure type: diastolic Qualified Code(s): I50.33 - Acute on chronic diastolic (congestive) heart failure Code(s): I50.9 - Heart failure, unspecified Status: Acute Assessment and Plan: Patient being diuresed with Diamox as she has contraction alkalosis (4) Decubitus ulcer of coccyx: Qualifiers: Pressure injury stage: unspecified pressure injury stage Qualified Code(s): L89.159 - Pressure ulcer of sacral region, unspecified stage Code(s): L89.159 - Pressure ulcer of sacral region, unspecified stage Status: Acute Assessment and Plan: Local wound care as per nursing. Cultures from the wound is growing Pseudomonas aeruginosa, pansensitive. Status post 7 days of levofloxacin per infectious disease (5) Atrial fibrillation: Qualifiers: Atrial fibrillation type: unspecified chronic Qualified Code(s): I48.20 - Chronic atrial fibrillation, unspecified Code(s): I48.91 - Unspecified atrial fibrillation Status: Chronic Assessment and Plan: Currently patient is normal. Pradaxa has been on hold because of GI bleeding. -will require to restart Pradaxa at some point. -start aspirin (6) COVID-19: Code(s): U07.1 - COVID-19 Status: Acute Assessment and Plan: Completed dexamethasone and remdisivir. Received convalescent plasma on 09/18. (7) DM2 (diabetes mellitus, type 2): Qualifiers: Diabetes mellitus longterm insulin use: without continuous churn buttermaker use Diabetes mellitus complication status: with hyperglycemia Qualified Code(s): E11.65 - Type 2 diabetes mellitus with hyperglycemia Code(s): E11.9 - Type 2 diabetes mellitus without complications Status: Chronic Assessment and Plan: Patient hyperglycemic, continue sliding scale insulin Accu-Cheks -cincrease Levemir Additional Plan DVT prophylaxis with subcu Lovenox. GI prophylaxis with pantoprazole Code status: Full code Critical care time spent: 33 minutes Due to a high probability of clinically significant, life threatening deterioration, the patient required my highest level of preparedness to intervene emergently and I personally spent this critical care time directly and personally managing the patient. This critica
[2020-10-11 08:54] LABS: Glucose Point of Care 274 (65-105)
[2020-10-11] MEDS: acetaZOLAMIDE TAB 250 MG TABLET PO (08:54)
[2020-10-11] MEDS: PANTOPRAZOLE SODIUM IV 40 MG VIAL IV PUSH (08:55)
[2020-10-11] MEDS: SOD HYPOCHLORITE 1/4 STRENGTH 473 ML 1 APPLIC TOPICAL (08:55)
[2020-10-11] MEDS: ENOXAPARIN 40 MG/0.4 ML SYRINGE SUB-Q (08:55)
[2020-10-11] MEDS: TOLNAFTATE 1% POWDER 45 GM BTL 1 APPLIC TOPICAL (08:56)
[2020-10-11] MEDS: INSULIN DETEMIR 100 UNITS/ML 15 UNITS SUB-Q (08:56)
[2020-10-11] MEDS: LORazepam INJ (*CRX) 2 MG/ML VIAL IV PUSH ×2 (09:06→10:02)
[2020-10-11] MEDS: hydrALAZINE HCL 20 MG/ML VIAL 10 MG IV PUSH (09:08)
[2020-10-11] MEDS: INSULIN DETEMIR 100 UNITS/ML 10 UNITS SUB-Q (10:03)
--- NOTE | 2020-10-11 11:36 | PCDIET ---
ICU Rounding Note: Patient tolerating Glucerna 1.2 at 60mL/hr goal rate with 30mL water flush every 4 hours. Continues on Pro-Stat flush TID to promote healing. Plan for transfer to LTAC discussed. Last recorded weight is 167.1kg which is down from last review. +I/O. Bowel Motility: +BM today. Labs Reviewed: Hgb (9.0), Hct (31.5), Glu (319), BUN (61), Cr (1.1), Alb (3.0) Meds Noted: Albuterol, Hydralazine, Synthroid, Pulmicort, Novolog, Levemir, Protonix Additional Notes: Left ear scab; bilateral buttocks macerated; right upper lip scab; coccyx ulcer; right medial ear scab. Following daily in ICU rounds. Assessing/reassessing every Sunday/Sunday.
[2020-10-11] MEDS: ACETAMINOPHEN 325 MG TABLET 650 MG PO (11:48)
[2020-10-11] MEDS: ASPIRIN 325 MG TABLET PO (11:48)
[2020-10-11 12:08] LABS: Glucose Point of Care 341 (65-105)
--- NOTE | 2020-10-11 12:18 | PM.TDS ---
Transfer Discharge Sum: Prov Provider Date of admission: 09/14/20 16:28 Primary care physician: Tahmina Coyle MD Admitting clinician: Kirill Hdz MD Consults: 09/15/20 09:29 Consult to Physician Routine Comment: Consulting Provider: Clare Huber call center dispatcher/MD group to consult: pulmonary message left on voicemail Reason for consultation: resp failure Has provider been notified: Yes 09/16/20 Wound/ET Consult Routine Reason for Consult:: Tunneling ulceration to coccyx 09/23/20 Wound/ET Consult Routine Reason for Consult:: Sacral wound 09/24/20 Consult to Physician Routine Comment: called dr rosario for consult per dr. mccarthy Consulting Provider: John Paul Rosario call center dispatcher/MD group to consult: Dr. Mccarthy Reason for consultation: GI bleed Has provider been notified: Yes 10/05/20 Consult to Physician Routine Comment: Consulting Provider: Marco Kaur Reason for consultation: PEG tube placement Has provider been notified: No Consult to Physician Routine Comment: md notified of consult Consulting Provider: Larry Alejandra Reason for consultation: Tracheosotomy Placement Has provider been notified: Yes DS: Admitting Diagnosis Admitting Diagnosis Admitting Diagnosis: CHF acute exacerbation, COPD exacerbation DS: Discharge Diagnosis Discharge Diagnosis (1) Acute and chronic respiratory failure: Qualifiers: Respiratory failure complication: hypoxia and hypercapnia Qualified Code(s): J96.21 - Acute and chronic respiratory failure with hypoxia; J96.22 - Acute and chronic respiratory failure with hypercapnia Code(s): J96.20 - Acute and chronic respiratory failure, unspecified whether with hypoxia or hypercapnia Status: Acute Assessment and Plan: Patient is chronically on oxygen at 2 L which she increased to 4 L prior to admission. pH 7.31 with pCO2 63 on admission. She tested positive for COVID 09/14/20. [place] the reason for respiratory failure from COVID complicated by COPD, CHF, JOHNNY, and bacterail PNA. ABG worsened and BiPAP started without benefits. She was moved to ICU and intubated 09/15/20. She is at 35% FiO2 and PEEP 5. trach 10/07. PEG placed 10/06 acetazolamide for metabolic alkalosis Will need continued inpatient care due to persistent respiratory failure and COVID pneumonia For transferring to LTAC facility (2) Pneumonia due to COVID-19 virus: Code(s): U07.1 - COVID-19; J12.89 - Other viral pneumonia Status: Acute Assessment and Plan: CXR from admission showing diffuse airspace disease related to COVID PNA/ARDS. Finished 10 d of Dexamethasone and finished Remdesivir. Convalescent plasma 09/18. Broad spectrum abx were started 09/15 but stopped 09/20. Sputum form 09/24 growing Serratia and 1 BCx from 09/25 also growing Serratia. 1 BCx 09/24 growing Morganella morganii so Cefepime restarted 09/26. Suspect bacteremia is from her coccyx wound but unclear why in sputum - seeded lung and/or VAP?. Pseudomonas from wound 09/28. Levaquin and Vanco added 09/30 (Vanco stopped 10/01). Fevers resolved. WBC up and down and currently elevated at 13.5K. Inflammatory markers better. Stopped broad spectrum abx 10/05 after 7 days of levofloxacin. , continue albuterol nebulizer treatments and Pulmicort Respules. Continue supportive care (3) Electrolyte abnormality: Code(s): E87.8 - Other disorders of electrolyte and fluid balance, not elsewhere classified Status: Acute Assessment and Plan: Sodium low and potassium high still. Cortisol level okay. Potassium better 4.5 today . Treatment ordered. Follow closely. (4) Septicemia: Code(s): A41.9 - Sepsis, unspecified organism Status: Acute Assessment and Plan: Patient with septicemia with shock. 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 Able to weaned o
== END 2020-10-11 13:20 | DRG 4 ==
LOC: ANHED 16:22 → ANHICU 09-17 10:13 → ANHIMU 10-12 10:48
PROVIDERS: Emergency Medicine; Family Medicine; Internal Medicine; Internal Medicine Critical Care Medicine; Internal Medicine Gastroenterology; Nurse Practitioner; Otolaryngology; Admitting Provider Internal Medicine; Emergency Provider Emergency Medicine; PCP Family Medicine; Visit Provider Internal Medicine
PROC: 0DH63UZ Insertion of Feeding Device into Stomach, Percutaneous Approach (ICD-10-PCS; CPT 43246; principal; 2020-10-06 11:00)
PROC: 0B110F4 Bypass Trachea to Cutaneous with Tracheostomy Device, Open Approach (ICD-10-PCS; principal; 2020-10-07 14:45)
DX: A41.89 Other specified sepsis (principal); U07.1 COVID-19; J12.89 Other viral pneumonia; I50.33 Acute on chronic diastolic (congestive) heart failure; J96.21 Acute and chronic respiratory failure with hypoxia; J96.22 Acute and chronic respiratory failure with hypercapnia; J15.6 Pneumonia due to other Gram-negative bacteria; R65.21 Severe sepsis with septic shock; I48.20 Chronic atrial fibrillation, unspecified; I48.92 Unspecified atrial flutter; Z68.44 Body mass index [BMI] 60.0-69.9, adult; K92.1 Melena; Z99.11 Dependence on respirator [ventilator] status; B96.5 Pseudomonas (aeruginosa) (mallei) (pseudomallei) as the cause of diseases classified elsewhere; E11.65 Type 2 diabetes mellitus with hyperglycemia; E11.42 Type 2 diabetes mellitus with diabetic polyneuropathy; B96.89 Other specified bacterial agents as the cause of diseases classified elsewhere; E03.9 Hypothyroidism, unspecified; G47.33 Obstructive sleep apnea (adult) (pediatric); L89.159 Pressure ulcer of sacral region, unspecified stage; E78.5 Hyperlipidemia, unspecified; I11.0 Hypertensive heart disease with heart failure; E66.01 Morbid (severe) obesity due to excess calories; L40.9 Psoriasis, unspecified; J43.9 Emphysema, unspecified; R00.1 Bradycardia, unspecified; K59.00 Constipation, unspecified; E86.0 Dehydration; Z99.81 Dependence on supplemental oxygen; Z90.49 Acquired absence of other specified parts of digestive tract; Z85.41 Personal history of malignant neoplasm of cervix uteri
CPT/HCPCS: 31500; 36415; 36430; 36569; 36600; 43246; 71045; 74018; 80048; 80053; 80069; 80076; 80202; 81001; 82306; 82375; 82533; 82565; 82728; 82805; 83036; 83050; 83605; 83615; 83690; 83735; 83880; 84100; 84132; 84443; 84484; 85014; 85018; 85025; 85027; 85380; 85610; 85730; 86140; 86850; 86900; 86901; 87040; 87070; 87077; 87081; 87086; 87186; 87205; 87635; 87804; 93005; 93306; 94002; 94003; 94640; 96374; 99285; A9270; C1751; C9113; C9803; J0360; J0461; J0690; J0692; J1100; J1170; J1265; J1650; J1815; J1940; J1956; J2060; J2250; J2543; J2704; J2930; J2997; J3010; J3370; J3480; J7040; J7050; J7070; P9047; P9059; U0003